=== PATIENT | male | born 1935 | race Caucasian/White ===

== ENCOUNTER → 2019-06-05 00:01 | Outpatient (BNVA) | payer MEDICARE, OTHER, SELFPAY | PROVIDERS: PCP Nurse Practitioner Family; Visit Provider Nurse Practitioner Family | DX: J44.1 Chronic obstructive pulmonary disease with (acute) exacerbation (principal) | CPT/HCPCS: 71046; 81003; 85025 ==

== ENCOUNTER 2019-07-10 12:58 | Emergency (ER) | payer MEDICARE, OTHER, SELFPAY ==
[2019-07-10] VITALS (43 sets, daily range): BP systolic 139–162; BP diastolic 73–109; PULSE 59–107; RESP 7–26; TEMP 36.8; O2SAT 91–100; BMI 24.3
--- NOTE | 2019-07-10 13:14 | ED_ITS ---
Entered by Juancarlos Vicente, acting as scribe for HPI - Abdominal Pain General: Chief Complaint: Abdominal Pain Stated Complaint: ABDOMINAL PAIN,HX ABD AORTIC STENT Time Seen by Provider: 07/10/19 13:16 History of Present Illness: HPI narrative: 84 yo male presents with abd pain. Pt states that he had been constipated for a few days, he had a bowel movement today. Pt states that he noticed pain after he had the bowel movement, after the bowel movement is not was able to eat or drink anything is not had any further bowel movements denies hematochezia melena hematemesis coffee-ground emesis has had a bulging on the right groin MD elicited complaint: abdominal pain Pertinent past history: other Onset (ago): minute(s) Pain Consistency: constant Location: Diffuse Severity: moderate Quality: cramping Associated Symptoms: Denies chills, coffee ground emesis, constipation, GI cramping, diarrhea, dysuria, fever(s), heartburn, hematochezia, hematuria, hematemesis, melena, nausea, syncope and vomiting Review of Systems Const: Denies: fever, chills, body aches, fatigue, malaise or night sweats Eyes: Denies: change in vision or blurry vision ENMT: Denies: throat pain, oral sores/lesions, dental pain, nasal discharge or nasal congestion Card: Denies: chest pain, palpitations, irregular heart rhythm, edema, syncope, shortness of breath on exertion, shortness of breath when lying down or leg pain with exertion Resp: Denies: shortness of breath, productive cough, non-productive cough or wheezing GI: Reports: abdominal pain; Denies: nausea, vomiting, vomiting blood, coffee grounds in vomit, difficulty swallowing, heartburn/indigestion, diarrhea, constipation, cramping, blood in stool or black tarry stool : Denies: flank pain, difficulty urinating, painful urination, urinary frequency, urinary urgency, urinary incontinence or blood in urine Musc: Denies: neck pain, back pain, extremity pain, extremity swelling, joint pain or joint swelling Skin/Breast: Denies: rash, itching or redness Neuro: Denies: headache, numbness in extremities, weakness in extremities, changes in sensation, lack of coordination, difficulty walking, frequent falls, dizziness, vertigo or confusion Psych: Denies: anxiety, depression, loss of interest, visual hallucinations, auditory hallucinations, suicidal ideation or homicidal ideation Endo: Denies: excessive urination, excessive thirst, tired all the time or cold intolerance Scotty/Lymph: Denies: easy bruising, easy bleeding, petechiae, enlarged lymph nodes or tender lymph nodes PFSH ED PFSH: Statuses (acute, chronic, etc) shown below reflect problem list status as previously entered and may not be historically accurate Medical History (Updated 07/10/19 @ 17:09 by Gregorio Napier DO) Anemia (Acute) Aneurysm of infrarenal abdominal aorta (Acute) Chronic episodic atrial fibrillation (Acute) Chronic GERD (Acute) Chronic lymphocytic 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 (Acute) COPD (chronic obstructive pulmonary disease) (Acute) Dermatomyositis (Acute) Diverticulitis (Acute) Hiatal hernia (Acute) History of adenomatous polyp of colon (Acute) History of pulmonary embolism (Acute) Hypertension (Acute) Iron refractory iron deficiency anemia (Acute) Mixed hyperlipidemia (Acute) Osteopenia (Acute) Polymyalgia rheumatica (Acute) Statin intolerance (Acute) Upper GI bleed (Acute) Surgical History History of aortic aneurysm repair (Acute) Family History Mother Cancer Brother Hypertension Social History Smoking and tobacco status: current every day smoker Lives independently: Yes Household members: spouse Marital status: Physical Exam Const: COMMON NORMALS: average body habitus, oriented x3 and alert GENERAL APPEARANCE: cooperative, comfortable, well kempt and well developed NUTRITIONAL APPEARANCE: obese ORIENTATION/CONSCIOUSNESS: Yes awake, Yes oriented to person and Yes oriented to place HENMT: COMMON NORMALS: normocephalic, head/scalp atraumatic, EAC's normal, TM's normal bilaterally, external nose normal, moist oral mucous membranes and oropharynx normal HEAD & SCALP: normocephalic and atraumatic NOSE: external nose normal EXTERNAL AUDITORY CANAL: EAC's normal TYMPANIC MEMBRANE: TM's normal bilaterally MOUTH: oral and palatal mucosa normal, lip normal and tongue normal THROAT: posterior oropharynx normal and tonsils normal Eye: COMMON NORMALS: PERRL, EOMs intact bilaterally, conjunctivae normal and no scleral icterus CONJUNCTIVA: Yes conjunctivae normal PUPIL: Yes PERRL Neck/C-Spine: COMMON NORMALS: full ROM, no lymphadenopathy, supple, no meningeal signs and thyroid normal THYROID: thyroid normal and asymmetrical Lymph: LYMPHATIC: no lymphadenopathy noted Resp: COMMON NORMALS: normal respiratory effort, no retractions, no use of accessory muscles and clear to auscultation bilaterally AUSCULTATION: clear to auscultation bilaterally Cardio: COMMON NORMALS: regular rate and regular rhythm RATE: regular rate RHYTHM: regular rhythm HEART SOUNDS: no murmurs GI: COMMON NORMALS: normal to inspection, nondistended, normoactive bowel sounds, soft to palpation and no hepatosplenomegaly PALPATION: Yes soft and Yes no hepatosplenomegaly : COMMON NORMALS: Yes no CVA tenderness BLADDER/KIDNEY EXAM: Yes no CVA tenderness Back/Pelvis: COMMON NORMALS: no CVA tenderness LUMBAR SPINE/LOWER BACK: Yes normal to inspection Extremity: COMMON NORMALS: no clubbing, cyanosis or edema, no calf tenderness and no pedal edema Neuro: COMMON NORMALS: oriented x3 SENSORIUM/ORIENTATION: Yes alert, Yes oriented to person and Yes oriented to place MENINGEAL SIGNS: Yes no meningeal signs Psych: APPEARANCE: Yes well kempt Skin: COMMON NORMALS: no rashes or lesions noted and skin turgor normal GENERAL SKIN EXAM: no rashes or lesions noted and turgor normal Course ED course: After reduction of the hernia patient is feeling much better his abdominal pain resolved there was some slight colon swelling on the CT discussed Dr. Blackmon he does not feel be safe to proceed with the surgery now we will have her follow-up with Dr. Blackmon next week discussed with the patient this hernia could recur reviewed with him how to reduce it again if it is not reducible or becomes too painful return to the ER Vital Signs: Vital signs: Vital Signs Temperature 98.3 F 07/10/19 13:02 Pulse Rate 98 07/10/19 16:35 Respiratory Rate 21 H 07/10/19 16:35 Blood Pressure 161/92 07/10/19 16:40 Pulse Oximetry 100 07/10/19 15:30 MDM - Abdominal Pain Lab Data: Labs: Lab Results 07/10/19 07/10/19 07/10/19 Range/Units 13:55 13:55 13:55 WBC 42.1 H* (4.0-10.0) 10^3/ uL RBC 4.04 L (4.1-5.3) 10^6/u L Hgb 10.5 L (11.7-16.6) g/dL Hct 34.3 L (42.0-52.0) % MCV 84.9 (80-94) fL MCH 26.0 L (28.0-34.0) pg MCHC 30.6 (30.0-36.0) g/dL RDW 15.4 H (12.1-15.1) % Plt Count 99 L (130-400) 10^3/c mm MPV 8.9 (7.4-10.4) fL Neut % (Auto) 7.9 % Lymph % (Auto) 90.1 % Durham % (Auto) 1.2 % Eos % (Auto) 0.4 % Baso % (Auto) 0.2 % Neut # (Auto) 3.4 (1.8-7.7) 10^3/u L Lymph # (Auto) 37.9 H (0.8-4.8) 10^3/u L Durham # (Auto) 0.5 (0.2-0.9) 10^3/u L Eos # (Auto) 0.2 (0.0-0.8) 10^3/u L Baso # (Auto) 0.1 (0.0-0.1) 10^3/u L Nucleated RBC % (a uto) 0 % Nucleated RBCs # 0.0 /100WBC Sodium 138 (136-145) mmol/L Potassium 4.2 (3.5-5.1) mmol/L Chloride 98 (98-107) mmol/L Carbon Dioxide 33 H (22-29) mmol/L Anion Gap 11.2 (5-19) BUN 15 (8-23) mg/dL Creatinine 1.2 (0.7-1.2) mg/dL Glucose 115 (65-115) mg/dL Lactate 0.7 (0.5-2.2) mmol/L Calcium 9.9 (8.5-10.5) mg/dL Phosphorus 3.3 (2.5-4.5) mg/dL Magnesium 2.5 H (1.7-2.3) mg/dL Total Bilirubin 0.3 (0.15-1.2) mg/dL AST 16 (0-40) U/L ALT 7 (0-41) U/L Alkaline Phosphata se 107 (40-130) IU/L Creatine Kinase 21 L (39-308) U/L NT-Pro-B Natriuret Pep 1964 H (0-450) pg/mL Total Protein 6.7 (6.6-8.7) g/dL Albumin 4.2 (3.5-5.2) g/dL Globulin 2.5 (1.3-4.6) g/dL Lipase 7 L (13-60) U/L TSH 2.85 (0.27-4.20) uIU/ mL Urine Color (Yellow) Urine Appearance (CLEAR) Urine pH (5-7) Ur Specific Gravit y (1.005-1.030) Urine Protein (Negative) Urine Glucose (UA) (Normal) Urine Ketones (Negative) Urine Occult Blood (Negative) Urine Nitrate (Negative) Urine Bilirubin (NEGATIVE) Prot Sulfosalicyli c Acd Urine Urobilinogen (Negative) mg/dL Ur Leukocyte Meche ase (Negative) 07/10/19 Range/Units 14:06 WBC (4.0-10.0) 10^3/ uL RBC (4.1-5.3) 10^6/u L Hgb (11.7-16.6) g/dL Hct (42.0-52.0) % MCV (80-94) fL MCH (28.0-34.0) pg MCHC (30.0-36.0) g/dL RDW (12.1-15.1) % Plt Count (130-400) 10^3/c mm MPV (7.4-10.4) fL Neut % (Auto) % Lymph % (Auto) % Durham % (Auto) % Eos % (Auto) % Baso % (Auto) % Neut # (Auto) (1.8-7.7) 10^3/u L Lymph # (Auto) (0.8-4.8) 10^3/u L Durham # (Auto) (0.2-0.9) 10^3/u L Eos # (Auto) (0.0-0.8) 10^3/u L Baso # (Auto) (0.0-0.1) 10^3/u L Nucleated RBC % (a uto) % Nucleated RBCs # /100WBC Sodium (136-145) mmol/L Potassium (3.5-5.1) mmol/L Chloride (98-107) mmol/L Carbon Dioxide (22-29) mmol/L Anion Gap (5-19) BUN (8-23) mg/dL Creatinine (0.7-1.2) mg/dL Glucose (65-115) mg/dL Lactate (0.5-2.2) mmol/L Calcium (8.5-10.5) mg/dL Phosphorus (2.5-4.5) mg/dL Magnesium (1.7-2.3) mg/dL Total Bilirubin (0.15-1.2) mg/dL AST (0-40) U/L ALT (0-41) U/L Alkaline Phosphata se (40-130) IU/L Creatine Kinase (39-308) U/L NT-Pro-B Natriuret Pep (0-450) pg/mL Total Protein (6.6-8.7) g/dL Albumin (3.5-5.2) g/dL Globulin (1.3-4.6) g/dL Lipase (13-60) U/L TSH (0.27-4.20) uIU/ mL Urine Color Yellow (Yellow) Urine Appearance Clear (CLEAR) Urine pH 8 H (5-7) Ur Specific Gravit y 1.005 (1.005-1.030) Urine Protein Neg (Negative) Urine Glucose (UA) Norm (Normal) Urine Ketones Negative (Negative) Urine Occult Blood Neg (Negative) Urine Nitrate Negative (Negative) Urine Bilirubin Neg (NEGATIVE) Prot Sulfosalicyli c Acd Negative Urine Urobilinogen Norm (Negative) mg/dL Ur Leukocyte Meche ase Negative (Negative) Discharge Plan Discharge Patient Disposition: Home, Self-Care Clinical Impression: Hernia, inguinal, right, Incarcerated hernia, Chronic lymphocytic leukemia Condition: Stable Prescriptions: No Action albuterol sulfate 2.5 mg /3 mL (0.083 %) solution for nebulization 2.5 mg INHALATION QID RF: 0 sotalol 80 mg tablet 80 mg PO BID RF: 0 prednisone 2.5 mg tablet 2.5 mg PO DAILY RF: 0 lorazepam 0.5 mg tablet 0.5 mg PO TID PRNRF: 0 hydrochlorothiazide 25 mg tablet 25 mg PO QAM RF: 0 magnesium oxide 400 mg magnesium tablet 400 mg PO DAILY RF: 0 tramadol 50 mg tablet 50 mg PO BID PRNRF: 0 alfuzosin 10 mg tablet extended release 24 hr 10 mg PO DAILY RF: 0 pantoprazole 40 mg tablet,delayed release (DR/EC) 40 mg PO QAM RF: 0 sucralfate [Carafate] 100 mg/mL suspension 10 ml PO BID RF: 0 simvastatin 20 mg tablet 20 mg PO DAILY RF: 0 polyethylene glycol 3350 [Miralax] 17 gram powder in packet 17 gm PO DAILY RF: 0 meclizine 12.5 mg tablet See Rx Instructions PO .COMPLEX RF: 0 fluconazole [Diflucan] 150 mg tablet 150 mg PO Q3D Qty: 2 RF: 0 Discharge Orders: Discharge Order (Routine); Ordered 07/10/19 Ordered By: Gregorio Napier Referrals: Herman Blackmon MD [Physician] - (Repair of right inguinal hernia) Discharge Diet: Full LIquid Discharge Activity: Limit activity as instructed Activity Restrictions/Additional Instructions: No lifting greater than 10 pounds. Generalized rest. Case management will call with an appointment with general surgery for repair of your hernia Coding Level of Care Code ED Buoy Tender for g Fwd Exam Problem Focused The documentation recorded by the Jules calderon Kialy, accurately reflects the service I personally performed and the decisions made by Quyen hope Curtis L, DO Jul 10, 2019 12:58
[2019-07-10] MEDS: sodium chloride 0.9% 500 ML IV (13:30)
--- NOTE | 2019-07-10 13:33 | CTR_ITS ---
PROCEDURE INFORMATION: Exam: CT Abdomen And Pelvis With Contrast Exam date and time: 07/10/2019 3:00 PM Age: 84 years old Clinical indication: Abdominal pain; Acute; Prior surgery; Surgery date: 6+ months; Surgery type: Aaa choley; Additional info: Abd pain TECHNIQUE: Imaging protocol: Computed tomography of the abdomen and pelvis with intravenous contrast. Total DLP: 605.28 mGy-cm Radiation optimization: All CT scans at this facility use at least one of these dose optimization techniques: automated exposure control; mA and/or kV adjustment per patient size (includes targeted exams where dose is matched to clinical indication); or iterative reconstruction. Contrast material: OMNI; Contrast volume: 95 ml; Contrast route: IV; COMPARISON: CT abdomen pelvis w con* [id number] 01/16/2019 12:32 PM FINDINGS: Lungs: Nonspecific bibasilar consolidation is present, consistent with atelectasis, edema, or pneumonia. There is also peribronchial thickening with some bronchiectasis and mild mucous plugging in both lower lobes. Liver: Unchanged liver lesions are noted. The largest is in the left hepatic lobe image 11 measuring 2.7 by 1.8 cm in size. This has fluid density Hounsfield unit measurements and is a probable cyst. Additional hypodense lesion in the posterior right lobe of the liver image 25 measures 1.5 by 1.4 cm in size and Hounsfield unit measurement is indeterminate at 55. Additional tiny hepatic hypodensities are too small to characterize but unchanged in size. Gallbladder and bile ducts: Click cholecystectomy mild intrahepatic biliary duct dilatation is unchanged and may reflect postoperative reservoir changes. Pancreas: Normal. No ductal dilation. Spleen: Unchanged splenomegaly and splenic granulomata. Adrenals: Normal. No mass. Kidneys and ureters: There is no evidence of hydronephrosis. There is no evidence of renal calcifications. There is an unchanged 4.1 cm fluid density cyst upper pole left kidney. Additional 1.7 cm fluid density cyst posterior lower pole right kidney is noted. No new or enlarging renal lesions. Additional smaller and subcentimeter renal cortical hypodensities are unchanged. Stomach and bowel: The right inguinal hernia is larger. There is more fat and a longer segment of bowel within the hernia. No bowel obstruction but there is fluid within the hernia and mild induration of the fat concerning for early incarceration of the loop of bowel or fat within the hernia. Extensive diverticulosis is present in the distal colon. The wall of the ascending and transverse colon appears mildly thickened but the segment of bowel is also collapsed and this may simply be lack of distension. Mild colitis cannot be excluded. No diverticulitis is identified. No ileus or obstruction. No dilated or thickened loops of small bowel. Appendix: A normal appendix is identified. Intraperitoneal space: Unremarkable. No free air. No significant fluid collection. Vasculature: The aortic endograft is again identified. No endoleak is identified on this exam. No retroperitoneal fluid. The aneurysm sac measures 5.3 x 5.0 cm image 42. On the prior exam, the sac measured 5.1 x 4.7 cm. The endo graft and aneurysm is otherwise unchanged in appearance. Lymph nodes: Multiple retroperitoneal lymph nodes are unchanged in appearance compared to the prior exam as are multiple lymph nodes in the jah hepatis/upper abdomen with the largest on image 18 measuring 1.9 by 2.6 cm today decrease in the prior exam where measured 2.3 x 3.2 cm. Additional lymph nodes in the jah hepatis are slightly smaller. Retroperitoneal lymph nodes have not changed significantly in appearance. External iliac chain lymph nodes are also identified with 1 the largest along the right pelvic sidewall image 68 is slightly larger today measuring 2.2 x 5.6 cm compared to 2.0 x 5.1 cm previously. Numerous inguinal lymph nodes are identified measuring up to 1 cm in short axis today compared 8 mm previously. Bladder: There is nonspecific bladder wall thickening. This may be related to incomplete distention. Reproductive: The prostate demonstrates moderate nonspecific enlargement. The seminal vesicles are normal. The prostate demonstrates nonspecific parenchymal calcifications. Bones/joints: Osteopenia and severe degenerative changes in the right hip and moderate to severe degenerative changes in the spine and the remainder of the pelvis are noted. No acute fracture. Soft tissues: There is a tiny fat filled umbilical hernia. Other findings: There are moderate emphysematous changes. CT/CT abdomen pelvis w con* [id number] IMPRESSION: 1. Nonspecific bibasilar consolidation is present, consistent with atelectasis, edema, or pneumonia. 2. Mild bronchiectasis and mucous plugging as above. 3. Endograft within the distal abdominal aortic aneurysm. The measurement of the aneurysm sac is slightly larger but no endoleak is identified. No retroperitoneal fluid. 4. Improved size of adenopathy in the upper abdomen. Stable retroperitoneal adenopathy. Increasing adenopathy in the pelvis and right groin. 5. Larger right inguinal hernia. No obstruction of the longer segment of bowel within the hernia but there is adjacent fluid and mild induration of fat concerning for early incarceration of the hernia. 6. Unchanged liver cyst and indeterminate lesion in the posterior right lobe of the liver. 7. Mild colitis versus lack of distension ascending and transverse colon. Radiation Dose CTDIVOL = (mGy): DLP = 605.28 (mGy-cm)
[2019-07-10 14:06] LABS: Basophils # 0.1 10^3/uL (0.0-0.1); Basophils % 0.2 %; Eosinophils # 0.2 10^3/uL (0.0-0.8); Eosinophils % 0.4 %; Hematocrit 34.3 % (42.0-52.0); Hemoglobin 10.5 g/dL (11.7-16.6); Lymphocytes # 37.9 10^3/uL (0.8-4.8); Lymphocytes % 90.1 %; Mean Corpuscular HGB Conc 30.6 g/dL (30.0-36.0); Mean Corpuscular Volume 84.9 fL (80-94); Mean Platelet Volume 8.9 fL (7.4-10.4); Monocytes # 0.5 10^3/uL (0.2-0.9); Monocytes % 1.2 %; Neutrophils # 3.4 10^3/uL (1.8-7.7); Neutrophils % 7.9 %; Nucleated Red Blood Cells % 0 %; Platelet Count 99 10^3/cmm (130-400); Red Blood Count 4.04 10^6/uL (4.1-5.3); Red Cell Distribution Width 15.4 % (12.1-15.1)
[2019-07-10 14:25] LABS: Lactate (Lactic Acid level) 0.7 mmol/L (0.5-2.2)
[2019-07-10 14:27] LABS: Add Urine Microscopic? NO
--- NOTE | 2019-07-10 14:28 | PC.NURSE ---
Attempted to ambulate patient , alida tis confused and says ok but continues to try to get up by himself and pulling on lines, Dr. maloney.
[2019-07-10 14:36] LABS: Alanine Aminotransferase 7 U/L (0-41); Albumin Level 4.2 g/dL (3.5-5.2); Alkaline Phosphatase 107 IU/L (40-130); Anion Gap 11.2 (5-19); Aspartate Amino Transferase 16 U/L (0-40); Blood Urea Nitrogen 15 mg/dL (8-23); Calcium 9.9 mg/dL (8.5-10.5); Carbon Dioxide 33 mmol/L (22-29); Chloride 98 mmol/L (98-107); Creatine Phosphokinase 21 U/L (39-308); Globulin 2.5 g/dL (1.3-4.6); Glucose 115 mg/dL (65-115); Lipase 7 U/L (13-60); Magnesium 2.5 mg/dL (1.7-2.3); NT Pro B Type Natriuretic Pept 1964 pg/mL (0-450); Phosphorus 3.3 mg/dL (2.5-4.5); Potassium 4.2 mmol/L (3.5-5.1); Sodium 138 mmol/L (136-145); Thyroid Stimulating Hormone 2.85 uIU/mL (0.27-4.20); Total Bilirubin 0.3 mg/dL (0.15-1.2); Total Protein 6.7 g/dL (6.6-8.7)
[2019-07-10 14:43] LABS: Bilirubin Urine Neg (NEGATIVE); Blood Urine Neg (Negative); Glucose Urine UA Norm (Normal); Ketones Urine Negative (Negative); Leukocyte Esterase Urine Negative (Negative); Nitrate Urine Negative (Negative); Protein Urine Neg (Negative); Specific Gravity, Urine 1.005 (1.005-1.030); Sulfosalicylic Acid Urine Negative; Urine Appearance Clear (CLEAR); Urine Color Yellow (Yellow); Urobilinogen Urine Norm (Negative); pH Urine 8 (5-7)
[2019-07-10 14:49] LABS: Slide Review Slide Review Perform
[2019-07-10 14:52] LABS: White Blood Count 42.1 10^3/uL (4.0-10.0)
[2019-07-10] MEDS: iodixanol 320 mg/mL 100mL Btl 95 ML IV (15:14)
--- NOTE | 2019-07-13 11:16 | DCPLANNER ---
associate store manager had message to schedule a follow up appointment for patient with Dr. Blackmon. associate store manager called patient to speak with patient about a follow up appointment with Dr. Blackmon or [facility]. [facility] office would not be able to see patient until the end of July. Patient stated that he would like to see [facility]. A follow up appointment is scheduled for Saturday, July 22, 2019 at 3:[address] Squires. Patient is aware of appointment.
--- NOTE | 2019-08-04 14:36 | DCPLANNER ---
Patient did attend appointment scheduled for 07.13.19 with Grounds Cleaner.
== END 2019-07-10 17:20 | disposition home or self-care (01) ==
PROVIDERS: Emergency Provider Family Medicine
DX: K40.30 Unilateral inguinal hernia, with obstruction, without gangrene, not specified as recurrent (principal); C91.Z0 Other lymphoid leukemia not having achieved remission; I48.20 Chronic atrial fibrillation, unspecified; J44.9 Chronic obstructive pulmonary disease, unspecified; I10 Essential (primary) hypertension; E78.2 Mixed hyperlipidemia; F17.210 Nicotine dependence, cigarettes, uncomplicated; K21.9 Gastro-esophageal reflux disease without esophagitis
CPT/HCPCS: 74177; 80053; 81003; 82550; 83605; 83690; 83735; 83880; 84100; 84443; 85025; 96360; 96361; 99284; J7040; Q9967

== ENCOUNTER 2019-07-20 15:33 | Observation (INO) | payer MEDICARE, OTHER, SELFPAY ==
[2019-07-16 12:44] VITALS: BMI 24.3
--- NOTE | 2019-07-16 13:04 | ANES.PREANE2 ---
Pre-Anesthetic Assessment Pre-Anesthetic Assessment: Height/Weight: Height 1.7 m Weight 70.307 kg Preop Diagnosis: Right inguinal hernia Proposed Procedure: Operation Date: 07/20/19 08:15 Proposed Procedures p Inguinal Hernia Repair [id number] K40.90(Right) - Larry Squires MD Social: Packs per day: 1/4 Pack years: 100 Exam: Pre-Anes Outpt Exam: alert and oriented x 3 Airway: Submandibular: WNL Cervical ROM: WNL MP: 1 Dentition: False Pulmonary: Pulmonary: COPD (home 02 @ 2-4lpm x 7 years) CV/HEM: CV/HEM: Afib and Arrythmia Comments: afib x 10years stress test '18 negative -09 cath negative GI: GI: GERD Comments: bowel leakage sucralfate controls GERD Metabolic: Metabolic: Thyroid Comments: replacement x 1y Musc/skel: Musc/skel: Lower Back Pain PFSH Anesthesia PFSH: Surgical History (Updated 07/13/19 @ 16:48 by Larry Squires MD) History of aortic aneurysm repair History of colonoscopy with polypectomy Social History Smoking and tobacco status: current every day smoker Lives independently: Yes Household members: spouse Marital status: Data Anesthesia Cardiac Studies: No Data to Display
[2019-07-20] VITALS (18 sets, daily range): BP systolic 125–178; BP diastolic 68–97; PULSE 58–100; RESP 16–22; TEMP 36.6–37.3; O2SAT 63–99
[2019-07-20] MEDS: sodium chloride 0.9% 1,000 ML 30 ML IV (07:21)
[2019-07-20] MEDS: vancomycin 1,000 MG in sodium chloride 0.9% 250 ML 250 MG IV (07:24)
[2019-07-20] MEDS: midazolam 1 mg/mL INJ 2 mL 2 MG IVP (08:49)
--- NOTE | 2019-07-20 08:54 | W.PM.OPSUD ---
Surgery/Procedure H&P Update DATE OF PROCEDURE: July 20, 2019 DATE H&P PERFORMED: 07/13/19 H&P UPDATE INFORMATION: H&P completed within last 30 days and No changes to prior documentation PREOP DIAGNOSIS: Right inguinal hernia PLANNED PROCEDURE: Operation Date: 07/20/19 08:15 Proposed Procedures p Inguinal Hernia Repair [id number] K40.90(Right) - Larry Squires MD
[2019-07-20] MEDS: lidocaine 1% INJ 20 mL SUBCUT (09:49)
--- NOTE | 2019-07-20 10:10 | PM.OP ---
Operative Report Date of procedure: July 20, 2019 Pre-op Diagnosis: Right inguinal hernia Post-op Diagnosis: Direct and indirect inguinal hernia Procedure Done: Open repair of direct and indirect right inguinal hernia with plug and mesh Specimens removed/disposition: Hernia sac Surgeon: Larry Squires Anesthesia: General Estimated blood loss (mL): 10 Condition: stable Disposition: PACU Procedure: A 5 cm incision was made over the right inguinal canal using 15 blade, the subcutaneous tissue, Lindsey's fascia divided using electrocautery until the external oblique aponeurosis was identified. Using a 15 blade, a small opening was made in the external oblique aponeurosis along the length of the fibers, this was grasped with hemostats and opened using Metzenbaum scissors medially to the external ring and laterally beyond the internal ring. The contents of inguinal canal were dissected free from the wall and a Malik drain was placed around it. There was no direct hernia noted. The cremasteric muscles were divided until the sac could be dissected free from the spermatic cord and reduced into the preperitoneal space after excising the excess sac. A small plug was placed in the internal ring and sutured using 2-0 Prolene [id number] suture. A Proloop mesh was introduced and using 2-0 Prolene suture the medial edge of the mesh were sutured to the fascia overlying the pubic tubercle, and the suture was run to approximate the inferior edge of the mesh to the shelving edge of inguinal ligament to a point beyond the internal ring. Interrupted 2-0 Prolene suture was used to approximate the superior edge of the mesh to the internal oblique muscles and the 2 limbs of the mesh was sutured lateral to the internal ring and approximated to the internal oblique muscle. The wound was copiously irrigated with saline, good hemostasis noted and the external oblique aponeurosis was closed with running 2-0 Vicryl suture, Lindsey's fascia approximated using running 3-0 Vicryl suture, and skin was closed using running subcuticular 4-0 Monocryl suture and Dermabond. 20 mL of 0.5% Marcaine mixed with 1% lidocaine was infiltrated around the incision. The patient was extubated and transferred recovery room in stable condition.
[2019-07-20] MEDS: HYDROcodone-acetaminophen 5-325 mg Tablet 1 TAB PO (11:14)
[2019-07-20] MEDS: sotalol 80 mg Tablet PO ×2 (12:18→18:22)
[2019-07-20] MEDS: hydroCHLOROthiazide 25 mg Tablet 12.5 MG PO (13:33)
[2019-07-20] MEDS: docusate sodium 100 mg Capsule PO (18:21)
[2019-07-20] MEDS: pantoprazole DR 40 mg Tablet PO (18:21)
[2019-07-20] MEDS: magnesium oxide 400 mg tablet PO (18:21)
[2019-07-20] MEDS: TRAMadol 50 mg Tablet PO (18:22)
[2019-07-20] MEDS: sucralfate 1 gm/10 mL Oral Liq UDC PO (18:22)
[2019-07-20] MEDS: sodium chloride 0.9% 1,000 ML 50 ML IV (18:26)
[2019-07-20] MEDS: meclizine 25 mg tablet 50 MG PO (21:36)
[2019-07-21 03:39] VITALS: BP 152/79; PULSE 98; RESP 18; TEMP 37.4; O2SAT 94
[2019-07-21] MEDS: hydroCHLOROthiazide 25 mg Tablet 12.5 MG PO (05:14)
[2019-07-21] MEDS: meclizine 25 mg tablet PO (05:14)
[2019-07-21] MEDS: enoxaparin 40 mg/0.4 mL Syringe SUBCUT (05:15)
[2019-07-21 07:25] VITALS: BP 134/59; PULSE 73; RESP 18; TEMP 36.7; O2SAT 95
[2019-07-21] MEDS: TRAMadol 50 mg Tablet PO ×2 (07:56→17:28)
[2019-07-21] MEDS: alfuzosin 10 mg ER Tablet PO (08:03)
[2019-07-21] MEDS: magnesium oxide 400 mg tablet PO ×2 (08:04→17:26)
[2019-07-21] MEDS: docusate sodium 100 mg Capsule PO ×2 (08:04→17:26)
[2019-07-21] MEDS: predniSONE 5 mg Tablet 2.5 MG PO (08:04)
[2019-07-21] MEDS: sotalol 80 mg Tablet PO ×2 (08:04→17:27)
[2019-07-21] MEDS: sucralfate 1 gm/10 mL Oral Liq UDC PO ×2 (08:04→17:28)
[2019-07-21] MEDS: pantoprazole DR 40 mg Tablet PO ×2 (08:04→17:26)
[2019-07-21 09:42] VITALS: PULSE 75; O2SAT 98
[2019-07-21 10:50] VITALS: BP 118/52; PULSE 94; RESP 20; TEMP 36.6; O2SAT 96
--- NOTE | 2019-07-21 11:11 | P.DS_ITS ---
Discharge Providers Date of Admission: 07/20/19 15:33 Date of Discharge: July 21, 2019 Attending Provider at Admission: Larry Squires MD Attending Provider at Discharge: Larry Squires MD Primary Care Provider: Naseem Conte MD Diagnoses at Discharge Discharge Diagnosis (1) Status post right inguinal hernia repair: Status: Acute Reason for Visit Reason for Visit: Reason For Visit: Rigth inguninal hernia repair Hospital Course Discharge Summary: The patient underwent open right inguinal hernia repair with mesh. Patient is admitted overnight for pain control. At time of discharge he was tolerating a regular diet, ambulating with assistance. We will arrange for home health since he lives alone Physical Exam Narrative: EXAM NARRATIVE: Abdomen soft, nontender, nondistended Discharge Data Vitals: Last Vital Signs Temp 97.9 F 07/21/19 10:50 Pulse 94 07/21/19 10:50 Resp 20 H 07/21/19 10:50 BP 118/52 07/21/19 10:50 Pulse Ox 96 07/21/19 10:50 Discharge Plan Discharge Condition: Stable Prescriptions: [place] 5-325 mg tablet 1 tab PO Q6H 7 Days Qty: 20 RF: 0 Colace 100 mg capsule 100 mg PO BID Qty: 30 RF: 0 Continued albuterol sulfate 2.5 mg /3 mL (0.083 %) solution for nebulization 2.5 mg INHALATION BID PRN (Reason: Shortness Of Breath) RF: 0 sotalol 80 mg tablet 80 mg PO BID RF: 0 prednisone 2.5 mg tablet 2.5 mg PO DAILY RF: 0 lorazepam 0.5 mg tablet 0.5 mg PO TID PRN (Reason: Anxiety) RF: 0 hydrochlorothiazide 25 mg tablet 12.5 mg PO QAM RF: 0 magnesium oxide 400 mg magnesium tablet 400 mg PO BID RF: 0 tramadol 50 mg tablet 50 mg PO BID PRN (Reason: Pain, Mild) RF: 0 alfuzosin 10 mg tablet extended release 24 hr 10 mg PO DAILY RF: 0 pantoprazole 40 mg tablet,delayed release (DR/EC) 40 mg PO BID RF: 0 sucralfate [Carafate] 100 mg/mL suspension 10 ml PO BID RF: 0 meclizine 12.5 mg tablet See Rx Instructions PO .COMPLEX RF: 0 Referrals: Larry Squires MD [Physician] - 2 weeks (follow up Dr. Squires on July 27 at 3:30) Naseem Conte MD [Primary Care Provider] - Patient Instructions: Post Anesthesia Care Activity Restrictions/Additional Instructions: 1. Up and walking as tolerated. 2. Ok to shower in 48 hours after surgery. 3. Remove Dermabond dressing in 7-10 days. 4. Do not lift more than 10 pounds. 5. Do not operate heavy machinery or drive while using pain medications. 6. Advised to return to ER or contact my office if there are any signs of infection like, increasing pain, fevers, chills, redness or drainage of pus. Discharge Attestations Time Spent in Discharge Care*: less than 30 min Quality Metrics Clinical Quality Measures During this hospital stay, did patient experience: None Coding Level of Care Code Acute Playground Official for Dominickg Fwd Diagnoses Status post right inguinal hernia repair Z98.890; Z87.19
--- NOTE | 2019-07-21 13:53 | ANE.PACU2 ---
 Inpatient post-anesthesia follow up: Airway intact: Yes Vital signs: Temperature 97.9 F Pulse Rate 94 Respiratory Rate 20 Blood Pressure 118/52 Pulse Oximetry 96 Oxygen Delivery Me thod [ Nasal Cannula Current Rate & Del kylah] Oxygen Delivery Me thod Nasal Cannula Oxygen Flow Rate [ Current Rate 2 & Delivery] Oxygen Flow Rate 2 Fraction of Inspir ed Oxygen Hydration adequate: Yes Nausea and vomiting: No Pain level: 2 Mental status: Baseline
--- NOTE | 2019-07-21 14:32 | PC.CHAP ---
Pastoral Care Encounter/Spiritual Assessment Type of Contact [] Declined event organizer visit [] Patient/Family/Request visit [] Outpatient visit [] Follow-up visit [] Physician referral [] Code/Alert [x] Routine visit [] Staff referral [] Actively dying [] Patient sleeping [] Family support [] [] Out of room [] Palliative care [] [] Receiving care in room [] Pre-surgical visit [] Trauma [] Long length of stay [] ICU visit [] Other: Relational/Emotional Strength [x] Patient feels connected with others/family/visitors/staff [] Distress [] Loneliness/isolation [] Abandonment Spirituality of Patient [] Person of Mirtha [] Attends Synagogue of their Mirtha [x] Believes in Prayer [] Reads Bible or Sikh materials [] There are Spiritual issues to be addressed [facility] Interventions [x] Prayer [x] Active listening [x] Non-anxious presence [x] Spiritual/emotional support [] Crisis/trauma care [] Spiritual counseling [] Bereavement support [] Provided bereavement packet [] Provided Bible/devotional materials [] Provided toy/stuffed animal, coloring book to patient or family member [] Provided Communion [] Anointing/[place] [] Salvation [x] Completed spiritual assessment [] Other: Impact on Illness or Injury [] Angry [] Fearful [] Anxious [] Often cries [] Exhaustion [] Unable to work [] Unable to attend muslim [] Unable to walk/stand [] Unable to read [] Unable to drive [] Unable to eat/drink [] Unable to sleep [] Unable to be with family [] Patient intubated [] Other: Summary Patient has no needs at this time. Time spent with patient min
[2019-07-21 15:00] VITALS: BP 127/56; PULSE 62; RESP 16; TEMP 36.9; O2SAT 97
[2019-07-21 19:00] VITALS: BP 100/51; PULSE 67; RESP 18; TEMP 36.6; O2SAT 96
[2019-07-21] MEDS: meclizine 25 mg tablet 50 MG PO (21:26)
--- NOTE | 2019-07-22 00:17 | PC.NURSE ---
Patient refused his midnight vital signs to be checked. Nurse been notified.
[2019-07-22 03:00] VITALS: BP 120/62; PULSE 64; RESP 18; TEMP 37; O2SAT 97
[2019-07-22] MEDS: meclizine 25 mg tablet PO (05:28)
[2019-07-22] MEDS: hydroCHLOROthiazide 25 mg Tablet 12.5 MG PO (05:29)
[2019-07-22] MEDS: TRAMadol 50 mg Tablet PO (05:34)
[2019-07-22] MEDS: magnesium oxide 400 mg tablet PO (05:35)
[2019-07-22] MEDS: enoxaparin 40 mg/0.4 mL Syringe SUBCUT (05:38)
--- NOTE | 2019-07-22 06:59 | PM.PN ---
Subjective Subjective: Interval history: Date of encounter: 07/21/2019 patient has been doing well, ambulating, tolerating regular diet but he does not want to go home Medications: Reviewed: Yes Vitals/I&O/Wt Last Vital Signs Temp 98.6 F 07/22/19 03:00 Pulse 64 07/22/19 03:00 Resp 18 07/22/19 03:00 BP 120/62 07/22/19 03:00 Pulse Ox 97 07/22/19 03:00 07/21/19 07/21/19 07/22/19 14:59 22:59 06:59 Intake Total 360 / 610 250 / 610 Output Total 250 / 250 Balance 110 / 360 250 / 360 Physical Exam Narrative: EXAM NARRATIVE: Abdomen: Soft, nondistended, tender right groin, incision healing well, some associated ecchymosis A&P Assessment and plan (1) Status post right inguinal hernia repair: Continue with home meds Diet as tolerated Continue ambulating Patient did not want to go home today as he does not have anybody at home. Home health is pending. 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
[2019-07-22 07:00] VITALS: BP 129/52; PULSE 63; RESP 18; TEMP 37.2; O2SAT 97
[2019-07-22] MEDS: HYDROcodone-acetaminophen 5-325 mg Tablet 1 TAB PO (08:46)
[2019-07-22] MEDS: alfuzosin 10 mg ER Tablet PO (08:46)
[2019-07-22] MEDS: sotalol 80 mg Tablet PO (08:47)
[2019-07-22] MEDS: sucralfate 1 gm/10 mL Oral Liq UDC PO (08:47)
[2019-07-22] MEDS: predniSONE 5 mg Tablet 2.5 MG PO (08:47)
[2019-07-22] MEDS: pantoprazole DR 40 mg Tablet PO (08:47)
[2019-07-22] MEDS: docusate sodium 100 mg Capsule PO (08:47)
[2019-07-22 10:19] VITALS: BP 129/52; PULSE 63; RESP 18; TEMP 37.2; O2SAT 97
--- NOTE | 2019-07-22 13:20 | P.PN_ITS ---
Subjective Subjective: Interval history: No issues overnight Vitals/I&O/Wt Last Vital Signs Temp 98.9 F 07/22/19 10:19 Pulse 63 07/22/19 10:19 Resp 18 07/22/19 10:19 BP 129/52 07/22/19 10:19 Pulse Ox 97 07/22/19 10:19 07/21/19 07/22/19 07/22/19 22:59 06:59 14:59 Intake Total 250 / 610 240 / 240 Output Total 2 / 2 Balance 250 / 360 238 / 238 A&P Assessment and plan (1) Status post right inguinal hernia repair: He has gone home today with home health follow-up 2 weeks Status: Acute Code(s): Z98.890 - Other specified postprocedural states; Z87.19 - Personal history of other diseases of the digestive system Attestations Medical Necessity Statement*: Right inguinal hernia Coding Level of Care Code Acute Business Technology Architect for Chg Fwd Diagnoses Status post right inguinal hernia repair Z98.890; Z87.19
== END 2019-07-22 10:00 | disposition home or self-care (01) ==
LOC: MEDSURG 07-21 08:55
PROVIDERS: Admitting Provider Surgery; PCP Internal Medicine Medical Oncology; Visit Provider Surgery
PROC: (CPT 49505; principal; 2019-07-20 08:15)
DX: K40.90 Unilateral inguinal hernia, without obstruction or gangrene, not specified as recurrent (principal); Z87.19 Personal history of other diseases of the digestive system; J44.9 Chronic obstructive pulmonary disease, unspecified; Z99.81 Dependence on supplemental oxygen; I10 Essential (primary) hypertension; E78.2 Mixed hyperlipidemia; Z82.49 Family history of ischemic heart disease and other diseases of the circulatory system; F17.210 Nicotine dependence, cigarettes, uncomplicated
CPT/HCPCS: 49505; 12345; 96365; 96372; 96374; 97110; 97161; G0378; J1650; J2001; J2250; J2405; J2704; J2710; J3010; J3370; J3490; J7030; J7050; J7512; J8597

== ENCOUNTER 2019-08-07 06:00 | Outpatient (CLI) | payer MEDICARE, OTHER, SELFPAY ==
--- NOTE | 2019-11-26 19:51 | ONC FU_ITS ---
Dr. Conte Patient Follow-Up Note Patient: Naseem Luna Unit #: [id number]: [id number] Dicatated By: Naseem Conte M.D.Date of Visit:Nov 26, 2019 Onc Med Follow-up/Prog Note Chief Complaint: Chronic lymphocytic leukemia/anemia. History of Present Illness: This is an 84 year-old man with chronic lymphocytic leukemia, Roberts stage I. He also has had evidence of iron deficiency anemia. I had seen him initially in December 2011. He had presented at that time with a mild lymphocytosis. His CBC showed normal hemoglobin at 14.0 g with white blood cell count 15,400 and platelet count mildly decreased at 127,000. The differential showed 76% lymphocytes, 14% segs, 1% bands, 3% monocytes, 3% eosinophils, and 3% atypical lymphocytes. A peripheral blood flow cytometry showed a monoclonal B-cell lymphoproliferative process most consistent with chronic lymphocytic leukemia. He appeared to have early stage disease, and observation/expectant management was recommended. As of his followup visit in September 2014 there had been no significant progression of the CLL. His other medical illnesses include dermatomyositis, hypertension, COPD, and atrial fibrillation. He underwent an ablation procedure in June 2011. He also has a history of anxiety/depression. He has a history of smoking 1 pack of cigarettes daily. INTERIM HISTORY: A CT angiogram of the abdominal aorta on 06/28/2016 showed slight increase in the fusiform infrarenal abdominal aortic aneurysm, at that point measuring 5.0 x 4.4 x 5.6 cm. Also noted was a new small penetrating ulcer along the right posterior lateral aortic aneurysm. Extensive lymphadenopathy appeared stable. He subsequently underwent an abdominal aneurysm repair. In December 2016 he had become mildly anemic with hemoglobin 11.1 g. The transferrin saturation was low at 11%. He was given parenteral iron replacement with a single infusion of Injectafer. On his follow-up visit in April 2017 the hemoglobin was up to 13.0 g with his white blood cell count stable at 43,000 and platelet count mildly decreased but stable at 94,000. He continued on observation/expectant management for the CLL. In December 2017 he was admitted to the hospital with lightheadedness/near syncope. In the emergency room he was confirmed to have a heart rate in the 40s. He reported a history of GI bleed, but upper endoscopy was negative. He continued anticoagulation with rivaroxaban. He was admitted to the hospital again on 01/15/2018. He presented to the emergency room with palpitations and fluctuating blood pressure. His CT pulmonary angiogram was initially read as negative, but on review was felt to show nonocclusive filling defects in the right lower lobe pulmonary artery extending into segmental branches to the posterior and lateral basal segments of the right lower lobe compatible with pulmonary emboli. There was lymphadenopathy noted in the jah hepatis, upper abdominal retroperitoneum, and bilateral axilla. His anticoagulation was changed from rivaroxaban to therapeutic Lovenox. I had seen him for a follow-up visit on 01/23/2018. He had been off anticoagulation due to hemoptysis. At that time he was mildly anemic with serum iron studies consistent with iron deficiency. He started oral iron supplementation with ferrous sulfate 325 mg daily. He also restarted anticoagulation with rivaroxaban 20 mg daily. On 05/12/2018 he was seen in the emergency room with chest pain. His cardiac studies were negative. CT abdomen/pelvis at that time showed 2 hypoattenuation lesions within the liver, the largest in the posterior segment of the right hepatic lobe measuring 16.5 mm. It was noted to have been faintly evident on a prior study from April 2017. However, it was noted that metastatic lesions cannot be entirely excluded. I had seen him for a follow-up visit on 08/14/2018. His repeat CT abdomen/pelvis at that time showed no significant change in the right hepatic low-attenuation masses. There was also no change in the abdominal and pelvic lymphadenopathy. There was extensive colon diverticulosis but without evidence of acute diverticulitis. There was no change in the infrarenal abdominal aorta 5 cm aneurysm with aortoiliac artery endovascular graft. He is blood counts appeared stable with hemoglobin 12.0 g, white blood cell count 49,000, and platelet count 102,000. He continued on observation/expectant management. In November 2018 there was a significant drop in his hemoglobin, to 8.7 g. His serum iron studies and ferritin were consistent with iron deficiency, and in December he was given parenteral iron replacement with 2 additional infusions of Injectafer. His stool was heme positive, and he was referred to a stores assistant for GI evaluation. In the meantime, he was admitted to the hospital with symptoms of overt GI bleeding. His endoscopy reportedly showed evidence of ulcers. He then increased the dosage of his PPI, and he also started treatment with Carafate. He was taken off rivaroxaban. As of his followup visit on 01/27/2019 he was mildly anemic with hemoglobin 10.1 g. He continued on oral iron supplementation. At his follow-up visit on 02/26/2019 he was still moderately anemic despite the oral iron supplementation, and at that point he was given parenteral iron replacement with 2 infusions of Injectafer. He tolerated it well, but during subsequent follow-up he remained mildly anemic. On 07/20/2019 he underwent open repair of direct and indirect right inguinal hernia with plug and mesh. He tolerated the procedure without complications. He is seen for a follow-up visit. He has poor energy and he has limited activity. He is able to do light work at home. His appetite is not good. He had tried Megace, but he did not tolerate it due to GI side effects. His weight recently has been stable. He has not had fever. He sometimes wakes up with sweating. He has shortness of breath, and he is on continuous oxygen. He thinks his breathing is a little worse. He had one recent episode of chest pain. It was relieved with nitroglycerin. He has no GI complaints. He thinks his bladder isn't emptying completely. He still has pain in his back and in his right hip and leg. He occasionally has headache. He had an episode of lightheadness/near syncope wihile eating dinner. He has been drinking more water since then. Medications: Albuterol Sulfate 1 Nebulization solution Inhalation four times a day PRN, Alfuzosin HCl ER 1 Tablet (of 10 mg) Tablet SR 24 HR Oral daily, Colace 1 Tablet (of 100 mg) Capsule Oral b.i.d., Combivent 1 (18-103 mcg/act) Aerosol Inhalation four times a day PRN, Ferrous Sulfate 1 Tablet (of 325 (65 fe) mg) Oral b.i.d., Hydrochlorothiazide 0.5 (25 mg) Tablet Oral daily, Levothyroxine Sodium 1 Tablet (of 25 mcg) Oral daily, LORazepam 1 (0.5 mg) Tablet Oral four times a day PRN, Magnesium 1 Tablet (of 400 mg) Oral b.i.d., Meclizine HCl 0.5 (25 mg) Tablet Oral b.i.d. PRN, Pantoprazole Sodium 1 Tablet (of 40 mg) Tablet, enteric coated Oral b.i.d., PredniSONE 1 (2.5 mg) Tablet Oral daily, Sotalol HCl (80 mg) Tablet Oral Take as Directed, TraMADol HCl 1 (50 mg) Tablet Oral b.i.d. PRN Allergies: Ciprofloxacin HCl, Dabigatran Etexilate Mesylate, PCN, and PRADAXA. Review of Systems: Constitutional - His energy is not good, but he is able to do some light work at home. His appetite is poor, but he has gained a little weight is up a little. No fever. He sometimes wakes up with sweating. ECOG score is 1, ENMT - He has sinus drainage. No mouth sores. No sore throat or difficulty swallowing, Hematologic/Lymphatic - He bruises easily, Respiratory - He has shortness of breath, and he says his breathing is not quite as good. He is on continuous oxygen. He has chronic cough. No pleuritic pain or hemoptysis, Cardiovascular - No angina pain. No palpitations, Gastrointestinal - No nausea or vomiting. He has heartburn but it is managed adequately with Protonix. Bowel function has improved since he has been drinking more water. No blood in the stool or black stools, Genitourinary (M) - He has dysuria or hematuria. His bladder sometimes does not empty completely. No urgency or incontinence. He is having some pain in the groin area on both sides, Musculoskeletal - He continues to have pain in back and in his right hip and leg. He is taking tramadol for it, Integumentary - No skin complications, Neurologic - He occasionally has headache. He had one recent episode of lightheadedness/near syncope while he was eating dinner. He has numbness in his left arm, Psychiatric - No anxiety or depression. No insomnia. Vital Signs: Performed on Nov 26, 2019 12:28 Height - 67.50 in Weight - 152.6 lbs (HIGH) BSA - 1.81 sq.m BMI - 23.55 Temperature - 98.3 F (LOW) Pulse - 82 /min Respiration - 18 /min BP - 136/71 mm(hg) O2 Sat - 100 % Pain - 2 Physical Examination: Constitutional - He appears chronically ill, Eyes - Sclerae nonicteric. Conjunctivae clear, ENMT - Mouth is dry. There are no lesions noted in the oral cavity, Hematologic/Lymphatic - No cervical, clavicular, or axillary adenopathy, Respiratory - Lungs sound clear with diminished air movement bilaterally, Cardiovascular - Heart rhythm is irregular. There is no murmur, gallop, or rub noted, Abdomen - Soft. Liver and spleen are not enlarged. There is no abdominal mass or ascites noted. There is no inguinal adenopathy noted, Extremities - No edema. He has purpuric lesions on both arms, Neurologic - No focal neurologic deficits noted. Lab/Imaging: CBC shows hemoglobin 10.2 g, white blood cell count 35,300, and platelet count 108,000. Comprehensive metabolic profile is unremarkable except for elevated BUN and creatinine at 18 and 1.3 mg/dL. The serum iron studies show low transferrin saturation at 15%. Impression: 1. Patient with chronic lymphocytic leukemia documented by peripheral blood flow cytometry in December 2011. By clinical evaluation he appeared to have early stage disease (Roberts stage I). Observation/expectant management was recommended. 2. He has had iron deficiency anemia which has been refractory to oral iron supplementation. The anemia has been responsive to parenteral iron replacement with Injectafer. 3. He is known to have dermatomyositis for which he previously was on treatment with azathioprine and prednisone. His other medical illnesses include: 4. Hypertension. 5. Hyperlipidemia. 6. COPD. 7. Degenerative arthritis. 8. He underwent a cardiac ablation procedure for atrial fibrillation. 9. He has undergone repair of abdominal aortic aneurysm. During follow-up there was gradual decline in his performance status, and he also had unexplained weight loss. As of November 2018 become significantly anemic with serum iron studies and ferritin consistent with iron deficiency. He was given further parenteral iron replacement with Injectafer. He had a heme positive stool, and he was referred for GI evaluation. In the meantime, he was admitted to the hospital with overt GI bleeding. His EGD reportedly showed ulcers, and since then he has doubled the dosage of his PPI and he also has started treatment with Carafate. He was taken off rivaroxaban. During subsequent follow-up he remained anemic despite oral iron supplementation. Laboratory studies were still consistent with iron deficiency, and in February 2019 he did receive further parenteral iron replacement with 2 additional infusions of Injectafer. During follow-up he remained mildly anemic. On 07/20/2019 he underwent open repair of direct and indirect right inguinal hernia. He tolerated the surgery without complications. During follow-up he has continued to have very limited activity tolerance. He has had poor appetite. He had been losing weight, but that now appears to be stabilizing. He has been mildly anemic and he was found to have low transferrin saturation, consistent with iron deficiency. He was given parenteral iron replacement with Injectafer, as he had poor tolerance for oral iron. He did show some improvement, but not complete correction of the anemia. Thus far there has been no obvious progression of the chronic lymphocytic leukemia. Plan: He remains on observation/expectant management for the CLL. At this point he does not want to take any additional parenteral iron. As he had poor tolerance for his oral iron supplement, I suggested that he just try taking a multivitamin with iron. He will be scheduled for a follow-up visit in 3 months, but he can have his blood count rechecked sooner, as needed. Signed By: Naseem Conte M.D. <<Signature on File>>
== END 2019-08-07 23:59 | disposition home or self-care (01) ==
LOC: ONCMED 11-27 14:48
PROVIDERS: PCP Internal Medicine Cardiovascular Disease; Visit Provider Internal Medicine Medical Oncology
DX: D50.9 Iron deficiency anemia, unspecified (principal); M33.90 Dermatopolymyositis, unspecified, organ involvement unspecified; M79.10 Myalgia, unspecified site; I10 Essential (primary) hypertension; J44.9 Chronic obstructive pulmonary disease, unspecified; F17.210 Nicotine dependence, cigarettes, uncomplicated; Z79.01 Long term (current) use of anticoagulants
CPT/HCPCS: 80053; 82085; 82306; 82550; 82728; 83540; 83550; 83615; 85025; 85651; 86141

== ENCOUNTER 2019-08-10 16:09 | Outpatient (CLI) | payer MEDICARE, OTHER, SELFPAY ==
--- NOTE | 2019-08-10 19:50 | ONC FU_ITS ---
Dr. Conte Patient Follow-Up Note Patient: Naseem Luna Unit #: [id number]: [id number] Dicatated By: Naseem Conte M.D.Date of Visit:Aug 10, 2019 Onc Med Follow-up/Prog Note Chief Complaint: Chronic lymphocytic leukemia/anemia. History of Present Illness: This is an 83 year-old man with chronic lymphocytic leukemia, Roberts stage I. He also has had evidence of iron deficiency anemia. I had seen him initially in December 2011. He had presented at that time with a mild lymphocytosis. His CBC showed normal hemoglobin at 14.0 g with white blood cell count 15,400 and platelet count mildly decreased at 127,000. The differential showed 76% lymphocytes, 14% segs, 1% bands, 3% monocytes, 3% eosinophils, and 3% atypical lymphocytes. A peripheral blood flow cytometry showed a monoclonal B-cell lymphoproliferative process most consistent with chronic lymphocytic leukemia. He appeared to have early stage disease, and observation/expectant management was recommended. As of his followup visit in September 2014 there had been no significant progression of the CLL. His other medical illnesses include dermatomyositis, hypertension, COPD, and atrial fibrillation. He underwent an ablation procedure in June 2011. He also has a history of anxiety/depression. He has a history of smoking 1 pack of cigarettes daily. INTERIM HISTORY: A CT angiogram of the abdominal aorta on 06/28/2016 showed slight increase in the fusiform infrarenal abdominal aortic aneurysm, at that point measuring 5.0 x 4.4 x 5.6 cm. Also noted was a new small penetrating ulcer along the right posterior lateral aortic aneurysm. Extensive lymphadenopathy appeared stable. He subsequently underwent an abdominal aneurysm repair. In December 2016 he had become mildly anemic with hemoglobin 11.1 g. The transferrin saturation was low at 11%. He was given parenteral iron replacement with a single infusion of Injectafer. On his follow-up visit in April 2017 the hemoglobin was up to 13.0 g with his white blood cell count stable at 43,000 and platelet count mildly decreased but stable at 94,000. He continued on observation/expectant management for the CLL. In December 2017 he was admitted to the hospital with lightheadedness/near syncope. In the emergency room he was confirmed to have a heart rate in the 40s. He reported a history of GI bleed, but upper endoscopy was negative. He continued anticoagulation with rivaroxaban. He was admitted to the hospital again on 01/15/2018. He presented to the emergency room with palpitations and fluctuating blood pressure. His CT pulmonary angiogram was initially read as negative, but on review was felt to show nonocclusive filling defects in the right lower lobe pulmonary artery extending into segmental branches to the posterior and lateral basal segments of the right lower lobe compatible with pulmonary emboli. There was lymphadenopathy noted in the jah hepatis, upper abdominal retroperitoneum, and bilateral axilla. His anticoagulation was changed from rivaroxaban to therapeutic Lovenox. I had seen him for a follow-up visit on 01/23/2018. He had been off anticoagulation due to hemoptysis. At that time he was mildly anemic with serum iron studies consistent with iron deficiency. He started oral iron supplementation with ferrous sulfate 325 mg daily. He also restarted anticoagulation with rivaroxaban 20 mg daily. On 05/12/2018 he was seen in the emergency room with chest pain. His cardiac studies were negative. CT abdomen/pelvis at that time showed 2 hypoattenuation lesions within the liver, the largest in the posterior segment of the right hepatic lobe measuring 16.5 mm. It was noted to have been faintly evident on a prior study from April 2017. However, it was noted that metastatic lesions cannot be entirely excluded. I had seen him for a follow-up visit on 08/14/2018. His repeat CT abdomen/pelvis at that time showed no significant change in the right hepatic low-attenuation masses. There was also no change in the abdominal and pelvic lymphadenopathy. There was extensive colon diverticulosis but without evidence of acute diverticulitis. There was no change in the infrarenal abdominal aorta 5 cm aneurysm with aortoiliac artery endovascular graft. He is blood counts appeared stable with hemoglobin 12.0 g, white blood cell count 49,000, and platelet count 102,000. He continued on observation/expectant management. In November 2018 there was a significant drop in his hemoglobin, to 8.7 g. His serum iron studies and ferritin were consistent with iron deficiency, and in December he was given parenteral iron replacement with 2 additional infusions of Injectafer. His stool was heme positive, and he was referred to a newborn photographer for GI evaluation. In the meantime, he was admitted to the hospital with symptoms of overt GI bleeding. His endoscopy reportedly showed evidence of ulcers. He then increased the dosage of his PPI, and he also started treatment with Carafate. He was taken off rivaroxaban. As of his followup visit on 01/27/2019 he was mildly anemic with hemoglobin 10.1 g. He continued on oral iron supplementation. At his follow-up visit on 02/26/2019 he was still moderately anemic despite the oral iron supplementation, and at that point he was given parenteral iron replacement with 2 infusions of Injectafer. He tolerated it well, but during subsequent follow-up he remained mildly anemic. On 07/20/2019 he underwent open repair of direct and indirect right inguinal hernia with plug and mesh. He tolerated the procedure without complications. He is seen for a follow-up visit. He is still having significant pain in the lower abdominal area and very limited activity following his recent surgery. His ECOG score is 3. He also has had poor appetite, and he has been losing weight. He does not have fever or night sweats. He complains that he feels cold at night. He has dry mouth. He sometimes has difficulty swallowing. He has shortness of breath. He is on continuous oxygen. He has some chronic cough. He does not complain of chest pain. He occasionally has nausea, usually in association with coughing. He occasionally has acid reflux. Bowel and bladder function have been okay, though he does report having some pain with urination. He also has pain in his lower back and right leg. He does not complain of headache. He occasionally has dizziness. He has no focal neurologic symptoms. Medications: Albuterol Sulfate 1 Nebulization solution Inhalation four times a day PRN, Alfuzosin HCl ER 1 Tablet (of 10 mg) Tablet SR 24 HR Oral daily, Colace 1 Tablet (of 100 mg) Capsule Oral b.i.d., Combivent 1 (18-103 mcg/act) Aerosol Inhalation four times a day PRN, Ferrous Sulfate 1 Tablet (of 325 (65 fe) mg) Oral b.i.d., Hydrochlorothiazide 0.5 (25 mg) Tablet Oral daily, Levothyroxine Sodium 1 Tablet (of 25 mcg) Oral daily, LORazepam 1 (0.5 mg) Tablet Oral four times a day PRN, Magnesium 1 Tablet (of 400 mg) Oral b.i.d., Meclizine HCl 0.5 (25 mg) Tablet Oral b.i.d. PRN, Pantoprazole Sodium 1 Tablet (of 40 mg) Tablet, enteric coated Oral b.i.d., PredniSONE 1 (2.5 mg) Tablet Oral daily, Sotalol HCl (80 mg) Tablet Oral Take as Directed, TraMADol HCl 1 (50 mg) Tablet Oral b.i.d. PRN Allergies: Ciprofloxacin HCl, Dabigatran Etexilate Mesylate, PCN, and PRADAXA. Review of Systems: Constitutional - He has zero energy, and his activity is very limited. His appetite is poor and weight is down about 10 pounds from last visit. No fever, chills, hot flashes, or night sweats. ECOG score is 3, ENMT - No sinus congestion/drainage. No mouth sores but reports significant dryness to mouth. No sore throat or difficulty swallowing, Hematologic/Lymphatic - He bruises easily, Respiratory - He has shortness of breath with activity. He wear continuous oxygen. He has chronic cough associated with COPD, unchanged. No pleuritic pain or hemoptysis, Cardiovascular - No angina pain. No palpitations, Gastrointestinal - No nausea or vomiting. He has heartburn but it is controlled with Protonix. No diarrhea or constipation. No blood in the stool or black stools. He still has pain in the lower abdomen since his surgery, Genitourinary (M) - He has dysuria. No hematuria. No urinary frequency. No urgency or incontinence, Musculoskeletal - He reports pain in back and right leg, Integumentary - No skin complications, Neurologic - No headache. He occasionally has dizziness. No numbness/paresthesias or other focal neurologic symptoms, Psychiatric - No anxiety or depression. No insomnia. Vital Signs: Performed on Aug 10, 2019 16:17 Height - 67.50 in Weight - 151.4 lbs (LOW) BSA - 1.81 sq.m BMI - 23.36 Temperature - 98.8 F Pulse - 65 /min Respiration - 15 /min BP - 140/66 mm(hg) O2 Sat - 97 % Pain - 0 Physical Examination: Constitutional - He appears somewhat weak generally and chronically ill, Eyes - Sclerae nonicteric. Conjunctivae clear, ENMT - Mouth is dry. There are no lesions noted in the oral cavity, Hematologic/Lymphatic - No cervical, clavicular, or axillary adenopathy, Respiratory - Lungs show diminished air movement and slightly coarse breath sounds bilaterally, Cardiovascular - Heart rhythm is irregular. There is no murmur, gallop, or rub noted, Abdomen - Soft. He is very tender in the lower abdominal area. Liver and spleen are not enlarged. There is no abdominal mass or ascites noted. There is no inguinal adenopathy noted, Extremities - No edema. He has chronic purpura, Neurologic - No focal neurologic deficits noted. Lab/Imaging: CBC shows hemoglobin 10.4 g, white blood cell count 53,100, and platelet count 140,000. Chem profile shows elevated BUN and creatinine at 20 and 1.3 mg/dL. Bilirubin and liver enzymes are normal. Serum iron studies show low transferrin saturation at 18.9%. Impression: 1. Patient with chronic lymphocytic leukemia documented by peripheral blood flow cytometry in December 2011. By clinical evaluation he appeared to have early stage disease (Roberts stage I). Observation/expectant management was recommended. 2. He has had iron deficiency anemia which has been refractory to oral iron supplementation. The anemia has been responsive to parenteral iron replacement with Injectafer. 3. He is known to have dermatomyositis for which he previously was on treatment with azathioprine and prednisone. His other medical illnesses include: 4. Hypertension. 5. Hyperlipidemia. 6. COPD. 7. Degenerative arthritis. 8. He underwent a cardiac ablation procedure for atrial fibrillation. 9. He has undergone repair of abdominal aortic aneurysm. During follow-up there was gradual decline in his performance status, and he also had unexplained weight loss. As of November 2018 become significantly anemic with serum iron studies and ferritin consistent with iron deficiency. He was given further parenteral iron replacement with Injectafer. He had a heme positive stool, and he was referred for GI evaluation. In the meantime, he was admitted to the hospital with overt GI bleeding. His EGD reportedly showed ulcers, and since then he has doubled the dosage of his PPI and he also has started treatment with Carafate. He was taken off rivaroxaban. During subsequent follow-up he remained anemic despite oral iron supplementation. Laboratory studies were still consistent with iron deficiency, and in February 2019 he did receive further parenteral iron replacement with 2 additional infusions of Injectafer. During follow-up he remained mildly anemic. On 07/20/2019 he underwent open repair of direct and indirect right inguinal hernia. He tolerated the surgery without complications. At this point he still has very limited activity. He has had poor appetite, and he has been losing weight. There has been an increase in his lymphocyte count, but not dissimilar from previous studies. However, he is still mildly anemic, and his transferrin saturation is still mildly decreased. Plan: As he still has low transferrin saturation, he will be scheduled to come in for one more infusion of Injectafer. He will have 1-month interval followup labs and a 3-month interval followup visit. In the meantime, he will be given a prescription for Megace for his appetite. He also will start vitamin D3 supplementation. Signed By: Naseem Conte M.D. <<Signature on File>>
== END 2019-08-10 16:10 | disposition home or self-care (01) ==
PROVIDERS: PCP Internal Medicine Cardiovascular Disease; Visit Provider Internal Medicine Medical Oncology
DX: D50.9 Iron deficiency anemia, unspecified (principal); C91.10 Chronic lymphocytic leukemia of B-cell type not having achieved remission; M33.90 Dermatopolymyositis, unspecified, organ involvement unspecified; I10 Essential (primary) hypertension; J44.9 Chronic obstructive pulmonary disease, unspecified; I48.91 Unspecified atrial fibrillation; F41.8 Other specified anxiety disorders; F17.210 Nicotine dependence, cigarettes, uncomplicated; K57.90 Diverticulosis of intestine, part unspecified, without perforation or abscess without bleeding; Z99.81 Dependence on supplemental oxygen; Z79.51 Long term (current) use of inhaled steroids; Z79.52 Long term (current) use of systemic steroids; Z79.899 Other long term (current) drug therapy; Z86.711 Personal history of pulmonary embolism
CPT/HCPCS: 99214

== ENCOUNTER → 2019-08-20 14:06 | Outpatient (BNVA) | payer MEDICARE, OTHER, SELFPAY | PROVIDERS: PCP Internal Medicine Cardiovascular Disease; Visit Provider Family Medicine | DX: K92.2 Gastrointestinal hemorrhage, unspecified (principal) | CPT/HCPCS: 82270 ==

== ENCOUNTER → 2019-09-09 13:29 | Outpatient (BNVA) | payer MEDICARE, OTHER, SELFPAY | PROVIDERS: PCP Internal Medicine Cardiovascular Disease; Visit Provider Nurse Practitioner Family | DX: N39.0 Urinary tract infection, site not specified (principal); N30.90 Cystitis, unspecified without hematuria | CPT/HCPCS: 80053; 81001; 87077; 87086; 87186 ==

== ENCOUNTER → 2019-11-25 10:30 | Outpatient (BNVA) | payer MEDICARE, OTHER, SELFPAY | PROVIDERS: PCP Internal Medicine Cardiovascular Disease; Visit Provider Internal Medicine Medical Oncology | DX: C91.10 Chronic lymphocytic leukemia of B-cell type not having achieved remission (principal) | CPT/HCPCS: 80053; 82728; 83550; 83615; 85007; 85025 ==

== ENCOUNTER 2019-11-26 06:00 | Outpatient (CLI) | payer MEDICARE, OTHER, SELFPAY | END 2019-11-26 23:59 | disposition home or self-care (01) | LOC: ONCMED 11-27 14:53 | PROVIDERS: PCP Internal Medicine Cardiovascular Disease; Visit Provider Internal Medicine Medical Oncology | DX: C91.10 Chronic lymphocytic leukemia of B-cell type not having achieved remission (principal); D50.9 Iron deficiency anemia, unspecified | CPT/HCPCS: 99214 ==

== ENCOUNTER → 2020-01-20 14:20 | Outpatient (BNVA) | payer MEDICARE, OTHER, SELFPAY | PROVIDERS: PCP Internal Medicine Cardiovascular Disease; Visit Provider Nurse Practitioner Family | DX: N30.90 Cystitis, unspecified without hematuria (principal); K57.92 Diverticulitis of intestine, part unspecified, without perforation or abscess without bleeding; R53.83 Other fatigue; Z68.24 Body mass index [BMI] 24.0-24.9, adult; F17.210 Nicotine dependence, cigarettes, uncomplicated; Z71.89 Other specified counseling | CPT/HCPCS: 81000; 85025; 87086 ==

== ENCOUNTER → 2020-02-22 11:43 | Outpatient (BNVA) | payer MEDICARE, OTHER, SELFPAY | PROVIDERS: PCP Internal Medicine Cardiovascular Disease; Visit Provider Internal Medicine Medical Oncology | DX: C91.10 Chronic lymphocytic leukemia of B-cell type not having achieved remission (principal); D50.9 Iron deficiency anemia, unspecified | CPT/HCPCS: 80053; 82728; 83550; 83615; 85025 ==

== ENCOUNTER 2020-02-25 15:24 | Outpatient (CLI) | payer MEDICARE, OTHER, SELFPAY ==
[2020-02-25] MEDS: ferric carboxy (IVPB) 750 MG in sodium chloride 0.9% (100 ml) 100 ML 345 MG IV (15:45)
--- NOTE | 2020-02-25 19:42 | ONC FU_ITS ---
Dr. Conte Patient Follow-Up Note Patient: Naseem Luna Unit #: [id number]: 1935 Dicatated By: Naseem Conte M.D.Date of Visit:Feb 25, 2020 Onc Med Follow-up/Prog Note Chief Complaint: Chronic lymphocytic leukemia/anemia. History of Present Illness: This is an 84 year-old man with chronic lymphocytic leukemia, Roberts stage I. He also has had evidence of iron deficiency anemia. I had seen him initially in December 2011. He had presented at that time with a mild lymphocytosis. His CBC showed normal hemoglobin at 14.0 g with white blood cell count 15,400 and platelet count mildly decreased at 127,000. The differential showed 76% lymphocytes, 14% segs, 1% bands, 3% monocytes, 3% eosinophils, and 3% atypical lymphocytes. A peripheral blood flow cytometry showed a monoclonal B-cell lymphoproliferative process most consistent with chronic lymphocytic leukemia. He appeared to have early stage disease, and observation/expectant management was recommended. As of his followup visit in September 2014 there had been no significant progression of the CLL. His other medical illnesses include dermatomyositis, hypertension, COPD, and atrial fibrillation. He underwent an ablation procedure in June 2011. He also has a history of anxiety/depression. He has a history of smoking 1 pack of cigarettes daily. INTERIM HISTORY: A CT angiogram of the abdominal aorta on 06/28/2016 showed slight increase in the fusiform infrarenal abdominal aortic aneurysm, at that point measuring 5.0 x 4.4 x 5.6 cm. Also noted was a new small penetrating ulcer along the right posterior lateral aortic aneurysm. Extensive lymphadenopathy appeared stable. He subsequently underwent an abdominal aneurysm repair. In December 2016 he had become mildly anemic with hemoglobin 11.1 g. The transferrin saturation was low at 11%. He was given parenteral iron replacement with a single infusion of Injectafer. On his follow-up visit in April 2017 the hemoglobin was up to 13.0 g with his white blood cell count stable at 43,000 and platelet count mildly decreased but stable at 94,000. He continued on observation/expectant management for the CLL. In December 2017 he was admitted to the hospital with lightheadedness/near syncope. In the emergency room he was confirmed to have a heart rate in the 40s. He reported a history of GI bleed, but upper endoscopy was negative. He continued anticoagulation with rivaroxaban. He was admitted to the hospital again on 01/15/2018. He presented to the emergency room with palpitations and fluctuating blood pressure. His CT pulmonary angiogram was initially read as negative, but on review was felt to show nonocclusive filling defects in the right lower lobe pulmonary artery extending into segmental branches to the posterior and lateral basal segments of the right lower lobe compatible with pulmonary emboli. There was lymphadenopathy noted in the jah hepatis, upper abdominal retroperitoneum, and bilateral axilla. His anticoagulation was changed from rivaroxaban to therapeutic Lovenox. I had seen him for a follow-up visit on 01/23/2018. He had been off anticoagulation due to hemoptysis. At that time he was mildly anemic with serum iron studies consistent with iron deficiency. He started oral iron supplementation with ferrous sulfate 325 mg daily. He also restarted anticoagulation with rivaroxaban 20 mg daily. On 05/12/2018 he was seen in the emergency room with chest pain. His cardiac studies were negative. CT abdomen/pelvis at that time showed 2 hypoattenuation lesions within the liver, the largest in the posterior segment of the right hepatic lobe measuring 16.5 mm. It was noted to have been faintly evident on a prior study from April 2017. However, it was noted that metastatic lesions cannot be entirely excluded. I had seen him for a follow-up visit on 08/14/2018. His repeat CT abdomen/pelvis at that time showed no significant change in the right hepatic low-attenuation masses. There was also no change in the abdominal and pelvic lymphadenopathy. There was extensive colon diverticulosis but without evidence of acute diverticulitis. There was no change in the infrarenal abdominal aorta 5 cm aneurysm with aortoiliac artery endovascular graft. He is blood counts appeared stable with hemoglobin 12.0 g, white blood cell count 49,000, and platelet count 102,000. He continued on observation/expectant management. In November 2018 there was a significant drop in his hemoglobin, to 8.7 g. His serum iron studies and ferritin were consistent with iron deficiency, and in December he was given parenteral iron replacement with 2 additional infusions of Injectafer. His stool was heme positive, and he was referred to a tie fastener for GI evaluation. In the meantime, he was admitted to the hospital with symptoms of overt GI bleeding. His endoscopy reportedly showed evidence of ulcers. He then increased the dosage of his PPI, and he also started treatment with Carafate. He was taken off rivaroxaban. As of his followup visit on 01/27/2019 he was mildly anemic with hemoglobin 10.1 g. He continued on oral iron supplementation. At his follow-up visit on 02/26/2019 he was still moderately anemic despite the oral iron supplementation, and at that point he was given parenteral iron replacement with 2 infusions of Injectafer. He tolerated it well, but during subsequent follow-up he remained mildly anemic. On 07/20/2019 he underwent open repair of direct and indirect right inguinal hernia with plug and mesh. He tolerated the procedure without complications. He is seen for a follow-up visit. He actually has been feeling pretty good lately, though he does complain that it does not take much to wear him out. He is able to do some light work. ECOG score is 1. Appetite has not been good, but his weight is stable. He has no fever or night sweats. He does report having some difficulty swallowing. He has shortness of breath and cough, but he says his breathing is about the same. He has not been having chest pain. He does have some acid reflux. Bowel function has been adequate, but he says he has been losing blood. Bladder function has been okay. He has chronic pain in his back and right leg. He has no focal neurologic symptoms. Medications: Albuterol Sulfate 1 Nebulization solution Inhalation four times a day PRN, Alfuzosin HCl ER 1 Tablet (of 10 mg) Tablet SR 24 HR Oral daily, Colace 1 Tablet (of 100 mg) Capsule Oral b.i.d., Combivent 1 (18-103 mcg/act) Aerosol Inhalation four times a day PRN, Ferrous Sulfate 1 Tablet (of 325 (65 fe) mg) Oral b.i.d., Hydrochlorothiazide 0.5 (25 mg) Tablet Oral daily, Levothyroxine Sodium 1 Tablet (of 25 mcg) Oral daily, LORazepam 1 (0.5 mg) Tablet Oral four times a day PRN, Magnesium 1 Tablet (of 400 mg) Oral b.i.d., Meclizine HCl 0.5 (25 mg) Tablet Oral b.i.d. PRN, Pantoprazole Sodium 1 Tablet (of 40 mg) Tablet, enteric coated Oral b.i.d., PredniSONE 1 (2.5 mg) Tablet Oral daily, Sotalol HCl (80 mg) Tablet Oral Take as Directed, TraMADol HCl 1 (50 mg) Tablet Oral b.i.d. PRN Allergies: Ciprofloxacin HCl, Dabigatran Etexilate Mesylate, PCN, and PRADAXA. Review of Systems: Constitutional - He has been feeling pretty good generally, though he says it does not take much to wear them out. He is able to do some light work. Appetite is not good but his weight is stable. He has no fever or night sweats. ECOG score is 1, ENMT - No sinus congestion/drainage. No mouth sores. No sore throat. He has some difficulty swallowing, Hematologic/Lymphatic - He has easy bruising, Respiratory - He has shortness of breath and cough. No pleuritic pain or hemoptysis, Cardiovascular - No angina pain. No palpitations, Gastrointestinal - No nausea or vomiting. He has acid reflux. No diarrhea or constipation, but he says he has been losing blood, Genitourinary (M) - No dysuria or hematuria. No urinary frequency. No urgency or incontinence, Musculoskeletal - He has chronic pain in his back and legs, Integumentary - No skin rash, Neurologic - No headache. He sometimes has dizziness. No numbness or tingling. No other focal neurologic symptoms, Psychiatric - No anxiety or depression. No insomnia. Vital Signs: Performed on Feb 25, 2020 15:43 Height - 67.50 in Temperature - 98.6 F Pulse - 75 /min Respiration - 18 /min BP - 124/72 mm(hg) O2 Sat - 100 % Pain - 3 Physical Examination: Constitutional - He appears chronically ill, Eyes - Sclerae nonicteric. Conjunctivae clear, ENMT - No lesions noted in the oral cavity, Hematologic/Lymphatic - No cervical, clavicular, or axillary adenopathy, Respiratory - Lungs show diminished air movement bilaterally. There are few scattered rales present, Cardiovascular - Heart rhythm is irregular. There is no murmur, gallop, or rub noted, Abdomen - Soft. Liver and spleen are not enlarged. There is no abdominal mass or ascites noted. There is no inguinal adenopathy noted, Extremities - No edema. There is chronic purpura on the arms, Neurologic - No focal neurologic deficits noted. Lab/Imaging: His CBC shows hemoglobin 9.4 g with hematocrit 31.7%. The red cell indices are in the low normal range. White blood cell count is 53,000 and the platelet count is 114,000. The absolute lymphocyte count is 49,200 with absolute neutrophil count 2800. Comprehensive metabolic profile shows stable renal function with BUN 19 and creatinine 1.4 mg/dL. LDH is normal at 140 U/L. The serum iron studies show low transferrin saturation at 11.3% and the ferritin is relatively low at 34 ng/mL. Impression: 1. Patient with chronic lymphocytic leukemia documented by peripheral blood flow cytometry in December 2011. By clinical evaluation he appeared to have early stage disease (Roberts stage I). Observation/expectant management was recommended. 2. He has had iron deficiency anemia which has been refractory to oral iron supplementation. The anemia has been responsive to parenteral iron replacement with Injectafer. 3. He is known to have dermatomyositis for which he previously was on treatment with azathioprine and prednisone. His other medical illnesses include: 4. Hypertension. 5. Hyperlipidemia. 6. COPD. 7. Degenerative arthritis. 8. He underwent a cardiac ablation procedure for atrial fibrillation. 9. He has undergone repair of abdominal aortic aneurysm. During follow-up there was gradual decline in his performance status, and he also had unexplained weight loss. As of November 2018 become significantly anemic with serum iron studies and ferritin consistent with iron deficiency. He was given parenteral iron replacement with Injectafer. He had a heme positive stool, and he was referred for GI evaluation. In the meantime, he was admitted to the hospital with overt GI bleeding. His EGD reportedly showed ulcers, and he then doubled the dosage of his PPI and he also started treatment with Carafate. He was taken off rivaroxaban. He continued to have mild anemia. In February 2019 he was given further parenteral iron replacement with Injectafer. He again had some improvement, but not complete correction of the anemia. On 07/20/2019 he underwent open repair of direct and indirect right inguinal hernia. He tolerated the surgery without complications. During follow-up he has been stable clinically, though his current laboratory studies are again showing a decline in his hemoglobin/hematocrit levels with his transferrin saturation consistent with iron deficiency. There has been no evidence, though, of progression of the underlying chronic leukocytic leukemia. Plan: He remains on observation/expectant management for the CLL. As he has recurrent iron deficiency anemia and he previously has not responded to oral iron supplementation, he will be given parenteral iron replacement with 2 infusions of Injectafer. He will have 1 month interval follow-up lab studies. Signed By: Naseem Conte M.D. <<Signature on File>>
== END 2020-02-25 15:25 | disposition home or self-care (01) ==
LOC: ONCMED 15:31
PROVIDERS: Visit Provider Internal Medicine Medical Oncology
DX: C91.10 Chronic lymphocytic leukemia of B-cell type not having achieved remission (principal); D50.9 Iron deficiency anemia, unspecified; I10 Essential (primary) hypertension; E78.5 Hyperlipidemia, unspecified; J44.9 Chronic obstructive pulmonary disease, unspecified; M19.90 Unspecified osteoarthritis, unspecified site; Z86.79 Personal history of other diseases of the circulatory system
CPT/HCPCS: 96365; 99214; J1439

== ENCOUNTER 2020-03-03 06:05 | Outpatient (CLI) | payer MEDICARE, OTHER, SELFPAY ==
[2020-03-03] MEDS: ferric carboxy (IVPB) 750 MG in sodium chloride 0.9% (100 ml) 100 ML 345 MG IV (15:34)
== END 2020-03-03 06:06 | disposition home or self-care (01) ==
PROVIDERS: Visit Provider Nurse Practitioner
DX: D50.9 Iron deficiency anemia, unspecified (principal)
CPT/HCPCS: 96365; J1439

== ENCOUNTER → 2020-03-23 16:38 | Outpatient (BNVA) | payer MEDICARE, OTHER, SELFPAY | PROVIDERS: Visit Provider Nurse Practitioner Family | DX: R10.9 Unspecified abdominal pain (principal); K57.92 Diverticulitis of intestine, part unspecified, without perforation or abscess without bleeding | CPT/HCPCS: 81003 ==

== ENCOUNTER → 2020-04-06 17:08 | Outpatient (BNVA) | payer MEDICARE, OTHER, SELFPAY | PROVIDERS: Visit Provider Internal Medicine Medical Oncology | DX: D50.8 Other iron deficiency anemias (principal) | CPT/HCPCS: 80053; 82728; 83550; 85007; 85025 ==

== ENCOUNTER 2020-04-08 12:58 | Outpatient (CLI) | payer MEDICARE, OTHER, SELFPAY ==
[2020-04-08] MEDS: iodixanol 320 mg/mL 100mL Btl IV (13:56)
--- NOTE | 2020-04-08 14:30 | CT_ITS ---
WS: [id number] CT scan of the abdomen and pelvis with IV contrast. Additional two-dimensional coronal and sagittal r econstruction was performed. 04/08/2020 Clinical Data: abdominal pain Comparison: CT abdomen and pelvis, 07/10/2019. DLP: 1079.[address] scans at [facility] use at least one of these dose optimization techniques: automat ed exposure control; mA and/or kV adjustment per patient size (includes targeted exams where dose is matched to clinical indication); or iterative reconstruction. Findings: The lower lungs show no nodules, masses or effusions. The previously described peribronchial thickeni ng is not present. There is a small hiatal hernia. There are clips in the gallbladder fossa from a ch olecystectomy. The low density lesions in the liver have not changed. The largest low-density lesion in the left lower liver is 2.51 cm. No new lesions are seen. The portal venous flow is normal. The spleen, adrenal glands and pancreas are normal. The kidneys show equal bilateral contrast excretion with bilateral cysts, the largest of which on the left is 4.0 cm. No renal masses, hydronephrosis or renal calculi are seen. The abdominal aortic aneurysm is unchanged with a greatest diameter of 4.8 cm and there is thrombosis throughout. The aortic stent graft extending from the infrarenal region into the common iliac arteri es remains patent. There is no endoleak.. No appendicitis or diverticulitis is seen. There is diverticulosis of the descending and sigmoid colo ns. There is a large amount of fecal material throughout the colon. The stomach and small bowel are u nremarkable. The extensive adenopathy seen in the perihepatic region in intestinal mesentery, periaortic, retrocru ral peritoneal and pelvic areas remains the same. The right pelvic sidewall is larger than the left p elvic sidewall which may be a normal variant. The right inguinal hernia is no longer present. The bladder is unremarkable. Prostate is enlarged with a few calcifications.. There is osteoarthritic change with degenerative disc disease of the lumbar spine. CT/CT abdomen pelvis w con* [id number] Impression: 1. Intact aortic stent graft with no evidence of endoleak. 2. Extensive adenopathy throughout the abdomen unchanged. 3. Right inguinal hernia is no longer present. 4. No change in low density lesions of the liver.
== END 2020-04-08 12:59 | disposition home or self-care (01) ==
LOC: RADWPI 13:05
PROVIDERS: PCP Nurse Practitioner Family; Visit Provider Nurse Practitioner Family
DX: R10.9 Unspecified abdominal pain (principal); K40.90 Unilateral inguinal hernia, without obstruction or gangrene, not specified as recurrent
CPT/HCPCS: 74177; Q9967

== ENCOUNTER → 2020-05-04 14:54 | Outpatient (BNVA) | payer MEDICARE, OTHER, SELFPAY | PROVIDERS: PCP Nurse Practitioner Family; Visit Provider Internal Medicine Medical Oncology | DX: D50.8 Other iron deficiency anemias (principal) | CPT/HCPCS: 83550; 85025 ==

== ENCOUNTER → 2020-06-06 14:08 | Outpatient (BNVA) | payer MEDICARE, OTHER, SELFPAY | PROVIDERS: PCP Nurse Practitioner Family; Visit Provider Internal Medicine Medical Oncology | DX: C91.10 Chronic lymphocytic leukemia of B-cell type not having achieved remission (principal) | CPT/HCPCS: 83550; 85025 ==

== ENCOUNTER → 2020-07-06 16:41 | Outpatient (BNVA) | payer MEDICARE, OTHER, SELFPAY | PROVIDERS: PCP Nurse Practitioner Family; Visit Provider Nurse Practitioner Family | DX: C91.10 Chronic lymphocytic leukemia of B-cell type not having achieved remission (principal) | CPT/HCPCS: 83550; 85025 ==

== ENCOUNTER 2020-08-29 21:36 | Inpatient (IN) | payer MEDICARE, OTHER, SELFPAY ==
[2020-08-29 21:42] VITALS: BP 163/97; PULSE 98; RESP 18; TEMP 36.9; O2SAT 98; BMI 23.0
--- NOTE | 2020-08-29 21:44 | ECG_ITS ---
[facility] Test Date: 2020-08-29 Pat Name: Naseem Luna Department: Room: Gender: Male Data Capture Clerk: : 1935 Requested By: Mary Chapman Order Number: [id number] Reading MD: MINGO ALMARAZ Measurements Intervals [place] Rate: 106 P: 168 NC: 168 QRS: 43 QRSD: 132 T: 44 QT: 373 QTc: 496 Interpretive Statements SINUS TACHYCARDIA WITH OCCASIONAL VENTRICULAR PREMATURE COMPLEXES RIGHT BUNDLE BRANCH BLOCK [120+ ms QRS DURATION, UPRIGHT V1, 40+ ms S IN I/aVL/V4/V5/V6] Compared to ECG 02/23/2019 02:39:50 Ventricular premature complex(es) now present Right bundle-branch block now present Sinus bradycardia no longer present Sinus arrhythmia no longer present ST (T wave) deviation no longer present Electronically Signed On 08-30-2020 20:18:15 CDT by MINGO ALMARAZ [email or web address] Care [email or web address] Networkg. v. (sonny) montgomery va medical centerKidBookmemorial health system marietta memorial hospital.[id number]
--- NOTE | 2020-08-29 21:44 | XRR_ITS ---
PROCEDURE INFORMATION: Exam: XR Chest Exam date and time: 08/29/2020 9:49 PM Age: 85 years old Clinical indication: Chest pain; Type not specified; Prior surgery; Surgery type: Gb, hernia, stent x 4; Patient HX: Weak, dizzy, low o2; Additional info: Cp TECHNIQUE: Imaging protocol: XR of the chest Views: 1 view. COMPARISON: CR XR chest 2V* [id number] 06/05/2019 1:19 PM FINDINGS: Lungs: Mild fibrotic changes suggested within the lung bases. Lungs are otherwise well aerated. Pleural spaces: Unremarkable. No pleural effusion. No pneumothorax. Heart/Mediastinum: Unremarkable. No cardiomegaly. Bones/joints: Unremarkable. XR/XR chest 1V portable [id number] IMPRESSION: Mild fibrotic changes suggested within the lung bases. Lungs are otherwise well aerated. .
[2020-08-29 21:46] VITALS: BP 128/68; PULSE 106; RESP 20; O2SAT 97
--- NOTE | 2020-08-29 21:56 | ED_ITS ---
HPI - Dizziness General: Chief Complaint: Dizziness Stated Complaint: WEAKNESS AND DIZZY Time Seen by Provider: 08/29/20 21:39 Source: patient and EMS Mode of arrival: EMS Limitations: no limitations History of Present Illness: HPI Narrative: 85-year-old male has a history of chronic anemia and gets blood transfusions. He states he has had EGDs and colonoscopy and they are unsure what is causing his anemia. He has a history of leukemia as well. He states today he is feeling weakness and some dizziness and he states he gets this way when he needs a blood transfusion. Denies any vomiting or diarrhea. Has had some mild chest pain as well. Denies any worsening improving factors. Associated symptoms: Reports chest pain; Denies chills, headache(s), nausea or vomiting Review of Systems Const: Denies: fever(s), chills, body aches or change in appetite Eyes: Denies: blurry vision or eye discomfort ENMT: Denies: throat pain or dental pain Card: Reports: chest pain Resp: Denies: dyspnea GI: Denies: abdominal pain, nausea, vomiting or diarrhea : Denies: dysuria Musc: Denies: neck pain or back pain Skin/Breast: Denies: rash Neuro: Reports: weakness in extremities; Denies: headache(s) Psych: Denies: depression Scotty/Lymph: Denies: easy bruising All/Imm: Denies: urticaria PFSH ED PFSH: Medical History (Updated 08/30/20 @ 00:55 by Mary Chapman MD) Anemia Aneurysm of infrarenal abdominal aorta Chronic episodic atrial fibrillation Chronic GERD Chronic lymphocytic 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 COPD (chronic obstructive pulmonary disease) Dermatomyositis Diverticulitis Generalized osteoarthritis Hiatal hernia History of adenomatous polyp of colon History of pulmonary embolism Iron refractory iron deficiency anemia Mixed hyperlipidemia Osteopenia Polymyalgia rheumatica Statin intolerance Upper GI bleed Surgical History History of aortic aneurysm repair History of colonoscopy with polypectomy S/P cardiac catheterization S/P cholecystectomy Status post right inguinal hernia repair Family History Mother Cancer Brother Hypertension Social History Smoking and tobacco status: current every day smoker cigarettes Second hand smoke exposure: No Alcohol intake: never Lives independently: Yes Household members: none Marital status: Current occupational status: retired History of recent travel: No Current gender identity: Male Physical Exam Const: COMMON NORMALS: no acute distress, patient oriented x3 and healthy appearing HENMT: COMMON NORMALS: normocephalic and atraumatic HEAD & SCALP: normocephalic and atraumatic Eye: COMMON NORMALS: Equal, round and reactive pupils present and EOMs intact bilaterally PUPIL: Yes Equal, round and reactive pupils present Neck/C-Spine: COMMON NORMALS: full ROM and supple Chest: COMMONS NORMALS: normal inspection of the chest and normal palpation of entire chest wall Resp: COMMON NORMALS: normal respiratory effort, No retractions, No use of accessory muscles and clear to auscultation bilaterally AUSCULTATION: clear to auscultation bilaterally Cardio: COMMON NORMALS: regular rate, regular rhythm and No murmurs present (Cardio) RATE: regular rate RHYTHM: regular rhythm GI: COMMON NORMALS: Normal to inspection, nondistended, normoactive bowel sounds present, Soft to palpation, non-tender and no masses PALPATION: Yes Soft to palpation Extremity: COMMON NORMALS: normal to inspection and full ROM Neuro: COMMON NORMALS: patient oriented x3, moves all extremities and no focal motor deficits Psych: COMMON NORMALS: mental status grossly normal, Normal thought process present and cooperative THOUGHT PROCESS: Normal thought process present Skin: COMMON NORMALS: no rashes or lesions noted and no wounds GENERAL SKIN EXAM: no rashes or lesions noted Course Vital Signs: Vital signs: Vital Signs Temperature 98.5 F 08/29/20 21:42 Pulse Rate 108 H 08/30/20 00:30 Respiratory Rate 16 08/30/20 00:30 Blood Pressure 153/94 08/30/20 00:30 Pulse Oximetry 99 08/30/20 00:30 MDM - Dizziness MDM Narrative: Medical decision making narrative: Patient presents with chest pain does have an elevated delta troponin. Patient is having chest pain here as well since resolved. Did give him a dose of Lovenox. EKG showed no signs of ST elevation. I spoke to hospitalist and will admit for NSTEMI. Lab Data: Labs: Lab Results 08/29/20 08/29/20 08/29/20 Range/Units 21:56 21:56 21:56 WBC 64.6 H* (4.0-10.0) 10^3/ uL RBC 3.67 L (4.1-5.3) 10^6/u L Hgb 9.5 L (11.7-16.6) g/dL Hct 31.8 L (42.0-52.0) % MCV 86.6 (80-94) fL MCH 25.9 L (28.0-34.0) pg MCHC 29.9 L (30.0-36.0) g/dL RDW 14.6 (12.1-15.1) % Plt Count 101 L (130-400) 10^3/c mm MPV 9.3 (7.4-10.4) fL Lymph % (Auto) Not Reportable [place] % (Auto) Not Reportable Lymph # (Auto) Not Reportable [place] # (Auto) Not Reportable Total Counted 100 (0-100) Atypical Lymphs % 0.0 (0-5) % Absolute Neutrophi ls 4.5 (1.4-6.5) 10^3/c mm Segmented Neutroph ils 7 % Abs Segm Neuts (Ma n) 4.5 (1.6-7.1) 10/cmm Band Neutrophils 0.0 % Abs Band Neuts (Ma n) 0.0 (0.0-1.2) 10^3/c mm Absolute Lymphocyt es 54.9 H (1.2-3.4) 10^3/c mm Lymphocytes (Manua l) 85 % Monocytes (Manual) 0.0 % Absolute Monocytes 0.0 L (0.1-0.6) 10^3/c mm Eosinophils (Manua l) 0 % Absolute Eosinophi ls 0.0 (0.0-0.7) 10^3/c mm Basophils (Manual) 0.0 % Absolute Basophils 0.0 (0.0-0.2) 10^3/c mm Blast Cells 8 H* (0-0) % Smudge Cells 2+ H Platelet Estimate Decreased (Normal) Sodium 138 (136-145) mmol/L Potassium 3.9 (3.5-5.1) mmol/L Chloride 102 (98-107) mmol/L Carbon Dioxide 27 (22-29) mmol/L Anion Gap 12.9 (5-19) BUN 19 (8-23) mg/dL Creatinine 1.3 H (0.7-1.2) mg/dL GFR Calculation Not Reportable Glucose 114 (65-115) mg/dL Calculated Osmolal ity 289 (285-295) mOsm/k g Calcium 8.6 (8.5-10.5) mg/dL Total Bilirubin 0.2 (0.15-1.2) mg/dL AST 11 (0-40) U/L ALT 6 (0-41) U/L Alkaline Phosphata se 93 (40-130) IU/L Troponin T Baselin e 27 H (0-15) ng/L Troponin T 120 Min [place] (0-15) ng/L Delta Troponin T (0-10) ABS# Total Protein 6.0 L (6.6-8.7) g/dL Albumin 4.1 (3.5-5.2) g/dL Globulin 1.9 (1.3-4.6) g/dL Lipase 10 L (13-60) U/L Urine Color (Yellow) Urine Appearance (CLEAR) Urine pH (5-7) Ur Specific Gravit y (1.005-1.030) Urine Protein (Negative) Urine Glucose (UA) (Normal) Urine Ketones (Negative) Urine Blood (Negative) Urine Nitrate (Negative) Urine Bilirubin (Negative) Urine Urobilinogen (Negative) mg/dL Ur Leukocyte Meche ase (Negative) 08/29/20 08/29/20 Range/Units 22:30 23:38 WBC (4.0-10.0) 10^3/ uL RBC (4.1-5.3) 10^6/u L Hgb (11.7-16.6) g/dL Hct (42.0-52.0) % MCV (80-94) fL MCH (28.0-34.0) pg MCHC (30.0-36.0) g/dL RDW (12.1-15.1) % Plt Count (130-400) 10^3/c mm MPV (7.4-10.4) fL Lymph % (Auto) [place] % (Auto) Lymph # (Auto) [place] # (Auto) Total Counted (0-100) Atypical Lymphs % (0-5) % Absolute Neutrophi ls (1.4-6.5) 10^3/c mm Segmented Neutroph ils % Abs Segm Neuts (Ma n) (1.6-7.1) 10/cmm Band Neutrophils % Abs Band Neuts (Ma n) (0.0-1.2) 10^3/c mm Absolute Lymphocyt es (1.2-3.4) 10^3/c mm Lymphocytes (Manua l) % Monocytes (Manual) % Absolute Monocytes (0.1-0.6) 10^3/c mm Eosinophils (Manua l) % Absolute Eosinophi ls (0.0-0.7) 10^3/c mm Basophils (Manual) % Absolute Basophils (0.0-0.2) 10^3/c mm Blast Cells (0-0) % Smudge Cells Platelet Estimate (Normal) Sodium (136-145) mmol/L Potassium (3.5-5.1) mmol/L Chloride (98-107) mmol/L Carbon Dioxide (22-29) mmol/L Anion Gap (5-19) BUN (8-23) mg/dL Creatinine (0.7-1.2) mg/dL GFR Calculation Glucose (65-115) mg/dL Calculated Osmolal ity (285-295) mOsm/k g Calcium (8.5-10.5) mg/dL Total Bilirubin (0.15-1.2) mg/dL AST (0-40) U/L ALT (0-41) U/L Alkaline Phosphata se (40-130) IU/L Troponin T Baselin e (0-15) ng/L Troponin T 120 Min [place] 40.29 H (0-15) ng/L Delta Troponin T 13.29 H* (0-10) ABS# Total Protein (6.6-8.7) g/dL Albumin (3.5-5.2) g/dL Globulin (1.3-4.6) g/dL Lipase (13-60) U/L Urine Color Yellow (Yellow) Urine Appearance Clear (CLEAR) Urine pH 7 (5-7) Ur Specific Gravit y 1.005 (1.005-1.030) Urine Protein Neg (Negative) Urine Glucose (UA) Norm (Normal) Urine Ketones Negative (Negative) Urine Blood Neg (Negative) Urine Nitrate Negative (Negative) Urine Bilirubin Neg (Negative) Urine Urobilinogen Norm (Negative) mg/dL Ur Leukocyte Meche ase Negative (Negative) Imaging Data^: CT Chest: Attestation: I personally reviewed and interpreted this imaging study as follows: Radiologist's impression: [employer] [address] [address] Scan Report Signed Patient: Naseem Luna Unit #: [id number] : 1935 Age/Sex: 85 / M ADM Date: 08/29/20 Loc: ER Room/Bed: Attending Dr: Ordering Provider/Ordering MD: Mary Chapman MD Date of Service: 08/29/20 Procedure(s): CT angio chest PE protcl [id number] Accession Number(s): [id number] Report Number: [id number] PROCEDURE INFORMATION: Exam: CT Angiography Chest With Contrast Exam date and time: 08/29/2020 11:29 PM Age: 85 years old Clinical indication: Shortness of breath; Prior surgery; Surgery type: Heart ablation, aaa, gb; Additional info: SOB, weakness TECHNIQUE: Imaging protocol: Computed tomographic angiography of the chest with contrast. 3D rendering (Not supervised by radiologist): MIP and/or 3D reconstructed images were created by the technologist. Radiation optimization: All CT scans at this facility use at least one of these dose optimization techniques: automated exposure control; mA and/or kV adjustment per patient size (includes targeted exams where dose is matched to clinical indication); or iterative reconstruction. Contrast material: VISI 320; Contrast volume: 95 ml; Contrast route: INTRAVENOUS (IV); COMPARISON: CTA Chest-Pulmonary Emb [id number] 01/14/2018 8:52 PM RADIATION DOSE METRICS: Total DLP (mGy-cm): 567.78 FINDINGS: Pulmonary arteries: Normal. No pulmonary emboli. Aorta: Aortic stent partially visualized. Lungs: Centrilobular emphysematous changes. Somewhat diffuse bronchial wall thickening greatest in the lower lobes somewhat similar to prior exam may reflect an underlying chronic inflammatory process. Left upper lobe 10 mm focal area of nodular pleural thickening similar to prior exam, likely benign given stability. Right lower lobe 8.8 mm nodule somewhat contacting the pleura, not seen with certainty on prior exam, best seen series 2, image 413. Pleural spaces: Unremarkable. No pneumothorax. No pleural effusion. Heart: Coronary artery atherosclerotic calcifications. Lymph nodes: Unremarkable. No enlarged lymph nodes. Kidneys and ureters: Left kidney cysts partially visualized, negative for follow-up advised. Bones/joints: Unremarkable. No acute fracture. Soft tissues: Unremarkable. CT/CT angio chest PE protcl [id number] IMPRESSION: 1. Negative for pulmonary embolus. 2. Coronary artery atherosclerotic calcifications. 3. Aortic stent partially visualized. 4. Left kidney cysts partially visualized, negative for follow-up advised. 5. Centrilobular emphysematous changes. 6. Somewhat diffuse bronchial wall thickening greatest in the lower lobes somewhat similar to prior exam may reflect an underlying chronic inflammatory process. 7. Left upper lobe 10 mm focal area of nodular pleural thickening similar to prior exam, likely benign given stability. 8. Right lower lobe 8.8 mm nodule somewhat contacting the pleura, not seen with certainty on prior exam, best seen series 2, image 413.For both low risk and high risk patients, consider CT Chest at 3 months, PET/CT, or biopsy. (Reference: Yobani) EKG Data^: EKG 1: Attestation: I personally reviewed and interpreted this EKG as follows: EKG interpretation date: 08/29/20 EKG interpretation time: 21:58 Interpretation: sinus tach hr [address] or t wave abnormalities qrs 132 qtc 435 EKG 2: Attestation: I personally reviewed and interpreted this EKG as follows: EKG interpretation date: 08/30/20 EKG interpretation time: 00:07 Interpretation: sinus tach hr [address] elevation qrs 125 qtc 441 Discharge Plan Discharge Patient Disposition: Admitted As Inpatient Clinical Impression: Acute non-ST elevation myocardial infarction (NSTEMI) Condition: Stable Coding Level of Care Code ED [employer] Adminstrator for Chg Fwd Exam Comprehensive
[2020-08-29 22:04] LABS: Hematocrit 31.8 % (42.0-52.0); Hemoglobin 9.5 g/dL (11.7-16.6); Mean Corpuscular HGB Conc 29.9 g/dL (30.0-36.0); Mean Corpuscular Hemoglobin 25.9 pg (28.0-34.0); Mean Corpuscular Volume 86.6 fL (80-94); Mean Platelet Volume 9.3 fL (7.4-10.4); Platelet Count 101 10^3/cmm (130-400); Red Blood Count 3.67 10^6/uL (4.1-5.3); Red Cell Distribution Width 14.6 % (12.1-15.1)
[2020-08-29 22:16] VITALS: BP 142/78; PULSE 88; RESP 18; O2SAT 97
[2020-08-29 22:21] LABS: Alanine Aminotransferase 6 U/L (0-41); Albumin Level 4.1 g/dL (3.5-5.2); Alkaline Phosphatase 93 IU/L (40-130); Anion Gap 12.9 (5-19); Aspartate Amino Transferase 11 U/L (0-40); Blood Urea Nitrogen 19 mg/dL (8-23); Calcium 8.6 mg/dL (8.5-10.5); Carbon Dioxide 27 mmol/L (22-29); Chloride 102 mmol/L (98-107); Globulin 1.9 g/dL (1.3-4.6); Glucose 114 mg/dL (65-115); Lipase 10 U/L (13-60); Osmolality Calculated 289 mOsm/kg (285-295); Potassium 3.9 mmol/L (3.5-5.1); Sodium 138 mmol/L (136-145); Total Bilirubin 0.2 mg/dL (0.15-1.2)
[2020-08-29 22:24] LABS: Troponin(5th) Baseline 27 ng/L (0-15)
[2020-08-29 22:46] VITALS: BP 130/78; PULSE 99; RESP 18; O2SAT 98
[2020-08-29 23:00] VITALS: BP 138/78; PULSE 98; RESP 20; O2SAT 98
[2020-08-29 23:04] LABS: White Blood Count 64.6 10^3/uL (4.0-10.0)
[2020-08-29 23:05] LABS: Absolute Segmented Neutrophil 4.5 10/cmm (1.6-7.1); Eosinophils 0 %; Lymphocytes 85 %; Lymphocytes Absolute 54.9 10^3/cmm (1.2-3.4); Segmented Neutrophils 7 %; Total Cells Counted 100 (0-100)
[2020-08-29 23:06] LABS: Absolute Neutrophil 4.5 10^3/cmm (1.4-6.5); Blastocytes 8 % (0-0); Platelet Estimate Decreased (Normal)
[2020-08-29 23:07] LABS: Smudge Cells 2+
[2020-08-29 23:12] LABS: Add Urine Microscopic? NO
--- NOTE | 2020-08-29 23:21 | CTR_ITS ---
PROCEDURE INFORMATION: Exam: CT Angiography Chest With Contrast Exam date and time: 08/29/2020 11:29 PM Age: 85 years old Clinical indication: Shortness of breath; Prior surgery; Surgery type: Heart ablation, aaa, gb; Additional info: SOB, weakness TECHNIQUE: Imaging protocol: Computed tomographic angiography of the chest with contrast. 3D rendering (Not supervised by radiologist): MIP and/or 3D reconstructed images were created by the technologist. Radiation optimization: All CT scans at this facility use at least one of these dose optimization techniques: automated exposure control; mA and/or kV adjustment per patient size (includes targeted exams where dose is matched to clinical indication); or iterative reconstruction. Contrast material: VISI 320; Contrast volume: 95 ml; Contrast route: INTRAVENOUS (IV); COMPARISON: CTA Chest-Pulmonary Emb [id number] 01/14/2018 8:52 PM RADIATION DOSE METRICS: Total DLP (mGy-cm): 567.78 FINDINGS: Pulmonary arteries: Normal. No pulmonary emboli. Aorta: Aortic stent partially visualized. Lungs: Centrilobular emphysematous changes. Somewhat diffuse bronchial wall thickening greatest in the lower lobes somewhat similar to prior exam may reflect an underlying chronic inflammatory process. Left upper lobe 10 mm focal area of nodular pleural thickening similar to prior exam, likely benign given stability. Right lower lobe 8.8 mm nodule somewhat contacting the pleura, not seen with certainty on prior exam, best seen series 2, image 413. Pleural spaces: Unremarkable. No pneumothorax. No pleural effusion. Heart: Coronary artery atherosclerotic calcifications. Lymph nodes: Unremarkable. No enlarged lymph nodes. Kidneys and ureters: Left kidney cysts partially visualized, negative for follow-up advised. Bones/joints: Unremarkable. No acute fracture. Soft tissues: Unremarkable. CT/CT angio chest PE protcl [id number] IMPRESSION: 1. Negative for pulmonary embolus. 2. Coronary artery atherosclerotic calcifications. 3. Aortic stent partially visualized. 4. Left kidney cysts partially visualized, negative for follow-up advised. 5. Centrilobular emphysematous changes. 6. Somewhat diffuse bronchial wall thickening greatest in the lower lobes somewhat similar to prior exam may reflect an underlying chronic inflammatory process. 7. Left upper lobe 10 mm focal area of nodular pleural thickening similar to prior exam, likely benign given stability. 8. Right lower lobe 8.8 mm nodule somewhat contacting the pleura, not seen with certainty on prior exam, best seen series 2, image 413.For both low risk and high risk patients, consider CT Chest at 3 months, PET/CT, or biopsy. (Reference: Yobani) COMMENTS: Consistent with the [employer]'s Incidental Findings Committee white paper (J Am Lala Radiol 2018): Any incidental renal lesion less than 1 cm or classified as too small to characterize, or any incidental cystic renal lesion characterized as simple-appearing, is likely benign. No follow-up imaging is recommended for these lesions per consensus recommendations based on imaging criteria. REFERENCES: Yobani Ceballos et al. Guidelines for Management of Incidental Pulmonary Nodules Detected on CT Images: From the Fleischner Society 2017. Radiology. 2017;284(1):228-243. Radiation Dose CTDIVOL = (mGy): DLP = 567.78 (mGy-cm)
[2020-08-29 23:22] LABS: Bilirubin Urine Neg (Negative); Blood Urine Neg (Negative); Glucose Urine UA Norm (Normal); Ketones Urine Negative (Negative); Leukocyte Esterase Urine Negative (Negative); Nitrate Urine Negative (Negative); Protein Urine Neg (Negative); Specific Gravity, Urine 1.005 (1.005-1.030); Urine Appearance Clear (CLEAR); Urine Color Yellow (Yellow); Urobilinogen Urine Norm (Negative); pH Urine 7 (5-7)
[2020-08-29 23:30] VITALS: BP 158/78; PULSE 102; RESP 20; O2SAT 97
[2020-08-29] MEDS: sodium chloride 0.9% 500 ML 999 ML IV (23:41)
--- NOTE | 2020-08-29 23:44 | ECG_ITS ---
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1935 Requested By: Mayr Chapman Order Number: [id number] Reading MD: MINGO ALMARAZ Measurements Intervals [place] Rate: 108 P: 25 [place]: 150 QRS: 69 QRSD: 125 T: 51 QT: 378 QTc: 508 Interpretive Statements SINUS TACHYCARDIA RIGHT BUNDLE BRANCH BLOCK [120+ ms QRS DURATION, UPRIGHT V1, 40+ ms S IN I/aVL/V4/V5/V6] ST DEPRESSION, CONSIDER SUBENDOCARDIAL INJURY [0.1+ mV ST DEPRESSION] Compared to ECG 08/29/2020 21:58:27 ST (T wave) deviation now present Ventricular premature complex(es) no longer present Electronically Signed On 08-30-2020 20:20:15 CDT by MINGO ALMARAZ [id number]
[2020-08-29] MEDS: iodixanol 320 mg/mL 100mL Btl IV (23:47)
[2020-08-30] VITALS (256 sets, daily range): BP systolic 90–172; BP diastolic 48–114; PULSE 67–118; RESP 13–31; TEMP 36.4–37.1; O2SAT 94–100
[2020-08-30 00:07] LABS: Troponin 5 2HR 40.29 ng/L (0-15)
[2020-08-30 00:21] LABS: Troponin 5 2HR Delta 13.29 ABS# (0-10)
[2020-08-30] MEDS: lidocaine 2% viscous 15 ML, aluminum-mag hydrox-simethicon 30 ML, sucralfate oral liq 1 GM PO (00:43)
[2020-08-30] MEDS: enoxaparin 80 mg/0.8 mL Syringe 70 MG SUBCUT (00:43)
[2020-08-30] MEDS: aspirin 81 mg Chew Tablet 324 MG PO (00:43)
--- NOTE | 2020-08-30 03:44 | ECG_ITS ---
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1935 Requested By: Mary Chapman Order Number: [id number] Reading MD: MINGO ALMARAZ Measurements Intervals [place] Rate: 80 P: 70 IN: 196 QRS: 61 QRSD: 131 T: 49 QT: 415 QTc: 480 Interpretive Statements SINUS RHYTHM WITH FREQUENT SUPRAVENTRICULAR PREMATURE COMPLEXES RIGHT BUNDLE BRANCH BLOCK [120+ ms QRS DURATION, UPRIGHT V1, 40+ ms S IN I/aVL/V4/V5/V6] Compared to ECG 08/30/2020 00:07:08 Sinus tachycardia no longer present ST (T wave) deviation no longer present Electronically Signed On 08-30-2020 20:19:08 CDT by MINGO ALMARAZ [id number]
--- NOTE | 2020-08-30 04:32 | P.HP_ITS ---
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 Patient is stating that last night he was watching television, he started noticing chest pain when he was trying to get up and go towards the kitchen to have Coke and ice cream. He is describing his symptoms as chest tightness with shortness of breath associated with burning sensation, GI cocktail helped to relieve his symptoms in the ER, he also noticed diaphoresis, nausea and one episode of vomiting. This pain was not radiating to wards his left arm. Diagnostics in the ER revealed leukocyte 64 with history of leukemia hemoglobin 9.5 platelet count of 101, blast cells 8%, NICHELLE, significant delta troponin, EKG consistent with ST depression anterolateral leads, started on NSTEMI/ACS protocol, at the time my evaluation normal hemodynamics he is chest pain-free CT rule out PE Review of Systems Const: Denies: fever(s) Eyes: Denies: change in vision ENMT: Denies: throat pain Card: Reports: chest pain and dyspnea on exertion Resp: Reports: dyspnea and non-productive cough GI: Denies: abdominal pain : Denies: flank pain Musc: Denies: neck pain Skin/Breast: Reports: lesions Neuro: Denies: headache(s) Psych: Denies: anxiety Endo: Denies: polyuria Scotty/Lymph: Denies: easy bruising All/Imm: Denies: urticaria Medications/Allergies Home Medications Medication Instructions Recorded Confirmed Last Taken Type lorazepam 0.5 mg tablet 0.5 mg PO TID PRN 06/05/19 08/10/20 07/19/19 History magnesium oxide 400 mg PO BID tab 06/05/19 08/10/20 07/20/19 05:00 History docusate sodium [Colace] 100 mg PO BID #30 cap 07/20/19 08/10/20 Unknown Rx olopatadine 0.1 % eye drops 1 drop OPHTHALMIC (EYE) DAILY #5 ml 10/02/19 08/10/20 Unknown Rx portable oxygen concentrator #1 ea 12/09/19 08/10/20 Unknown Rx meclizine 12.5 mg tablet 12.5 mg PO DAILY PRN tab 02/09/20 08/10/20 Unknown History multivitamin with iron 1 tab PO DAILY 02/09/20 08/10/20 Unknown History pantoprazole 40 mg tablet,delayed 40 mg PO BID #60 tab 03/11/20 08/10/20 Unknown Rx release polyethylene glycol 3350 17 17 g PO DAILY 04/25/20 08/10/20 Unknown History gram/dose oral powder nitroglycerin 0.4 mg sublingual 0.4 mg SUBLINGUAL Q5M PRN #25 tab 05/25/20 08/10/20 Unknown Rx tablet tramadol 50 mg tablet 50 mg PO TID PRN #90 tab 07/26/20 08/10/20 Unknown Rx albuterol sulfate 90 mcg/actuation See Rx Instructions .ROUTE 08/10/20 08/10/20 Unknown Rx aerosol inhaler .COMPLEX #8.5 g mupirocin 2 % topical ointment 1 applic TOPICAL BID #22 g 08/10/20 08/10/20 Unknown Rx albuterol sulfate See Rx Instructions .ROUTE 08/15/20 Unknown Rx .COMPLEX #180 ml alfuzosin 10 mg tablet,extended 10 mg PO DAILY #90 tab 08/15/20 Unknown Rx release 24 hr fluticasone propionate 50 2 spray INTRANASAL DAILY 90 Days 08/15/20 Unknown Rx mcg/actuation nasal #47.4 ml spray,suspension hydrochlorothiazide 25 mg tablet 12.5 mg PO QAM #45 tab 08/15/20 Unknown Rx prednisone 2.5 mg tablet 2.5 mg PO DAILY #90 tab 08/15/20 Unknown Rx sotalol 80 mg tablet 80 mg PO BID #180 tab 08/15/20 Unknown Rx sucralfate 100 mg/mL oral See Rx Instructions .ROUTE 08/15/20 Unknown Rx suspension .COMPLEX #1800 ml tiotropium 2.5 mcg-olodaterol 2.5 2 puff INHALATION Q24H 90 Days #12 08/15/20 Unknown Rx mcg/actuation mist for inhalation g Allergies Allergy/AdvReac Type Severity Reaction Status Date / Time ciprofloxacin [From Cipro] Allergy Unknown Verified 08/29/20 21:46 dabigatran etexilate Allergy Unknown Verified 08/29/20 21:46 [From Pradaxa] Penicillins Allergy Unknown Verified 08/29/20 21:46 PFSH Acute PFSH: Medical History Anemia Aneurysm of infrarenal abdominal aorta Chronic episodic atrial fibrillation Chronic GERD Chronic lymphocytic 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 COPD (chronic obstructive pulmonary disease) Dermatomyositis Diverticulitis Generalized osteoarthritis Hiatal hernia History of adenomatous polyp of colon History of pulmonary embolism Iron refractory iron deficiency anemia Mixed hyperlipidemia Osteopenia Polymyalgia rheumatica Statin intolerance Upper GI bleed Surgical History History of aortic aneurysm repair History of colonoscopy with polypectomy S/P cardiac catheterization S/P cholecystectomy Status post right inguinal hernia repair Family History Mother Cancer Brother Hypertension Social History Smoking and tobacco status: current every day smoker cigarettes Second hand smoke exposure: No Alcohol intake: never Lives independently: Yes Household members: none Marital status: Current occupational status: retired History of recent travel: No Current gender identity: Male Vitals/I&O/Wt Last Vital Signs Temp 98.8 F 08/30/20 02:21 Pulse 99 08/30/20 03:00 Resp 22 H 08/30/20 03:00 BP 132/71 08/30/20 03:00 Pulse Ox 100 08/30/20 03:00 Weight last 48 hrs Weight 66.678 kg Physical Exam Narrative: EXAM NARRATIVE: Very pleasant elderly male was laying comfortably when I entered the room He was saturating well on 2 L nasal cannula Active chest pain or shortness of breath Appears stated age, looks dehydrated and emaciated Appropriate mood and affect EOMI, PERRLA no neurological deficits S1, S2 no murmur appreciated no signs of heart failure No acute respite distress no adventitious rhonchi or crackles Abdomen soft nontender bowel sound present Lower extremity no edema gangrene or ulcer Data : 08/29/20 21:56 08/29/20 21:56 A&P Assessment and plan (1) Acute non-ST elevation myocardial infarction (NSTEMI): Status: Acute (2) Poor appetite: Status: Acute (3) Chronic GERD: Status: Acute Additional A&P Information NSTEMI Started ACS protocol EKG showing ST depression with significant delta troponin Started on therapeutic dose of Lovenox, PE ruled out with CTA chest Currently chest pain-free, likely will need an angiogram, he has history of peripheral vascular stents as well Please consult cardiology in the morning Chronic history of leukemia He does look dehydrated and emaciated, blast cell 8%, concern for blast crisis, kindly touch base with heme-onc in the morning if leukapheresis will be needed GERD: Patient is describing his chest discomfort as burning sensation with chest tightness, we will keep him on Protonix, GI cocktail helped to relieve his symptoms as well Atrial fibrillation without RVR: Patient takes sotalol which I would hold because of Toprol usage with ACS Not a candidate for anticoagulation secondary to GI bleed, if his hemoglobin drops below 9.5 we will hold Lovenox Goals of care discussed with the patient, he wishes to stay full code Cardiac diet DVT prophylaxis not indicated Attestations Medical Necessity Statement*: Anticipating stay in the hospital cross more than 2 midnights for NSTEMI management Time Spent in Patient Care: (>than 50% of time spent in counselling and/or direct pt care on unit) . 45mins Coding Level of Care Code Acute Secretary Specialist for Chg Fwd Diagnoses Acute non-ST elevation myocardial infarction (NSTEMI) I21.4 Poor appetite R63.0 Chronic GERD K21.9
--- NOTE | 2020-08-30 04:38 | USCV_ITS ---
Naseem Luna Age: 85 Gender: M : 1935 Exam Date: 08/30/2020 06:32 Ordering Phys: Ministerio Paula MD Technologist: Justus Ramirez Exam Location: [facility] [place] Indication: NSTEMI BP: 90 / 68 HR: 74 Rhythm: Sinus Technical Quality: MEASUREMENTS (Male / Female) Normal Values 2D ECHO LV Diastolic Diameter PLAX 4.6 cm 4.2 - 5.9 / 3.9 - 5.3 cm LV Systolic Diameter PLAX 3.3 cm IVS Diastolic Thickness 1.1 cm 0.6 - 1.0 / 0.6 - 0.9 cm IVS Systolic Thickness 1.3 cm LVPW Diastolic Thickness 0.9 cm 0.6 - 1.0 / 0.6 - 0.9 cm LVPW Systolic Thickness 1.3 cm LVOT Diameter 2.1 cm LV Ejection Fraction 2D Teich 53.8 % LV Ejection Fraction MOD 2C 60.6 % LV Ejection Fraction 2C AL 60.9 % LA Diameter 3.4 cm LA Width 3.3 cm LA Height 4.4 cm RA Width 2.8 cm RA Height 4.0 cm M-MODE LV Diastolic Diameter MM 5.8 cm 4.2 - 5.9 / 3.9 - 5.3 cm LV Systolic Diameter MM 4.5 cm LV Ejection Fraction MM Teich 44.0 % IVS Diastolic Thickness MM 0.9 cm 0.6 - 1.0 / 0.6 - 0.9 cm IVS Systolic Thickness MM 1.2 cm LVPW Diastolic Thickness MM 1.0 cm 0.6 - 1.0 / 0.6 - 0.9 cm LVPW Systolic Thickness MM 1.4 cm RV Diastolic Diameter MM 1.4 cm Aortic Annulus Diameter 3.9 cm LA Ao Ratio MM 0.9 MV E Point Septal Separation 0.9 cm DOPPLER AV Peak Velocity 106.7 cm/s LVOT Peak Velocity 79.0 cm/s AV Area Cont Eq vti 3.1 cm squared AV Area Cont Eq pk 2.5 cm squared MV Area PHT 5.4 cm squared Mitral E to A Ratio 1.0 MV E' Velocity 31.5 cm/s Mitral E to MV E' Ratio 8.2 Mitral E to LV E' Lateral Ratio 7.6 Mitral E to LV E' Septal Ratio 8.9 TR Peak Velocity 159.7 cm/s TR Peak Gradient 10.2 mmHg TV Peak E Velocity 115.0 cm/s Right Atrial Pressure 3.0 mmHg Pulmonary Artery Systolic Pressu 13.2 mmHg PV Peak Velocity 99.0 cm/s FINDINGS Left Ventricle LV size with slightly diminished ejection fraction of 50%. Mild hypokinesia of the mid and apical septum and anteroseptal segments. Relative hypokinesia of the inferolateral wall segment. Right Ventricle The right ventricle is normal in size and function. Right Atrium The right atrium is normal in size. Left Atrium The left atrium is normal in size. Mitral Valve Thickened mitral valve. Mild mitral annular calcification. Aortic Valve Thickened aortic valve. Tricuspid Valve No gross abnormalities noted Pulmonic Valve Pulmonic valve not well visualized. Pericardium Normal pericardium without effusion. Aorta Normal ascending aorta dimension. CONCLUSIONS Normal LV size with a slightly diminished ejection fraction of 50%. Wall motion of normalities as mentioned above. Thickened aortic and mitral valves with mild mitral annular calcification Technically difficult study because of poor ultrasonic window. There is no pericardial effusion. Comparison with the previous study is difficult because of the difference in the technical quality. Dr Irma Perez MD [facility] (Electronically Signed) Final Date: 30 August 2020 15:29 S
--- NOTE | 2020-08-30 05:34 | PC.NURSE ---
Dr. Paula bedside discussing POC. Gave verbal orders to schedule mag ox 400 mg BID PO daily. Continue care
--- NOTE | 2020-08-30 05:41 | PC.NURSE ---
Dr. Paula bedside patient reported nausea and sore throat. Received orders for Zofran and Chloraseptic spray, continue care.
[2020-08-30 06:23] LABS: Troponin 5 6HR 104.2 ng/L (0-15)
[2020-08-30 06:24] LABS: Troponin 5 6HR Delta 77.2 ng/L (0-12)
[2020-08-30] MEDS: aspirin 81 mg EC Tablet PO (08:09)
[2020-08-30] MEDS: magnesium oxide 400 mg tablet PO ×2 (08:09→17:36)
[2020-08-30] MEDS: polyethylene glycol 3350 Pkt 17 gm PO (08:09)
[2020-08-30] MEDS: clopidogrel 75 mg Tablet PO (08:09)
[2020-08-30] MEDS: metoprolol succinate ER (24 HR) 25 mg Tablet 12.5 MG PO (08:09)
[2020-08-30] MEDS: clopidogrel 300 mg Tablet PO (11:08)
--- NOTE | 2020-08-30 12:06 | PC.CHAP ---
Pastoral Care Encounter/Spiritual Assessment Type of Contact [] Declined dermatology procedural physician visit [] Patient/Family/Request visit [] Outpatient visit [] Follow-up visit [] Physician referral [] Code/Alert [x] Routine visit [] Staff referral [] Actively dying [] Patient sleeping [] Family support [] [] Out of room [] Palliative care [] [] Receiving care in room [] Pre-surgical visit [] Trauma [] Long length of stay [x] ICU visit [] Other: Relational/Emotional Strength [] Patient feels connected with others/family/visitors/staff [] Distress [] Loneliness/isolation [] Abandonment Spirituality of Patient [] Person of Mirtha [] Attends Holiness of their Mirtha [] Believes in Prayer [] Reads Bible or Mosque materials [] There are Spiritual issues to be addressed Digital Asset Manager Interventions [x] Prayer [x] Active listening [x] Non-anxious presence [x] Spiritual/emotional support [] Crisis/trauma care [] Spiritual counseling [] Bereavement support [] Provided bereavement packet [] Provided Bible/devotional materials [] Provided toy/stuffed animal, coloring book to patient or family member [] Provided Communion [] Anointing/[place] [] Salvation [x] Completed spiritual assessment [] Other: Impact on Illness or Injury [] Angry [] Fearful [] Anxious [] Often cries [] Exhaustion [] Unable to work [] Unable to attend jew [] Unable to walk/stand [] Unable to read [] Unable to drive [] Unable to eat/drink [] Unable to sleep [] Unable to be with family [] Patient intubated [] Other: Summary improvement... resting well Time spent with patient 10 min
--- NOTE | 2020-08-30 12:50 | P.PN_ITS ---
Subjective Subjective: Interval history: The patient reports upper chest pain. Currently well controlled. Denies shortness of breath. No nausea or vomiting. No chills. No abdominal pain. No diarrhea. Denies rectal blood or black stool. Medications: Reviewed: Yes Medication Review Details: Generic Name Dose Route Start Last Admin Trade Name Yasmany PRN Reason Stop Dose Admin Aspirin 81 mg 08/30/20 09:00 08/30/20 08:09 Aspirin 81 Mg Ec Tablet PO 81 mg DAILY ANDRES Administration Clopidogrel Bisulf ate 75 mg 08/30/20 09:00 08/30/20 08:09 Clopidogrel 75 M g Tablet PO 75 mg DAILY ANDRES Administration Magnesium Oxide 400 mg 08/30/20 09:00 08/30/20 08:09 Magnesium Oxide 400 Mg Tablet PO 400 mg BID ANDRES Administration Polyethylene Glyco l 17 gm 08/30/20 09:00 08/30/20 08:09 Polyethylene Gly col 3350 Pkt 17 Gm PO 17 gm DAILY ANDRES Administration Vitals/I&O/Wt Last Vital Signs Temp 98.7 F 08/30/20 10:00 Pulse 80 08/30/20 12:15 Resp 17 08/30/20 12:15 BP 144/78 08/30/20 12:15 Pulse Ox 99 08/30/20 12:15 08/29/20 08/30/20 08/30/20 22:59 06:59 14:59 Intake Total 500 / 500 Output Total 400 / 400 Balance 100 / 100 Weight last 48 hrs Weight 66.678 kg Physical Exam Narrative: EXAM NARRATIVE: Awake alert oriented. No acute distress. Mood and affect are appropriate. Skin is warm and dry. MMM No JVD. Supple neck. Lungs clear. No respiratory distress Heart S1, S2, regular Abdomen is soft, nontender, bowel sounds are present Extremities trace edema. No cyanosis or calf tenderness bilaterally Data : 08/29/20 21:56 08/29/20 21:56 A&P Assessment and plan (1) Acute non-ST elevation myocardial infarction (NSTEMI): Status: Acute (2) Poor appetite: Status: Acute (3) Chronic GERD: Status: Acute Additional A&P Information NSTEMI Started ACS protocol EKG showing ST depression with significant delta troponin Started on therapeutic dose of Lovenox, PE ruled out with CTA chest Currently chest pain-free, likely will need an angiogram, he has history of peripheral vascular stents as well Please consult cardiology in the morning Chronic history of leukemia He does look dehydrated and emaciated, blast cell 8%, concern for blast crisis, kindly touch base with heme-onc in the morning if leukapheresis will be needed GERD: Patient is describing his chest discomfort as burning sensation with chest tightness, we will keep him on Protonix, GI cocktail helped to relieve his symptoms as well Atrial fibrillation without RVR: Patient takes sotalol which I would hold bec ause of Toprol usage with ACS Not a candidate for anticoagulation secondary to GI bleed, if his hemoglobin drops below 9.5 we will hold Lovenox Goals of care discussed with the patient, he wishes to stay full code Cardiac diet DVT prophylaxis not indicated [place] CP/NSTEMI: Discussed with Dr. Lala. I appreciate his input. The plan is to continue dual antiplatelet therapy. Therapeutic Lovenox is being discontinued due to risk of bleeding. The patient has history of GI bleeding. Atrial fibrillation. Currently rate controlled. Management per Dr. Lala. CLL. Patient has increased white blood cell count and increased blast count. I discussed with Dr. Conte, his primary oncologist. At this time increased blast count does not have immediate clinical significance. No changes to management are recommended at this time. The patient will continue close follow-up with Dr. Conte after discharge. 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 Dr. Conte manages patient's iron deficiency. The patient receives regular iron infusions when needed. He is iron studies were performed about 2 months ago. I will repeat the tests. I will also check folic acid and B12 levels. However the management will be done by Dr. Conte after discharge. Slightly increased creatinine. Probably chronic kidney disease. We will continue monitoring. History of COPD. No evidence of bronchial obstruction or exacerbation. Continue close monitoring. GI prophylaxis. The patient has history of GI bleeding. We will resume home PPI twice daily. DVT prophylaxis. Lovenox. The plan of care was discussed with the patient. He verbalized understanding and agreement. Attestations Medical Necessity Statement*: Requires additional cardiac testing. Coding Level of Care Code Acute Commercial Lines Account Assistant for g Fwd Diagnoses Acute non-ST elevation myocardial infarction (NSTEMI) I21.4 Poor appetite R63.0 Chronic GERD K21.9
[2020-08-30] MEDS: LORazepam 0.5 mg Tablet PO ×2 (13:36→16:55)
--- NOTE | 2020-08-30 13:37 | PC.NURSE ---
Nurse answered call light. Patient has a complaint that he can't breath . Patient's O2 saturation is 100%, respirations 18, HR is 86. Pt does not describe any other symptoms . Nurse administered 0.5 mg tab of ativan.
[2020-08-30 13:51] LABS: Folate Level 12.1 ng/mL (4.5-32.2)
[2020-08-30 13:52] LABS: Iron 55 ug/dL (59-158); Percent Saturation 18.2 % (20-50); Total Iron Binding Capacity 301 mcg/dl; Unsaturated Iron Binding 246 ug/dL (112-347); Vitamin B12 215 pg/mL (232-1245)
--- NOTE | 2020-08-30 16:53 | PC.NURSE ---
Dr. Carranza notified of pt increased anexity after prn dose of ativan. Orders to give another dose now ordered. will monitor
[2020-08-30] MEDS: pantoprazole DR 40 mg Tablet PO (17:36)
--- NOTE | 2020-08-30 19:42 | P.CONIM_ITS ---
Providers/Reason For Consult Consulting Physican/Specialty*: Cardiology Reason for Consult*: Non-ST elevation MO Attending Physician: Leonel Carranza Primary Care Provider: TAYLOR Torres History of Present Illness History of Present Illness Naseem Luna is a 85 year old male past medical history significant for COPD, peripheral vascular disease, chronic lymphocytic leukemia, history of chronic anemia with most likely GI bleed, history of paroxysmal atrial fibrillation presented with worsening of chest pain or shortness of breath. He was ruled in for non-ST elevation MO. According to the patient for the past few days he has been experiencing off-and-on chest pressure and heartburn-like symptoms. He did not pay much attention however last night while watching TV he was hit by chest pain with intensity more than 7 out of 10. When pain did not get relief he decided to come to ER. Currently he is chest pain-free. Troponin fifth generation level jeannine up to 104 suggestive of non-ST elevation MO. Patient denies recent blood per rectum however he stated anemic. In the past he was taken off of Xarelto for possible GI bleed. Review of Systems Const: Denies: fever(s), chills, body aches or change in appetite Eyes: Denies: change in vision, blurry vision or eye discomfort ENMT: Denies: throat pain or dental pain Card: Reports: chest pain and dyspnea on exertion Resp: Reports: dyspnea and non-productive cough GI: Denies: abdominal pain, nausea, vomiting or diarrhea : Denies: flank pain or dysuria Musc: Denies: neck pain or back pain Skin/Breast: Reports: lesions; Denies: rash Neuro: Reports: weakness in extremities; Denies: headache(s) Psych: Denies: anxiety or depression Endo: Denies: polyuria Scotty/Lymph: Denies: easy bruising All/Imm: Denies: urticaria Meds/Allergies Home Medications and Allergies Home Medications Medication Instructions Recorded Confirmed Last Taken Type lorazepam 0.5 mg tablet 0.5 mg PO TID PRN 06/05/19 08/30/20 07/19/19 History magnesium oxide 400 mg PO BID@05,17 tab 06/05/19 08/30/20 07/20/19 05:00 History olopatadine 0.1 % eye drops 1 drop OPHTHALMIC (EYE) DAILY #5 ml 10/02/19 08/30/20 Unknown Rx portable oxygen concentrator #1 ea 12/09/19 08/30/20 Unknown Rx meclizine 12.5 mg tablet 12.5 mg PO DAILY PRN tab 02/09/20 08/30/20 Unknown History multivitamin with iron 1 tab PO DAILY@05 02/09/20 08/30/20 Unknown History pantoprazole 40 mg tablet,delayed 40 mg PO BID #60 tab 03/11/20 08/30/20 Unknown Rx release nitroglycerin 0.4 mg sublingual 0.4 mg SUBLINGUAL Q5M PRN #25 tab 05/25/20 08/30/20 Unknown Rx tablet tramadol 50 mg tablet 50 mg PO TID PRN #90 tab 07/26/20 08/30/20 Unknown Rx albuterol sulfate 90 mcg/actuation See Rx Instructions .ROUTE 08/10/20 08/30/20 Unknown Rx aerosol inhaler .COMPLEX #8.5 g mupirocin 2 % topical ointment 1 applic TOPICAL BID #22 g 08/10/20 08/30/20 Unknown Rx albuterol sulfate See Rx Instructions .ROUTE 08/15/20 08/30/20 Unknown Rx .COMPLEX #180 ml alfuzosin 10 mg tablet,extended 10 mg PO DAILY #90 tab 08/15/20 08/30/20 Unknown Rx release 24 hr fluticasone propionate 50 2 spray INTRANASAL DAILY 90 Days 08/15/20 08/30/20 Unknown Rx mcg/actuation nasal #47.4 ml spray,suspension hydrochlorothiazide 25 mg tablet 12.5 mg PO QAM #45 tab 08/15/20 08/30/20 Unknown Rx prednisone 2.5 mg tablet 2.5 mg PO DAILY #90 tab 08/15/20 08/30/20 Unknown Rx sotalol 80 mg tablet 80 mg PO BID #180 tab 08/15/20 08/30/20 Unknown Rx sucralfate 100 mg/mL oral See Rx Instructions .ROUTE 08/15/20 08/30/20 Unknown Rx suspension .COMPLEX #1800 ml tiotropium 2.5 mcg-olodaterol 2.5 2 puff INHALATION Q24H 90 Days #12 08/15/20 08/30/20 Unknown Rx mcg/actuation mist for inhalation g levothyroxine 25 mcg PO DAILY 08/30/20 08/30/20 Unknown History Allergies Allergy/AdvReac Type Severity Reaction Status Date / Time ciprofloxacin [From Cipro] Allergy Unknown Verified 08/30/20 10:07 dabigatran etexilate Allergy Unknown Verified 08/30/20 10:07 [From Pradaxa] Penicillins Allergy Unknown Verified 08/30/20 10:07 Current Medications Current Medications Generic Name Dose Route Start Last Admin Trade Name Kylerq PRN Reason Stop Dose Admin Aspirin 81 mg 08/30/20 09:00 08/30/20 08:09 Aspirin 81 Mg Ec Tablet PO 81 mg DAILY ANDRES Administration Clopidogrel Bisulfate 75 mg 08/30/20 09:00 08/30/20 08:09 Clopidogrel 75 Mg Tablet PO 75 mg DAILY ANDRES Administration Lorazepam 0.5 mg 08/30/20 04:37 08/30/20 13:36 Lorazepam 0.5 Mg Tablet PO 0.5 mg TID PRN Administration Anxiety Magnesium Oxide 400 mg 08/30/20 09:00 08/30/20 17:36 Magnesium Oxide 400 Mg Tablet PO 400 mg BID ANDRES Administration Pantoprazole Sodium 40 mg 08/30/20 18:00 08/30/20 17:[address] 40 Mg Tablet PO 40 mg BID ANDRES Administration Polyethylene Glycol 17 gm 08/30/20 09:00 08/30/20 08:09 Polyethylene Glycol 3350 Pkt 17 Gm PO 17 gm DAILY ANDRES Administration Additional Medication Information Generic Name Dose Route Start Last Admin Trade Name Kylerq PRN Reason Stop Dose Admin Aspirin 81 mg 08/30/20 09:00 08/30/20 08:09 Aspirin 81 Mg Ec Tablet PO 81 mg DAILY ANDRES Administration Clopidogrel Bisulfate 75 mg 08/30/20 09:00 08/30/20 08:09 Clopidogrel 75 Mg Tablet PO 75 mg DAILY ANDRES Administration Magnesium Oxide 400 mg 08/30/20 09:00 08/30/20 08:09 Magnesium Oxide 400 Mg Tablet PO 400 mg BID ANDRES Administration Polyethylene Glycol 17 gm 08/30/20 09:00 08/30/20 08:09 Polyethylene Glycol 3350 Pkt 17 Gm PO 17 gm DAILY ANDRES Administration PFSH Acute PFSH: Medical History Anemia Aneurysm of infrarenal abdominal aorta Chronic episodic atrial fibrillation Chronic GERD Chronic lymphocytic 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 COPD (chronic obstructive pulmonary disease) Dermatomyositis Diverticulitis Generalized osteoarthritis Hiatal hernia History of adenomatous polyp of colon History of pulmonary embolism Iron refractory iron deficiency anemia Mixed hyperlipidemia Osteopenia Polymyalgia rheumatica Statin intolerance Upper GI bleed Surgical History History of aortic aneurysm repair History of colonoscopy with polypectomy S/P cardiac catheterization S/P cholecystectomy Status post right inguinal hernia repair Family History Mother Cancer Brother Hypertension Social History Smoking and tobacco status: current every day smoker cigarettes Second hand smoke exposure: No Alcohol intake: never Lives independently: Yes Household members: none Marital status: Current occupational status: retired History of recent travel: No Current gender identity: Male Dietary Habits: Current diet type/program: regular Caffeine: Yes Vitals/I&O/Wt Last Vital Signs Temp 98.7 F 08/30/20 10:00 Pulse 108 H 08/30/20 18:25 Resp 18 08/30/20 18:25 BP 120/83 08/30/20 18:25 Pulse Ox 100 08/30/20 18:25 08/30/20 08/30/20 08/30/20 06:59 14:59 22:59 Intake Total 500 / 500 Output Total 400 / 400 400 / 800 Balance 100 / 100 -400 / -300 Weight last 48 hrs Weight 147 lb Physical Exam Narrative: EXAM NARRATIVE: GENERAL: Patient is alert, awake and oriented x3. NECK: No jugular vein distension. HEENT: No cyanosis. No icterus. No pallor. HEART: Regular S1 and S2. No murmur, rub or gallop. LUNGS: Clear to auscultate bilaterally. ABDOMEN: Soft, nontender and nondistended. Positive bowel sounds. No guarding, rebound or tenderness. CENTRAL NERVOUS SYSTEM: Grossly nonfocal. EXTREMITIES: Lower extremities without edema bilaterally. Data Micro: Micro: SINUS RHYTHM WITH FREQUENT SUPRAVENTRICULAR PREMATURE COMPLEXES RIGHT BUNDLE BRANCH BLOCK [120+ ms QRS DURATION, UPRIGHT V1, 40+ ms S IN I/aVL/V4/V5/V6] Compared to ECG 08/30/2020 00:07:08 Sinus tachycardia no longer present ST (T wave) deviation no longer present A&P Assessment and plan (1) Acute non-ST elevation myocardial infarction (NSTEMI): This is a complicated patient with history of chronic lymphocytic leukemia, COPD, CKD,anemia with possible GI bleed. Currently he is chest pain- free. He is high risk for acute coronary syndrome with history of severe peripheral vascular disease hypertension hyperlipidemia and history of tobacco abuse. I will start patient on clopidogrel for couple of days to asses stability of the hemoglobin and to see whether patient had an episode of bleeding with it or not. I will ask for a stool for guaiac. If anemia remains stable we may will proceed with left heart cath in couple of days. Continue aspirin statin beta-arnol and anticoagulation Status: Acute (2) Anemia: Hemoglobin stable 9.5 mg. Continue to monitor Status: Acute Qualifiers: Anemia type: iron deficiency Iron deficiency anemia type: chronic blood loss Qualified Code(s): D50.0 - Iron deficiency anemia secondary to blood loss (chronic) (3) Chronic episodic atrial fibrillation: Patient is sinus rhythm continue sotalol Status: Acute (4) COPD (chronic obstructive pulmonary disease): Continue as per the medicine. Status: Acute Qualifiers: COPD type: emphysema Emphysema type: centrilobular Qualified Code(s): J43.2 - Centrilobular emphysema Consult Attestations Medical Necessity Statement: I am expecting his stay to cross more than 2 midnights Coding Level of Care Code New Pt Acute Teacher Of The Hearing Impaired for Joseph Fu Patient Type New History Detailed Exam Detailed Medical Decision Making Moderate Complexity Diagnoses Acute non-ST elevation myocardial infarction (NSTEMI) I21.4 Anemia D50.0 Anemia type: iron deficiency Iron deficiency anemia type: chronic blood loss Chronic episodic atrial fibrillation I48.20 COPD (chronic obstructive pulmonary disease) J43.2 COPD type: emphysema Emphysema type: centrilobular
[2020-08-30] MEDS: atorvastatin 40 mg Tablet 80 MG PO (20:29)
[2020-08-30] MEDS: sotalol 80 mg Tablet PO (20:30)
[2020-08-31] VITALS (275 sets, daily range): BP systolic 103–157; BP diastolic 58–95; PULSE 78–135; RESP 16–31; TEMP 36.6–36.9; O2SAT 78–100
[2020-08-31 04:15] LABS: Alanine Aminotransferase < 5 U/L (0-41); Albumin Level 3.9 g/dL (3.5-5.2); Alkaline Phosphatase 93 IU/L (40-130); Anion Gap 14.9 (5-19); Aspartate Amino Transferase 12 U/L (0-40); Blood Urea Nitrogen 18 mg/dL (8-23); Calcium 8.8 mg/dL (8.5-10.5); Carbon Dioxide 26 mmol/L (22-29); Chloride 102 mmol/L (98-107); Globulin 2.1 g/dL (1.3-4.6); Glucose 81 mg/dL (65-115); Magnesium 2.2 mg/dL (1.7-2.3); Osmolality Calculated 289 mOsm/kg (285-295); Potassium 3.9 mmol/L (3.5-5.1); Sodium 139 mmol/L (136-145); Total Bilirubin 0.6 mg/dL (0.15-1.2)
[2020-08-31 04:27] LABS: Hematocrit 34.6 % (42.0-52.0); Hemoglobin 10.6 g/dL (11.7-16.6); Mean Corpuscular HGB Conc 30.6 g/dL (30.0-36.0); Mean Corpuscular Hemoglobin 25.8 pg (28.0-34.0); Mean Corpuscular Volume 84.2 fL (80-94); Red Blood Count 4.11 10^6/uL (4.1-5.3)
[2020-08-31 04:28] LABS: Eosinophils 0 %; Lymphocytes 81 %; Lymphocytes Absolute 72.7 10^3/cmm (1.2-3.4); Mean Platelet Volume 9.2 fL (7.4-10.4); Monocytes Absolute 0.9 10^3/cmm (0.1-0.6); Platelet Count 119 10^3/cmm (130-400); Red Cell Distribution Width 14.7 % (12.1-15.1); Segmented Neutrophils 8 %; Total Cells Counted 100 (0-100)
[2020-08-31 04:29] LABS: Anisocytosis 2+; Macrocytosis 1+; Platelet Estimate Decreased (Normal); Smudge Cells 3+
[2020-08-31 04:31] LABS: White Blood Count 87.6 10^3/uL (4.0-10.0)
[2020-08-31 04:32] LABS: Blastocytes 8 % (0-0)
[2020-08-31] MEDS: LORazepam 0.5 mg Tablet PO (06:20)
--- NOTE | 2020-08-31 07:44 | PC.NURSE ---
recd. sleeping. awakened easily for breakfast. only place i have ever been that i am cold and hot at the same time.
[2020-08-31] MEDS: magnesium oxide 400 mg tablet PO ×2 (09:47→17:52)
[2020-08-31] MEDS: clopidogrel 75 mg Tablet PO (09:47)
[2020-08-31] MEDS: aspirin 81 mg EC Tablet PO (09:47)
[2020-08-31] MEDS: cyanocobalamin 1,000 mcg/mL SDV 1000 MCG IM (09:48)
[2020-08-31] MEDS: levothyroxine 25 mcg Tablet PO (09:48)
[2020-08-31] MEDS: polyethylene glycol 3350 Pkt 17 gm PO (09:48)
[2020-08-31] MEDS: pantoprazole DR 40 mg Tablet PO ×2 (09:48→17:52)
[2020-08-31] MEDS: enoxaparin 40 mg/0.4 mL Syringe SUBCUT (09:49)
[2020-08-31] MEDS: fluticasone nasal spray 16gm Btl 2 SPRAY INTRANASAL (09:50)
[2020-08-31] MEDS: sotalol 80 mg Tablet PO ×2 (10:49→20:29)
--- NOTE | 2020-08-31 14:32 | P.PN_ITS ---
Subjective Subjective: Interval history: Doing okay today. No chest pain. No shortness of breath. No nausea or vomiting. No chills. Medications: Reviewed: Yes Medication Review Details: 3Generic Name Dose Route Start Last Admin Trade Name Yasmany PRN Reason Stop Dose Admin Aspirin 81 mg 08/30/20 09:00 08/31/20 09:47 Aspirin 81 Mg Ec Tablet PO 81 mg DAILY ANDRES Administration Atorvastatin Calci um 80 mg 08/30/20 21:00 08/30/20 20:29 Atorvastatin 40 Mg Tablet PO 80 mg BEDTIME ANDRES Administration Clopidogrel Bisulf ate 75 mg 08/30/20 09:00 08/31/20 09:47 Clopidogrel 75 M g Tablet PO 75 mg DAILY ANDRES Administration Cyanocobalamin 1,000 mcg 08/31/20 09:00 08/31/20 09:48 Cyanocobalamin 1 ,000 Mcg/Ml Sdv IM 1,000 mcg DAILY ANDRES Administration Enoxaparin Sodium 40 mg 08/31/20 09:00 08/31/20 09:49 Enoxaparin 40 Mg /0.4 Ml Syringe SUBCUT 40 mg DAILY ANDRES Administration Fluticasone Propio prieto 2 spray 08/31/20 09:00 08/31/20 09:50 Fluticasone Nasa l [place] 16gm Btl INTRANASAL 1 applic DAILY ANDRES Administration Levothyroxine Sodi um 25 mcg 08/31/20 09:00 08/31/20 09:48 Levothyroxine 25 Mcg Tablet PO 25 mcg DAILY ANDRES Administration Lorazepam 0.5 mg 08/30/20 04:37 08/31/20 06:20 Lorazepam 0.5 Mg Tablet PO 0.5 mg TID PRN Administration Anxiety Magnesium Oxide 400 mg 08/30/20 09:00 08/31/20 09:47 Magnesium Oxide 400 Mg Tablet PO 400 mg BID ANDRES Administration Pantoprazole [place]od[place] m 40 mg 08/30/20 18:00 08/31/20 09:[address] 40 Mg Tablet PO 40 mg BID ANDRES Administration Polyethylene Glyco l 17 gm 08/30/20 09:00 08/31/20 09:48 Polyethylene Gly col 3350 Pkt 17 Gm PO 17 gm DAILY ANDRES Administration Sotalol HCl 80 mg 08/30/20 21:00 08/31/20 10:49 Sotalol 80 Mg Ta blet PO 80 mg BID@0900,2100 ANDRES Administration Vitals/I&O/Wt Last Vital Signs Temp 98.1 F 08/31/20 09:10 Pulse 114 H 08/31/20 13:20 Resp 24 H 08/31/20 13:20 BP 124/82 08/31/20 13:20 Pulse Ox 96 08/31/20 13:20 08/30/20 08/31/20 08/31/20 22:59 06:59 14:59 Intake Total 60 / 560 60 / 620 480 / 480 Output Total 400 / 800 150 / 950 Balance -340 / -240 -90 / -330 480 / 480 Weight last 48 hrs Weight 66.678 kg Physical Exam Narrative: EXAM NARRATIVE: Awake alert oriented. No acute distress. Mood and affect are appropriate. Skin is warm and dry. MMM No JVD. Supple neck. Lungs clear. No respiratory distress Heart S1, S2, regular Abdomen is soft, nontender, bowel sounds are present Extremities trace edema. No cyanosis or calf tenderness bilaterally Data : 08/31/20 03:13 08/31/20 03:13 A&P Assessment and plan (1) Acute non-ST elevation myocardial infarction (NSTEMI): Status: Acute (2) Poor appetite: Status: Acute (3) Chronic GERD: Status: Acute Additional A&P Information NSTEMI Started ACS protocol EKG showing ST depression with significant delta troponin Started on therapeutic dose of Lovenox, PE ruled out with CTA chest Currently chest pain-free, likely will need an angiogram, he has history of peripheral vascular stents as well Please consult cardiology in the morning Chronic history of leukemia He does look dehydrated and emaciated, blast cell 8%, concern for blast crisis, kindly touch base with heme-onc in the morning if leukapheresis will be needed GERD: Patient is describing his chest discomfort as burning sensation with chest tightness, we will keep him on Protonix, GI cocktail helped to relieve his sy mptoms as well Atrial fibrillation without RVR: Patient takes sotalol which I would hold because of Toprol usage with ACS Not a candidate for anticoagulation secondary to GI bleed, if his hemoglobin drops below 9.5 we will hold Lovenox Goals of care discussed with the patient, he wishes to stay full code Cardiac diet DVT prophylaxis not indicated [place] CP/NSTEMI: Discussed with Dr. Lala. I appreciate his input. The plan is to continue dual antiplatelet therapy. Therapeutic Lovenox was discontinued due to risk of bleeding. The patient has history of GI bleeding. Probably will undergo cardiac catheterization this . Atrial fibrillation. Currently rate controlled. On sotalol. Management per Dr. Lala. CLL. Patient has increased white blood cell count and increased blast count. I discussed with Dr. Conte again today. At this time increasing WBC count and increased blast count does not have immediate clinical significance. No changes to management are recommended at this time. The patient will continue close follow-up with Dr. Conte after discharge. 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 Stable. Has B12 deficiency. Will order IM B12. The long-term management by Dr. Conte after discharge. Dr. Conte manages patient's iron deficiency. The patient receives regular iron infusions when needed. Slightly increased creatinine. Probably chronic kidney disease. Stable. We will continue monitoring. History of COPD. No evidence of bronchial obstruction or exacerbation. Continue close monitoring. GI prophylaxis. The patient has history of GI bleeding. We will resume home PPI twice daily. DVT prophylaxis. Lovenox. The plan of care was discussed with the patient. He verbalized understanding and agreement. Attestations Medical Necessity Statement*: Will require cardiac catheterization which is tentatively considered for . Coding Level of Care Code Acute Social And Human Services Assistant for Joseph Fu Diagnoses Acute non-ST elevation myocardial infarction (NSTEMI) I21.4 Poor appetite R63.0 Chronic GERD K21.9
--- NOTE | 2020-08-31 16:34 | PM.PN ---
Subjective Subjective: Interval history: Denies chest pain. Patient heart rate is elevated. Medications: Reviewed: Yes Medication Review Details: Generic Name Dose Route Start Last Admin Trade Name Yasmany PRN Reason Stop Dose Admin Aspirin 81 mg 08/30/20 09:00 08/31/20 09:47 Aspirin 81 Mg Ec Tablet PO 81 mg DAILY ANDRES Administration Atorvastatin Calci um 80 mg 08/30/20 21:00 08/30/20 20:29 Atorvastatin 40 Mg Tablet PO 80 mg BEDTIME ANDRES Administration Clopidogrel Bisulf ate 75 mg 08/30/20 09:00 08/31/20 09:47 Clopidogrel 75 M g Tablet PO 75 mg DAILY ANDRES Administration Cyanocobalamin 1,000 mcg 08/31/20 09:00 08/31/20 09:48 Cyanocobalamin 1 ,000 Mcg/Ml Sdv IM 1,000 mcg DAILY ANDRES Administration Enoxaparin Sodium 40 mg 08/31/20 09:00 08/31/20 09:49 Enoxaparin 40 Mg /0.4 Ml Syringe SUBCUT 40 mg DAILY ANDRES Administration Fluticasone Propio prieto 2 spray 08/31/20 09:00 08/31/20 09:50 Fluticasone Nasa l [place] 16gm Btl INTRANASAL 1 applic DAILY ANDRES Administration Levothyroxine Sodi um 25 mcg 08/31/20 09:00 08/31/20 09:48 Levothyroxine 25 Mcg Tablet PO 25 mcg DAILY ANDRES Administration Lorazepam 0.5 mg 08/30/20 04:37 08/31/20 06:20 Lorazepam 0.5 Mg Tablet PO 0.5 mg TID PRN Administration Anxiety Magnesium Oxide 400 mg 08/30/20 09:00 08/31/20 09:47 Magnesium Oxide 400 Mg Tablet PO 400 mg BID ANDRES Administration Pantoprazole Sodiu m 40 mg 08/30/20 18:00 08/31/20 09:[address] 40 Mg Tablet PO 40 mg BID ANDRES Administration Polyethylene Glyco l 17 gm 08/30/20 09:00 08/31/20 09:48 Polyethylene Gly col 3350 Pkt 17 Gm PO 17 gm DAILY ANDRES Administration Sotalol HCl 80 mg 08/30/20 21:00 08/31/20 10:49 Sotalol 80 Mg Ta blet PO 80 mg BID@0900,2100 ANDRES Administration Vitals/I&O/Wt Last Vital Signs Temp 98.1 F 08/31/20 09:10 Pulse 113 H 08/31/20 14:00 Resp 24 H 08/31/20 13:20 BP 124/82 08/31/20 13:20 Pulse Ox 96 08/31/20 13:20 08/31/20 08/31/20 08/31/20 06:59 14:59 22:59 Intake Total 60 / 620 480 / 480 Output Total 150 / 950 Balance -90 / -330 480 / 480 Weight last 48 hrs Weight 147 lb Physical Exam Narrative: EXAM NARRATIVE: GENERAL: Patient is alert, awake and oriented x3. Patient is dry NECK: No jugular vein distension. HEENT: No cyanosis. No icterus. No pallor. HEART: Irregularly irregular S1 and S2. No murmur, rub or gallop. LUNGS: Clear to auscultate bilaterally. ABDOMEN: Soft, nontender and nondistended. Positive bowel sounds. No guarding, rebound or tenderness. CENTRAL NERVOUS SYSTEM: Grossly nonfocal. EXTREMITIES: Lower extremities without edema bilaterally. Data : 08/31/20 03:13 08/31/20 03:13 A&P Assessment and plan (1) Acute non-ST elevation myocardial infarction (NSTEMI): This is a complicated patient with history of chronic lymphocytic leukemia, COPD, CKD,anemia with possible GI bleed. Currently he is chest pain-free. He is high risk for acute coronary syndrome with history of severe peripheral vascular disease hypertension hyperlipidemia and history of tobacco abuse. I will start patient on clopidogrel for couple of days to asses stability of the hemoglobin and to see whether patient had an episode of bleeding with it or not. I will ask for a stool for guaiac. If anemia remains stable we may will proceed with left heart cath in couple of days. Continue aspirin statin beta-arnol and anticoagulation. Patient remained chest pain-free. We will have him walk around I have detailed discussion with the patient and family if he remains stable I am opting for medical management only since he is high risk for bleeding. Patient and family is also in agreement with it. Status: Acute (2) Anemia: Stable. Continue to monitor. Continue Plavix and aspirin Status: Acute Qualifiers: Anemia type: iron deficiency Iron deficiency anemia type: chronic blood loss Qualified Code(s): D50.0 - Iron deficiency anemia secondary to blood loss (chronic) (3) Chronic episodic atrial fibrillation: Today patient is in atrial fibrillation with little faster heart rate I will give him IV fluids he appeared to be dry. Continue sotalol. Status: Acute (4) COPD (chronic obstructive pulmonary disease): Continue as per the medicine. Status: Acute Qualifiers: COPD type: emphysema Emphysema type: centrilobular Qualified Code(s): J43.2 - Centrilobular emphysema Attestations Medical Necessity Statement*: Patient require continuation hospitalization for above defined care. Coding Level of Care Code Established Pt Acute Knitting Demonstrator for Chg Fwd Patient Type Established History Detailed Exam Detailed Medical Decision Making Moderate Complexity Diagnoses Acute non-ST elevation myocardial infarction (NSTEMI) I21.4 Anemia D50.0 Anemia type: iron deficiency Iron deficiency anemia type: chronic blood loss Chronic episodic atrial fibrillation I48.20 COPD (chronic obstructive pulmonary disease) J43.2 COPD type: emphysema Emphysema type: centrilobular
[2020-08-31] MEDS: sodium chloride 0.9% 1,000 ML 100 ML IV (17:53)
--- NOTE | 2020-08-31 18:07 | PC.RESP ---
Smoking Cessation and Pulmonary Rehab information sent to patient.
[2020-08-31] MEDS: atorvastatin 40 mg Tablet 80 MG PO (20:29)
[2020-08-31] MEDS: TRAMadol 50 mg Tablet PO (20:29)
[2020-09-01] VITALS (91 sets, daily range): BP systolic 115–168; BP diastolic 57–102; PULSE 72–114; RESP 17–30; TEMP 36.4–36.8; O2SAT 68–100
[2020-09-01] MEDS: sodium chloride 0.9% 1,000 ML 100 ML IV (01:46)
[2020-09-01 04:13] LABS: Eosinophils # 0.2 10^3/uL (0.0-0.8); Eosinophils % 0.2 %; Hemoglobin 8.9 g/dL (11.7-16.6); Lymphocytes # 64.5 10^3/uL (0.8-4.8); Mean Corpuscular HGB Conc 30.7 g/dL (30.0-36.0); Mean Corpuscular Hemoglobin 25.9 pg (28.0-34.0); Mean Corpuscular Volume 84.5 fL (80-94); Mean Platelet Volume 9.8 fL (7.4-10.4); Monocytes # 2.2 10^3/uL (0.2-0.9); Monocytes % 3.1 %; Neutrophils # 3.09 10^3/uL (1.8-7.7); Neutrophils % 4.5 %; Nucleated Red Blood Cells % 0 %; Platelet Count 111 10^3/cmm (130-400); Red Blood Count 3.43 10^6/uL (4.1-5.3)
[2020-09-01 04:31] LABS: Alanine Aminotransferase < 5 U/L (0-41); Albumin Level 3.2 g/dL (3.5-5.2); Alkaline Phosphatase 74 IU/L (40-130); Anion Gap 11.3 (5-19); Aspartate Amino Transferase 11 U/L (0-40); Blood Urea Nitrogen 22 mg/dL (8-23); Calcium 8.1 mg/dL (8.5-10.5); Carbon Dioxide 27 mmol/L (22-29); Chloride 104 mmol/L (98-107); Globulin 1.6 g/dL (1.3-4.6); Glucose 131 mg/dL (65-115); Magnesium 2.1 mg/dL (1.7-2.3); Osmolality Calculated 293 mOsm/kg (285-295); Potassium 3.3 mmol/L (3.5-5.1); Sodium 139 mmol/L (136-145); Total Bilirubin 0.3 mg/dL (0.15-1.2); Total Protein 4.8 g/dL (6.6-8.7)
[2020-09-01 04:48] LABS: Slide Review Slide Review Perform
[2020-09-01] MEDS: pantoprazole DR 40 mg Tablet PO ×2 (08:36→17:56)
[2020-09-01] MEDS: potassium chloride oral liq 20 mEq/15 mL UDC 40 MEQ PO (08:36)
[2020-09-01] MEDS: docusate sodium 100 mg Capsule PO ×2 (08:36→17:56)
[2020-09-01] MEDS: magnesium oxide 400 mg tablet PO ×2 (08:36→17:56)
[2020-09-01] MEDS: enoxaparin 40 mg/0.4 mL Syringe SUBCUT (08:37)
[2020-09-01] MEDS: clopidogrel 75 mg Tablet PO (08:37)
[2020-09-01] MEDS: levothyroxine 25 mcg Tablet PO (08:37)
[2020-09-01] MEDS: sotalol 80 mg Tablet PO ×2 (08:37→21:06)
[2020-09-01] MEDS: cyanocobalamin 1,000 mcg/mL SDV 1000 MCG IM (08:37)
[2020-09-01] MEDS: aspirin 81 mg EC Tablet PO (08:37)
[2020-09-01] MEDS: polyethylene glycol 3350 Pkt 17 gm PO (08:37)
[2020-09-01] MEDS: fluticasone nasal spray 16gm Btl 2 SPRAY INTRANASAL (08:50)
[2020-09-01] MEDS: nitroglycerin 0.4 mg sublingual Tablet SUBLINGUAL (09:50)
[2020-09-01] MEDS: TRAMadol 50 mg Tablet PO ×2 (10:03→22:05)
[2020-09-01] MEDS: sotalol 80 mg Tablet 40 MG PO (11:59)
--- NOTE | 2020-09-01 12:09 | PC.CHAP ---
Pastoral Care Encounter/Spiritual Assessment Type of Contact [] Declined dealer analyst visit [] Patient/Family/Request visit [] Outpatient visit [] Follow-up visit [] Physician referral [] Code/Alert [x] Routine visit [] Staff referral [] Actively dying [] Patient sleeping [] Family support [] [] Out of room [] Palliative care [] [] Receiving care in room [] Pre-surgical visit [] Trauma [] Long length of stay [x] ICU visit [] Other: Relational/Emotional Strength [] Patient feels connected with others/family/visitors/staff [] Distress [] Loneliness/isolation [] Abandonment Spirituality of Patient [x] Person of Mirtha [] Attends Religion of their Mirtha [] Believes in Prayer [] Reads Bible or Anabaptism materials [] There are Spiritual issues to be addressed Nutritionists Interventions [x] Prayer [x] Active listening [x] Non-anxious presence [x] Spiritual/emotional support [] Crisis/trauma care [] Spiritual counseling [] Bereavement support [] Provided bereavement packet [] Provided Bible/devotional materials [] Provided toy/stuffed animal, coloring book to patient or family member [] Provided Communion [] Anointing/[place] [] Salvation [x] Completed spiritual assessment [] Other: Impact on Illness or Injury [] Angry [] Fearful [] Anxious [] Often cries [] Exhaustion [] Unable to work [] Unable to attend mandaen [] Unable to walk/stand [] Unable to read [] Unable to drive [] Unable to eat/drink [] Unable to sleep [] Unable to be with family [] Patient intubated [] Other: Summary patient resting well... upset about breakfast.. lack of food.. dietary restrictions.. Time spent with patient 15 min
--- NOTE | 2020-09-01 14:44 | PM.PN ---
Subjective Subjective: Interval history: Patient doing well. Denies any active complaints. Denies chest pain or shortness of breath. No fever or chills. A little disappointed with hospital cuisine. Medications: Reviewed: Yes Medication Review Details: Generic Name Dose Route Start Last Admin Trade Name Kylerq PRN Reason Stop Dose Admin Aspirin 81 mg 08/30/20 09:00 09/01/20 08:37 Aspirin 81 Mg Ec Tablet PO 81 mg DAILY ANDRES Administration Atorvastatin Calci um 80 mg 08/30/20 21:00 08/31/20 20:29 Atorvastatin 40 Mg Tablet PO 80 mg BEDTIME ANDRES Administration Clopidogrel Bisulf ate 75 mg 08/30/20 09:00 09/01/20 08:37 Clopidogrel 75 M g Tablet PO 75 mg DAILY ANDRES Administration Cyanocobalamin 1,000 mcg 08/31/20 09:00 09/01/20 08:37 Cyanocobalamin 1 ,000 Mcg/Ml Sdv IM 1,000 mcg DAILY ANDRES Administration Docusate Sodium 100 mg 09/01/20 09:00 09/01/20 08:36 Docusate Sodium 100 Mg Capsule PO 100 mg BID ANDRES Administration Enoxaparin Sodium 40 mg 08/31/20 09:00 09/01/20 08:37 Enoxaparin 40 Mg /0.4 Ml Syringe SUBCUT 40 mg DAILY ANDRES Administration Fluticasone Propio prieto 2 spray 08/31/20 09:00 09/01/20 08:50 Fluticasone Nasa l [place] 16gm Btl INTRANASAL 1 applic DAILY ANDRES Administration Levothyroxine Sodi um 25 mcg 08/31/20 09:00 09/01/20 08:37 Levothyroxine 25 Mcg Tablet PO 25 mcg DAILY ANDRES Administration Lorazepam 0.5 mg 08/30/20 04:37 08/31/20 06:20 Lorazepam 0.5 Mg Tablet PO 0.5 mg TID PRN Administration Anxiety Magnesium Oxide 400 mg 08/30/20 09:00 09/01/20 08:36 Magnesium Oxide 400 Mg Tablet PO 400 mg BID ANDRES Administration Nitroglycerin 0.4 mg 08/30/20 04:37 09/01/20 09:50 Nitroglycerin 0. 4 Mg Sublingual Ta blet SUBLINGUAL 0.4 mg Q5M PRN Administration chest pain Pantoprazole Sodiu m 40 mg 08/30/20 18:00 09/01/20 08:[address] 40 Mg Tablet PO 40 mg BID ANDRES Administration Polyethylene Glyco l 17 gm 08/30/20 09:00 09/01/20 08:37 Polyethylene Gly col 3350 Pkt 17 Gm PO 17 gm DAILY ANDRES Administration Tramadol HCl 50 mg 08/31/20 20:10 09/01/20 10:03 Tramadol 50 Mg T ablet PO 50 mg Q8H PRN Administration MODERATE PAIN Vitals/I&O/Wt Last Vital Signs Temp 97.8 F 09/01/20 07:00 Pulse 77 09/01/20 13:00 Resp 22 H 09/01/20 13:00 BP 124/57 09/01/20 14:00 Pulse Ox 98 09/01/20 14:00 08/31/20 09/01/20 09/01/20 22:59 06:59 14:59 Intake Total 908.333 / 8176.672 6841 / 1480 Output Total 150 / 150 Balance -150 / 330 908.333 / 3628.567 2239 / 1480 Physical Exam Narrative: EXAM NARRATIVE: Awake alert oriented. No acute distress. Mood and affect are appropriate. Skin is warm and dry. MMM No JVD. Supple neck. Lungs clear. No respiratory distress Heart S1, S2, regular Abdomen is soft, nontender, bowel sounds are present Extremities trace edema. No cyanosis or calf tenderness bilaterally Data : 09/01/20 03:15 09/01/20 03:15 A&P Assessment and plan (1) Acute non-ST elevation myocardial infarction (NSTEMI): Status: Acute (2) Poor appetite: Status: Acute (3) Chronic GERD: Status: Acute Additional A&P Information NSTEMI Started ACS protocol EKG showing ST depression with significant delta troponin Started on therapeutic dose of Lovenox, PE ruled out with CTA chest Currently chest pain-free, likely will need an angiogram, he has history of peripheral vascular stents as well Please consult cardiology in the morning Chronic history of leukemia He does look dehydrated and emaciated, blast cell 8%, concern for blast crisis, kindly touch base with heme-onc in the morning if leukapheresis will be needed GERD: Patient is describing his chest discomfort as burning sensation with chest tightness, we will keep him on Protonix, GI cocktail helped to relieve his symptoms as well Atrial fibrillation without RVR: Patient takes sotalol which I would hold because of Toprol usage with ACS Not a candidate for anticoagulation secondary to GI bleed, if his hemoglobin drops below 9.5 we will hold Lovenox Goals of care discussed with the patient, he wishes to stay full code Cardiac diet DVT prophylaxis not indicated [place] CP/NSTEMI: Continuingd dual antiplatelet therapy. Therapeutic Lovenox was discontinued due to risk of bleeding. The patient has history of GI bleeding. Probably will undergo cardiac catheterization soon by Dr. Lala. I appreciate Dr. Lala's input. Atrial fibrillation. Currently rate controlled. On sotalol. Management per Dr. Lala. CLL. Patient has increased white blood cell count and increased blast count. I discussed with Dr. Conte again today. At this time increasing WBC count and increased blast count does not have immediate clinical significance. No changes to management are recommended at this time. The patient will continue close follow-up with Dr. Conte after discharge. 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 Stable. Has B12 deficiency. Will order IM B12. The long-term management by Dr. Conte after discharge. Dr. Conte manages patient's iron deficiency. The patient receives regular iron infusions when needed. Slightly increased creatinine. Probably chronic kidney disease. Improved. Monitor. History of COPD. No evidence of bronchial obstruction or exacerbation. Continue close monitoring. GI prophylaxis. The patient has history of GI bleeding. We will resume home PPI twice daily. DVT prophylaxis. Lovenox. The plan of care was discussed with the patient. He verbalized understanding and agreement. Attestations Medical Necessity Statement*: Patient is going to undergo catheterization. Coding Level of Care Code Acute Student Success Counselor for Joseph Fu Diagnoses Acute non-ST elevation myocardial infarction (NSTEMI) I21.4 Poor appetite R63.0 Chronic GERD K21.9
--- NOTE | 2020-09-01 20:59 | P.PN_ITS ---
Subjective Subjective: Interval history: Patient has another episode of chest pain this morning he cannot walk without having chest pain. Guaiac stool is negative. Patient is sinus rhythm now. He would like to go for left heart cath. Medications: Reviewed: Yes Medication Review Details: Generic Name Dose Route Start Last Admin Trade Name Yasmany PRN Reason Stop Dose Admin Aspirin 81 mg 08/30/20 09:00 09/01/20 08:37 Aspirin 81 Mg Ec Tablet PO 81 mg DAILY ANDRES Administration Atorvastatin Calci um 80 mg 08/30/20 21:00 08/31/20 20:29 Atorvastatin 40 Mg Tablet PO 80 mg BEDTIME ANDRES Administration Clopidogrel Bisulf ate 75 mg 08/30/20 09:00 09/01/20 08:37 Clopidogrel 75 M g Tablet PO 75 mg DAILY ADNRES Administration Cyanocobalamin 1,000 mcg 08/31/20 09:00 09/01/20 08:37 Cyanocobalamin 1 ,000 Mcg/Ml Sdv IM 1,000 mcg DAILY ANDRES Administration Docusate Sodium 100 mg 09/01/20 09:00 09/01/20 08:36 Docusate Sodium 100 Mg Capsule PO 100 mg BID ANDRES Administration Enoxaparin Sodium 40 mg 08/31/20 09:00 09/01/20 08:37 Enoxaparin 40 Mg /0.4 Ml Syringe SUBCUT 40 mg DAILY ANDRES Administration Fluticasone Propio prieto 2 spray 08/31/20 09:00 09/01/20 08:50 Fluticasone Nasa l [place] 16gm Btl INTRANASAL 1 applic DAILY ANDRES Administration Levothyroxine Sodi um 25 mcg 08/31/20 09:00 09/01/20 08:37 Levothyroxine 25 Mcg Tablet PO 25 mcg DAILY ANDRES Administration Lorazepam 0.5 mg 08/30/20 04:37 08/31/20 06:20 Lorazepam 0.5 Mg Tablet PO 0.5 mg TID PRN Administration Anxiety Magnesium Oxide 400 mg 08/30/20 09:00 09/01/20 08:36 Magnesium Oxide 400 Mg Tablet PO 400 mg BID ANDRES Administration Nitroglycerin 0.4 mg 08/30/20 04:37 09/01/20 09:50 Nitroglycerin 0. 4 Mg Sublingual Ta blet SUBLINGUAL 0.4 mg Q5M PRN Administration chest pain Pantoprazole Sodiu m 40 mg 08/30/20 18:00 09/01/20 08:[address] 40 Mg Tablet PO 40 mg BID ANDRES Administration Polyethylene Glyco l 17 gm 08/30/20 09:00 09/01/20 08:37 Polyethylene Gly col 3350 Pkt 17 Gm PO 17 gm DAILY ANDRES Administration Tramadol HCl 50 mg 08/31/20 20:10 09/01/20 10:03 Tramadol 50 Mg T ablet PO 50 mg Q8H PRN Administration MODERATE PAIN Vitals/I&O/Wt Last Vital Signs Temp 97.5 F L 09/01/20 18:00 Pulse 73 09/01/20 20:00 Resp 17 09/01/20 20:00 BP 116/66 09/01/20 20:00 Pulse Ox 100 09/01/20 20:00 09/01/20 09/01/20 09/01/20 06:59 14:59 22:59 Intake Total 908.333 / 7423.119 5260 / 1720 240 / 1960 Balance 908.333 / 1851.701 0508 / 1720 240 / 1960 Physical Exam Narrative: EXAM NARRATIVE: GENERAL: Patient is alert, awake and oriented x3. NECK: No jugular vein distension. HEENT: No cyanosis. No icterus. No pallor. HEART: Regular S1 and S2. No murmur, rub or gallop. LUNGS: Clear to auscultate bilaterally. ABDOMEN: Soft, nontender and nondistended. Positive bowel sounds. No guarding, rebound or tenderness. CENTRAL NERVOUS SYSTEM: Grossly nonfocal. EXTREMITIES: Lower extremities without edema bilaterally. Data : 09/01/20 03:15 09/01/20 03:15 A&P Assessment and plan (1) Acute non-ST elevation myocardial infarction (NSTEMI): This is a complicated patient with history of chronic lymphocytic leukemia, COPD, CKD,anemia with possible GI bleed. Currently he is chest pain- free. He is high risk for acute coronary syndrome with history of severe peripheral vascular disease hypertension hyperlipidemia and history of tobacco abuse. I will start patient on clopidogrel for couple of days to asses stability of the hemoglobin and to see whether patient had an episode of bleeding with it or not. I will ask for a stool for guaiac. If anemia remains stable we may will proceed with left heart cath in couple of days. Continue aspirin statin beta-arnol and anticoagulation. Patient remained chest pain-free. We will have him walk around I have detailed discussion with the patient and family if he remains stable I am opting for medical management only since he is high risk for bleeding. Patient and family is also in agreement with it. On today's visit patient had another episode of chest pain according to him he has change his mind he cannot go like this he walks 100 feet and he started having chest pressure with shortness of breath. He would like to proceed with left heart cath. Patient has been explained all risk benefit and alternative for the procedure he has been explained risk for major minor bleed, risk for urgent emergent surgery, risk for stroke, risk for arrhythmia heart failure contrast-induced nephropathy leading to temporary or permanent renal failure. He understand the risk for mortality which is more than 10%. He would like to proceed with it. Status: Acute (2) Anemia: Stable. Continue to monitor. Continue Plavix and aspirin Status: Acute Qualifiers: Anemia type: iron deficiency Iron deficiency anemia type: chronic blood loss Qualified Code(s): D50.0 - Iron deficiency anemia secondary to blood loss (chronic) (3) Chronic episodic atrial fibrillation: I have increase sotalol to 120 mg a morning and will keep antimilligram it in the night patient is now in sinus rhythm. Status: Acute (4) COPD (chronic obstructive pulmonary disease): Continue as per the medicine. 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
[2020-09-01] MEDS: atorvastatin 40 mg Tablet 80 MG PO (21:06)
[2020-09-01] MEDS: magnesium hydroxide 30 mL UDC PO (23:38)
[2020-09-02] VITALS (35 sets, daily range): BP systolic 99–163; BP diastolic 48–97; PULSE 68–113; RESP 15–26; TEMP 36.6–37.3; O2SAT 93–100
[2020-09-02] MEDS: ondansetron 2 mg/ML SDV 2 mL 4 MG IVP (03:14)
[2020-09-02 04:06] LABS: Basophils % 0.1 %; Eosinophils # 0.2 10^3/uL (0.0-0.8); Eosinophils % 0.3 %; Hematocrit 29.1 % (42.0-52.0); Hemoglobin 8.6 g/dL (11.7-16.6); Lymphocytes # 57.7 10^3/uL (0.8-4.8); Lymphocytes % 91.8 %; Mean Corpuscular HGB Conc 29.6 g/dL (30.0-36.0); Mean Corpuscular Hemoglobin 25.8 pg (28.0-34.0); Mean Corpuscular Volume 87.4 fL (80-94); Mean Platelet Volume 9.9 fL (7.4-10.4); Monocytes # 2.3 10^3/uL (0.2-0.9); Monocytes % 3.7 %; Neutrophils # 2.54 10^3/uL (1.8-7.7); Neutrophils % 3.9 %; Nucleated Red Blood Cells % 0 %; Platelet Count 103 10^3/cmm (130-400); Red Blood Count 3.33 10^6/uL (4.1-5.3); Red Cell Distribution Width 15.2 % (12.1-15.1)
[2020-09-02 04:22] LABS: Albumin Level 3.5 g/dL (3.5-5.2); Anion Gap 12.1 (5-19); Blood Urea Nitrogen 20 mg/dL (8-23); Calcium 8.4 mg/dL (8.5-10.5); Carbon Dioxide 27 mmol/L (22-29); Chloride 106 mmol/L (98-107); Glucose 98 mg/dL (65-115); Magnesium 2.2 mg/dL (1.7-2.3); Phosphorus 3.6 mg/dL (2.5-4.5); Potassium 4.1 mmol/L (3.5-5.1); Sodium 141 mmol/L (136-145)
[2020-09-02 04:25] LABS: Slide Review Slide Review Perform; White Blood Count 62.9 10^3/uL (4.0-10.0)
[2020-09-02] MEDS: pantoprazole DR 40 mg Tablet PO ×2 (09:07→18:10)
[2020-09-02] MEDS: aspirin 81 mg EC Tablet PO (09:07)
[2020-09-02] MEDS: magnesium oxide 400 mg tablet PO ×2 (09:07→18:10)
[2020-09-02] MEDS: sotalol 80 mg Tablet 120 MG PO (09:08)
[2020-09-02] MEDS: levothyroxine 25 mcg Tablet PO (09:08)
[2020-09-02] MEDS: clopidogrel 75 mg Tablet PO (09:08)
[2020-09-02] MEDS: sodium chloride 0.9% 1,000 ML 50 ML IV (09:10)
[2020-09-02] MEDS: cyanocobalamin 1,000 mcg/mL SDV 1000 MCG IM (09:11)
--- NOTE | 2020-09-02 11:41 | P.PN_ITS ---
Subjective Subjective: Interval history: Doing okay. Denies any active complaints. Denies chest pain shortness of breath or diaphoresis. Medications: Reviewed: Yes Vitals/I&O/Wt Last Vital Signs Temp 97.9 F 09/02/20 08:00 Pulse 70 09/02/20 10:00 Resp 21 H 09/02/20 10:00 BP 124/67 09/02/20 10:00 Pulse Ox 100 09/02/20 10:00 09/01/20 09/02/20 09/02/20 22:59 06:59 14:59 Intake Total 240 / 1960 200 / 2160 600 / 600 Output Total 400 / 400 100 / 100 Balance -160 / 1560 200 / 1760 500 / 500 Physical Exam Narrative: EXAM NARRATIVE: Awake alert oriented. No acute distress. Mood and affect are appropriate. Skin is warm and dry. MMM No JVD. Supple neck. Lungs clear. No respiratory distress Heart S1, S2, regular Abdomen is soft, nontender, bowel sounds are present Extremities trace edema. No cyanosis or calf tenderness bilaterally Data : 09/02/20 03:00 09/02/20 03:00 A&P Assessment and plan (1) Acute non-ST elevation myocardial infarction (NSTEMI): Status: Acute (2) Poor appetite: Status: Acute (3) Chronic GERD: Status: Acute Additional A&P Information NSTEMI Started ACS protocol EKG showing ST depression with significant delta troponin Started on therapeutic dose of Lovenox, PE ruled out with CTA chest Currently chest pain-free, likely will need an angiogram, he has history of peripheral vascular stents as well Please consult cardiology in the morning Chronic history of leukemia He does look dehydrated and emaciated, blast cell 8%, concern for blast crisis, kindly touch base with heme-onc in the morning if leukapheresis will be needed GERD: Patient is describing his chest discomfort as burning sensation with chest tightness, we will keep him on Protonix, GI cocktail helped to relieve his symptoms as well Atrial fibrillation without RVR: Patient takes sotalol which I would hold because of Toprol usage with ACS Not a candidate for anticoagulation secondary to GI bleed, if his hemoglobin drops below 9.5 we will hold Lovenox Goals of care discussed with the patient, he wishes to stay full code Cardiac diet DVT prophylaxis not indicated [place] CP/NSTEMI: Continuingd dual antiplatelet therapy. Therapeutic Lovenox was discontinued due to risk of bleeding. The patient has history of GI bleeding. Probably will undergo cardiac catheterization Today. I appreciate Dr. Lala's input. Atrial fibrillation. Currently rate controlled. On sotalol. Management per Dr. Lala. CLL. Patient has increased white blood cell count and increased blast count. I discussed with Dr. Conte again today. At this time increasing WBC count and increased blast count does not have immediate clinical significance. No changes to management are recommended at this time. The patient will continue close follow-up with Dr. Conte after discharge. 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 Stable. Has B12 defic iency. Will order IM B12. The long-term management by Dr. Conte after discharge. Dr. Conte manages patient's iron deficiency. The patient receives regular iron infusions when needed. Slightly increased creatinine. Probably chronic kidney disease. Improved. Monitor. History of COPD. No evidence of bronchial obstruction or exacerbation. Continue close monitoring. GI prophylaxis. The patient has history of GI bleeding. We will resume home PPI twice daily. DVT prophylaxis. Lovenox. The plan of care was discussed with the patient. He verbalized understanding and agreement. Attestations Medical Necessity Statement*: The catheterization today. Probably discharge tomorrow. Coding Level of Care Code Acute Amusement Park Entertainer for Joseph Fu Diagnoses Acute non-ST elevation myocardial infarction (NSTEMI) I21.4 Poor appetite R63.0 Chronic GERD K21.9
[2020-09-02] MEDS: diphenhydrAMINE 50 mg Capsule PO (13:32)
--- NOTE | 2020-09-02 14:45 | PC.SOCIAL ---
*IMM UPDATE* Environmental Studies Professor gave patient IMM update. Provided him copy of page 2 of IMM. 09/02/20 @ 4402 Initialed, dated, timed and placed in chart.
--- NOTE | 2020-09-02 14:58 | W.PM.OPSUD ---
Surgery/Procedure H&P Update DATE OF PROCEDURE: September 02, 2020 DATE H&P PERFORMED: 08/31/19 H&P UPDATE INFORMATION: I have examined patient prior to procedure and No changes to prior documentation PREOP DIAGNOSIS: Non-ST elevation [place], recurrent chest pain despite of medicine optimizatio PATIENT REASSESSED PRIOR TO SEDATION, WITH NO CHANGE NOTED: Yes PHYSICAL EXAM: alert, oriented x 3 and clear to auscultation bilaterally AIRWAY EVAL/ANESTHESIA PLAN: ASA II, Risks, benefits & alternatives of sedation and/or procedure discussed and Patient agrees to continue as planned
--- NOTE | 2020-09-02 14:59 | PC.NURSE ---
Report to CSU Called report to NOE Santoyo on CSU. Family took patient's belongings via patient's request. odd job laborer nurses transferred patient by wheelchair at 1515 to pie bakery laborer. Pt A&O x4 at time of transfer.
--- NOTE | 2020-09-02 15:35 | PM.PN ---
Subjective Subjective: Interval history: For recurrent chest pains and history of non-ST elevation [place] after failing medical management patient was taken to the Ice Platform Supervisor. We tried radial approach with severe radial/brachial artery spasm and small perforation noted in the right mid brachial segment we aborted the procedure. Radial and ulnar artery patency were confirmed. Good brachial artery pulsation. No significant hematoma noted. We will observe patient for next 24 to 48 hours. I am planning to do vascular ultrasound in the morning. If brachial artery remain patent and no significant hematoma noted we will resume anticoagulation in the morning along with antiplatelets and proceed with left heart cath to groin approach Medications: Reviewed: Yes Medication Review Details: Generic Name Dose Route Start Last Admin Trade Name Freq PRN Reason Stop Dose Admin Aspirin 81 mg 08/30/20 09:00 09/01/20 08:37 Aspirin 81 Mg Ec Tablet PO 81 mg DAILY ANDRES Administration Atorvastatin Calci um 80 mg 08/30/20 21:00 08/31/20 20:29 Atorvastatin 40 Mg Tablet PO 80 mg BEDTIME ANDRES Administration Clopidogrel Bisulf ate 75 mg 08/30/20 09:00 09/01/20 08:37 Clopidogrel 75 M g Tablet PO 75 mg DAILY ANDRES Administration Cyanocobalamin 1,000 mcg 08/31/20 09:00 09/01/20 08:37 Cyanocobalamin 1 ,000 Mcg/Ml Sdv IM 1,000 mcg DAILY ANDRES Administration Docusate Sodium 100 mg 09/01/20 09:00 09/01/20 08:36 Docusate Sodium 100 Mg Capsule PO 100 mg BID ANDRES Administration Enoxaparin Sodium 40 mg 08/31/20 09:00 09/01/20 08:37 Enoxaparin 40 Mg /0.4 Ml Syringe SUBCUT 40 mg DAILY ANDRES Administration Fluticasone Propio prieto 2 spray 08/31/20 09:00 09/01/20 08:50 Fluticasone Nasa l [place] 16gm Btl INTRANASAL 1 applic DAILY ANDRES Administration Levothyroxine Sodi um 25 mcg 08/31/20 09:00 09/01/20 08:37 Levothyroxine 25 Mcg Tablet PO 25 mcg DAILY ANDRES Administration Lorazepam 0.5 mg 08/30/20 04:37 08/31/20 06:20 Lorazepam 0.5 Mg Tablet PO 0.5 mg TID PRN Administration Anxiety Magnesium Oxide 400 mg 08/30/20 09:00 09/01/20 08:36 Magnesium Oxide 400 Mg Tablet PO 400 mg BID ANDRES Administration Nitroglycerin 0.4 mg 08/30/20 04:37 09/01/20 09:50 Nitroglycerin 0. 4 Mg Sublingual Ta blet SUBLINGUAL 0.4 mg Q5M PRN Administration chest pain Pantoprazole Sodiu m 40 mg 08/30/20 18:00 09/01/20 08:[address] 40 Mg Tablet PO 40 mg BID ANDRES Administration Polyethylene Glyco l 17 gm 08/30/20 09:00 09/01/20 08:37 Polyethylene Gly col 3350 Pkt 17 Gm PO 17 gm DAILY ANDRES Administration Tramadol HCl 50 mg 08/31/20 20:10 09/01/20 10:03 Tramadol 50 Mg T ablet PO 50 mg Q8H PRN Administration MODERATE PAIN Vitals/I&O/Wt Last Vital Signs Temp 98.1 F 09/02/20 12:00 Pulse 71 09/02/20 14:00 Resp 20 H 09/02/20 14:00 BP 130/63 09/02/20 14:00 Pulse Ox 100 09/02/20 14:00 09/02/20 09/02/20 09/02/20 06:59 14:59 22:59 Intake Total 200 / 2160 600 / 600 Output Total 100 / 100 Balance 200 / 1760 500 / 500 Physical Exam Narrative: EXAM NARRATIVE: GENERAL: Patient is alert, awake and oriented x3. NECK: No jugular vein distension. HEENT: No cyanosis. No icterus. No pallor. HEART: Regular S1 and S2. No murmur, rub or gallop. LUNGS: Clear to auscultate bilaterally. ABDOMEN: Soft, nontender and nondistended. Positive bowel sounds. No guarding, rebound or tenderness. CENTRAL NERVOUS SYSTEM: Grossly nonfocal. EXTREMITIES: Lower extremities without edema bilaterally. Good brachial right ulnar and radial pulses noted. No hematoma noted in the right arm Const: COMMON NORMALS: alert Resp: COMMON NORMALS: clear to auscultation bilaterally AUSCULTATION: clear to auscultation bilaterally Neuro: SENSORIUM/ORIENTATION: Yes alert Data : 09/02/20 03:00 09/02/20 03:00 A&P Assessment and plan (1) Acute non-ST elevation myocardial infarction (NSTEMI): This is a complicated patient with history of chronic lymphocytic leukemia, COPD, CKD,anemia with possible GI bleed. Currently he is chest pain-free. He is high risk for acute coronary syndrome with history of severe peripheral vascular disease hypertension hyperlipidemia and history of tobacco abuse. I will start patient on clopidogrel for couple of days to asses stability of the hemoglobin and to see whether patient had an episode of bleeding with it or not. I will ask for a stool for guaiac. If anemia remains stable we may will proceed with left heart cath in couple of days. Continue aspirin statin beta-arnol and anticoagulation. Patient remained chest pain-free. We will have him walk around I have detailed discussion with the patient and family if he remains stable I am opting for medical management only since he is high risk for bleeding. Patient and family is also in agreement with it. On today's visit patient had another episode of chest pain according to him he has change his mind he cannot go like this he walks 100 feet and he started having chest pressure with shortness of breath. He would like to proceed with left heart cath. Patient has been explained all risk benefit and alternative for the procedure he has been explained risk for major minor bleed, risk for urgent emergent surgery, risk for stroke, risk for arrhythmia heart failure contrast-induced nephropathy leading to temporary or permanent renal failure. He understand the risk for mortality which is more than 10%. He would like to proceed with it. As above right brachial artery perforation was noted therefore we aborted the procedure. For now we will continue to treat patient conservatively. We will bring him back after 48 hours for left heart cath through right groin approach. Status: Acute (2) Anemia: Anemia at the baseline. Continue to monitor Status: Acute Qualifiers: Anemia type: iron deficiency Iron deficiency anemia type: chronic blood loss Qualified Code(s): D50.0 - Iron deficiency anemia secondary to blood loss (chronic) (3) Chronic episodic atrial fibrillation: Rate controlled. Patient is not on anticoagulation secondary to history of GI bleed, so far he is tolerating Plavix. Stool guaiac was negative. If required intervention may will continue Plavix for 1 year Status: Acute (4) COPD (chronic obstructive pulmonary disease): Continue as per the medicine. 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
--- NOTE | 2020-09-02 15:50 | PC.NURSE ---
Received pt from wharf labourer. Pt A&O x4. Resp even and non-labored no distress noted. Pt has TR band on right wrist. No hematoma or excess bleeding from cath sight. Capillary refill less than 3sec pt has no c/o pain or numbness Pulses intact in right arm. VS stable no needs voiced at the present time. Call light in reach.
--- NOTE | 2020-09-02 18:00 | PC.NURSE ---
2ml of air removed from TR Band. Radial pulse palpable, cap refill less than 3sec. Pt had no c/o pain or discomfort. will continue to monitor.
[2020-09-02] MEDS: docusate sodium 100 mg Capsule PO (18:10)
--- NOTE | 2020-09-02 18:30 | PC.NURSE ---
2ml of air removed from tr band
--- NOTE | 2020-09-02 19:04 | PC.NURSE ---
2ml removed from TR Band. Total of 6ml removed. Radial pulse intact and palpable. Cap refill less than 3sec. Pt had no c/o pain or discomfort at the present time. Call light in reach. Will cont to monitor.
[2020-09-02] MEDS: TRAMadol 50 mg Tablet PO (19:44)
[2020-09-02] MEDS: sotalol 80 mg Tablet PO (20:35)
[2020-09-02] MEDS: atorvastatin 40 mg Tablet 80 MG PO (20:35)
--- NOTE | 2020-09-02 20:39 | PC.NURSE ---
TR band removed at this time per protocol. No s/s of bleeding or hematoma formation observed. Hematoma to right upper inner arm appears to be resolved. Patient denies pain to sites. Medications administered as ordered. Instructed patient on plan of care for this evening. Patient requesting to be allowed to sleep tonight. [place] monitor put to sleep in patient's room. Assured patient he is still being monitored. Patient verbalized complete understanding to all instructions and expressed thanks.
[2020-09-03] VITALS (13 sets, daily range): BP systolic 114–131; BP diastolic 54–78; PULSE 10–100; RESP 18–27; TEMP 36.2–37.3; O2SAT 93–97
[2020-09-03 05:21] LABS: Basophils # 0.1 10^3/uL (0.0-0.1); Basophils % 0.1 %; Eosinophils # 0.2 10^3/uL (0.0-0.8); Eosinophils % 0.3 %; Hematocrit 27.9 % (42.0-52.0); Hemoglobin 8.4 g/dL (11.7-16.6); Lymphocytes # 55.6 10^3/uL (0.8-4.8); Lymphocytes % 92.4 %; Mean Corpuscular HGB Conc 30.1 g/dL (30.0-36.0); Mean Corpuscular Hemoglobin 25.9 pg (28.0-34.0); Mean Corpuscular Volume 86.1 fL (80-94); Monocytes # 2.1 10^3/uL (0.2-0.9); Monocytes % 3.5 %; Neutrophils # 2.15 10^3/uL (1.8-7.7); Neutrophils % 3.6 %; Nucleated Red Blood Cells % 0 %; Platelet Count 99 10^3/cmm (130-400); Red Blood Count 3.24 10^6/uL (4.1-5.3); Red Cell Distribution Width 15.1 % (12.1-15.1)
--- NOTE | 2020-09-03 05:23 | PC.NURSE ---
Patient reports not having eating much in the past 6 days. I can't keep anything down for very long. Provided patient with ice cream at patient's request. Informed patient that if he needed more that it was available. Patient expressed thanks.
[2020-09-03 05:42] LABS: Anion Gap 11.8 (5-19); Blood Urea Nitrogen 18 mg/dL (8-23); Calcium 8.3 mg/dL (8.5-10.5); Carbon Dioxide 25 mmol/L (22-29); Chloride 108 mmol/L (98-107); Glucose 95 mg/dL (65-115); Osmolality Calculated 294 mOsm/kg (285-295); Potassium 3.8 mmol/L (3.5-5.1); Sodium 141 mmol/L (136-145)
[2020-09-03 06:30] LABS: Slide Review Slide Review Perform
[2020-09-03 06:31] LABS: White Blood Count 60.1 10^3/uL (4.0-10.0)
[2020-09-03] MEDS: docusate sodium 100 mg Capsule PO (09:10)
[2020-09-03] MEDS: pantoprazole DR 40 mg Tablet PO (09:10)
[2020-09-03] MEDS: levothyroxine 25 mcg Tablet PO (09:10)
[2020-09-03] MEDS: sotalol 80 mg Tablet 120 MG PO (09:10)
[2020-09-03] MEDS: cyanocobalamin 1,000 mcg/mL SDV 1000 MCG IM (09:10)
--- NOTE | 2020-09-03 09:11 | PC.NURSE ---
patient states Dr. mccarty has told me to take my magnesium either 2 hours before or 2 hours after my sotalol this nurse asked patient why that is so? Patient stated Dr. mccarty said it makes the sotalol work better this nurse asked patient if he wanted to wait the 2 hours after sotalol on this day patient stated well I have not taken it like that for 6 days i have been in the hospital. I know you all have been giving it to me as you are told to. this nurse explained to patient i would notify the provider and he could wait the [address] rust notified okay to give late administration
[2020-09-03] MEDS: TRAMadol 50 mg Tablet PO (09:22)
[2020-09-03] MEDS: magnesium oxide 400 mg tablet PO (11:49)
--- NOTE | 2020-09-03 13:43 | P.PN_ITS ---
Subjective Subjective: Interval history: Doing okay today. No significant changes. Denies chest pain or shortness of breath. No diaphoresis. Medications: Reviewed: Yes Medication Review Details: Generic Name Dose Route Start Last Admin Trade Name Freq PRN Reason Stop Dose Admin Albuterol Sulfate 2.5 mg 09/03/20 10:39 09/03/20 10:49 Albuterol 2.5 Mg /0.5 Ml Neb INHALATION 2.5 mg QID.RESPIRATORY P RN Administration SHORTNESS OF OLVIN TH Atorvastatin Calci um 80 mg 08/30/20 21:00 09/02/20 20:35 Atorvastatin 40 Mg Tablet PO 80 mg BEDTIME ANDRES Administration Cyanocobalamin 1,000 mcg 08/31/20 09:00 09/03/20 09:10 Cyanocobalamin 1 ,000 Mcg/Ml Sdv IM 1,000 mcg DAILY ANDRES Administration Docusate Sodium 100 mg 09/01/20 09:00 09/03/20 09:10 Docusate Sodium 100 Mg Capsule PO 100 mg BID ANDRES Administration Fluticasone Propio prieto 2 spray 08/31/20 09:00 09/03/20 09:13 Fluticasone Nasa l [place] 16gm Btl INTRANASAL Not Given DAILY ANDRES Levothyroxine Sodi um 25 mcg 08/31/20 09:00 09/03/20 09:10 Levothyroxine 25 Mcg Tablet PO 25 mcg DAILY ANDRES Administration Lorazepam 0.5 mg 08/30/20 04:37 08/31/20 06:20 Lorazepam 0.5 Mg Tablet PO 0.5 mg TID PRN Administration Anxiety Magnesium Hydroxid e 30 ml 09/01/20 08:17 09/01/20 23:38 Magnesium Hydrox yanely 30 Ml Udc PO 30 ml BID PRN Administration CONSTIPATION Magnesium Oxide 400 mg 08/30/20 09:00 09/03/20 11:49 Magnesium Oxide 400 Mg Tablet PO 400 mg BID ANDRES Administration Nitroglycerin 0.4 mg 08/30/20 04:37 09/01/20 09:50 Nitroglycerin 0. 4 Mg Sublingual Ta blet SUBLINGUAL 0.4 mg Q5M PRN Administration chest pain Ondansetron HCl 4 mg 08/30/20 05:40 09/02/20 03:14 Ondansetron 2 Mg /Ml Sdv 2 Ml IVP 4 mg Q6H PRN Administration NAUSEA AND VOMITI NG Pantoprazole Sodiu m 40 mg 08/30/20 18:00 09/03/20 09:[address] 40 Mg Tablet PO 40 mg BID ANDRES Administration Polyethylene Glyco l 17 gm 08/30/20 09:00 09/03/20 09:15 Polyethylene Gly col 3350 Pkt 17 Gm PO Not Given DAILY ANDRES Sotalol HCl 80 mg 09/01/20 21:00 09/02/20 20:35 Sotalol 80 Mg Ta blet PO 80 mg 2100 ANDRES Administration Sotalol HCl 120 mg 09/02/20 09:00 09/03/20 09:10 Sotalol 80 Mg Ta blet PO 120 mg 0900 ANDRES Administration Tramadol HCl 50 mg 08/31/20 20:10 09/03/20 09:22 Tramadol 50 Mg T ablet PO 50 mg Q8H PRN Administration MODERATE PAIN Vitals/I&O/Wt Last Vital Signs Temp 98.7 F 09/03/20 11:19 Pulse 75 09/03/20 11:19 Resp 25 H 09/03/20 11:19 BP 126/59 09/03/20 11:19 Pulse Ox 97 09/03/20 11:19 09/02/20 09/03/20 09/03/20 22:59 06:59 14:59 Intake Total 817.5 / 1417.5 360 / 360 Output Total 500 / 600 450 / 450 Balance 817.5 / 1317.5 -500 / 817.5 -90 / -90 Physical Exam Narrative: EXAM NARRATIVE: Awake alert oriented. No acute distress. Mood and affect are appropriate. Skin is warm and dry. MMM No JVD. Supple neck. Lungs clear. No respiratory distress Heart S1, S2, regular Abdomen is soft, nontender, bowel sounds are present Extremities trace edema. No cyanosis or calf tenderness bilaterally Data : 09/03/20 04:26 09/03/20 04:26 A&P Assessment and plan (1) Acute non-ST elevation myocardial infarction (NSTEMI): Status: Acute (2) Poor appetite: Status: Acute (3) Chronic GERD: Status: Acute Additional A&P Information NSTEMI Started ACS protocol EKG showing ST depression with significant delta troponin Started on therapeutic dose of Lovenox, PE ruled out with CTA chest Currently chest pain-free, likely will need an angiogram, he has history of peripheral vascular stents as well Please consult cardiology in the morning Chronic history of leukemia He does look dehydrated and emaciated, blast cell 8%, concern for blast crisis, kindly touch base with heme-onc in the morning if leukapheresis will be needed GERD: Patient is describing his chest discomfort as burning sensation with chest tightness, we will keep him on Protonix, GI cocktail helped to relieve his symptoms as well Atrial fibrillation without RVR: Patient takes sotalol which I would hold because of Toprol usage with ACS Not a candidate for anticoagulation secondary to GI bleed, if his hemoglobin drops below 9.5 we will hold Lovenox Goals of care discussed with the patient, he wishes to stay full code Cardiac diet DVT prophylaxis not indicated [place] CP/NSTEMI: Lovenox was discontinued due to risk of bleeding. Currently antiplatelets are on hold. The patient has history of GI bleeding. Probably will undergo another cardiac catheterization in a day or 2 via inguinal approach. Atrial fibrillation. Currently rate controlled. On sotalol. Management per Dr. Lala. CLL. Patient has increased white blood cell count and increased blast count. I discussed with Dr. Conte again today. At this time increasing WBC count and increased blast count does not have immediate clinical significance. No changes to management are recommended at this time. The patient will continue close follow-up with Dr. Conte after discharge. 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 Stable. Has B12 deficiency. Will order IM B12. The long-term management by Dr. Conte after discharge. Dr. Conte manages patient's iron deficiency. The patient receives regular iron infusions when needed. Slightly increased creatinine. Probably chronic kidney disease. Improved. Monitor. History of COPD. No evidence of bronchial obstruction or exacerbation. Continue close monitoring. GI prophylaxis. The patient has history of GI bleeding. We will resume home PPI twice daily. DVT prophylaxis. Lovenox. The plan of care was discussed with the patient. He verbalized understanding and agreement. Attestations Medical Necessity Statement*: Continuing close monitoring. Will need cardiac catheterization. Coding Level of Care Code Acute Gear Design Engineer for Dominickg Fwd Diagnoses Acute non-ST elevation myocardial infarction (NSTEMI) I21.4 Poor appetite R63.0 Chronic GERD K21.9
--- NOTE | 2020-09-03 15:41 | P.PN_ITS ---
Subjective Subjective: Interval history: Denies any complaint denies any chest pain. Patient has changed his mind and would like to not go for left heart cath. No hematoma no bruising of the right arm noted. Right ulnar radial pulse are palpable. Medications: Reviewed: Yes Medication Review Details: Generic Name Dose Route Start Last Admin Trade Name Freq PRN Reason Stop Dose Admin Albuterol Sulfate 2.5 mg 09/03/20 10:39 09/03/20 10:49 Albuterol 2.5 Mg /0.5 Ml Neb INHALATION 2.5 mg QID.RESPIRATORY P RN Administration SHORTNESS OF OLVIN TH Atorvastatin Calci um 80 mg 08/30/20 21:00 09/02/20 20:35 Atorvastatin 40 Mg Tablet PO 80 mg BEDTIME ANDRES Administration Cyanocobalamin 1,000 mcg 08/31/20 09:00 09/03/20 09:10 Cyanocobalamin 1 ,000 Mcg/Ml Sdv IM 1,000 mcg DAILY ANDRES Administration Docusate Sodium 100 mg 09/01/20 09:00 09/03/20 09:10 Docusate Sodium 100 Mg Capsule PO 100 mg BID ANDRES Administration Fluticasone Propio prieto 2 spray 08/31/20 09:00 09/03/20 09:13 Fluticasone Nasa l [place] 16gm Btl INTRANASAL Not Given DAILY ANDRES Levothyroxine Sodi um 25 mcg 08/31/20 09:00 09/03/20 09:10 Levothyroxine 25 Mcg Tablet PO 25 mcg DAILY ANDRES Administration Lorazepam 0.5 mg 08/30/20 04:37 08/31/20 06:20 Lorazepam 0.5 Mg Tablet PO 0.5 mg TID PRN Administration Anxiety Magnesium Hydroxid e 30 ml 09/01/20 08:17 09/01/20 23:38 Magnesium Hydrox yanely 30 Ml Udc PO 30 ml BID PRN Administration CONSTIPATION Magnesium Oxide 400 mg 08/30/20 09:00 09/03/20 11:49 Magnesium Oxide 400 Mg Tablet PO 400 mg BID ANDRES Administration Nitroglycerin 0.4 mg 08/30/20 04:37 09/01/20 09:50 Nitroglycerin 0. 4 Mg Sublingual Ta blet SUBLINGUAL 0.4 mg Q5M PRN Administration chest pain Ondansetron HCl 4 mg 08/30/20 05:40 09/02/20 03:14 Ondansetron 2 Mg /Ml Sdv 2 Ml IVP 4 mg Q6H PRN Administration NAUSEA AND VOMITI NG Pantoprazole Sodiu m 40 mg 08/30/20 18:00 09/03/20 09:[address] 40 Mg Tablet PO 40 mg BID ANDRES Administration Polyethylene Glyco l 17 gm 08/30/20 09:00 09/03/20 09:15 Polyethylene Gly col 3350 Pkt 17 Gm PO Not Given DAILY ANDRES Sotalol HCl 80 mg 09/01/20 21:00 09/02/20 20:35 Sotalol 80 Mg Ta blet PO 80 mg 2100 ANDRES Administration Sotalol HCl 120 mg 09/02/20 09:00 09/03/20 09:10 Sotalol 80 Mg Ta blet PO 120 mg 0900 ANDRES Administration Tramadol HCl 50 mg 08/31/20 20:10 09/03/20 09:22 Tramadol 50 Mg T ablet PO 50 mg Q8H PRN Administration MODERATE PAIN Vitals/I&O/Wt Last Vital Signs Temp 97.7 F 09/03/20 15:20 Pulse 68 09/03/20 15:20 Resp 20 H 09/03/20 15:20 BP 122/68 09/03/20 15:20 Pulse Ox 97 09/03/20 15:20 09/03/20 09/03/20 09/03/20 06:59 14:59 22:59 Intake Total 360 / 360 Output Total 500 / 600 450 / 450 Balance -500 / 817.5 -90 / -90 Physical Exam Narrative: EXAM NARRATIVE: GENERAL: Patient is alert, awake and oriented x3. NECK: No jugular vein distension. HEENT: No cyanosis. No icterus. No pallor. HEART: Regular S1 and S2. No murmur, rub or gallop. LUNGS: Clear to auscultate bilaterally. ABDOMEN: Soft, nontender and nondistended. Positive bowel sounds. No guarding, rebound or tenderness. CENTRAL NERVOUS SYSTEM: Grossly nonfocal. EXTREMITIES: Lower extremities without edema bilaterally. Good brachial right ulnar and radial pulses noted. No hematoma noted in the right arm Const: COMMON NORMALS: alert Resp: COMMON NORMALS: clear to auscultation bilaterally AUSCULTATION: clear to auscultation bilaterally Neuro: SENSORIUM/ORIENTATION: Yes alert Data : 09/03/20 04:26 09/03/20 04:26 A&P Assessment and plan (1) Acute non-ST elevation myocardial infarction (NSTEMI): This is a complicated patient with history of chronic lymphocytic leukemia, COPD, CKD,anemia with possible GI bleed. Currently he is chest pain- free. He is high risk for acute coronary syndrome with history of severe peripheral vascular disease hypertension hyperlipidemia and history of tobacco abuse. I will start patient on clopidogrel for couple of days to asses stability of the hemoglobin and to see whether patient had an episode of bleeding with it or not. I will ask for a stool for guaiac. If anemia remains stable we may will proceed with left heart cath in couple of days. Continue aspirin statin beta-arnlo and anticoagulation. Patient remained chest pain-free. We will have him walk around I have detailed discussion with the patient and family if he remains stable I am opting for medical management only since he is high risk for bleeding. Patient and family is also in agreement with it. On today's visit patient had another episode of chest pain according to him he has change his mind he cannot go like this he walks 100 feet and he started having chest pressure with shortness of breath. He would like to proceed with left heart cath. Patient has been explained all risk benefit and alternative for the procedure he has been explained risk for major minor bleed, risk for urgent emergent surgery, risk for stroke, risk for arrhythmia heart failure cont rast-induced nephropathy leading to temporary or permanent renal failure. He understand the risk for mortality which is more than 10%. He would like to proceed with it. As above right brachial artery perforation was noted therefore we aborted the procedure. For now we will continue to treat patient conservatively. We will bring him back after 48 hours for left heart cath through right groin approach. On today's visit we will detailed discussion regarding left heart cath since patient said that he does not have chest pain and is walking around fine and because of the fact he has low hemoglobin level history of bleeding and very frail we will postpone left heart cath for now and try to manage him medically. I will assess him as an outpatient and see how he does. I will add isosorbide mononitrate to the regimen. I will continue Plavix. Status: Acute (2) Anemia: Anemia at the baseline. Continue to monitor Status: Acute Qualifiers: Anemia type: iron deficiency Iron deficiency anemia type: chronic blood loss Qualified Code(s): D50.0 - Iron deficiency anemia secondary to blood loss (chronic) (3) Chronic episodic atrial fibrillation: Rate controlled. Patient is not on anticoagulation secondary to history of GI bleed, so far he is tolerating Plavix. Stool guaiac was negative. If required intervention may will continue Plavix for 1 year Status: Acute (4) COPD (chronic obstructive pulmonary disease): Continue as per the medicine. Status: Acute Qualifiers: COPD type: emphysema Emphysema type: centrilobular Qualified Code(s): J43.2 - Centrilobular emphysema Attestations Medical Necessity Statement*: Require continuation hospitalization for above defined care Coding Level of Care Code Established Pt Acute Rag Cutting Machine Operator for Joseph Fu Patient Type Established History Detailed Exam Detailed Medical Decision Making Moderate Complexity Diagnoses Acute non-ST elevation myocardial infarction (NSTEMI) I21.4 Anemia D50.0 Anemia type: iron deficiency Iron deficiency anemia type: chronic blood loss Chronic episodic atrial fibrillation I48.20 COPD (chronic obstructive pulmonary disease) J43.2 COPD type: emphysema Emphysema type: centrilobular
--- NOTE | 2020-09-03 17:35 | P.DS_ITS ---
Discharge Providers Date of Admission: 08/30/20 00:54 Date of Discharge: September 03, 2020 Attending Provider at Admission: Ministerio Paula MD Attending Provider at Discharge: Leonel Carranza Primary Care Provider: TAYLOR Torres Diagnoses at Discharge Discharge Diagnosis (1) Acute non-ST elevation myocardial infarction (NSTEMI): Status: Acute (2) Anemia: Status: Acute Qualifiers: Anemia type: iron deficiency Iron deficiency anemia type: chronic blood loss Qualified Code(s): D50.0 - Iron deficiency anemia secondary to blood loss (chronic) (3) Chronic episodic atrial fibrillation: Status: Acute (4) COPD (chronic obstructive pulmonary disease): Status: Acute Qualifiers: COPD type: emphysema Emphysema type: centrilobular Qualified Code(s): J43.2 - Centrilobular emphysema Reason for Visit Reason for Visit: WEAKNESS AND DIZZY Hospital Course Hospital Course Discharge diagnoses and problem list CP/NSTEMI: Currently chest pain has resolved. The patient is doing well. He is cleared by Dr. Lala for discharge. Medical management for now. Cardiac catheterization will be considered in the near future after his outpatient reevaluation. Atrial fibrillation. Currently rate controlled. On sotalol. Management per Dr. Lala. No anticoagulation due to history of recent GI bleeding. CLL. Patient has increased white blood cell count and increased blast count. I discussed with Dr. Conte again today. At this time increasing WBC count and increased blast count does not have immediate clinical significance. No changes to management are recommended at this time. The patient will continue close follow-up with Dr. Conte after discharge. 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 Stable. Has B12 deficiency. The long-term management by Dr. Conte after discharge. Dr. Conte manages patient's iron deficiency. The patient receives regular iron infusions when needed. Slightly increased creatinine. Probably chronic kidney disease. Improved. Monitor. History of COPD. No evidence of bronchial obstruction or exacerbation. 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 DIRECTOR request for service Routin e Exams 09/02/20 14:00 Taken Miscellaneous Brenda t Routine Lab 08/31/20 15:30 Received Labs from last 24 hours 09/03/20 09/03/20 04:26 04:26 WBC 60.1 H* RBC 3.24 L Hgb 8.4 L Hct 27.9 L MCV 86.1 MCH 25.9 L MCHC 30.1 RDW 15.1 Plt Count 99 L MPV 10.0 Neut % (Auto) 3.6 Lymph % (Auto) 92.4 Cole % (Auto) 3.5 Eos % (Auto) 0.3 Baso % (Auto) 0.1 Neut # (Auto) 2.15 Lymph # (Auto) 55.6 H Cole # (Auto) 2.1 H Eos # (Auto) 0.2 Baso # (Auto) 0.1 Nucleated RBC % (a uto) 0 Nucleated RBCs # 0.0 Sodium 141 Potassium 3.8 Chloride 108 H Carbon Dioxide 25 Anion Gap 11.8 BUN 18 Creatinine 1.2 GFR Calculation Not Reportable Glucose 95 Calculated Osmolal ity 294 Calcium 8.3 L Vitals: Last Vital Signs Temp 97.7 F 09/03/20 15:53 Pulse 68 09/03/20 15:53 Resp 20 H 09/03/20 15:53 BP 122/68 09/03/20 15:53 Pulse Ox 97 09/03/20 15:53 Discharge Plan Discharge Patient Disposition: Home Condition: Stable Prescriptions: New sotalol 80 mg Tablet 120 mg PO 0900 Qty: 30 RF: 3 sotalol 80 mg Tablet 80 mg PO 2100 Qty: 30 RF: 3 clopidogrel 75 mg tablet 75 mg PO DAILY Qty: 30 RF: 4 isosorbide dinitrate 30 mg tablet 30 mg PO BID Qty: 60 RF: 3 Continued lorazepam 0.5 mg tablet 0.5 mg PO TID PRN (Reason: Anxiety) RF: 0 magnesium oxide 400 mg magnesium tablet 400 mg PO BID@,17 RF: 0 meclizine 12.5 mg tablet 12.5 mg PO DAILY PRN (Reason: Dizziness) RF: 0 multivitamin with iron Tablet 1 tab PO DAILY@05 RF: 0 olopatadine [Pataday Twice Daily Relief] 0.1 % drops 1 drop ophthalmic (eye) DAILY Qty: 5 RF: 0 mupirocin 2 % ointment 1 applic topical BID Qty: 22 RF: 0 (DME) portable oxygen concentrator See Rx Instructions .Route .MEDSUPPLY Qty: 1 RF: 0 pantoprazole 40 mg tablet,delayed release (DR/EC) 40 mg PO BID Qty: 60 RF: 5 nitroglycerin 0.4 mg tablet, sublingual 0.4 mg sublingual Q5M PRN (Reason: chest pain) Qty: 25 RF: 0 tramadol 50 mg tablet 50 mg PO TID PRN (Reason: pain) Qty: 90 RF: 2 albuterol sulfate [ProAir HFA] 90 mcg/actuation HFA aerosol inhaler See Rx Instructions .ROUTE .COMPLEX Qty: 8.5 RF: 4 albuterol sulfate 2.5 mg /3 mL (0.083 %) solution for nebulization See Rx Instructions .ROUTE .COMPLEX Qty: 180 RF: 11 alfuzosin 10 mg tablet extended release 24 hr 10 mg PO DAILY Qty: 90 RF: 0 fluticasone propionate [Allergy Relief (fluticasone)] 50 mcg/actuation spray,suspension 2 spray INTRANASAL DAILY 90 Days Qty: 47.4 RF: 0 hydrochlorothiazide 25 mg tablet 12.5 mg PO QAM Qty: 45 RF: 0 prednisone 2.5 mg tablet 2.5 mg PO DAILY Qty: 90 RF: 0 sucralfate [Carafate] 100 mg/mL suspension See Rx Instructions .ROUTE .COMPLEX Qty: 1800 RF: 1 Stiolto Respimat 2.5-2.5 mcg/actuation mist 2 puff INHALATION Q24H 90 Days Qty: 12 RF: 0 levothyroxine 25 mcg Tablet 25 mcg PO DAILY RF: 0 Discontinued sotalol 80 mg tablet 80 mg PO BID Qty: 180 RF: 0 Discharge Orders: Discharge Order (Routine); Ordered 09/03/20 Ordered By: Ministerio Lala Referrals: Karen Song FNP [Primary Care Provider] - ([facility] will conatact you to schedule an follow-up appointment in 4 to 7 days. If you have havn't heard from them by Saturday. Please call ) Endy,Ethel, OBIEE REPORT DEVELOPER [Nurse Practitioner] - ([facility] will contact you to schedule an follow-up appointment with Ethel Schumacher in 1 week. If you haven't heard from them by Saturday morning. Please call ) Discharge Diet: Cardiac Discharge Activity: Increase activity as tolerated Patient Instructions: Isosorbide Dinitrate (By mouth), Sotalol (By mouth), Clopidogrel (By mouth), COPD Stoplight, Post Angiogram Home Care Instructions Activity Restrictions/Additional Instructions: Follow-up with Ethel Schumacher in 1 week. Discharge Attestations Time Spent in Discharge Care*: less than 30 min Quality Metrics Clinical Quality Measures During this hospital stay, did patient experience: AMI Clinical Trial Participant: Yes Contraindication to aspirin (AMI): Aspirin given Contraindication to statin: Statin prescribed Coding Level of Care Code Acute [facility] [place] note Diagnoses Acute non-ST elevation myocardial infarction (NSTEMI) I21.4 Anemia D50.0 Anemia type: iron deficiency Iron deficiency anemia type: chronic blood loss Chronic episodic atrial fibrillation I48.20 COPD (chronic obstructive pulmonary disease) J43.2 COPD type: emphysema Emphysema type: centrilobular
== END 2020-09-03 16:15 | disposition home or self-care (01) | DRG 281 ==
LOC: ER 08-30 00:54 → ICU 08-30 07:31 → CSU 09-02 15:29
PROVIDERS: Internal Medicine Cardiovascular Disease; Admitting Provider Internal Medicine; Emergency Provider Emergency Medicine; PCP Nurse Practitioner Family; Visit Provider Internal Medicine
DX: I21.4 Non-ST elevation (NSTEMI) myocardial infarction (principal); I48.20 Chronic atrial fibrillation, unspecified; C91.10 Chronic lymphocytic leukemia of B-cell type not having achieved remission; D63.8 Anemia in other chronic diseases classified elsewhere; D50.0 Iron deficiency anemia secondary to blood loss (chronic); D69.59 Other secondary thrombocytopenia; E86.0 Dehydration; R63.0 Anorexia; J43.2 Centrilobular emphysema; E78.2 Mixed hyperlipidemia; M35.3 Polymyalgia rheumatica; K21.9 Gastro-esophageal reflux disease without esophagitis; I12.9 Hypertensive chronic kidney disease with stage 1 through stage 4 chronic kidney disease, or unspecified chronic kidney disease; N18.9 Chronic kidney disease, unspecified; I73.9 Peripheral vascular disease, unspecified; F17.210 Nicotine dependence, cigarettes, uncomplicated; Z79.52 Long term (current) use of systemic steroids; Z86.711 Personal history of pulmonary embolism; Z95.820 Peripheral vascular angioplasty status with implants and grafts
CPT/HCPCS: 36415; 71045; 71275; 80048; 80053; 80069; 81003; 82607; 82746; 83540; 83550; 83690; 83735; 84311; 84484; 85007; 85025; 85027; 93005; 93306; 94640; 96372; 99285; C1769; C1887; C1894; J1644; J1650; J2250; J2405; J3010; J3420; J3490; J7030; J7040; J7611; Q0163; Q9967

== ENCOUNTER → 2020-09-12 17:00 | Outpatient (BNVA) | payer MEDICARE, OTHER, SELFPAY | PROVIDERS: PCP Nurse Practitioner Family; Visit Provider Internal Medicine Cardiovascular Disease | DX: Z09 Encounter for follow-up examination after completed treatment for conditions other than malignant neoplasm (principal); Z79.899 Other long term (current) drug therapy | CPT/HCPCS: 80053; 85025 ==

== ENCOUNTER 2020-09-15 00:38 | Inpatient (IN) | payer MEDICARE, OTHER, SELFPAY ==
[2020-09-15] VITALS (16 sets, daily range): BP systolic 106–148; BP diastolic 59–79; PULSE 70–102; RESP 14–18; TEMP 36.8–37.3; O2SAT 97–100; BMI 22.1
--- NOTE | 2020-09-15 00:41 | XR_ITS ---
WS: [id number] Portable AP upright chest, 09/15/2020, 2444 hours Clinical Data: cp Comparison: Portable chest, 08/29/2020. Findings: There is no nasogastric tube seen in the region of the esophagus or stomach. The aortic arc h shows tortuosity. No nodules, masses or effusions are seen. No pneumonia or pneumothorax is present . There is minimal basilar atelectasis over the surface of both diaphragms. Monitor leads are on the chest wall. XR/XR chest 1V portable [id number] Impression: 1. Nasogastric tube not seen in region of esophagus or stomach. 2. Atherosclerosis.
--- NOTE | 2020-09-15 00:41 | CTR_ITS ---
PROCEDURE INFORMATION: Exam: CT Abdomen And Pelvis With Contrast Exam date and time: 09/15/2020 12:45 AM Age: 85 years old Clinical indication: Abdominal pain; Other: all over ; Prior surgery; Surgery type: Gb. Hernia repair. Cardiac ablation. Aortic graft. ; Patient HX: C/O of diffuse abd tenderness. ; Additional info: Abd pain TECHNIQUE: Imaging protocol: Computed tomography of the abdomen and pelvis with contrast. Radiation optimization: All CT scans at this facility use at least one of these dose optimization techniques: automated exposure control; mA and/or kV adjustment per patient size (includes targeted exams where dose is matched to clinical indication); or iterative reconstruction. Contrast material: VISI 320; Contrast volume: 95 ml; Contrast route: INTRAVENOUS (IV); COMPARISON: CT abdomen pelvis w con* [id number] 04/08/2020 1:54 PM RADIATION DOSE METRICS: Total DLP (mGy-cm): 1217.08 FINDINGS: Liver: Liver unchanged with low-density lesions again noted. Gallbladder and bile ducts: Cholecystectomy. Mild prominence of bile ducts can be a normal finding in this setting if there are no clinical or laboratory changes to suggest obstruction. Pancreas: Normal. No ductal dilation. Spleen: Stable mild splenomegaly. Adrenal glands: Normal. No mass. Kidneys and ureters: Left renal cysts are likely benign. Stomach and bowel: Relatively advanced colonic diverticulosis at sigmoid colon and milder diverticular findings in descending colon. Moderate gastric fluid. Appendix: No evidence of appendicitis. Intraperitoneal space: Unremarkable. No free air. No significant fluid collection. Vasculature: Bifurcated aortoiliac stent graft is in place. Aortic aneurysm is unchanged in size and there is no evidence for hemorrhage/rupture. Lymph nodes: Adenopathy is noted at retroperitoneum, celiac region, and portacaval region is without significant change. However, there is some new ill-defined soft tissue in the small bowel mesentery adjacent to a segment which exhibits abnormal wall thickening and represents the site of an apparent small-bowel obstruction transition point at the right mid abdomen. Urinary bladder: Unremarkable as visualized. Reproductive: Prostate is prominent centrally. Bones/joints: No acute fracture. Soft tissues: Unremarkable. CT/CT abdomen pelvis w con* [id number] IMPRESSION: Small-bowel obstruction; there is relatively abrupt transition to wall thickening at the transition point at right mid abdomen and adjacent ill-defined soft tissue raising the question of a neoplastic process at this site. Adenopathy otherwise unchanged. Unchanged abdominal aortic aneurysm. Stable splenomegaly. Case discussed with ordering physician. COMMENTS: Consistent with the [employer]'s Incidental Findings Committee white paper (J Am Lala Radiol 2018): Any incidental renal lesion less than 1 cm or classified as too small to characterize, or any incidental cystic renal lesion characterized as simple-appearing, is likely benign. No follow-up imaging is recommended for these lesions per consensus recommendations based on imaging criteria. Radiation Dose CTDIVOL = (mGy): DLP = 1217.08 (mGy-cm)
--- NOTE | 2020-09-15 00:42 | ECG_ITS ---
[facility] Test Date: 2020-09-15 Pat Name: Naseem Luna Department: Room: 276 Gender: Male Bead Filler: : 1935 Requested By: Mary Chapman Order Number: [id number] Angie MD: MINGO ALMARAZ Measurements Intervals [place] Rate: 87 P: TX: QRS: 66 QRSD: 134 T: 28 QT: 398 QTc: 481 Interpretive Statements ATRIAL FIBRILLATION RIGHT BUNDLE BRANCH BLOCK [120+ ms QRS DURATION, UPRIGHT V1, 40+ ms S IN I/aVL/V4/V5/V6] Compared to ECG 08/30/2020 03:12:32 Sinus rhythm no longer present Electronically Signed On 09-15-2020 20:42:58 CDT by MINGO ALMARAZ [id number]
--- NOTE | 2020-09-15 00:48 | W.ED.ABDPA2 ---
HPI - Abdominal Pain General: Chief Complaint: Abdominal Pain Stated Complaint: CHEST PAIN Time Seen by Provider: 09/15/20 00:41 Source: patient and EMS Mode of arrival: EMS Limitations: no limitations History of Present Illness: HPI narrative: 85 yo male Who was admitted here roughly 2 weeks ago for an NSTEMI. Patient was on medical management and is on blood thinners. He had not have a cardiac cath at that time. He states tonight he started having some abdominal pains been diffuse along with some radiation to his chest but mainly abdominal pain. He had some nausea and diaphoresis. States pain is currently a 3 out of 10. There is no vomiting or diarrhea. EKG with EMS showed no acute findings. He denies any worsening improving factors. Associated Symptoms: Reports nausea; Denies chills, dysuria and fever(s) Review of Systems Const: Denies: fever(s), chills, body aches or change in appetite Eyes: Denies: blurry vision or eye discomfort ENMT: Denies: throat pain or dental pain Card: Reports: chest pain Resp: Denies: dyspnea GI: Reports: abdominal pain and nausea : Denies: dysuria Musc: Denies: neck pain or back pain Skin/Breast: Denies: rash Neuro: Denies: headache(s) Psych: Denies: depression Scotty/Lymph: Denies: easy bruising All/Imm: Denies: urticaria PFSH ED PFSH: Medical History Anemia Aneurysm of infrarenal abdominal aorta Chronic episodic atrial fibrillation Chronic GERD Chronic lymphocytic 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 COPD (chronic obstructive pulmonary disease) Dermatomyositis Diverticulitis Generalized osteoarthritis Hiatal hernia History of adenomatous polyp of colon History of pulmonary embolism Iron refractory iron deficiency anemia Mixed hyperlipidemia Osteopenia Polymyalgia rheumatica Statin intolerance Upper GI bleed Surgical History History of aortic aneurysm repair History of colonoscopy with polypectomy S/P cardiac catheterization S/P cholecystectomy Status post right inguinal hernia repair Family History Mother Cancer Brother Hypertension Social History Smoking and tobacco status: current every day smoker cigarettes Second hand smoke exposure: No Alcohol intake: never Lives independently: Yes Household members: none Marital status: Current occupational status: retired History of recent travel: No Current gender identity: Male Physical Exam Const: COMMON NORMALS: no acute distress, patient oriented x3 and healthy appearing HENMT: COMMON NORMALS: normocephalic and atraumatic HEAD & SCALP: normocephalic and atraumatic Eye: COMMON NORMALS: Equal, round and reactive pupils present and EOMs intact bilaterally PUPIL: Yes Equal, round and reactive pupils present Neck/C-Spine: COMMON NORMALS: full ROM and supple Chest: COMMONS NORMALS: normal inspection of the chest and normal palpation of entire chest wall Resp: COMMON NORMALS: normal respiratory effort, No retractions, No use of accessory muscles and clear to auscultation bilaterally AUSCULTATION: clear to auscultation bilaterally Cardio: COMMON NORMALS: regular rate and No murmurs present (Cardio) RATE: regular rate RHYTHM: abnormal rhythm irregularly irregular GI: COMMON NORMALS: Normal to inspection, nondistended, normoactive bowel sounds present, Soft to palpation, non-tender and no masses PALPATION: Yes Soft to palpation Extremity: COMMON NORMALS: normal to inspection and full ROM Neuro: COMMON NORMALS: patient oriented x3, moves all extremities and no focal motor deficits Psych: COMMON NORMALS: mental status grossly normal, Normal thought process present and cooperative THOUGHT PROCESS: Normal thought process present Skin: COMMON NORMALS: no rashes or lesions noted and no wounds GENERAL SKIN EXAM: no rashes or lesions noted Course Vital Signs: Vital signs: Vital Signs Temperature 98.2 F 09/15/20 00:44 Pulse Rate 102 H 09/15/20 02:04 Respiratory Rate 18 09/15/20 02:04 Blood Pressure 106/61 09/15/20 02:04 Pulse Oximetry 100 09/15/20 02:04 MDM - Abdominal Pain MDM Narrative: Medical decision making narrative: Naseem presents with abdominal pain CT does show small bowel obstruction. NG tube was placed in the ER and I spoke to the hospitalist and will admit. Patient's troponin here is unchanged from previous and he has no signs of ST changes on his EKG. Lab Data: Labs: Lab Results 09/15/20 09/15/20 09/15/20 Range/Units 00:50 00:50 00:50 WBC 55.2 H* (4.0-10.0) 10^3/ uL RBC 3.32 L (4.1-5.3) 10^6/u L Hgb 8.5 L (11.7-16.6) g/dL Hct 28.6 L (42.0-52.0) % MCV 86.1 (80-94) fL MCH 25.6 L (28.0-34.0) pg MCHC 29.7 L (30.0-36.0) g/dL RDW 15.1 (12.1-15.1) % Plt Count 138 (130-400) 10^3/c mm MPV 9.6 (7.4-10.4) fL Lymph % (Auto) Not Reportable [place] % (Auto) Not Reportable Lymph # (Auto) Not Reportable [place] # (Auto) Not Reportable Total Counted 100 (0-100) Atypical Lymphs % 52.0 H (0-5) % Absolute Neutrophi ls 4.4 (1.4-6.5) 10^3/c mm Segmented Neutroph ils 8 % Abs Segm Neuts (Ma n) 4.4 (1.6-7.1) 10/cmm Band Neutrophils 0.0 % Abs Band Neuts (Ma n) 0.0 (0.0-1.2) 10^3/c mm Absolute Lymphocyt es 50.2 H (1.2-3.4) 10^3/c mm Lymphocytes (Manua l) 39 % Monocytes (Manual) 1.0 % Absolute Monocytes 0.6 (0.1-0.6) 10^3/c mm Eosinophils (Manua l) 0 % Absolute Eosinophi ls 0.0 (0.0-0.7) 10^3/c mm Basophils (Manual) 0.0 % Absolute Basophils 0.0 (0.0-0.2) 10^3/c mm Metamyelocytes 0.0 % Myelocytes 0.0 % Promyelocytes 0.0 % Blast Cells 0 (0-0) % Platelet Estimate Normal (Normal) Sodium 136 (136-145) mmol/L Potassium 3.6 (3.5-5.1) mmol/L Chloride 95 L (98-107) mmol/L Carbon Dioxide 33 H (22-29) mmol/L Anion Gap 11.6 (5-19) BUN 20 (8-23) mg/dL Creatinine 1.3 H (0.7-1.2) mg/dL GFR Calculation Not Reportable Glucose 135 H (65-115) mg/dL Calculated Osmolal ity 287 (285-295) mOsm/k g Calcium 8.4 L (8.5-10.5) mg/dL Total Bilirubin 0.3 (0.15-1.2) mg/dL AST 10 (0-40) U/L ALT < 5 (0-41) U/L Alkaline Phosphata se 96 (40-130) IU/L Troponin T Baselin e 23 H (0-15) ng/L Total Protein 5.6 L (6.6-8.7) g/dL Albumin 4.0 (3.5-5.2) g/dL Globulin 1.6 (1.3-4.6) g/dL Lipase 9 L (13-60) U/L Imaging Data ^: CT Abd/Pel: Attestation: I personally reviewed and interpreted this imaging study as follows: Radiologist's impression: [address] [address] [address] Scan Report Signed Patient: Naseem Luna Unit #: [id number] : 1935 Age/Sex: 85 / M ADM Date: 09/15/20 Loc: ER Room/Bed: Attending Dr: Ordering Provider/Ordering MD: Mary Chapman MD Date of Service: 09/15/20 Procedure(s): CT abdomen pelvis w con* [id number] Accession Number(s): [id number] Report Number: [id number] PROCEDURE INFORMATION: Exam: CT Abdomen And Pelvis With Contrast Exam date and time: 09/15/2020 12:45 AM Age: 85 years old Clinical indication: Abdominal pain; Other: all over ; Prior surgery; Surgery type: Gb. Hernia repair. Cardiac ablation. Aortic graft. ; Patient HX: C/O of diffuse abd tenderness. ; Additional info: Abd pain TECHNIQUE: Imaging protocol: Computed tomography of the abdomen and pelvis with contrast. Radiation optimization: All CT scans at this facility use at least one of these dose optimization techniques: automated exposure control; mA and/or kV adjustment per patient size (includes targeted exams where dose is matched to clinical indication); or iterative reconstruction. Contrast material: VISI 320; Contrast volume: 95 ml; Contrast route: INTRAVENOUS (IV); COMPARISON: CT abdomen pelvis w con* [id number] 04/08/2020 1:54 PM RADIATION DOSE METRICS: Total DLP (mGy-cm): 1217.08 FINDINGS: Liver: Liver unchanged with low-density lesions again noted. Gallbladder and bile ducts: Cholecystectomy. Mild prominence of bile ducts can be a normal finding in this setting if there are no clinical or laboratory changes to suggest obstruction. Pancreas: Normal. No ductal dilation. Spleen: Stable mild splenomegaly. Adrenal glands: Normal. No mass. Kidneys and ureters: Left renal cysts are likely benign. Stomach and bowel: Relatively advanced colonic diverticulosis at sigmoid colon and milder diverticular findings in descending colon. Moderate gastric fluid. Appendix: No evidence of appendicitis. Intraperitoneal space: Unremarkable. No free air. No significant fluid collection. Vasculature: Bifurcated aortoiliac stent graft is in place. Aortic aneurysm is unchanged in size and there is no evidence for hemorrhage/rupture. Lymph nodes: Adenopathy is noted at retroperitoneum, celiac region, and portacaval region is without significant change. However, there is some new ill-defined soft tissue in the small bowel mesentery adjacent to a segment which exhibits abnormal wall thickening and represents the site of an apparent small-bowel obstruction transition point at the right mid abdomen. Urinary bladder: Unremarkable as visualized. Reproductive: Prostate is prominent centrally. Bones/joints: No acute fracture. Soft tissues: Unremarkable. CT/CT abdomen pelvis w con* [id number] IMPRESSION: Small-bowel obstruction; there is relatively abrupt transition to wall thickening at the transition point at right mid abdomen and adjacent ill-defined soft tissue raising the question of a neoplastic process at this site. Adenopathy otherwise unchanged. Unchanged abdominal aortic aneurysm. Stable splenomegaly. Case discussed with ordering physician. COMMENTS: Consistent with the [employer]'s Incidental Findings Committee white paper (J Am Lala Radiol 2018): Any incidental renal lesion less than 1 cm or classified as too small to characterize, or any incidental cystic renal lesion characterized as simple-appearing, is likely benign. No follow-up imaging is recommended for these lesions per consensus recommendations based on imaging criteria. EKG Data ^: EKG 1: Attestation: I personally reviewed and interpreted this EKG as follows: EKG interpretation date: 09/15/20 EKG interpretation time: 00:43 Interpretation: afib hr [address] or t wave abnormalities rbbb qrs 134 qtc 443 unchanged from previous Discharge Plan Discharge Patient Disposition: Admitted As Inpatient Clinical Impression: Small bowel obstruction Condition: Stable Coding Level of Care Code ED Transport Engineer for Chg Fwd Exam Comprehensive
--- NOTE | 2020-09-15 00:55 | PC.NURSE ---
patient to CT
[2020-09-15 00:58] LABS: Hematocrit 28.6 % (42.0-52.0); Hemoglobin 8.5 g/dL (11.7-16.6); Mean Corpuscular HGB Conc 29.7 g/dL (30.0-36.0); Mean Corpuscular Hemoglobin 25.6 pg (28.0-34.0); Mean Corpuscular Volume 86.1 fL (80-94); Mean Platelet Volume 9.6 fL (7.4-10.4); Platelet Count 138 10^3/cmm (130-400); Red Blood Count 3.32 10^6/uL (4.1-5.3); Red Cell Distribution Width 15.1 % (12.1-15.1)
[2020-09-15] MEDS: iodixanol 320 mg/mL 100mL Btl IV (00:59)
[2020-09-15] MEDS: ondansetron 2 mg/ML SDV 2 mL 4 MG IVP ×2 (01:10→15:00)
[2020-09-15 01:21] LABS: Alanine Aminotransferase < 5 U/L (0-41); Alkaline Phosphatase 96 IU/L (40-130); Anion Gap 11.6 (5-19); Aspartate Amino Transferase 10 U/L (0-40); Blood Urea Nitrogen 20 mg/dL (8-23); Calcium 8.4 mg/dL (8.5-10.5); Carbon Dioxide 33 mmol/L (22-29); Chloride 95 mmol/L (98-107); Globulin 1.6 g/dL (1.3-4.6); Glucose 135 mg/dL (65-115); Lipase 9 U/L (13-60); Osmolality Calculated 287 mOsm/kg (285-295); Potassium 3.6 mmol/L (3.5-5.1); Sodium 136 mmol/L (136-145); Total Bilirubin 0.3 mg/dL (0.15-1.2); Total Protein 5.6 g/dL (6.6-8.7)
[2020-09-15 01:23] LABS: Troponin(5th) Baseline 23 ng/L (0-15)
[2020-09-15 01:31] LABS: White Blood Count 55.2 10^3/uL (4.0-10.0)
[2020-09-15 01:33] LABS: Absolute Segmented Neutrophil 4.4 10/cmm (1.6-7.1); Eosinophils 0 %; Lymphocytes 39 %; Lymphocytes Absolute 50.2 10^3/cmm (1.2-3.4); Monocytes Absolute 0.6 10^3/cmm (0.1-0.6); Segmented Neutrophils 8 %; Total Cells Counted 100 (0-100)
[2020-09-15 02:07] LABS: Absolute Neutrophil 4.4 10^3/cmm (1.4-6.5); Blastocytes 0 % (0-0); Platelet Estimate Normal (Normal)
--- NOTE | 2020-09-15 02:15 | P.HP_ITS ---
Providers/Chief Complaint Primary Care Provider: TAYLOR Torres Chief Complaint: CHEST PAIN History of Present Illness Naseem Luna is a 85 year old male with history of CLL, leukocytosis with chronic anemia thrombocytopenia, iron deficiency, oxygen dependent COPD uses 3 L [id number], atrial fibrillation not a candidate of anticoagulation due to GI bleed, recently was discharged from the hospital after management of NSTEMI, cardiology recommended medical management and cardiac catheterization after outpatient evaluation presented today with chief complaint of abdominal discomfort. Patient is stating that for last few months he has not been able to eat much, he does not feel hungry at all he has lost 50 pounds in a span of 8 to 12 months, has received blood transfusion for anemia in the past, poor functional status, lives alone. He was in his usual state of health until 11 AM yesterday when he started experiencing worsening abdominal discomfort. Before that he was experiencing mild abdominal discomfort associated with nausea. He went to his [id number]'s day before yesterday, ate a little bit over there, next morning at 11 AM he started experiencing worsening of symptoms that is why he decided to come to the hospital for further evaluation. He is denying fever, emesis, his last bowel movement was yesterday. He is denying chest pain, orthopnea and PND. Diagnosis in the ER revealed leukocytosis, chronic anemia and thrombocytopenia which seems to be around baseline, mild alkalosis NICHELLE, clinical signs of dehydration, baseline troponin XX 3, patient is chest pain-free, CT abdomen pelvis revealed severe retroperitoneal lymphadenopathy and small bowel obstruction, fluid present in the stomach, NG tube was placed which drained 400 cc bilious content, at the time my evaluation patient was endorsing feeling better with resolution of abdominal pain In the ER he received morphine 4 mg along with Zofran and Ativan 0.5 mg Review of Systems Const: Reports: body aches, change in appetite, change in weight, fatigue and malaise; Denies: fever(s) Eyes: Denies: change in vision ENMT: Denies: throat pain Card: Reports: irregular heart rhythm and dyspnea on exertion; Denies: swelling of feet/ankles or orthopnea Resp: Reports: dyspnea and non-productive cough GI: Reports: abdominal pain and nausea; Denies: vomiting : Denies: flank pain Musc: Reports: muscle cramps Skin/Breast: Reports: lesions Neuro: Denies: headache(s) Psych: Denies: anxiety Endo: Denies: polyuria Scotty/Lymph: Reports: easy bruising All/Imm: Denies: urticaria Medications/Allergies Home Medications Medication Instructions Recorded Confirmed Last Taken Type lorazepam 0.5 mg tablet 0.5 mg PO TID PRN 06/05/19 09/12/20 07/19/19 History magnesium oxide 400 mg PO BID@05,17 tab 06/05/19 09/12/20 07/20/19 05:00 History olopatadine 0.1 % eye drops 1 drop OPHTHALMIC (EYE) DAILY #5 ml 10/02/19 09/12/20 Unknown Rx portable oxygen concentrator #1 ea 12/09/19 09/12/20 Unknown Rx meclizine 12.5 mg tablet 12.5 mg PO DAILY PRN tab 02/09/20 09/12/20 Unknown H istory multivitamin with iron 1 tab PO DAILY@05 02/09/20 09/12/20 Unknown History pantoprazole 40 mg tablet,delayed 40 mg PO BID #60 tab 03/11/20 09/12/20 Unknown Rx release nitroglycerin 0.4 mg sublingual 0.4 mg SUBLINGUAL Q5M PRN #25 tab 05/25/20 09/12/20 Unknown Rx tablet tramadol 50 mg tablet 50 mg PO TID PRN #90 tab 07/26/20 09/12/20 Unknown Rx albuterol sulfate 90 mcg/actuation See Rx Instructions .ROUTE 08/10/20 09/12/20 Unknown Rx aerosol inhaler .COMPLEX #8.5 g mupirocin 2 % topical ointment 1 applic TOPICAL BID #22 g 08/10/20 09/12/20 Unknown Rx albuterol sulfate See Rx Instructions .ROUTE 08/15/20 09/12/20 Unknown Rx .COMPLEX #180 ml alfuzosin 10 mg tablet,extended 10 mg PO DAILY #90 tab 08/15/20 09/12/20 Unknown Rx release 24 hr fluticasone propionate 50 2 spray INTRANASAL DAILY 90 Days 08/15/20 09/12/20 Unknown Rx mcg/actuation nasal #47.4 ml spray,suspension hydrochlorothiazide 25 mg tablet 12.5 mg PO QAM #45 tab 08/15/20 09/12/20 Unknown Rx prednisone 2.5 mg tablet 2.5 mg PO DAILY #90 tab 08/15/20 09/12/20 Unknown Rx sucralfate 100 mg/mL oral See Rx Instructions .ROUTE 08/15/20 09/12/20 Unknown Rx suspension .COMPLEX #1800 ml tiotropium 2.5 mcg-olodaterol 2.5 2 puff INHALATION Q24H 90 Days #12 08/15/20 09/12/20 Unknown Rx mcg/actuation mist for inhalation g levothyroxine 25 mcg PO DAILY 08/30/20 09/12/20 Unknown History atorvastatin [Lipitor] 40 mg PO DAILY #30 tab 09/03/20 09/12/20 Unknown Rx clopidogrel 75 mg PO DAILY #30 tab 09/03/20 09/12/20 Unknown Rx isosorbide dinitrate 30 mg PO BID #60 tab 09/03/20 09/12/20 Unknown Rx sotalol 80 mg PO 2100 #30 tab 09/03/20 09/12/20 Unknown Rx sotalol 120 mg PO 0900 #30 tab 09/03/20 09/12/20 Unknown Rx Allergies Allergy/AdvReac Type Severity Reaction Status Date / Time ciprofloxacin [From Cipro] Allergy Unknown Verified 08/30/20 10:07 dabigatran etexilate Allergy Unknown Verified 08/30/20 10:07 [From Pradaxa] Penicillins Allergy Unknown Verified 08/30/20 10:07 PFSH Acute PFSH: Medical History Anemia Aneurysm of infrarenal abdominal aorta Chronic episodic atrial fibrillation Chronic GERD Chronic lymphocytic 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 COPD (chronic obstructive pulmonary disease) Dermatomyositis Diverticulitis Generalized osteoarthritis Hiatal hernia History of adenomatous polyp of colon History of pulmonary embolism Iron refractory iron deficiency anemia Mixed hyperlipidemia Osteopenia Polymyalgia rheumatica Statin intolerance Upper GI bleed Surgical History History of aortic aneurysm repair History of colonoscopy with polypectomy S/P cardiac catheterization S/P cholecystectomy Status post right inguinal hernia repair Family History Mother Cancer Brother Hypertension Social History Smoking and tobacco status: current every day smoker cigarettes Second hand smoke exposure: No Alcohol intake: never Lives independently: Yes Household members: none Marital status: Current occupational status: retired History of recent travel: No Current gender identity: Male Vitals/I&O/Wt Last Vital Signs Temp 98.2 F 09/15/20 00:44 Pulse 102 H 09/15/20 02:04 Resp 18 09/15/20 02:04 BP 106/61 09/15/20 02:04 Pulse Ox 100 09/15/20 02:04 Weight last 48 hrs Weight 66.224 kg Physical Exam Narrative: EXAM NARRATIVE: male, cachectic, malnourished Appears stated age Clinically dehydrated Pleasant and cooperative during my evaluation Normal hemodynamics, afebrile Abdomen is soft nontender no signs of peritonitis, bowel sounds hyperactive Bilateral breath sounds without adventitious rhonchi or crackles S1, S2 variable, clinically dehydrated EOMI, PERRLA GCS 15 Awake alert oriented x3 no neurological deficits Appropriate mood and affect Currently saturating well on 3 L nasal cannula Data : 09/15/20 00:50 09/15/20 00:50 A&P Assessment and plan (1) Small bowel obstruction: Status: Acute (2) Abdominal pain: Status: Acute (3) Chronic lymphocytic 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: Status: Acute (4) Anemia: Status: Acute Qualifiers: Anemia type: iron deficiency Iron deficiency anemia type: chronic blood loss Qualified Code(s): D50.0 - Iron deficiency anemia secondary to blood loss (chronic) Additional A&P Information Small bowel obstruction Abrupt transition point right mid abdomen with adjacent ill-defined soft tissue raising question for neoplastic process with extensive retroperitoneal lymphadenopathy NG tube, n.p.o. D5 half-normal saline fluid maintenance rate Zofran and opioids for analgesia He will need colonoscopy for histopathological diagnosis as well Chronic leukocytosis, no hyperviscosity syndrome, +blast crisis as well, review of previous records revealed that Dr. Conte was not planning to do any leukapheresis on previous admission leukocyte count was 53 and today is 55 Chronic anemia: No acute exacerbation A. fib without RVR: Not a candidate for anticoagulation secondary to GI bleed and anemia would use AV leno blocking agent for now if he stays n.p.o. would use IV regimen Recent NSTEMI: Cardiology recommended medical management Goals of care discussed with the patient: He is full code N.p.o. DVT prophylaxis SCD Attestations Medical Necessity Statement*: Anticipating stay in the hospital for SBO to cross more than 2 midnights, increased risk of morbidity mortality, has history of CLL Time Spent in Patient Care: 35mins Coding Level of Care Code Acute Advanced Seal Delivery System for Chg Fwd Diagnoses Small bowel obstruction K56.609 Abdominal pain R10.9 Chronic lymphocytic 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 C91.10 Anemia D50.0 Anemia type: iron deficiency Iron deficiency anemia type: chronic blood loss
[2020-09-15] MEDS: LORazepam 2 mg/mL INJ 1 mL 0.5 MG IVP (02:17)
--- NOTE | 2020-09-15 02:30 | XR_ITS ---
WS: [id number] Portable AP upright chest, 09/15/2020, 0220 hours Clinical Data: NG PLACEMENT Comparison: Portable chest, 09/15/2020, 2444 hours Findings: The nasogastric tube appears to be in the esophagus and ends in the distal stomach. XR/XR chest 1V portable 13720 Impression: Satisfactory insertion of nasogastric tube.
--- NOTE | 2020-09-15 02:58 | PC.NURSE ---
unused morphine wasted with second nurse NOE TUCKER
[2020-09-15] MEDS: dextrose 5%-sod chloride 0.45% 1,000 ML 75 ML IV ×2 (04:16→18:47)
[2020-09-15] MEDS: heparin 5,000 unit/mL INJ 1 mL 5000 UNIT SUBCUT ×3 (04:21→18:47)
[2020-09-15 04:24] LABS: Troponin 5 2HR 27.82 ng/L (0-15); Troponin 5 2HR Delta 4.82 ABS# (0-10)
--- NOTE | 2020-09-15 06:42 | ECG_ITS ---
[facility] ED Test Date: 2020-09-15 Pat Name: Naseem Luna Department: Room: 276 Gender: Male Calculus Teacher: : 1935 Requested By: Mary Chapman Order Number: [id number] Angie MD: Lesley Moore M.D. Measurements Intervals [place] Rate: 66 P: 55 MD: 205 QRS: 55 QRSD: 139 T: 21 QT: 452 QTc: 475 Interpretive Statements SINUS RHYTHM RIGHT BUNDLE BRANCH BLOCK [120+ ms QRS DURATION, UPRIGHT V1, 40+ ms S IN I/aVL/V4/V5/V6] Compared to ECG 09/15/2020 00:43:23 Atrial fibrillation no longer present Electronically Signed On 09-18-2020 10:56:37 CDT by Lesley Moore M.D. [id number]
[2020-09-15 07:46] LABS: Basophils # 0.1 10^3/uL (0.0-0.1); Basophils % 0.2 %; Eosinophils # 0.2 10^3/uL (0.0-0.8); Eosinophils % 0.3 %; Hematocrit 26.1 % (42.0-52.0); Hemoglobin 8.2 g/dL (11.7-16.6); Lymphocytes # 42.5 10^3/uL (0.8-4.8); Lymphocytes % 94.1 %; Mean Corpuscular HGB Conc 31.4 g/dL (30.0-36.0); Mean Corpuscular Hemoglobin 26.4 pg (28.0-34.0); Mean Corpuscular Volume 83.9 fL (80-94); Mean Platelet Volume 10.3 fL (7.4-10.4); Monocytes # 0.5 10^3/uL (0.2-0.9); Monocytes % 1.2 %; Neutrophils # 1.83 10^3/uL (1.8-7.7); Nucleated Red Blood Cells % 0 %; Platelet Count 154 10^3/cmm (130-400); Red Blood Count 3.11 10^6/uL (4.1-5.3); Red Cell Distribution Width 15.1 % (12.1-15.1)
[2020-09-15 07:58] LABS: Anion Gap 11.3 (5-19); Blood Urea Nitrogen 18 mg/dL (8-23); Calcium 8.2 mg/dL (8.5-10.5); Carbon Dioxide 32 mmol/L (22-29); Chloride 96 mmol/L (98-107); Glucose 105 mg/dL (65-115); Osmolality Calculated 284 mOsm/kg (285-295); Potassium 3.3 mmol/L (3.5-5.1); Sodium 136 mmol/L (136-145)
[2020-09-15] MEDS: pantoprazole 40 mg SDV IVP (08:03)
[2020-09-15 08:11] LABS: Slide Review Slide Review Perform; White Blood Count 45.2 10^3/uL (4.0-10.0)
--- NOTE | 2020-09-15 09:55 | PC.NURSE ---
It was brought to this RN's attention that the patient was refusing to provide his home medications to nursing to secure in the [facility] until d/c. I went in and spoke with the patient and discussed the safety risk of leaving his medications at the bedside, including safety for himself and others as well as security of the medications from others. He verbalizes understanding but states that he has had issues in the past where his medications were not given back to him and he doesn't want that to happen again. During our conversation, patient is alert and oriented x4 and reports that he will not take any medications from his own medication supply, but would like to know that they are safe at his bedside. His medications are stored in a case at this bedside and he did allow nursing to count his Tramadol and document that in his EMR as well as his paper-light chart. He continues to be adamant that he will not give his medications to nursing to secure in the Pyxis. I inquired if he would allow nursing to place tamper evident tape over the lid of the box his medications were stored in and he states this would be fine. I spoke with Dr. Arredondo immediately following our conversation and informed her of the above information. She states that this would be fine for patient to keep them in the case and secure with tamper evident tape at his bedside. I spoke with PAL Jackson, Offset Printing Operator of Security and Public Safety and Christo Yoder, Pigment Presser for [facility] and they are aware of this. I informed Laurie Ingram RN of this and she verbalizes understanding.
--- NOTE | 2020-09-15 10:36 | PM.CONSULT ---
Providers/Reason For Consult Consulting Physican/Specialty*: Marco A Romero MD Reason for Consult*: Small bowel obstruction Attending Physician: Misty Arredondo MD Primary Care Provider: TAYLOR Torres History of Present Illness History of Present Illness Chief Complaint: My chest was hurting History of present illness: Mr. Naseem Luna is a 85 year old male with history of chronic anemia, chronic lymphocytic leukemia, oxygen dependent COPD uses 3 L 24/, atrial fibrillation and he was hospitalized recently for non-STEMI and further work-up was pending for outpatient setting. Patient presented to the emergency department with history of chest pain and per report abdominal discomfort, had some nausea but no vomiting as his symptoms got worse he was further worked up in the emergency department and a CT scan of the abdomen and pelvis was done that showed concerning for transition point for small bowel obstruction. Patient reports no history of fevers or chills and last time he had passed gas 2 weeks ago per his description and last time he had a bowel movement was yesterday. CT scan of the abdomen and pelvis impressions IMPRESSION: Small-bowel obstruction; there is relatively abrupt transition to wall thickening at the transition point at right mid abdomen and adjacent ill-defined soft tissue raising the question of a neoplastic process at this site. Adenopathy otherwise unchanged. Unchanged abdominal aortic aneurysm. Stable splenomegaly. Patient received NG tube and felt better and less distended and general surgery was consulted for further evaluation and potential management. Review of Systems General: Reports: 10 or more systems reviewed and unremarkable except in HPI and below Meds/Allergies Home Medications and Allergies Home Medications Medication Instructions Recorded Confirmed Last Taken Type magnesium oxide 400 mg PO BID@05,17 tab 06/05/19 09/15/20 09/14/20 History olopatadine 0.1 % eye drops 1 drop OPHTHALMIC (EYE) DAILY #5 ml 10/02/19 09/15/20 Unknown Rx portable oxygen concentrator #1 ea 12/09/19 09/15/20 Unknown Rx meclizine 12.5 mg tablet 12.5 mg PO DAILY PRN tab 02/09/20 09/15/20 09/14/20 History multivitamin with iron 1 tab PO DAILY@05 02/09/20 09/15/20 09/14/20 History pantoprazole 40 mg tablet,delayed 40 mg PO BID #60 tab 03/11/20 09/15/2021 Rx release nitroglycerin 0.4 mg sublingual 0.4 mg SUBLINGUAL Q5M PRN #25 tab 05/25/20 09/15/20 09/14/20 Rx tablet tramadol 50 mg tablet 50 mg PO TID PRN #90 tab 07/26/20 09/15/20 09/14/20 Rx albuterol sulfate 90 mcg/actuation See Rx Instructions .ROUTE 08/10/20 09/15/20 Unknown Rx aerosol inhaler .COMPLEX #8.5 g mupirocin 2 % topical ointment 1 applic TOPICAL BID #22 g 08/10/20 09/15/20 Unknown Rx albuterol sulfate See Rx Instructions .ROUTE 08/15/20 09/15/20 Unknown Rx .COMPLEX #180 ml alfuzosin 10 mg tablet,extended 10 mg PO DAILY #90 tab 08/15/20 09/15/20 09/14/20 Rx release 24 hr fluticasone propionate 50 2 spray INTRANASAL DAILY 90 Days 08/15/20 09/15/20 Unknown Rx mcg/actuation nasal #47.4 ml spray,suspension hydrochlorothiazide 25 mg tablet 12.5 mg PO QAM #45 tab 08/15/20 09/15/20 09/14/20 Rx prednisone 2.5 mg tablet 2.5 mg PO DAILY #90 tab 08/15/20 09/15/20 Unknown Rx sucralfate 100 mg/mL oral See Rx Instructions .ROUTE 08/15/20 09/15/20 Unknown Rx suspension .COMPLEX #1800 ml tiotropium 2.5 mcg-olodaterol 2.5 2 puff INHALATION Q24H 90 Days #12 08/15/20 09/15/20 Unknown Rx mcg/actuation mist for inhalation g levothyroxine 25 mcg PO DAILY 08/30/20 09/15/20 Unknown History clopidogrel 75 mg PO DAILY #30 tab 09/03/20 09/15/20 09/14/20 Rx isosorbide dinitrate 30 mg PO BID #60 tab 09/03/20 09/15/20 Unknown Rx sotalol 80 mg PO 2100 #30 tab 09/03/20 09/15/20 Unknown Rx sotalol 120 mg PO 0900 #30 tab 09/03/20 09/15/20 Unknown Rx Allergies Allergy/AdvReac Type Severity Reaction Status Date / Time ciprofloxacin [From Cipro] Allergy Unknown Verified 09/15/20 13:06 dabigatran etexilate Allergy Unknown Verified 09/15/20 13:06 [From Pradaxa] Penicillins Allergy Unknown Verified 09/15/20 13:06 Current Medications Current Medications Generic Name Dose Route Start Last Admin Trade Name Freq PRN Reason Stop Dose Admin Heparin Sodium (Beef Lung) 5,000 unit 09/15/20 03:06 09/15/20 04:21 Heparin 5,000 Unit/Ml Inj 1 Ml SUBCUT 5,000 unit Q8H ANDRES Administration Dextrose/Sodium Chloride 1,000 mls @ 75 mls/hr 09/15/20 03:06 09/15/20 04:16 Dextrose 5%-Sod Chloride 0.45% IV 75 mls/hr .[id number] ANDRES Administration Pantoprazole Sodium 40 mg 09/15/20 09:00 09/15/20 08:03 Pantoprazole 40 Mg Sdv IVP 40 mg DAILY ANDRES Administration PFSH Acute PFSH: Medical History Anemia Aneurysm of infrarenal abdominal aorta Chronic episodic atrial fibrillation Chronic GERD Chronic lymphocytic 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 COPD (chronic obstructive pulmonary disease) Dermatomyositis Diverticulitis Generalized osteoarthritis Hiatal hernia History of adenomatous polyp of colon History of pulmonary embolism Iron refractory iron deficiency anemia Mixed hyperlipidemia Osteopenia Polymyalgia rheumatica Statin intolerance Upper GI bleed Surgical History History of aortic aneurysm repair History of colonoscopy with polypectomy S/P cardiac catheterization S/P cholecystectomy Status post right inguinal hernia repair Family History Mother Cancer Brother Hypertension Social History Smoking and tobacco status: current every day smoker cigarettes Second hand smoke exposure: No Alcohol intake: never Lives independently: Yes Household members: none Marital status: Current occupational status: retired History of recent travel: No Current gender identity: Male Vitals/I&O/Wt Last Vital Signs Temp 98.7 F 09/15/20 08:00 Pulse 78 09/15/20 08:00 Resp 18 09/15/20 08:00 BP 147/69 09/15/20 08:00 Pulse Ox 97 09/15/20 08:00 09/14/20 09/15/20 09/15/20 22:59 06:59 14:59 Output Total 100 / 100 250 / 250 Balance -100 / -100 -250 / -250 Weight last 48 hrs Weight 146 lb Physical Exam Narrative: EXAM NARRATIVE: Patient is conscious alert oriented X3 BMI 22.2 Head and neck examination PERRLA no masses no cervical lymphadenopathy no jaundice, NG in place with gastric contents in the canister about 400 mL and otherwise light green gastric content per NG tubing Cardiac examination audible S1-S2 no murmurs no gallops no arrhythmias Chest is clear bilateral,abscence of Rhonchi or wheezes,no surgical emphysema Abdomen nontender nondistended soft no organomegaly guarding or rigidity/no signs of peritonitis No evidence of inguinal hernia A&P Assessment and plan (1) Small bowel obstruction: After history taking physical examination and reviewing the chart and images with my personal interpretation I do not believe that there is a specific transition point yet there is proximal small bowel dilation and the colon is definitely loaded with stools. Certainly a component of adhesive bowel obstruction cannot be ruled out in its entirety. At this point my recommendation to: 1-Continue NG to low intermittent wall suction and flush NG tube with 50 mL of saline every 8 hours to maintain functionality. 2-Will Start with glycerin suppository and if that did not work I would follow with milk and molasses enema in the form of 5 ounces of milk and 5 ounces of molasses admix warm and administer to effect. 3-repeated physical examination We will follow on the patient clinical progress, once the patient starts having bowel movements and passing gas likely will clamp the NG to monitor his clinical performance. Assurance and education All questions have been answered and all concerns have been addressed to patient's satisfaction. Thank you for consulting general surgery to participate taking care Status: Acute Consult Attestations Medical Necessity Statement: Continue inpatient hospitalization for IV fluid resuscitation, repeated physical examination and awaiting bowel function Time Spent in Patient Care: (>than 50% of time spent in counselling and/or direct pt care on unit). Coding Level of Care Code Acute Stamp Press Operator for Joseph Fu Diagnoses Small bowel obstruction K56.609
[2020-09-15] MEDS: glycerin adult supp 1 EACH PR (12:36)
--- NOTE | 2020-09-15 12:42 | PC.NURSE ---
administered glycerin suppository and instructed patient on use. Patient verbalized understanding. Bed side commode at bedside with toilet paper available.
[2020-09-15] MEDS: morphine 4 mg/mL SDV 1 mL 2 MG IVP ×2 (15:00→18:47)
--- NOTE | 2020-09-15 18:32 | PC.NURSE ---
Swallowing is a 10 out of 10 pain level
--- NOTE | 2020-09-15 20:45 | PM.PN ---
Subjective Subjective: Interval history: Not happy with NG tube. Reports some irritation in the back of his throat. Has not had anything to try to numb that area. In talking with him he has had some bowel problems for some time. I briefly reviewed Dr. Conte's last note and he has had multiple scans. Lymphadenopathy noted is longstanding. I discussed the case with Dr. Romero who is seeing Mr. Luna in consultation. Vitals/I&O/Wt Last Vital Signs Temp 99.2 F 09/15/20 20:00 Pulse 87 09/15/20 20:00 Resp 16 09/15/20 20:00 BP 145/78 09/15/20 20:00 Pulse Ox 99 09/15/20 20:00 09/15/20 09/15/20 09/15/20 06:59 14:59 22:59 Intake Total 0 / 0 1000 / 1000 Output Total 100 / 100 250 / 250 450 / 700 Balance -100 / -100 -250 / -250 550 / 300 Weight last 48 hrs Weight 66.224 kg Physical Exam Narrative: EXAM NARRATIVE: Awake, looks uncomfortable with NG tube. It is intact. There is some bright red blood scant amounts noted in the tubing. Lungs are currently clear. Is a regular rhythm. Abdomen is soft. He is tender in the left lower quadrant more so than the left upper quadrant more so than the right lower quadrant. Epigastrium and right upper quadrant are nontender. Bowel sounds are decreased Data : 09/15/20 07:18 09/15/20 07:18 A&P Assessment and plan (1) Small bowel obstruction: Status: Acute (2) Chronic lymphocytic 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: Status: Acute (3) Chronic episodic atrial fibrillation: Status: Chronic (4) Chronic use of steroids: Status: Acute (5) COPD (chronic obstructive pulmonary disease): Status: Acute Qualifiers: COPD type: emphysema Emphysema type: centrilobular Qualified Code(s): J43.2 - Centrilobular emphysema (6) Iron refractory iron deficiency anemia: Status: Acute Additional A&P Information Appreciate surgery assistance in case Continue IV fluids, monitoring volume status Status post suppositories Add potassium to IV fluids Home medications are currently held secondary to GI issues Monitor very closely for need for stress dose steroids Telemetry monitoring Sotalol home dosing is presently held Other medications to note that her not currently being continued are alfuzosin, Plavix, hydrochlorothiazide, isosorbide, levothyroxine as well as a few others White count and hemoglobin are normal limits for him SCDs for DVT prophylaxis Supportive care otherwise Full code Attestations Medical Necessity Statement*: Currently requires ongoing management with continued NG tube and other care as noted above. 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
[2020-09-16] VITALS (8 sets, daily range): BP systolic 109–135; BP diastolic 59–73; PULSE 75–95; RESP 16–20; TEMP 36.2–37.5; O2SAT 94–100
[2020-09-16] MEDS: D5-NS 0.45% + KCL 20 mEq 20 MEQ/1,000 ML BAG 75 MEQ IV ×2 (00:04→16:03)
--- NOTE | 2020-09-16 00:56 | XRR_ITS ---
PROCEDURE INFORMATION: Exam: XR Chest Exam date and time: 09/16/2020 1:08 AM Age: 85 years old Clinical indication: Device placement; Ng tube; Patient HX: Check for ng placement; Additional info: Ng dislodged TECHNIQUE: Imaging protocol: XR of the chest. Views: 1 view. COMPARISON: CR XR chest 1V portable [id number] 09/15/2020 2:19 AM FINDINGS: Tubes, catheters and devices: Nasogastric tube tip is just distal to the expected location of gastroesophageal junction; advancement of 4-5 cm recommended for more secure positioning. Lungs: Unchanged. Emphysema. Stable basilar parenchymal densities suspected to represent scarring or atelectasis. Pleural spaces: Unremarkable. No pleural effusion. No pneumothorax. Heart/Mediastinum: Unremarkable. No cardiomegaly. Bones/joints: No acute findings. XR/XR chest 1V portable [id number] IMPRESSION: Nasogastric tube tip is just distal to the expected location of gastroesophageal junction; advancement of 4-5 cm recommended for more secure positioning.
[2020-09-16] MEDS: zolpidem 5 mg Tablet PO (02:23)
[2020-09-16] MEDS: heparin 5,000 unit/mL INJ 1 mL 5000 UNIT SUBCUT ×2 (02:50→11:35)
[2020-09-16 06:06] LABS: Basophils # 0.1 10^3/uL (0.0-0.1); Basophils % 0.1 %; Eosinophils # 0.1 10^3/uL (0.0-0.8); Eosinophils % 0.3 %; Hematocrit 30.3 % (42.0-52.0); Hemoglobin 9.2 g/dL (11.7-16.6); Lymphocytes # 49.4 10^3/uL (0.8-4.8); Lymphocytes % 90.9 %; Mean Corpuscular HGB Conc 30.4 g/dL (30.0-36.0); Mean Corpuscular Hemoglobin 25.7 pg (28.0-34.0); Mean Corpuscular Volume 84.6 fL (80-94); Mean Platelet Volume 9.8 fL (7.4-10.4); Monocytes % 3.7 %; Neutrophils # 2.64 10^3/uL (1.8-7.7); Neutrophils % 4.8 %; Nucleated Red Blood Cells % 0 %; Platelet Count 130 10^3/cmm (130-400); Red Blood Count 3.58 10^6/uL (4.1-5.3)
[2020-09-16 06:09] LABS: INR 1.07 (0.8-1.2)
[2020-09-16 06:10] LABS: Partial Thromboplastin Time 45.1 SECONDS (23.9-36.7)
--- NOTE | 2020-09-16 06:27 | PM.PN ---
Subjective Subjective: Interval history: Patient seems to be overall feeling better, responded to milk of molasses enema and had multiple bowel movements. NG output overnight shift to 250 mL gastric contents. Otherwise no acute events overnight. Adequate urine output Vitals/I&O/Wt Last Vital Signs Temp 99.5 F 09/16/20 04:00 Pulse 90 09/16/20 04:00 Resp 16 09/16/20 04:00 BP 135/68 09/16/20 04:00 Pulse Ox 100 09/16/20 04:00 09/15/20 09/15/20 09/16/20 14:59 22:59 06:59 Intake Total 0 / 0 1000 / 1000 1000.00 / 2000.00 Output Total 250 / 250 450 / 700 550 / 1250 Balance -250 / -250 550 / 300 450.00 / 750.00 Weight last 48 hrs Weight 146 lb Physical Exam Narrative: EXAM NARRATIVE: Patient is conscious alert oriented X3 BMI 22 Head and neck examination PERRLA no masses no cervical lymphadenopathy no jaundice NG in place with gastric content Abdomen nontender nondistended soft no organomegaly guarding or rigidity/no signs of peritonitis Data : 09/15/20 07:18 09/16/20 04:50 A&P Assessment and plan (1) Small bowel obstruction: As patient seems to be responding to conservative measures and overall feeling well and slowing down and NG output. We will clamp NG for 2 hours starting at 6:30 AM and will Declamp it at around 8:30 AM and will check residuals if less than 200 mL will DC NG tube and start the patient slowly on clear liquid diet. Once patient starts tolerating clear liquid diet we will start the patient as well on mag citrate p.o. Assurance and education All questions have been answered and all concerns have been addressed to patient's satisfaction. Thank you for consulting general surgery to participate taking care Status: Acute Attestations Medical Necessity Statement*: Continue inpatient medical hospitalization for medical care and management of small bowel obstruction Time Spent in Patient Care: (>than 50% of time spent in counselling and/or direct pt care on unit). Coding Level of Care Code Acute Screen Handler for Joseph Fu Diagnoses Small bowel obstruction K56.609
[2020-09-16 06:28] LABS: Anion Gap 12.7 (5-19); Blood Urea Nitrogen 14 mg/dL (8-23); Calcium 8.4 mg/dL (8.5-10.5); Carbon Dioxide 31 mmol/L (22-29); Chloride 98 mmol/L (98-107); Glucose 107 mg/dL (65-115); Magnesium 2.4 mg/dL (1.7-2.3); Osmolality Calculated 287 mOsm/kg (285-295); Phosphorus 3.6 mg/dL (2.5-4.5); Potassium 3.7 mmol/L (3.5-5.1); Sodium 138 mmol/L (136-145)
[2020-09-16 06:57] LABS: Slide Review Slide Review Perform; White Blood Count 54.4 10^3/uL (4.0-10.0)
[2020-09-16] MEDS: pantoprazole 40 mg SDV IVP (10:32)
[2020-09-16] MEDS: magnesium citrate Btl 296 mL 150 ML PO (10:32)
[2020-09-16] MEDS: ondansetron 2 mg/ML SDV 2 mL 4 MG IVP (11:35)
--- NOTE | 2020-09-16 12:32 | PC.RESP ---
Smoking Cessation and Pulmonary Rehab information sent to patient
--- NOTE | 2020-09-16 13:31 | PC.CHAP ---
Pastoral Care Encounter/Spiritual Assessment Type of Contact [] Declined technical proposal writer visit [] Patient/Family/Request visit [] Outpatient visit [] Follow-up visit [] Physician referral [] Code/Alert [xx] Routine visit [] Staff referral [] Actively dying [] Patient sleeping [] Family support [] [] Out of room [] Palliative care [] [] Receiving care in room [] Pre-surgical visit [] Trauma [] Long length of stay [] ICU visit [] Other: Relational/Emotional Strength [xx] Patient feels connected with others/family/visitors/staff [] Distress [] Loneliness/isolation [] Abandonment Spirituality of Patient [xx] Person of Mirtha [xx] Attends Methodist of their Mirtha [xx] Believes in Prayer [xx] Reads Bible or Zoroastrianism materials [] There are Spiritual issues to be addressed NOTE: Patient listens to Bible on cassette & CD due to vision problems Tool Setter Apprentice Interventions [xx] Prayer [xx] Active listening [xx] Non-anxious presence [] Spiritual/emotional support [] Crisis/trauma care [] Spiritual counseling [] Bereavement support [] Provided bereavement packet [] Provided Bible/devotional materials [] Provided toy/stuffed animal, coloring book to patient or family member [] Provided Communion [] Anointing/[place] [] Salvation [xx] Completed spiritual assessment [] Other: Impact on Illness or Injury [] Angry [] Fearful [] Anxious [] Often cries [] Exhaustion [] Unable to work [] Unable to attend protestant [] Unable to walk/stand [] Unable to read [] Unable to drive [] Unable to eat/drink [] Unable to sleep [] Unable to be with family [] Patient intubated [] Other: Summary Patient wanted to talk about many topics. He was feeling lonesome. He wanted prayer for himself and his relatives and their needs. He also talked much about God's goodness to him and how faithful God had been to him. Time spent with patient 12 minutes
--- NOTE | 2020-09-16 23:18 | P.DS_ITS ---
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 Luna came with abdominal pain. He was found to have evidence of small bowel obstruction. NG tube was placed in the emergency room. There is evidence of what appeared to be a transition point on CT imaging. Surgery was consulted. They recommended bowel regimen which was initiated. Once started once patient started having good bowel movements he was feeling better. NG tube was discontinued and diet was initiated. He tolerated a clear liquid diet and had multiple bowel movements. He was felt stable for discharge and was discharged with plan for outpatient follow-up. He received IV fluids during the hospital stay. His degree of pain and distention combined with the imaging reports and comorbid conditions suggested that stay would in fact be greater than 2 midnights but he had rapid response to treatment initiated. He initiate high- fiber diet and follow-up with his primary care provider. Home medications are being resumed. Physical Exam Narrative: EXAM NARRATIVE: Awake and alert, no acute distress, eager to go home. NG tube is out. No blood noted in the nares. Abdomen is soft without tenderness today. He has had multiple bowel movements. Discharge Data Data Completed and Pending: Completed Studies During Hospitalization Category Date Time Status CT abdomen pelvis w con* [id number] Urge nt Cat Scan 09/15/20 00:41 Completed XR chest 1V jah ble [id number] Stat Exams 09/15/20 00:41 Completed XR chest 1V jah ble [id number] Stat Exams 09/16/20 00:56 Completed XR chest 1V jah ble [id number] Urgent Exams 09/15/20 02:30 Completed Laboratory Last Values WBC 54.4 10^3/uL (4.0 -10.0) H* 09/16/20 04:50 RBC 3.58 10^6/uL (4.1 -5.3) L 09/16/20 04:50 Hgb 9.2 g/dL (11.7-16 .6) L 09/16/20 04:50 Hct 30.3 % (42.0-52.0 ) L 09/16/20 04:50 MCV 84.6 fL (80-94) 09/16/20 04:50 MCH 25.7 pg (28.0-34. 0) L 09/16/20 04:50 MCHC 30.4 g/dL (30.0-3 6.0) 09/16/20 04:50 RDW 15.0 % (12.1-15.1 ) 09/16/20 04:50 Plt Count 130 10^3/cmm (130 -400) 09/16/20 04:50 MPV 9.8 fL (7.4-10.4) 09/16/20 04:50 Neut % (Auto) 4.8 % 09/16/20 04:50 Lymph % (Auto) 90.9 % 09/16/20 04:50 [place] % (Auto) 3.7 % 09/16/20 04:50 Eos % (Auto) 0.3 % 09/16/20 04:50 Baso % (Auto) 0.1 % 09/16/20 04:50 Neut # (Auto) 2.64 10^3/uL (1.8 -7.7) 09/16/20 04:50 Lymph # (Auto) 49.4 10^3/uL (0.8 -4.8) H 09/16/20 04:50 [place] # (Auto) 2.0 10^3/uL (0.2- 0.9) H 09/16/20 04:50 Eos # (Auto) 0.1 10^3/uL (0.0- 0.8) 09/16/20 04:50 Baso # (Auto) 0.1 10^3/uL (0.0- 0.1) 09/16/20 04:50 Nucleated RBC % (a uto) 0 % 09/16/20 04:50 Total Counted 100 (0-100) 09/15/20 00:50 Atypical Lymphs % 52.0 % (0-5) H 09/15/20 00:50 Absolute Neutrophi ls 4.4 10^3/cmm (1.4 -6.5) 09/15/20 00:50 Segmented Neutroph ils 8 % 09/15/20 00:50 Abs Segm Neuts (Ma n) 4.4 10/cmm (1.6-7 .1) 09/15/20 00:50 Band Neutrophils 0.0 % 09/15/20 00:50 Abs Band Neuts (Ma n) 0.0 10^3/cmm (0.0 -1.2) 09/15/20 00:50 Absolute Lymphocyt es 50.2 10^3/cmm (1. 2-3.4) H 09/15/20 00:50 Lymphocytes (Manua l) 39 % 09/15/20 00:50 Monocytes (Manual) 1.0 % 09/15/20 00:50 Absolute Monocytes 0.6 10^3/cmm (0.1 -0.6) 09/15/20 00:50 Eosinophils (Manua l) 0 % 09/15/20 00:50 Absolute Eosinophi ls 0.0 10^3/cmm (0.0 -0.7) 09/15/20 00:50 Basophils (Manual) 0.0 % 09/15/20 00:50 Absolute Basophils 0.0 10^3/cmm (0.0 -0.2) 09/15/20 00:50 Metamyelocytes 0.0 % 09/15/20 00:50 Myelocytes 0.0 % 09/15/20 00:50 Promyelocytes 0.0 % 09/15/20 00:50 Nucleated RBCs # 0.0 /100WBC 09/16/20 04:50 Blast Cells 0 % (0-0) 09/15/20 00:50 Platelet Estimate Normal (Normal) 09/15/20 00:50 PT 14.20 SECONDS (12 .1-14.9) 09/16/20 04:50 INR 1.07 (0.8-1.2) 09/16/20 04:50 APTT 45.1 SECONDS (23. 9-36.7) H 09/16/20 04:50 Sodium 138 mmol/L (136-1 45) 09/16/20 04:50 Potassium 3.7 mmol/L (3.5-5 .1) 09/16/20 04:50 Chloride 98 mmol/L (98-107 ) 09/16/20 04:50 Carbon Dioxide 31 mmol/L (22-29) H 09/16/20 04:50 Anion Gap 12.7 (5-19) 09/16/20 04:50 BUN 14 mg/dL (8-23) 09/16/20 04:50 Creatinine 1.0 mg/dL (0.7-1. 2) 09/16/20 04:50 GFR Calculation Not Reportable 09/16/20 04:50 Glucose 107 mg/dL (65-115 ) 09/16/20 04:50 Calculated Osmolal ity 287 mOsm/kg (285- 295) 09/16/20 04:50 Calcium 8.4 mg/dL (8.5-10 .5) L 09/16/20 04:50 Phosphorus 3.6 mg/dL (2.5-4. 5) 09/16/20 04:50 Magnesium 2.4 mg/dL (1.7-2. 3) H 09/16/20 04:50 Total Bilirubin 0.3 mg/dL (0.15-1 .2) 09/15/20 00:50 AST 10 U/L (0-40) 09/15/20 00:50 ALT < 5 U/L (0-41) 09/15/20 00:50 Alkaline Phosphata se 96 IU/L (40-130) 09/15/20 00:50 Troponin T Baselin e 23 ng/L (0-15) H 09/15/20 00:50 Troponin T 120 Min [place] 27.82 ng/L (0-15) H 09/15/20 03:08 Delta Troponin T 4.82 ABS# (0-10) 09/15/20 03:08 Total Protein 5.6 g/dL (6.6-8.7 ) L 09/15/20 00:50 Albumin 4.0 g/dL (3.5-5.2 ) 09/15/20 00:50 Globulin 1.6 g/dL (1.3-4.6 ) 09/15/20 00:50 Lipase 9 U/L (13-60) L 09/15/20 00:50 Blood Type O Positive 09/16/20 04:50 Rho(D) Type Positive / 4+ 09/16/20 04:50 Antibody Screen Negative 09/16/20 04:50 Vitals: Last Vital Signs Temp 98.6 F 09/16/20 19:18 Pulse 79 09/16/20 19:18 Resp 18 09/16/20 19:18 BP 124/63 09/16/20 19:18 Pulse Ox 99 09/16/20 19:18 Discharge Plan Discharge Patient Disposition: Home Condition: Stable Prescriptions: New Metamucil 0.52 gram capsule 0.52 g PO DAILY Qty: 30 RF: 0 Continued magnesium oxide 400 mg magnesium tablet 400 mg PO BID@05,17 RF: 0 meclizine 12.5 mg tablet 12.5 mg PO DAILY PRN (Reason: Dizziness) RF: 0 multivitamin with iron Tablet 1 tab PO DAILY@05 RF: 0 olopatadine [Pataday Twice Daily Relief] 0.1 % drops 1 drop ophthalmic (eye) DAILY Qty: 5 RF: 0 mupirocin 2 % ointment 1 applic topical BID Qty: 22 RF: 0 (DME) portable oxygen concentrator See Rx Instructions .Route .MEDSUPPLY Qty: 1 RF: 0 pantoprazole 40 mg tablet,delayed release (DR/EC) 40 mg PO BID Qty: 60 RF: 5 nitroglycerin 0.4 mg tablet, sublingual 0.4 mg sublingual Q5M PRN (Reason: chest pain) Qty: 25 RF: 0 tramadol 50 mg tablet 50 mg PO TID PRN (Reason: pain) Qty: 90 RF: 2 albuterol sulfate [ProAir HFA] 90 mcg/actuation HFA aerosol inhaler See Rx Instructions .ROUTE .COMPLEX Qty: 8.5 RF: 4 albuterol sulfate 2.5 mg /3 mL (0.083 %) solution for nebulization See Rx Instructions .ROUTE .COMPLEX Qty: 180 RF: 11 alfuzosin 10 mg tablet extended release 24 hr 10 mg PO DAILY Qty: 90 RF: 0 fluticasone propionate [Allergy Relief (fluticasone)] 50 mcg/actuation spray,suspension 2 spray INTRANASAL DAILY 90 Days Qty: 47.4 RF: 0 hydrochlorothiazide 25 mg tablet 12.5 mg PO QAM Qty: 45 RF: 0 prednisone 2.5 mg tablet 2.5 mg PO DAILY Qty: 90 RF: 0 sucralfate [Carafate] 100 mg/mL suspension See Rx Instructions .ROUTE .COMPLEX Qty: 1800 RF: 1 Stiolto Respimat 2.5-2.5 mcg/actuation mist 2 puff INHALATION Q24H 90 Days Qty: 12 RF: 0 levothyroxine 25 mcg Tablet 25 mcg PO DAILY RF: 0 sotalol 80 mg Tablet 120 mg PO 0900 Qty: 30 RF: 3 sotalol 80 mg Tablet 80 mg PO 2100 Qty: 30 RF: 3 clopidogrel 75 mg tablet 75 mg PO DAILY Qty: 30 RF: 4 isosorbide dinitrate 30 mg tablet 30 mg PO BID Qty: 60 RF: 3 Discharge Orders: Discharge Order (Routine); Ordered 09/16/20 Ordered By: Misty Arredondo Referrals: Karen Song FNP [Primary Care Provider] - 4-7 days ([facility] [place] will call you on Saturday to set up an appointment for you to see Karen Song.) Discharge Diet: Advance as tolerated Discharge Activity: Resume usual activity Patient Instructions: High Fiber Diet (DC), Bowel Obstruction (DC), Opioid Safety Activity Restrictions/Additional Instructions: From surgical standpoint of view: Return to primary care provider Avoid constipation High Fiber diet; As Fiber softens the stool and helps prevent constipation. High-fiber foods include: ? Beans and legumes ? Bran, whole wheat bread and whole grain cereals such as oatmeal ? Brown and wild rice ? Fruits such as apples, bananas and pears ? Vegetables such as broccoli, carrots, corn and squash ? Whole wheat pasta The target is to eat 25 to 30 grams of fiber daily. Drink at least 8 cups of fluid daily. Fluid will help soften your stool.Exercise also promotes bowel movement and helps prevent constipation. Ample hydration Metamucil Discharge Attestations Time Spent in Discharge Care*: greater than 30 min Specific Discharge Activities: educating patient, discussing with pcp/other providers, documenting/other paperwork and evaluating patient/reviewing data Status at Discharge: Cognitive status at discharge: cognitively intact , Behavioral status at discharge: cooperative , Functional status at discharge: independent ambulation Overall status at discharge: patient is progressing back to baseline Quality Metrics Clinical Quality Measures During this hospital stay, did patient experience: None Coding Level of Care Code Acute Chg FW DC note Diagnoses Small bowel obstruction K56.609 Chronic lymphocytic 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
== END 2020-09-16 19:20 | disposition home or self-care (01) | DRG 388 ==
LOC: ER 02:00 → MEDSURG 02:42
PROVIDERS: Admitting Provider Internal Medicine; Emergency Provider Emergency Medicine; PCP Nurse Practitioner Family; Visit Provider Hospitalist
DX: K56.609 Unspecified intestinal obstruction, unspecified as to partial versus complete obstruction (principal); I21.4 Non-ST elevation (NSTEMI) myocardial infarction; C91.10 Chronic lymphocytic leukemia of B-cell type not having achieved remission; I48.20 Chronic atrial fibrillation, unspecified; N17.9 Acute kidney failure, unspecified; E87.3 Alkalosis; Z99.81 Dependence on supplemental oxygen; J43.2 Centrilobular emphysema; E86.0 Dehydration; R59.0 Localized enlarged lymph nodes; K21.9 Gastro-esophageal reflux disease without esophagitis; M19.90 Unspecified osteoarthritis, unspecified site; K44.9 Diaphragmatic hernia without obstruction or gangrene; Z86.010 Personal history of colon polyps; Z86.711 Personal history of pulmonary embolism; E78.2 Mixed hyperlipidemia; M35.3 Polymyalgia rheumatica; F17.210 Nicotine dependence, cigarettes, uncomplicated; R16.1 Splenomegaly, not elsewhere classified; Z79.02 Long term (current) use of antithrombotics/antiplatelets; Z79.51 Long term (current) use of inhaled steroids
CPT/HCPCS: 36415; 45915; 71045; 74177; 80048; 80053; 83690; 83735; 84100; 84484; 85007; 85025; 85610; 85730; 86850; 86900; 93005; 96372; 96374; 96375; 99285; C9113; J1644; J2060; J2270; J2405; J7799; Q9967

== ENCOUNTER 2020-10-03 11:40 | Emergency (ER) | payer MEDICARE, OTHER, SELFPAY ==
[2020-10-03 11:50] VITALS: BP 122/65; PULSE 95; RESP 16; O2SAT 97; BMI 21.2
--- NOTE | 2020-10-03 12:22 | XRR_ITS ---
PROCEDURE INFORMATION: Exam: XR Abdomen Exam date and time: 10/03/2020 12:30 PM Age: 85 years old Clinical indication: Abdominal pain; Generalized; Prior surgery; Surgery type: Gallbladder hernia; Patient HX: HX of leukemia; Additional info: Abd pain TECHNIQUE: Imaging protocol: XR of the abdomen. Views: 2 Views. Upright and supine views. COMPARISON: CT abdomen pelvis w con* [id number] 09/15/2020 1:11 AM FINDINGS: Gastrointestinal tract: Normal. No bowel dilation. Intraperitoneal space: Normal. No free air. Organs: Stable cholecystectomy. 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 Moderate to severe multilevel spine degenerative changes including degenerative disc disease, spondylosis and facet degenerative changes. XR/XR abdomen min 2V [id number] IMPRESSION: 1. 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 2. Stable cholecystectomy.
--- NOTE | 2020-10-03 12:24 | ED_ITS ---
HPI - Abdominal Pain General: Chief Complaint: Abdominal Pain Stated Complaint: UPPER ABD PAIN Time Seen by Provider: 10/03/20 12:09 Source: patient, family and RN notes reviewed Limitations: no limitations History of Present Illness: HPI narrative: This patient is an 85-year-old male with a history of small bowel obstruction was recently admitted about a week and a half ago for the same. Patient had NG tube placed at that time and placed on bowel regimen and patient developed normal bowel movements and was tolerating diet and discharged home. Patient subsequently had a follow-up appoint with PCP on 09/21. At that time the patient was having some bloating that they believe was related to increase in fiber intake. Patient has had 4 or 5 normal bowel movements this morning per patient. States that he vomited one time. Patient complained of abdominal pain and cramping. Will do medical evaluation treat as needed. MD elicited complaint: abdominal pain Pertinent past history: none Onset (ago): day(s) (5) Pain Consistency: colicky Location: Periumbilical Severity: similar to previous episodes Quality: cramping Associated Symptoms: Reports GI cramping, nausea and vomiting; Denies chills, dysuria and fever(s) Review of Systems General: Reports: 10 or more systems reviewed and unremarkable except in HPI and below Const: Denies: fever(s), chills, body aches or fatigue Eyes: Denies: change in vision or blurry vision ENMT: Denies: throat pain, hoarseness or mouth pain Card: Denies: chest pain, palpitations, irregular heart rhythm, edema, swelling of feet/ankles or lightheadedness Resp: Denies: dyspnea, productive cough, non-productive cough, wheezing or pain on inspiration GI: Reports: abdominal pain, nausea, vomiting and GI cramping : Denies: flank pain, dysuria, urinary frequency, urinary urgency or urinary hesitancy Musc: Denies: neck pain, back pain, extremity pain, extremity swelling, joint pain, joint swelling, joint redness, joint warmth or limited range of motion Skin/Breast: Denies: rash, pruritus, erythema or skin tenderness Neuro: Denies: headache(s), numbness in extremities or weakness in extremities Psych: Denies: anxiety or depression PFSH ED PFSH: Medical History Anemia Aneurysm of infrarenal abdominal aorta Chronic episodic atrial fibrillation On sotalol Chronic GERD Chronic lymphocytic 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 Chronic use of steroids COPD (chronic obstructive pulmonary disease) Dermatomyositis Diverticulitis Generalized osteoarthritis Hiatal hernia History of adenomatous polyp of colon History of pulmonary embolism Hypothyroidism Iron refractory iron deficiency anemia Mixed hyperlipidemia Osteopenia Polymyalgia rheumatica Statin intolerance Upper GI bleed Surgical History History of aortic aneurysm repair History of colonoscopy with polypectomy S/P cardiac catheterization S/P cholecystectomy Status post right inguinal hernia repair Family History Mother Cancer Brother Hypertension Social History Smoking and tobacco status: current every day smoker cigarettes Second hand smoke exposure: No Alcohol intake: never Lives independently: Yes Household members: none Marital status: Current occupational status: retired History of recent travel: No Current gender identity: Male Physical Exam Const: COMMON NORMALS: no acute distress, average body habitus, patient oriented x3, no limitations, healthy appearing, alert and well nourished HENMT: COMMON NORMALS: normocephalic, atraumatic, hearing grossly normal bilaterally, external ears normal, EAC's normal, TM's normal bilaterally, Normal external nose present, Normal nasal mucous membranes and turbinates present, moist oral mucous membranes, oropharynx normal, dentition normal and gingiva normal HEAD & SCALP: normocephalic and atraumatic NOSE: Normal external nose present and Normal nasal mucous membranes and turbinates present EXTERNAL EAR: Yes external ears normal EXTERNAL AUDITORY CANAL: EAC's normal TYMPANIC MEMBRANE: TM's normal bilaterally Neck/C-Spine: COMMON NORMALS: full ROM, no lymphadenopathy, supple, no meningeal signs, no JVD, Thyroid normal and No carotid bruits THYROID: Thyroid normal Chest: COMMONS NORMALS: normal inspection of the chest, normal palpation of entire chest wall, normal inspection of the breasts and normal palpation of the breasts Breast/axilla inspection: Yes normal inspection of the breasts BREAST/AXILLA PALPATION: Yes normal palpation of the breasts Resp: COMMON NORMALS: normal respiratory effort, No retractions, No use of accessory muscles, clear to auscultation bilaterally and percussion normal AUSCULTATION: clear to auscultation bilaterally PERCUSSION: percussion normal Cardio: COMMON NORMALS: no JVD, regular rate, regular rhythm, S1 normal heart sound present, S2 normal heart sound present, No gallops present (Cardio), No clicks present (Cardio), No murmurs present (Cardio), No rub (Cardio) and Peripheral pulses 2+ throughout RATE: regular rate RHYTHM: regular rhythm HEART SOUNDS: S1 normal heart sound present and S2 normal heart sound present PERIPHERAL PULSES: Peripheral pulses 2+ throughout GI: COMMON NORMALS: Normal to inspection, nondistended, normoactive bowel sounds present, Soft to palpation, non-tender, No hepatosplenomegaly present, no masses and no bruits PALPATION: Yes Soft to palpation and Yes No hepatosplenomegaly present : COMMON NORMALS: Yes no CVA tenderness BLADDER/KIDNEY EXAM: Yes no CVA tenderness Back/Pelvis: COMMON NORMALS: no CVA tenderness, thoracic and lumbar spine normal to inspection, no thoracic nor lumbar tenderness, thoraco-lumbar ROM normal and straight leg raise negative bilaterally Extremity: COMMON NORMALS: normal to inspection, full ROM, capillary refill normal, no joint enlargement, no clubbing, cyanosis or edema, no calf tenderness and no pedal edema Neuro: COMMON NORMALS: patient oriented x3 SENSORIUM/ORIENTATION: Yes alert MENINGEAL SIGNS: Yes no meningeal signs Course Reevaluation(s): Reevaluation #1: I discussed at length with patient about his signs and symptoms and his CT reports. Patient was offered admission to the hospital with the patient declines patient states he is feeling much better after IV fluids. We did discuss patient's recent CT scan compared to the previous scan and also discussed abdominal mass. Patient is instructed to follow-up with his primary care physician for further evaluation and treatment as needed. Patient is also instructed to return to the emergency department immediately if symptoms fail to improve or worsen. Patient states understanding. Patient has had no vomiting in the emergency department has had for 5 bowel movements this morning. Abdomen is soft and nontender. Patient will be discharged home per his request Time: 14:32 Consultations: Time: 14:25 Consultation #2: I discussed with Dr. Romero. We reviewed CT scans from today and from his previous admission. Patient has chronic SBO waxes and wanes. Patient also has CLL and a chronic mass. He believes that the patient can safely be discharged home if no vomiting and pain under control request that we give patient instructions of help prevent constipation. Advised the patient return to the emergency department if not improved. Vital Signs: Vital signs: Vital Signs Pulse Rate 74 10/03/20 12:59 Respiratory Rate 20 H 10/03/20 12:59 Blood Pressure 117/72 10/03/20 12:59 Pulse Oximetry 96 10/03/20 12:59 MDM - Abdominal Pain MDM Narrative: Medical decision making narrative: This patient is an 85-year-old male with a history of small bowel obstruction was recently admitted about a week and a half ago for the same. Patient had NG tube placed at that time and placed on bowel regimen and patient developed normal bowel movements and was tolerating diet and discharged home. Patient subsequently had a follow- up appoint with PCP on 09/21. At that time the patient was having some bloating that they believe was related to increase in fiber intake. Patient has had 4 or 5 normal bowel movements this morning per patient. States that he vomited one time. Patient complained of abdominal pain and cramping. Will do medical evaluation treat as needed. I discussed at length with patient about his signs and symptoms and his CT reports. Patient was offered admission to the hospital with the patient declines patient states he is feeling much better after IV fluids. We did discuss patient's recent CT scan compared to the previous scan and also discussed abdominal mass. Patient is instructed to follow-up with his primary care physician for further evaluation and treatment as needed. Patient is also instructed to return to the emergency department immediately if symptoms fail to improve or worsen. Patient states understanding. Patient has had no vomiting in the emergency department has had for 5 bowel movements this morning. Abdomen is soft and nontender. Patient will be discharged home per his request I discussed with Dr. Romero. We reviewed CT scans from today and from his previous admission. Patient has chronic SBO waxes and wanes. Patient also has CLL and a chronic mass. He believes that the patient can safely be discharged home if no vomiting and pain under control request that we give patient instructions of help prevent constipation. Advised the patient return to the emergency department if not improved. Medical Records: Attestation: I reviewed the patient's medical records. Lab Data: Attestation: I reviewed the patient's lab results. Labs: Lab Results 10/03/20 10/03/20 Range/Units 12:45 12:45 WBC 63.7 H* (4.0-10.0) 10^3/ uL RBC 3.79 L (4.1-5.3) 10^6/u L Hgb 9.6 L (11.7-16.6) g/dL Hct 32.4 L (42.0-52.0) % MCV 85.5 (80-94) fL MCH 25.3 L (28.0-34.0) pg MCHC 29.6 L (30.0-36.0) g/dL RDW 15.9 H (12.1-15.1) % Plt Count 106 L (130-400) 10^3/c mm MPV 9.8 (7.4-10.4) fL Neut % (Auto) 5.7 % Lymph % (Auto) 90.4 % [place] % (Auto) 3.3 % Eos % (Auto) 0.3 % Baso % (Auto) 0.1 % Neut # (Auto) 3.68 (1.8-7.7) 10^3/u L Lymph # (Auto) 57.6 H (0.8-4.8) 10^3/u L [place] # (Auto) 2.1 H (0.2-0.9) 10^3/u L Eos # (Auto) 0.2 (0.0-0.8) 10^3/u L Baso # (Auto) 0.0 (0.0-0.1) 10^3/u L Nucleated RBC % (a uto) 0 % Nucleated RBCs # 0.0 /100WBC Sodium 138 (136-145) mmol/L Potassium 3.9 (3.5-5.1) mmol/L Chloride 94 L (98-107) mmol/L Carbon Dioxide 36 H (22-29) mmol/L Anion Gap 11.9 (5-19) BUN 19 (8-23) mg/dL Creatinine 1.1 (0.7-1.2) mg/dL GFR Calculation Not Reportable Glucose 117 H (65-115) mg/dL Calculated Osmolal ity 289 (285-295) mOsm/k g Calcium 9.0 (8.5-10.5) mg/dL Total Bilirubin 0.4 (0.15-1.2) mg/dL AST 14 (0-40) U/L ALT 6 (0-41) U/L Alkaline Phosphata se 128 (40-130) IU/L Total Protein 6.0 L (6.6-8.7) g/dL Albumin 4.2 (3.5-5.2) g/dL Globulin 1.8 (1.3-4.6) g/dL Lipase 7 L (13-60) U/L Imaging Data ^: CT Abd/Pel: Attestation: I personally reviewed and interpreted this imaging study as follows: Radiologist's impression: IMPRESSION: 1. Stable abdominal aortic aneurysm with endograft repair. 2. Small bowel obstruction has improved compared to September 16, 2019 3. Mild residual small bowel dilatation with a few air-fluid levels. 4. Persistent small bowel mass in the right lower quadrant suspicious for neoplasm. This is better evaluated on the prior contrast-enhanced CT. 5. Stable upper abdominal and periaortic lymphadenopathy described above. 6. No hydronephrosis in either kidney. 7. Stable mild splenomegaly. 8. Sigmoid diverticulosis. 9. Left inguinal lymphadenopathy. 10. Enlarged calcified prostate. Recommend correlation PSA. Evidence of bladder outlet obstruction. Discharge Plan Discharge Patient Disposition: Home Clinical Impression: Hx of small bowel obstruction, Constipation, Chronic lymphocytic leukemia, Chronic abdominal pain Condition: Stable Prescriptions: No Action magnesium oxide 400 mg magnesium tablet 400 mg PO BID RF: 0 meclizine 12.5 mg tablet 12.5 mg PO DAILY PRN (Reason: Dizziness) RF: 0 (DME) portable oxygen concentrator See Rx Instructions .Route .MEDSUPPLY Qty: 1 RF: 0 pantoprazole 40 mg tablet,delayed release (DR/EC) 40 mg PO BID Qty: 60 RF: 5 nitroglycerin 0.4 mg tablet, sublingual 0.4 mg sublingual Q5M PRN (Reason: chest pain) Qty: 25 RF: 0 tramadol 50 mg tablet 50 mg PO TID PRN (Reason: pain) Qty: 90 RF: 2 sucralfate [Carafate] 100 mg/mL suspension See Rx Instructions .ROUTE .COMPLEX Qty: 1800 RF: 1 Stiolto Respimat 2.5-2.5 mcg/actuation mist 2 puff INHALATION Q24H 90 Days Qty: 12 RF: 0 levothyroxine 25 mcg Tablet 25 mcg PO DAILY@13 RF: 0 isosorbide dinitrate 30 mg tablet 30 mg PO BID Qty: 60 RF: 3 sotalol 80 mg tablet 80 mg PO BID RF: 0 Ensure Liquid 1 ea PO PRN RF: 0 albuterol sulfate 2.5 mg /3 mL (0.083 %) solution for nebulization 2.5 mg inhalation BID PRN (Reason: Shortness Of Breath) RF: 0 clopidogrel 75 mg tablet 75 mg PO DAILY@13 RF: 0 prednisone 2.5 mg tablet 2.5 mg PO DAILY@13 RF: 0 Pataday Twice Daily Relief 0.1 % drops 1 drop ophthalmic (eye) DAILY PRN (Reason: unknown) RF: 0 hydrochlorothiazide 25 mg tablet 12.5 mg PO DAILY@13 RF: 0 mupirocin 2 % ointment 1 applic topical DAILY RF: 0 ProAir HFA 90 mcg/actuation HFA aerosol inhaler 2 puff inhalation Q6H PRN (Reason: Shortness Of Breath) RF: 0 Allergy Relief (fluticasone) 50 mcg/actuation spray,suspension 1 - 2 spray INTRANASAL BEDTIME RF: 0 Metamucil 0.52 gram capsule 0.52 g PO BEDTIME RF: 0 alfuzosin 10 mg tablet extended release 24 hr 10 mg PO DAILY@13 RF: 0 Discharge Orders: Discharge ED (Routine); Ordered 10/03/20 Ordered By: Anthony Campos Referrals: Karen Song FNP [Primary Care Provider] - Discharge Diet: Advance as tolerated Discharge Activity: Resume usual activity Patient Instructions: Opioid Safety, Abdominal Pain (ED) Activity Restrictions/Additional Instructions: Encourage p.o. fluids. Zofran as needed and needed for nausea vomiting Take medications as prescribed Follow-up with your primary care physician in 2 to 3 days Tylenol Motrin as needed again for fever or pain Brown Cow Mix 4 ounces of prune juice with 2 ounces of milk of magnesium and 1 tablespoon of salted butter. Heat and microwave until bladder is softened. STIR and drink. Do not drink hot. It should be warm when you drink it. May do this twice daily to help with constipation. May take [id number] Senokot 8.6 mg once daily. May also take MiraLAX 1 packet twice a day as needed to help with constipation. As needed [id number] fleets enemas also if needed for constipation. Coding Level of Care Code ED [place] [employer] for Chg Fwd Exam Comprehensive
--- NOTE | 2020-10-03 12:43 | CT_ITS ---
WS: [id number] CT ABDOMEN PELVIS TECHNIQUE: Noncontrast CT of the abdomen and pelvis with coronal and sagittal reformatted images. CLINICAL INFORMATION: Flank Pain COMPARISON: CT September 15, 2020 DLP: 962.[address] scans at [facility] use at least one of these dose optimization techniques: automat ed exposure control; mA and/or kV adjustment per patient size (includes targeted exams where dose is matched to clinical indication); or iterative reconstruction. FINDINGS: Prior aortic endograft with biiliac extension. Aortic aneurysm is unchanged since September 16, 2019 Measuring 5.1 x 4.8 cm. Previously described small bowel obstruction appears improved compared to pre vious with mild residual dilatation of small bowel loops with a few air-fluid levels. Again seen is t he obstructing small bowel mass in the right lower better evaluated on the contrast-enhanced CT suspi cious for neoplasm. Stable abdominal lymphadenopathy including upper abdomen and celiac and jah hep atis as well as periaortic and retroperitoneal. Mild splenomegaly is unchanged. Noncontrast liver is normal. Prior cholecystectomy. Normal GE junctio n. Lung bases are well aerated. Bilateral renal cysts. No hydronephrosis. Adrenal glands are normal. Bilateral renal cysts. Fatty atrophy of the pancreas. Enlarged calcified prostate. Evidence of bladder outlet obstruction with urine distended bladder and mild wall thickening. Sigmoid diverticulosis. No evidence of acute diverticulitis. Left obturator and inguinal lymphadenopathy. CT/CT abdomen pelvis wo con [id number] IMPRESSION: 1. Stable abdominal aortic aneurysm with endograft repair. 2. Small bowel obstruction has improved compared to September 16, 2019 3. Mild residual small bowel dilatation with a few air-fluid levels. 4. 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 This is better evaluated on the prior contrast-enhanced CT. 5. Stable upper abdominal and periaortic lymphadenopathy described above. 6. No hydronephrosis in either kidney. 7. Stable mild splenomegaly. 8. Sigmoid diverticulosis. 9. Left inguinal lymphadenopathy. 10. Enlarged calcified prostate. Recommend correlation PSA. Evidence of bladde r outlet obstruction.
[2020-10-03 12:59] VITALS: BP 117/72; PULSE 74; RESP 20; O2SAT 96
[2020-10-03] MEDS: ondansetron 2 mg/ML SDV 2 mL 4 MG IVP (13:03)
[2020-10-03] MEDS: sodium chloride 0.9% 500 ML IV (13:03)
[2020-10-03 13:04] LABS: Basophils % 0.1 %; Eosinophils # 0.2 10^3/uL (0.0-0.8); Eosinophils % 0.3 %; Hematocrit 32.4 % (42.0-52.0); Hemoglobin 9.6 g/dL (11.7-16.6); Lymphocytes # 57.6 10^3/uL (0.8-4.8); Lymphocytes % 90.4 %; Mean Corpuscular HGB Conc 29.6 g/dL (30.0-36.0); Mean Corpuscular Hemoglobin 25.3 pg (28.0-34.0); Mean Corpuscular Volume 85.5 fL (80-94); Mean Platelet Volume 9.8 fL (7.4-10.4); Monocytes # 2.1 10^3/uL (0.2-0.9); Monocytes % 3.3 %; Neutrophils # 3.68 10^3/uL (1.8-7.7); Neutrophils % 5.7 %; Nucleated Red Blood Cells % 0 %; Platelet Count 106 10^3/cmm (130-400); Red Blood Count 3.79 10^6/uL (4.1-5.3); Red Cell Distribution Width 15.9 % (12.1-15.1)
[2020-10-03 13:25] LABS: Alanine Aminotransferase 6 U/L (0-41); Albumin Level 4.2 g/dL (3.5-5.2); Alkaline Phosphatase 128 IU/L (40-130); Anion Gap 11.9 (5-19); Aspartate Amino Transferase 14 U/L (0-40); Blood Urea Nitrogen 19 mg/dL (8-23); Carbon Dioxide 36 mmol/L (22-29); Chloride 94 mmol/L (98-107); Globulin 1.8 g/dL (1.3-4.6); Glucose 117 mg/dL (65-115); Lipase 7 U/L (13-60); Osmolality Calculated 289 mOsm/kg (285-295); Potassium 3.9 mmol/L (3.5-5.1); Sodium 138 mmol/L (136-145); Total Bilirubin 0.4 mg/dL (0.15-1.2)
[2020-10-03 14:04] LABS: White Blood Count 63.7 10^3/uL (4.0-10.0)
[2020-10-03 14:05] LABS: Slide Review Slide Review Perform
[2020-10-03 14:58] VITALS: BP 145/76; PULSE 100; RESP 20; O2SAT 100
== END 2020-10-03 15:02 | disposition home or self-care (01) ==
PROVIDERS: Emergency Provider Emergency Medicine; PCP Nurse Practitioner Family
DX: K59.00 Constipation, unspecified (principal); C91.10 Chronic lymphocytic leukemia of B-cell type not having achieved remission; G89.29 Other chronic pain; Z79.02 Long term (current) use of antithrombotics/antiplatelets; J44.9 Chronic obstructive pulmonary disease, unspecified; E78.2 Mixed hyperlipidemia; F17.210 Nicotine dependence, cigarettes, uncomplicated
CPT/HCPCS: 74019; 74176; 80053; 83690; 85025; 96361; 96374; 99283; J2405; J7040

== ENCOUNTER 2020-10-05 14:34 | Outpatient (CLI) | payer MEDICARE, OTHER, SELFPAY ==
[2020-10-05 17:44] LABS: Iron 54 ug/dL (59-158); Percent Saturation 15.6 % (20-50); Total Iron Binding Capacity 346 mcg/dl; Unsaturated Iron Binding 292 ug/dL (112-347)
--- NOTE | 2020-10-05 21:05 | ONC FU_ITS ---
Dr. Conte Patient Follow-Up Note Patient: Naseem Luna Unit #: [id number]: [id number] Dicatated By: Naseem Conte M.D.Date of Visit:October 05, 2020 Onc Med Follow-up/Prog Note Chief Complaint: Chronic lymphocytic leukemia/anemia. History of Present Illness: This is an 85 year-old man with chronic lymphocytic leukemia, Roberts stage I. He also has had evidence of iron deficiency anemia. I had seen him initially in December 2011. He had presented at that time with a mild lymphocytosis. His CBC showed normal hemoglobin at 14.0 g with white blood cell count 15,400 and platelet count mildly decreased at 127,000. The differential showed 76% lymphocytes, 14% segs, 1% bands, 3% monocytes, 3% eosinophils, and 3% atypical lymphocytes. A peripheral blood flow cytometry showed a monoclonal B-cell lymphoproliferative process most consistent with chronic lymphocytic leukemia. He appeared to have early stage disease, and observation/expectant management was recommended. As of his followup visit in September 2014 there had been no significant progression of the CLL. A CT angiogram of the abdominal aorta on 06/28/2016 showed slight increase in the fusiform infrarenal abdominal aortic aneurysm, at that point measuring 5.0 x 4.4 x 5.6 cm. Also noted was a new small penetrating ulcer along the right posterior lateral aortic aneurysm. Extensive lymphadenopathy appeared stable. He subsequently underwent an abdominal aneurysm repair. In December 2016 he had become mildly anemic with hemoglobin 11.1 g. The transferrin saturation was low at 11%. He was given parenteral iron replacement with a single infusion of Injectafer. On his follow-up visit in April 2017 the hemoglobin was up to 13.0 g with his white blood cell count stable at 43,000 and platelet count mildly decreased but stable at 94,000. He continued on observation/expectant management for the CLL. In December 2017 he was admitted to the hospital with lightheadedness/near syncope. In the emergency room he was confirmed to have a heart rate in the 40s. He reported a history of GI bleed, but upper endoscopy was negative. He continued anticoagulation with rivaroxaban. He was admitted to the hospital again on 01/15/2018. He presented to the emergency room with palpitations and fluctuating blood pressure. His CT pulmonary angiogram was initially read as negative, but on review was felt to show nonocclusive filling defects in the right lower lobe pulmonary artery extending into segmental branches to the posterior and lateral basal segments of the right lower lobe compatible with pulmonary emboli. There was lymphadenopathy noted in the jah hepatis, upper abdominal retroperitoneum, and bilateral axilla. His anticoagulation was changed from rivaroxaban to therapeutic Lovenox. I had seen him for a follow-up visit on 01/23/2018. He had been off anticoagulation due to hemoptysis. At that time he was mildly anemic with serum iron studies consistent with iron deficiency. He started oral iron supplementation with ferrous sulfate 325 mg daily. He also restarted anticoagulation with rivaroxaban 20 mg daily. On 05/12/2018 he was seen in the emergency room with chest pain. His cardiac studies were negative. CT abdomen/pelvis at that time showed 2 hypoattenuation lesions within the liver, the largest in the posterior segment of the right hepatic lobe measuring 16.5 mm. It was noted to have been faintly evident on a prior study from April 2017. However, it was noted that metastatic lesions cannot be entirely excluded. I had seen him for a follow-up visit on 08/14/2018. His repeat CT abdomen/pelvis at that time showed no significant change in the right hepatic low-attenuation masses. There was also no change in the abdominal and pelvic lymphadenopathy. There was extensive colon diverticulosis but without evidence of acute diverticulitis. There was no change in the infrarenal abdominal aorta 5 cm aneurysm with aortoiliac artery endovascular graft. He is blood counts appeared stable with hemoglobin 12.0 g, white blood cell count 49,000, and platelet count 102,000. He continued on observation/expectant management. In November 2018 there was a significant drop in his hemoglobin, to 8.7 g. His serum iron studies and ferritin were consistent with iron deficiency, and in December he was given parenteral iron replacement with 2 additional infusions of Injectafer. His stool was heme positive, and he was referred to a project safety manager for GI evaluation. In the meantime, he was admitted to the hospital with symptoms of overt GI bleeding. His endoscopy reportedly showed evidence of ulcers. He then increased the dosage of his PPI, and he also started treatment with Carafate. He was taken off rivaroxaban. As of his followup visit on 01/27/2019 he was mildly anemic with hemoglobin 10.1 g. He continued on oral iron supplementation. At his follow-up visit on 02/26/2019 he was still moderately anemic despite the oral iron supplementation, and at that point he was given parenteral iron replacement with 2 infusions of Injectafer. He tolerated it well, but during subsequent follow-up he remained mildly anemic. On 07/20/2019 he underwent open repair of direct and indirect right inguinal hernia with plug and mesh. He tolerated the procedure without complications. As of his follow-up visit on 02/25/2020 he appeared stable clinically. He continued expectant management for the CLL. His other medical illnesses include dermatomyositis, hypertension, COPD, and atrial fibrillation. He underwent an ablation procedure in June 2011. He has GERD/peptic ulcer disease and he has a history of anxiety/depression. He has undergone repair of aortic abdominal aneurysm. On 07/20/2019 he underwent open repair of direct and indirect right inguinal hernia. He tolerated the surgery without complications. He has a history of smoking 1 pack of cigarettes daily. INTERIM HISTORY: On 08/30/2020 he was admitted to the hospital with acute non-ST elevation myocardial infarction. He was managed medically. He was moderately anemic with hemoglobin 9.5 g. His white blood count had increased to 64,000, but his platelet count was stable at 101,000. On 09/16/2019 when he was admitted to the hospital after presenting to the emergency room with abdominal pain. His CT abdomen/pelvis showed bifurcated aortoiliac stent graft in place with no change in the aortic aneurysm. Adenopathy was noted in the retroperitoneum, celiac region, and portacaval region, but without significant change. There was a new ill-defined soft tissue density in the small bowel mesentery adjacent to a segment which exhibited abnormal wall thickening. It appeared to correspond to the site of an apparent small bowel obstruction transition point in the right mid abdomen. He underwent placement of an NG tube. Otherwise was managed conservatively. He had multiple bowel movements following initiation of a bowel regimen, and he was discharged the following day. On 10/04/2019 when he returned to the emergency room with abdominal pain. His repeat CT abdomen/pelvis shows improvement in the small bowel obstruction compared to the previous study, though with mild residual small bowel dilatation and with a few air-fluid levels. There was persistent small bowel mass in the right lower quadrant, suspicious for neoplasm. There was stable upper abdominal, periaortic, and retroperitoneal lymphadenopathy. He is seen for a follow-up visit. He has been feeling a little better the last few days. He has been able to start eating again. As yet he has had no further bowel movement, but he is just occasionally having a little nausea, and he has not had recurrence of the abdominal pain. He has very limited activity. ECOG score is 3. He has not had fever. He does have night sweating. His breathing has been okay on oxygen. He has chronic cough. He does not complain of chest pain. He has no complaints. He has pain in his right leg and hip, which is chronic. He does not complain of headache. He has no focal neurologic symptoms. Medications: Albuterol Sulfate 1 Nebulization solution Inhalation four times a day PRN, Alfuzosin HCl ER 1 Tablet (of 10 mg) Tablet SR 24 HR Oral daily, Colace 1 Tablet (of 100 mg) Capsule Oral b.i.d., Combivent 1 (18-103 mcg/act) Aerosol Inhalation four times a day PRN, Ferrous Sulfate 1 Tablet (of 325 (65 fe) mg) Oral b.i.d., Hydrochlorothiazide 0.5 (25 mg) Tablet Oral daily, Levothyroxine Sodium 1 Tablet (of 25 mcg) Oral daily, LORazepam 1 (0.5 mg) Tablet Oral four times a day PRN, Magnesium 1 Tablet (of 400 mg) Oral b.i.d., Meclizine HCl 0.5 (25 mg) Tablet Oral b.i.d. PRN, Pantoprazole Sodium 1 Tablet (of 40 mg) Tablet, enteric coated Oral b.i.d., PredniSONE 1 (2.5 mg) Tablet Oral daily, Sotalol HCl (80 mg) Tablet Oral Take as Directed, TraMADol HCl 1 (50 mg) Tablet Oral b.i.d. PRN Allergies: Ciprofloxacin HCl, Dabigatran Etexilate Mesylate, PCN, and PRADAXA. Vital Signs: Performed on October 05, 2020 15:02 Height - 67.50 in Temperature - 97.9 F (LOW) Pulse - 93 /min Respiration - 18 /min BP - 117/66 mm(hg) O2 Sat - 99 % Pain - 0 Physical Examination: Constitutional - He appears generally weak and pale, Eyes - Sclerae nonicteric. Conjunctivae clear, ENMT - No lesions noted in the oral cavity, Hematologic/Lymphatic - No cervical, clavicular, or axillary adenopathy, Respiratory - Lungs show diminished air movement bilaterally. There are some mild rhonchi present, Cardiovascular - Heart rhythm is irregular. There is no murmur, gallop, or rub noted, Abdomen - Soft. Liver and spleen are not enlarged. There is no abdominal mass or ascites noted. There is no inguinal adenopathy noted, Extremities - No edema. There is chronic purpura on the arms, Neurologic - No focal neurologic deficits noted. Lab/Imaging: His laboratory studies from the ER visit on 10/03/2020 included CBC showing hemoglobin 9.6 g, white blood cell count 63,700, and platelet count 106,000. The differential showed 90% lymphocytes. Problem List: 1. Chronic lymphocytic leukemia, Roberts stage I at initial diagnosis in December 2011. 2. He has had iron deficiency anemia which has been refractory to oral iron supplementation. The anemia has been responsive to parenteral iron replacement with Injectafer. 3. He is known to have dermatomyositis for which he previously was on treatment with azathioprine and prednisone. 4. Hypertension. 5. Hyperlipidemia. 6. COPD. 7. Degenerative arthritis. 8. He underwent a cardiac ablation procedure for atrial fibrillation. 9. He has undergone repair of abdominal aortic aneurysm. During follow-up there was gradual decline in his performance status, and he also had unexplained weight loss. As of November 2018 become significantly anemic with serum iron studies and ferritin consistent with iron deficiency. He was given parenteral iron replacement with Injectafer. He had a heme positive stool, and he was referred for GI evaluation. In the meantime, he was admitted to the hospital with overt GI bleeding. His EGD reportedly showed ulcers, and he then doubled the dosage of his PPI and he also started treatment with Carafate. He was taken off rivaroxaban. He continued to have mild anemia. In February 2019 he was given further parenteral iron replacement with Injectafer. He again had some improvement, but not complete correction of the anemia. On 07/20/2019 he underwent open repair of direct and indirect right inguinal hernia. He tolerated the surgery without complications. During follow-up he has been stable clinically, though his current laboratory studies are again showing a decline in his hemoglobin/hematocrit levels with his transferrin saturation consistent with iron deficiency. There has been no evidence, though, of progression of the underlying chronic leukocytic leukemia. Problems Addressed with this Encounter and Plan: 1. Patient with chronic lymphocytic leukemia documented by peripheral blood flow cytometry in December 2011. By clinical evaluation he appeared to have early stage disease (Roberts stage I). As such, he has been followed on expectant management. During follow-up he has continued to have mild thrombocytopenia, that has been chronic and presumed to be unrelated to the CLL. There has previously been no other indication for treatment of the leukemia. Recently has shown some increase in his lymphocyte count and he is now moderately anemic again. On previous occasions the anemia has been responsive to parenteral iron replacement. However, if it is ever determined to be due to the CLL, it would be an indication for treatment. 2. He has had iron deficiency anemia which has been refractory to oral iron supplementation. The anemia has been responsive to parenteral iron replacement with Injectafer. It also has been associated with heme positive stools and at least some component is presumed to be due to GI blood loss. He now has CT evidence of a possible mass in the right lower quadrant small intestine. He has had other associated GI symptoms and he has been showing decline in performance status and weight loss. Overall, the clinical picture is suspicious for underlying neoplasm. At this point I will recheck his serum iron studies and he is iron deficient again, he will return for parenteral iron replacement. In the meantime, I will review the CT scans with the radiologist, and he will have further evaluation for the small intestine mass as indicated. Signed By: Naseem Conte M.D. <<Signature on File>>
== END 2020-10-05 14:35 | disposition home or self-care (01) ==
PROVIDERS: Internal Medicine Medical Oncology; PCP Nurse Practitioner Family; Visit Provider Nurse Practitioner
DX: C91.10 Chronic lymphocytic leukemia of B-cell type not having achieved remission (principal); D50.9 Iron deficiency anemia, unspecified; M33.90 Dermatopolymyositis, unspecified, organ involvement unspecified; I10 Essential (primary) hypertension; E78.5 Hyperlipidemia, unspecified; J44.9 Chronic obstructive pulmonary disease, unspecified; M19.90 Unspecified osteoarthritis, unspecified site; I48.20 Chronic atrial fibrillation, unspecified; I71.4 Abdominal aortic aneurysm, without rupture; Z79.01 Long term (current) use of anticoagulants; Z79.899 Other long term (current) drug therapy
CPT/HCPCS: 83540; 83550; 99215

== ENCOUNTER 2020-10-13 06:06 | Outpatient (CLI) | payer MEDICARE, OTHER, SELFPAY ==
[2020-10-13] MEDS: ferric carboxy (IVPB) 750 MG in sodium chloride 0.9% (100 ml) 100 ML 460 MG IV (15:20)
== END 2020-10-13 06:07 | disposition home or self-care (01) ==
LOC: ONCMED 06:10
PROVIDERS: PCP Nurse Practitioner Family; Visit Provider Internal Medicine Medical Oncology
DX: D50.9 Iron deficiency anemia, unspecified (principal)
CPT/HCPCS: 96365; J1439

== ENCOUNTER → 2020-10-20 14:22 | Outpatient (BNVA) | payer MEDICARE, OTHER, SELFPAY | PROVIDERS: PCP Nurse Practitioner Family; Visit Provider Surgery | DX: K63.89 Other specified diseases of intestine (principal); Z20.822 Contact with and (suspected) exposure to COVID-19 | CPT/HCPCS: 87635 ==

== ENCOUNTER 2020-10-21 22:10 | Inpatient (IN) | payer MEDICARE, OTHER, SELFPAY ==
--- NOTE | 2020-10-21 22:13 | CTR_ITS ---
PROCEDURE INFORMATION: Exam: CT Abdomen And Pelvis With Contrast Exam date and time: 10/21/2020 10:22 PM Age: 85 years old Clinical indication: Nausea; Abdominal pain; Generalized; Prior surgery; Surgery type: Gb. Aortic graft. Hernia. ; Patient HX: Abd pain with n/v. History of sbo. Patient only able to ingest about 1/4 of 16 oz. Cup of oral contrast. TECHNIQUE: Imaging protocol: Computed tomography of the abdomen and pelvis with contrast. Radiation optimization: All CT scans at this facility use at least one of these dose optimization techniques: automated exposure control; mA and/or kV adjustment per patient size (includes targeted exams where dose is matched to clinical indication); or iterative reconstruction. Contrast material: OMNI 300; Contrast volume: 75 ml; Contrast route: INTRAVENOUS (IV); Other contrast: Oral, OMNI 300, 25 ML MIXED WITH WATER.; COMPARISON: CT abdomen pelvis wo con [id number] 10/03/2020 1:39 PM RADIATION DOSE METRICS: Total DLP (mGy-cm): 1019.27 FINDINGS: Lungs: Emphysematous changes of the lung bases. Liver: Normal. No mass. Gallbladder and bile ducts: Cholecystectomy. Mild diffuse ectasia of the biliary tree. Pancreas: Fatty replacement of the pancreas. No focal lesion. Spleen: Normal. No splenomegaly. Adrenal glands: Normal. No mass. Kidneys and ureters: Bilateral renal cortical cystic lesions with simple appearance. Mild diffuse bilateral renal cortical atrophy. No hydronephrosis. Stomach and bowel: Diverticulosis coli. Large bowel is decompressed. Moderate fecal volume. The distal small bowel loops are decompressed. The proximal through mid small bowel loops are abnormally dilated and filled with fluid. In the right lower quadrant there is a transition zone on coronal series 602 images 30-35. This has become more pronounced than recent prior imaging. There is increased soft tissue density pertaining to the bowel wall in this area. Tissue nodules are noted in the right lower quadrant mesentery adjacent to the abnormally thickened bowel loop. Negative for bowel pneumatosis. Appendix: No evidence of appendicitis. Intraperitoneal space: No free air. Trace simple free fluid in the dependent pelvis. Vasculature: Fusiform distal abdominal aortic aneurysm is treated with EVAR. No change in diameter of the excluded aneurysm sac. No evidence of endoleak. Lymph nodes: Unremarkable. No enlarged lymph nodes. Urinary bladder: Unremarkable as visualized. Reproductive: Mild prostate gland enlargement. Bones/joints: Unremarkable. No acute fracture. Soft tissues: Lumbar paraspinal muscles are atrophic. CT/CT abdomen pelvis w con* [id number] IMPRESSION: Abnormalities consistent with a small bowel obstruction. Transition point in the right lower quadrant with an area of small bowel wall thickening. Suspect an underlying mass. Adjacent soft tissue nodularity. COMMENTS: Consistent with the [employer]'s Incidental Findings Committee white paper (J Am Lala Radiol 2018): Any incidental renal lesion less than 1 cm or classified as too small to characterize, or any incidental cystic renal lesion characterized as simple-appearing, is likely benign. No follow-up imaging is recommended for these lesions per consensus recommendations based on imaging criteria. Radiation Dose CTDIVOL = (mGy): DLP = 1019.27 (mGy-cm)
[2020-10-21 22:14] VITALS: BP 109/70; PULSE 106; RESP 19; TEMP 37.2; O2SAT 92; BMI 21.2
--- NOTE | 2020-10-21 22:19 | W.ED.ABDPA2 ---
HPI - Abdominal Pain General: Chief Complaint: Abdominal Pain Stated Complaint: bowel obstruction Time Seen by Provider: 10/21/20 22:12 Source: patient and EMS Mode of arrival: EMS Limitations: no limitations History of Present Illness: HPI narrative: 85-year-old male who is here by EMS with vomiting. He states that he has been getting small bowel obstructions actually has a surgery scheduled Saturday for possible duodenal mass. He states that today he started having worsening abdominal pain and vomiting and feels like he has a small bowel obstruction. Denies any worsening improving factors. He did vomit just prior to arrival. Associated Symptoms: Reports nausea and vomiting; Denies chills, dysuria and fever(s) Review of Systems Const: Denies: fever(s), chills, body aches or change in appetite Eyes: Denies: blurry vision or eye discomfort ENMT: Denies: throat pain or dental pain Card: Denies: chest pain Resp: Denies: dyspnea GI: Reports: abdominal pain, nausea and vomiting : Denies: dysuria Musc: Denies: neck pain or back pain Skin/Breast: Denies: rash Neuro: Denies: headache(s) Psych: Denies: depression Scotty/Lymph: Denies: easy bruising All/Imm: Denies: urticaria PFSH ED PFSH: Medical History (Updated 10/20/20 @ 17:14 by Hany Delaney MD) Anemia Aneurysm of infrarenal abdominal aorta Chronic episodic atrial fibrillation On sotalol Chronic GERD Chronic lymphocytic 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 Chronic use of steroids COPD (chronic obstructive pulmonary disease) Dermatomyositis Diverticulitis Generalized osteoarthritis Hiatal hernia History of adenomatous polyp of colon History of pulmonary embolism Hypothyroidism Iron refractory iron deficiency anemia Mixed hyperlipidemia Osteopenia Polymyalgia rheumatica Statin intolerance Upper GI bleed Surgical History History of aortic aneurysm repair History of colonoscopy with polypectomy S/P cardiac catheterization S/P cholecystectomy Status post right inguinal hernia repair Family History Mother Cancer Brother Hypertension Social History Smoking and tobacco status: current every day smoker cigarettes Packs smoked per day: 1 Years cigarettes smoked: 74 Quit status (tobacco): not considering quitting Second hand smoke exposure: No Smoking risk assessment/counseling performed?: Yes Alcohol intake: never Caregiver/support person: Yes Lives independently: Yes Household members: none Marital status: service: Yes Current occupational status: retired Pets and animals: No History of recent travel: No Current gender identity: Male Physical Exam Const: COMMON NORMALS: no acute distress, patient oriented x3 and healthy appearing HENMT: COMMON NORMALS: normocephalic and atraumatic HEAD & SCALP: normocephalic and atraumatic Eye: COMMON NORMALS: Equal, round and reactive pupils present and EOMs intact bilaterally PUPIL: Yes Equal, round and reactive pupils present Neck/C-Spine: COMMON NORMALS: full ROM and supple Chest: COMMONS NORMALS: normal inspection of the chest and normal palpation of entire chest wall Resp: COMMON NORMALS: normal respiratory effort, No retractions, No use of accessory muscles and clear to auscultation bilaterally AUSCULTATION: clear to auscultation bilaterally Cardio: COMMON NORMALS: regular rate, regular rhythm and No murmurs present (Cardio) RATE: regular rate RHYTHM: regular rhythm GI: COMMON NORMALS: Soft to palpation, non-tender and no masses AUSCULTATION: Yes Hypoactive bowel sounds present PALPATION: Yes Soft to palpation Extremity: COMMON NORMALS: normal to inspection and full ROM Neuro: COMMON NORMALS: patient oriented x3, moves all extremities and no focal motor deficits Psych: COMMON NORMALS: mental status grossly normal, Normal thought process present and cooperative THOUGHT PROCESS: Normal thought process present Skin: COMMON NORMALS: no rashes or lesions noted and no wounds GENERAL SKIN EXAM: no rashes or lesions noted Course Vital Signs: Vital signs: Vital Signs Temperature 98.9 F 10/21/20 22:14 Pulse Rate 102 H 10/21/20 22:33 Respiratory Rate 22 H 10/21/20 22:33 Blood Pressure 116/72 10/21/20 22:33 Pulse Oximetry 99 10/21/20 22:33 MDM - Abdominal Pain MDM Narrative: Medical decision making narrative: Patient presents here with small bowel obstruction shown on CT. We will place an NG tube. I spoke to Dr. Blackmon who is consulted and spoke to the hospitalist who will be admitting. Patient has been stable while here. Lab Data: Labs: Lab Results 10/21/20 10/21/20 10/21/20 Range/Units 22:27 22:27 22:27 WBC 78.0 H* (4.0-10.0) 10^3/ uL RBC 4.10 (4.1-5.3) 10^6/u L Hgb 10.3 L (11.7-16.6) g/dL Hct 35.8 L (42.0-52.0) % MCV 87.3 (80-94) fL MCH 25.1 L (28.0-34.0) pg MCHC 28.8 L (30.0-36.0) g/dL RDW 17.7 H (12.1-15.1) % Plt Count 135 (130-400) 10^3/c mm MPV 9.3 (7.4-10.4) fL Neut % (Auto) 5.2 % Lymph % (Auto) 91.8 % [place] % (Auto) 2.5 % Eos % (Auto) 0.3 % Baso % (Auto) 0.1 % Neut # (Auto) 4.12 (1.8-7.7) 10^3/u L Lymph # (Auto) 71.6 H (0.8-4.8) 10^3/u L [place] # (Auto) 2.0 H (0.2-0.9) 10^3/u L Eos # (Auto) 0.2 (0.0-0.8) 10^3/u L Baso # (Auto) 0.0 (0.0-0.1) 10^3/u L Nucleated RBC % (a uto) 0 % Nucleated RBCs # 0.0 /100WBC Sodium 136 (136-145) mmol/L Potassium 4.3 (3.5-5.1) mmol/L Chloride 90 L (98-107) mmol/L Carbon Dioxide 31 H (22-29) mmol/L Anion Gap 19.3 H (5-19) BUN 17 (8-23) mg/dL Creatinine 1.1 (0.7-1.2) mg/dL GFR Calculation Not Reportable Glucose 114 (65-115) mg/dL Calculated Osmolal ity 284 L (285-295) mOsm/k g Lactate 1.0 (0.5-2.2) mmol/L Calcium 8.5 (8.5-10.5) mg/dL Total Bilirubin 0.6 (0.15-1.2) mg/dL AST 20 (0-40) U/L ALT 7 (0-41) U/L Alkaline Phosphata se 117 (40-130) IU/L Total Protein 5.8 L (6.6-8.7) g/dL Albumin 4.1 (3.5-5.2) g/dL Globulin 1.7 (1.3-4.6) g/dL Lipase 8 L (13-60) U/L Imaging Data ^: CT Abd/Pel: Attestation: I personally reviewed and interpreted this imaging study as follows: Radiologist's impression: [facility] [address] [address] Scan Report Signed Patient: Naseem Luna Unit #: [id number] : 1935 Age/Sex: 85 / M ADM Date: 10/21/20 Loc: ER Room/Bed: Attending Dr: Ordering Provider/Ordering MD: Mary Chapman MD Date of Service: 10/21/20 Procedure(s): CT abdomen pelvis w con* [id number] Accession Number(s): [id number] Report Number: [id number] PROCEDURE INFORMATION: Exam: CT Abdomen And Pelvis With Contrast Exam date and time: 10/21/2020 10:22 PM Age: 85 years old Clinical indication: Nausea; Abdominal pain; Generalized; Prior surgery; Surgery type: Gb. Aortic graft. Hernia. ; Patient HX: Abd pain with n/v. History of sbo. Patient only able to ingest about 1/4 of 16 oz. Cup of oral contrast. TECHNIQUE: Imaging protocol: Computed tomography of the abdomen and pelvis with contrast. Radiation optimization: All CT scans at this facility use at least one of these dose optimization techniques: automated exposure control; mA and/or kV adjustment per patient size (includes targeted exams where dose is matched to clinical indication); or iterative reconstruction. Contrast material: OMNI 300; Contrast volume: 75 ml; Contrast route: INTRAVENOUS (IV); Other contrast: Oral, OMNI 300, 25 ML MIXED WITH WATER.; COMPARISON: CT abdomen pelvis wo con [id number] 10/03/2020 1:39 PM RADIATION DOSE METRICS: Total DLP (mGy-cm): 1019.27 FINDINGS: Lungs: Emphysematous changes of the lung bases. Liver: Normal. No mass. Gallbladder and bile ducts: Cholecystectomy. Mild diffuse ectasia of the biliary tree. Pancreas: Fatty replacement of the pancreas. No focal lesion. Spleen: Normal. No splenomegaly. Adrenal glands: Normal. No mass. Kidneys and ureters: Bilateral renal cortical cystic lesions with simple appearance. Mild diffuse bilateral renal cortical atrophy. No hydronephrosis. Stomach and bowel: Diverticulosis coli. Large bowel is decompressed. Moderate fecal volume. The distal small bowel loops are decompressed. The proximal through mid small bowel loops are abnormally dilated and filled with fluid. In the right lower quadrant there is a transition zone on coronal series 602 images 30-35. This has become more pronounced than recent prior imaging. There is increased soft tissue density pertaining to the bowel wall in this area. Tissue nodules are noted in the right lower quadrant mesentery adjacent to the abnormally thickened bowel loop. Negative for bowel pneumatosis. Appendix: No evidence of appendicitis. Intraperitoneal space: No free air. Trace simple free fluid in the dependent pelvis. Vasculature: Fusiform distal abdominal aortic aneurysm is treated with EVAR. No change in diameter of the excluded aneurysm sac. No evidence of endoleak. Lymph nodes: Unremarkable. No enlarged lymph nodes. Urinary bladder: Unremarkable as visualized. Reproductive: Mild prostate gland enlargement. Bones/joints: Unremarkable. No acute fracture. Soft tissues: Lumbar paraspinal muscles are atrophic. CT/CT abdomen pelvis w con* [id number] IMPRESSION: Abnormalities consistent with a small bowel obstruction. Transition point in the right lower quadrant with an area of small bowel wall thickening. Suspect an underlying mass. Adjacent soft tissue nodularity. COMMENTS: Consistent with the [employer]'s Incidental Findings Committee white paper (J Am Lala Radiol 2018): Any incidental renal lesion less than 1 cm or classified as too small to characterize, or any incidental cystic renal lesion characterized as simple-appearing, is likely benign. No follow-up imaging is recommended for these lesions per consensus recommendations based on imaging criteria. Discharge Plan Discharge Prescriptions: No Action magnesium oxide 400 mg magnesium tablet 400 mg PO BID RF: 0 meclizine 12.5 mg tablet 12.5 mg PO DAILY PRN (Reason: Dizziness) RF: 0 (DME) portable oxygen concentrator See Rx Instructions .Route .MEDSUPPLY Qty: 1 RF: 0 pantoprazole 40 mg tablet,delayed release (DR/EC) 40 mg PO BID Qty: 60 RF: 5 nitroglycerin 0.4 mg tablet, sublingual 0.4 mg sublingual Q5M PRN (Reason: chest pain) Qty: 25 RF: 0 tramadol 50 mg tablet 50 mg PO TID PRN (Reason: pain) Qty: 90 RF: 2 sucralfate [Carafate] 100 mg/mL suspension See Rx Instructions .ROUTE .COMPLEX Qty: 1800 RF: 1 Stiolto Respimat 2.5-2.5 mcg/actuation mist 2 puff INHALATION Q24H 90 Days Qty: 12 RF: 0 ProAir HFA 90 mcg/actuation HFA aerosol inhaler 2 puff inhalation Q6H PRN (Reason: Shortness Of Breath) Qty: 8.5 RF: 2 levothyroxine 25 mcg Tablet 25 mcg PO DAILY@13 RF: 0 isosorbide dinitrate 30 mg tablet 30 mg PO BID Qty: 60 RF: 3 sotalol 80 mg tablet 80 mg PO BID RF: 0 Ensure Liquid 1 ea PO PRN RF: 0 albuterol sulfate 2.5 mg /3 mL (0.083 %) solution for nebulization 2.5 mg inhalation BID PRN (Reason: Shortness Of Breath) RF: 0 clopidogrel 75 mg tablet 75 mg PO DAILY@13 RF: 0 prednisone 2.5 mg tablet 2.5 mg PO DAILY@13 RF: 0 olopatadine [Pataday Twice Daily Relief] 0.1 % drops 1 drop ophthalmic (eye) DAILY PRN (Reason: unknown) RF: 0 hydrochlorothiazide 25 mg tablet 12.5 mg PO DAILY@13 RF: 0 mupirocin 2 % ointment 1 applic topical DAILY RF: 0 fluticasone propionate [Allergy Relief (fluticasone)] 50 mcg/actuation spray,suspension 1 - 2 spray INTRANASAL BEDTIME RF: 0 psyllium husk [Metamucil] 0.52 gram capsule 0.52 g PO BEDTIME RF: 0 alfuzosin 10 mg tablet extended release 24 hr 10 mg PO DAILY@13 RF: 0 Coding Level of Care Code ED Ammonia Worker for Chg Fwd Exam Comprehensive
[2020-10-21 22:21] VITALS: PULSE 106; RESP 20; O2SAT 99
[2020-10-21] MEDS: sodium chloride 0.9% 500 ML IV (22:24)
[2020-10-21 22:25] VITALS: RESP 18; O2SAT 97
[2020-10-21] MEDS: morphine 4 mg/mL SDV 1 mL IVP (22:25)
[2020-10-21] MEDS: ondansetron 2 mg/ML SDV 2 mL 4 MG IVP (22:25)
[2020-10-21 22:33] VITALS: BP 116/72; PULSE 102; RESP 22; O2SAT 99
[2020-10-21 22:34] LABS: Basophils % 0.1 %; Eosinophils # 0.2 10^3/uL (0.0-0.8); Eosinophils % 0.3 %; Hematocrit 35.8 % (42.0-52.0); Hemoglobin 10.3 g/dL (11.7-16.6); Lymphocytes # 71.6 10^3/uL (0.8-4.8); Lymphocytes % 91.8 %; Mean Corpuscular HGB Conc 28.8 g/dL (30.0-36.0); Mean Corpuscular Hemoglobin 25.1 pg (28.0-34.0); Mean Corpuscular Volume 87.3 fL (80-94); Mean Platelet Volume 9.3 fL (7.4-10.4); Monocytes % 2.5 %; Neutrophils # 4.12 10^3/uL (1.8-7.7); Neutrophils % 5.2 %; Nucleated Red Blood Cells % 0 %; Platelet Count 135 10^3/cmm (130-400); Red Cell Distribution Width 17.7 % (12.1-15.1)
[2020-10-21 22:52] LABS: Alanine Aminotransferase 7 U/L (0-41); Albumin Level 4.1 g/dL (3.5-5.2); Alkaline Phosphatase 117 IU/L (40-130); Blood Urea Nitrogen 17 mg/dL (8-23); Calcium 8.5 mg/dL (8.5-10.5); Carbon Dioxide 31 mmol/L (22-29); Chloride 90 mmol/L (98-107); Globulin 1.7 g/dL (1.3-4.6); Glucose 114 mg/dL (65-115); Lipase 8 U/L (13-60); Osmolality Calculated 284 mOsm/kg (285-295); Sodium 136 mmol/L (136-145); Total Bilirubin 0.6 mg/dL (0.15-1.2); Total Protein 5.8 g/dL (6.6-8.7)
[2020-10-21 22:58] LABS: Anion Gap 19.3 (5-19); Aspartate Amino Transferase 20 U/L (0-40); Potassium 4.3 mmol/L (3.5-5.1)
[2020-10-21 23:00] VITALS: BP 126/78; PULSE 106; RESP 24; O2SAT 100
[2020-10-21] MEDS: iohexol 300 mg/mL 100 mL Btl IV (23:39)
[2020-10-21] MEDS: iohexol 300 mg/mL 50 mL Btl PO (23:40)
[2020-10-22] VITALS (13 sets, daily range): BP systolic 76–130; BP diastolic 42–81; PULSE 71–109; RESP 18–26; TEMP 36.8–37.5; O2SAT 92–100
[2020-10-22] MEDS: LORazepam 2 mg/mL INJ 1 mL 0.5 MG IVP (00:47)
--- NOTE | 2020-10-22 01:18 | XRR_ITS ---
PROCEDURE INFORMATION: Exam: XR Chest Exam date and time: 10/22/2020 1:19 AM Age: 85 years old Clinical indication: Device placement; Ng tube; Patient HX: Check S/P ng placement TECHNIQUE: Imaging protocol: XR of the chest. Views: 1 view. COMPARISON: CR XR chest 1V portable [id number] 09/16/2020 1:08 AM FINDINGS: Tubes, catheters and devices: NG tube side port is in the distal esophagus and should be advanced approximately 8 cm. Lungs: Unremarkable. No consolidation. Pleural spaces: Unremarkable. No pleural effusion. No pneumothorax. Heart/Mediastinum: Unremarkable. No cardiomegaly. Bones/joints: Unremarkable. XR/XR chest 1V portable [id number] IMPRESSION: NG tube side port is in the distal esophagus and should be advanced approximately 8 cm.
--- NOTE | 2020-10-22 02:07 | P.HP_ITS ---
Providers/Chief Complaint Admitting Physician: Leonel Carranza Primary Care Provider: TAYLOR Torres Chief Complaint: bowel obstruction History of Present Illness Naseem Luna is a 85 year old male with past medical history of CLL, atrial fibrillation, COPD, peptic ulcer disease, previous episodes of small bowel obstruction who presents with vomiting which started yesterday. He reports several episodes. No blood. He has spasms in his abdomen each time he vomits. Otherwise no significant pain. Denies diarrhea. No fever or chills. No chest pain, shortness of breath, cough, palpitations. Review of Systems General: Reports: 10 or more systems reviewed and unremarkable except in HPI and below Medications/Allergies Home Medications Medication Instructions Recorded Confirmed Last Taken Type magnesium oxide 400 mg PO BID tab 06/05/19 10/20/20 09/14/20 History portable oxygen concentrator #1 ea 12/09/19 10/20/20 Unknown Rx meclizine 12.5 mg tablet 12.5 mg PO DAILY PRN tab 02/09/20 10/20/20 09/14/20 History pantoprazole 40 mg tablet,delayed 40 mg PO BID #60 tab 03/11/20 10/20/20 09/14/20 Rx release nitroglycerin 0.4 mg sublingual 0.4 mg SUBLINGUAL Q5M PRN #25 tab 05/25/20 10/20/20 09/14/20 Rx tablet tramadol 50 mg tablet 50 mg PO TID PRN #90 tab 07/26/20 10/20/20 10/03/20 08:00 Rx sucralfate 100 mg/mL oral See Rx Instructions .ROUTE 08/15/20 10/20/20 Unknown Rx suspension .COMPLEX #1800 ml tiotropium 2.5 mcg-olodaterol 2.5 2 puff INHALATION Q24H 90 Days #12 08/15/20 10/20/20 Unknown Rx mcg/actuation mist for inhalation g levothyroxine 25 mcg PO DAILY@08/30/20 10/20/20 Unknown History isosorbide dinitrate 30 mg PO BID #60 tab 09/03/20 10/20/20 Unknown Rx albuterol sulfate 2.5 mg INHALATION BID PRN 10/03/20 10/20/20 Unknown History alfuzosin 10 mg PO DAILY@10/03/20 10/20/20 Unknown History clopidogrel 75 mg PO DAILY@13 10/03/20 10/20/20 Unknown History fluticasone propionate [Allergy 1 - 2 spray INTRANASAL BEDTIME 10/03/20 10/20/20 Unknown History Relief (fluticasone)] food supplemt, lactose-reduced 1 ea PO PRN 10/03/20 10/20/20 Unknown History [Ensure] hydrochlorothiazide 12.5 mg PO DAILY@13 10/03/20 10/20/20 Unknown History mupirocin 1 applic TOPICAL DAILY 10/03/20 10/20/20 Unknown History olopatadine [Pataday Twice Daily 1 drop OPHTHALMIC (EYE) DAILY PRN 10/03/20 10/20/20 Unknown History Relief] prednisone 2.5 mg PO DAILY@10/03/20 10/20/20 Unknown History psyllium husk [Metamucil] 0.52 g PO BEDTIME 10/03/20 10/20/20 Unknown History sotalol 80 mg PO BID 10/03/20 10/20/20 10/03/20 History albuterol sulfate 90 mcg/actuation 2 puff INHALATION Q6H PRN #8.5 g 10/13/20 10/20/20 Unknown Rx aerosol inhaler Allergies Allergy/AdvReac Type Severity Reaction Status Date / Time ciprofloxacin [From Cipro] Allergy Unknown Verified 10/21/20 22:21 dabigatran etexilate Allergy Unknown Verified 10/21/20 22:21 [From Pradaxa] Penicillins Allergy Unknown Verified 10/21/20 22:21 PFSH Acute PFSH: Medical History (Updated 10/20/20 @ 17:14 by Hany Delaney MD) Anemia Aneurysm of infrarenal abdominal aorta Chronic episodic atrial fibrillation On sotalol Chronic GERD Chronic lymphocytic 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 Chronic use of steroids COPD (chronic obstructive pulmonary disease) Dermatomyositis Diverticulitis Generalized osteoarthritis Hiatal hernia History of adenomatous polyp of colon History of pulmonary embolism Hypothyroidism Iron refractory iron deficiency anemia Mixed hyperlipidemia Osteopenia Polymyalgia rheumatica Statin intolerance Upper GI bleed Surgical History History of aortic aneurysm repair History of colonoscopy with polypectomy S/P cardiac catheterization S/P cholecystectomy Status post right inguinal hernia repair Family History Mother Cancer Brother Hypertension Social History Smoking and tobacco status: current every day smoker cigarettes Packs smoked per day: 1 Years cigarettes smoked: 74 Quit status (tobacco): not considering quitting Second hand smoke exposure: No Smoking risk assessment/counseling performed?: Yes Alcohol intake: never Caregiver/support person: Yes Lives independently: Yes Household members: none Marital status: service: Yes Current occupational status: retired Pets and animals: No History of recent travel: No Current gender identity: Male Vitals/I&O/Wt Last Vital Signs Temp 98.9 F 10/21/20 22:14 Pulse 102 H 10/21/20 22:33 Resp 22 H 10/21/20 22:33 BP 116/72 10/21/20 22:33 Pulse Ox 99 10/21/20 22:33 10/21/20 10/21/20 10/22/20 14:59 22:59 06:59 Intake Total 500 / 500 Balance 500 / 500 Weight last 48 hrs Weight 63.503 kg Physical Exam Narrative: EXAM NARRATIVE: Awake alert oriented. No acute distress. Mood and affect are appropriate. Responses are adequate. Skin is warm and dry. Moist mucous membranes Eyes PERRL, extraocular muscles are intact Normal speech Neck supple. No JVD Lungs are clear. No respiratory distress Heart S1, S2, regular Abdomen soft, slightly distended, nontender, bowel sounds are present Extremities trace edema no cyanosis no calf tenderness bilaterally Neuro examination is nonfocal Data : 10/21/20 22:27 10/21/20 22:27 Other Labs: Laboratory Results WBC 78.0 10^3/uL (4.0-10.0) H* 10/21/20 22: RBC 4.10 10^6/uL (4.1-5.3) 10/21/20 22: Hgb 10.3 g/dL (11.7-16.6) L 10/21/20 22: Hct 35.8 % (42.0-52.0) L 10/21/20 22: MCV 87.3 fL (80-94) 10/21/20 22: MCH 25.1 pg (28.0-34.0) L 10/21/20 22: MCHC 28.8 g/dL (30.0-36.0) L 10/21/20: RDW 17.7 % (12.1-15.1) H 10/21/20 22: Plt Count 135 10^3/cmm (130-400) 10/21/20 22: MPV 9.3 fL (7.4-10.4) 10/21/20: Neut % (Auto) 5.2 % 10/21/20 22: Lymph % (Auto) 91.8 % 10/21/20: [place] % (Auto) 2.5 % 10/21/20: Eos % (Auto) 0.3 % 10/21/20: Baso % (Auto) 0.1 % 10/21/20 Neut # (Auto) 4.12 10^3/uL (1.8-7.7) 10/21/20: Lymph # (Auto) 71.6 10^3/uL (0.8-4.8) H 10/21/20: [place] # (Auto) 2.0 10^3/uL (0.2-0.9) H 10/21/20: Eos # (Auto) 0.2 10^3/uL (0.0-0.8) 10/21/20: Baso # (Auto) 0.0 10^3/uL (0.0-0.1) 10/21/20: Nucleated RBC % (auto) 0 % 10/21/20: Nucleated RBCs # 0.0 /100WBC 10/21/20: Sodium 136 mmol/L (136-145) 10/21/20 22: Potassium 4.3 mmol/L (3.5-5.1) 10/21/20: Chloride 90 mmol/L (98-107) L 10/21/20: Carbon Dioxide 31 mmol/L (22-29) H 10/21/20: Anion Gap 19.3 (5-19) H 10/21/20: BUN 17 mg/dL (8-23) 10/21/20: Creatinine 1.1 mg/dL (0.7-1.2) 10/21/20 22: GFR Calculation Not Reportable 10/21/20: Glucose 114 mg/dL (65-115) 10/21/20: Calculated Osmolality 284 mOsm/kg (285-295) L 10/21/20: Lactate 1.0 mmol/L (0.5-2.2) 10/21/20: Calcium 8.5 mg/dL (8.5-10.5) 10/21/20: Total Bilirubin 0.6 mg/dL (0.15-1.2) 10/21/20: AST 20 U/L (0-40) 10/21/20: ALT 7 U/L (0-41) 10/21/20: Alkaline Phosphatase 117 IU/L (40-130) 10/21/20: Total Protein 5.8 g/dL (6.6-8.7) L 10/21/20: Albumin 4.1 g/dL (3.5-5.2) 10/21/20: Globulin 1.7 g/dL (1.3-4.6) 10/21/20: Lipase 8 U/L (13-60) L 10/21/20:27 Impressions Abdomen/Pelvis CT 10/21/20 22:13 IMPRESSION: Abnormalities consistent with a small bowel obstruction. Transition point in the right lower quadrant with an area of small bowel wall thickening. Suspect an underlying mass. Adjacent soft tissue nodularity. COMMENTS: Consistent with the [place] [employer]'s Incidental Findings Committee white paper (J Am Lala Radiol 2018): Any incidental renal lesion less than 1 cm or classified as too small to characterize, or any incidental cystic renal lesion characterized as simple-appearing, is likely benign. No follow-up imaging is recommended for these lesions per consensus recommendations based on imaging criteria. Radiation Dose CTDIVOL = (mGy): DLP = 1019.27 (mGy-cm) A&P Additional A&P Information 85-year-old male with past medical history of CLL, COPD, AAA, atrial fibrillation who presents with vomiting. CT is consistent with small bowel obstruction. Transition point is in the right lower quadrant. Associated thickening in the wall of the intestine is described concerning for possible tumor. Small bowel obstruction. N.p.o., NG tube, IV fluids. Continue monitoring and replacing electrolytes. Surgery consult is called by ER. CLL. Continue monitoring. His oncologist is Dr. Conte. COPD. No evidence of exacerbation at this time. Continue home medications. History of atrial fibrillation. Stable. Rate controlled. History of peptic ulcer disease. Will start famotidine IV for GI prophylaxis. DVT prophylaxis. Heparin. CODE STATUS. Patient wants to be full code. The plan of care was discussed with the patient. He verbalized understanding and agreement. Attestations Medical Necessity Statement*: Based on my assessment of patient's current condition, findings and plan of care I expect that he will spend more than 2 midnights in the hospital. Coding Level of Care Code Acute Marbleizing Machine Tender for Joseph Fu
[2020-10-22] MEDS: enoxaparin 40 mg/0.4 mL Syringe SUBCUT (02:29)
[2020-10-22] MEDS: sodium chloride 0.9% 1,000 ML 75 ML IV ×2 (02:29→15:14)
--- NOTE | 2020-10-22 02:46 | PC.NURSE ---
ADMIT NOTE Pt received to room from ER at 0155. A&O. Quite talkative. Denies pain or nausea at this time. Abd is soft with tenderness to right abdomen. Says was scheduled for surgery with Dr Romero on Saturday but started having abd pain and vomiting today. NG tube intact to right nare and to LIS. Drainage small amt of light green liquid. IV fluids started at 75ml/hr rate and started SQ Lovenox. VS check done. RN completing admission assessment. O2 in place at 3l per NC.
[2020-10-22] MEDS: famotidine 20 mg/2 mL INJ IVP ×2 (02:53→15:15)
--- NOTE | 2020-10-22 05:24 | PC.NURSE ---
CALL PAtient's daughter, Andreas, called to check on update on her father. Andreas states she will try to get [facility] to come see him today.
--- NOTE | 2020-10-22 05:27 | PC.NURSE ---
SHIFT SUMMARY Patient had no complaints of pain, nausea or vomiting since being admitted to [facility] surg floor. Minimal amount of drainage noted from patient's NG tube during this shift. Patient refused to let nurses take his home medications to put in pyxis. This nurse will pass on to dayshift to see if patient will be willing to let his daughter take his home medications home with her when she comes to see patient today.
--- NOTE | 2020-10-22 08:12 | P.CONIM_ITS ---
Providers/Reason For Consult Consulting Physican/Specialty*: General Surgery Herman Blackmon MD Reason for Consult*: Recurrent small bowel obstruction with suspected underlying mass. Attending Physician: Adelita Clark MD Primary Care Provider: TAYLOR Torres History of Present Illness History of Present Illness Naseem Luna is a 85 year old male with a history of recurrent small bowel obstruction. There has been a suggestion that there is a small bowel mass in the right lower quadrant on imaging. The patient says he has been to the hospital multiple times recently and has actually seen Drs. Conte and Nick in consultation regarding this. He is on the schedule for an exploratory laparotomy early this week. The patient says that he had some bowel movements 3 days ago and then 2 days ago. Yesterday he felt like he was getting backed up and took multiple oral l axatives. He said it did not help him and he developed the abdominal pain once again and then started vomiting. He denies hematemesis. He came into the hospital and a CAT scan once again showed evidence of a small bowel obstruction with the likely transition point being located in the right lower quadrant. The patient had a nasogastric tube passed and says that he is pain-free this morning. He is still not passing any flatus, however. Review of Systems General: Reports: 10 or more systems reviewed and unremarkable except in HPI and below Const: Denies: fever(s) Card: Denies: chest pain Resp: Denies: dyspnea GI: Reports: abdominal pain (Currently resolved) and vomiting (Currently resolved); Denies: diarrhea or hematochezia Meds/Allergies Home Medications and Allergies Home Medications Medication Instructions Recorded Confirmed Last Taken Type magnesium oxide 400 mg PO BID tab 06/05/19 10/20/20 09/14/20 History portable oxygen concentrator #1 ea 12/09/19 10/20/20 Unknown Rx meclizine 12.5 mg tablet 12.5 mg PO DAILY PRN tab 02/09/20 10/20/20 09/14/20 History pantoprazole 40 mg tablet,delayed 40 mg PO BID #60 tab 03/11/20 10/20/20 09/14/20 Rx release nitroglycerin 0.4 mg sublingual 0.4 mg SUBLINGUAL Q5M PRN #25 tab 05/25/20 10/20/20 09/14/20 Rx tablet tramadol 50 mg tablet 50 mg PO TID PRN #90 tab 07/26/20 10/20/20 10/03/20 08:00 Rx sucralfate 100 mg/mL oral See Rx Instructions .ROUTE 08/15/20 10/20/20 Unknown Rx suspension .COMPLEX #1800 ml tiotropium 2.5 mcg-olodaterol 2.5 2 puff INHALATION Q24H 90 Days #12 08/15/20 10/20/20 Unknown Rx mcg/actuation mist for inhalation g levothyroxine 25 mcg PO DAILY@08/30/20 10/20/20 Unknown History isosorbide dinitrate 30 mg PO BID #60 tab 09/03/20 10/20/20 Unknown Rx albuterol sulfate 2.5 mg INHALATION BID PRN 10/03/20 10/20/20 Unknown History alfuzosin 10 mg PO DAILY@10/03/20 10/20/20 Unknown History clopidogrel 75 mg PO DAILY@13 10/03/20 10/20/20 Unknown History fluticasone propionate [Allergy 1 - 2 spray INTRANASAL BEDTIME 10/03/20 10/20/20 Unknown History Relief (fluticasone)] food supplemt, lactose-reduced 1 ea PO PRN 10/03/20 10/20/20 Unknown History [Ensure] hydrochlorothiazide 12.5 mg PO DAILY@10/03/20 10/20/20 Unknown History mupirocin 1 applic TOPICAL DAILY 10/03/20 10/20/20 Unknown History olopatadine [Pataday Twice Daily 1 drop OPHTHALMIC (EYE) DAILY PRN 10/03/20 10/20/20 Unknown History Relief] prednisone 2.5 mg PO DAILY@10/03/20 10/20/20 Unknown History psyllium husk [Metamucil] 0.52 g PO BEDTIME 10/03/20 10/20/20 Unknown History sotalol 80 mg PO BID 10/03/20 10/20/20 10/03/20 History albuterol sulfate 90 mcg/actuation 2 puff INHALATION Q6H PRN #8.5 g 10/13/20 0 10/20/20 Unknown Rx aerosol inhaler Allergies Allergy/AdvReac Type Severity Reaction Status Date / Time ciprofloxacin [From Cipro] Allergy Unknown Verified 10/21/20 22:21 dabigatran etexilate Allergy Unknown Verified 10/21/20 22:21 [From Pradaxa] Penicillins Allergy Unknown Verified 10/21/20 22:21 Current Medications Current Medications Generic Name Dose Route Start Last Admin Trade Name Freq PRN Reason Stop Dose Admin Enoxaparin Sodium 40 mg 10/22/20 02:00 10/22/20 02:29 Enoxaparin 40 Mg/0.4 Ml Syringe SUBCUT 40 mg Q24H ANDRES Administration Famotidine 20 mg 10/22/20 02:00 10/22/20 02:53 Famotidine 20 Mg/2 Ml Inj IVP 20 mg Q12H ANDRES Administration Sodium Chloride 1,000 mls @ 75 mls/hr 10/22/20 02:00 10/22/20 02:29 Sodium Chloride 0.9% IV 75 mls/hr .[id number] ANDRES Administration PFSH Acute PFSH: Medical History (Updated 10/22/20 @ 08:44 by Herman Blackmon MD) Anemia Aneurysm of infrarenal abdominal aorta Chronic episodic atrial fibrillation On sotalol Chronic GERD Chronic lymphocytic 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 Chronic use of steroids COPD (chronic obstructive pulmonary disease) Dermatomyositis Diverticulitis Generalized osteoarthritis Hiatal hernia History of adenomatous polyp of colon History of pulmonary embolism Hypertension Hypothyroidism Iron refractory iron deficiency anemia Mixed hyperlipidemia Osteopenia Polymyalgia rheumatica Statin intolerance Upper GI bleed Surgical History (Updated 10/22/20 @ 08:44 by Herman Blackmon MD) History of aortic aneurysm repair Status post stenting History of colonoscopy with polypectomy S/P cardiac catheterization / Cardiac ablation S/P cholecystectomy Status post right inguinal hernia repair Family History Mother Cancer Brother Hypertension Social History Smoking and tobacco status: current every day smoker cigarettes Packs smoked per day: 1 Years cigarettes smoked: 74 Quit status (tobacco): not considering quitting Second hand smoke exposure: No Smoking risk assessment/counseling performed?: Yes Alcohol intake: never Caregiver/support person: Yes Lives independently: Yes Household members: none Marital status: service: Yes Current occupational status: retired Pets and animals: No History of recent travel: No Current gender identity: Male Vitals/I&O/Wt Last Vital Signs Temp 98.9 F 10/22/20 07:46 Pulse 73 10/22/20 07:51 Resp 18 10/22/20 07:51 BP 130/70 10/22/20 07:46 Pulse Ox 93 10/22/20 07:51 10/21/20 10/22/20 10/22/20 22:59 06:59 14:59 Intake Total 500 / 500 Balance 500 / 500 Weight last 48 hrs Weight 140 lb Physical Exam Narrative: EXAM NARRATIVE: The patient was encountered in his hospital room. There is a nasogastric tube in place that appears to be draining some light green material. The pupils seem equal. No carotid bruits are heard. The lungs are clear anteriorly. The heart sounds are somewhat distant but his rhythm does seem regular. I cannot hear any obvious murmurs. The abdomen is soft and reveals bowel sounds that may be hyperactive at times. I cannot appreciate any tenderness on exam, however. The extremities reveal no edema. Neurologically the patient can move all limbs to command. Data Imaging^: CT Abd/Pel: Radiologist's impression: CT abdomen/pelvis 10/03/2020 IMPRESSION: 1. Stable abdominal aortic aneurysm with endograft repair. 2. Small bowel obstruction has improved compared to September 16, 2019 3. Mild residual small bowel dilatation with a few air-fluid levels. 4. Persistent small bowel mass in the right lower quadrant suspicious for neoplasm. This is better evaluated on the prior contrast-enhanced CT. 5. Stable upper abdominal and periaortic lymphadenopathy described above. 6. No hydronephrosis in either kidney. 7. Stable mild splenomegaly. 8. Sigmoid diverticulosis. 9. Left inguinal lymphadenopathy. 10. Enlarged calcified prostate. Recommend correlation PSA. Evidence of bladder outlet obstruction. CT abdomen/pelvis 10/21/2020 IMPRESSION: Abnormalities consistent with a small bowel obstruction. Transition point in the right lower quadrant with an area of small bowel wall thickening. Suspect an underlying mass. Adjacent soft tissue nodularity. A&P Assessment and plan (1) Recurrent intestinal obstruction: The patient has been to the hospital multiple times with evidence of a small bowel obstruction. He is currently on the surgery schedule for Dr. Romero early this week. He already feels much better. I made the patient aware that even if he improves to the point where he has gone home before, it may be worthwhile to stay in the hospital until his surgery. Dr. Romero may even be able to do this a little earlier than planned, but I made the patient aware I do not know what his schedule looks like. The patient agrees with this plan. Of note, the patient has been off of his Plavix. He is currently on Lovenox but I believe the discontinuation timing of this at the Dr. Romero. Status: Acute (2) Small bowel mass: This is suspected on multiple CAT scans, dating back some time. Status: Acute Consult Attestations Medical Necessity Statement: See admitting service's notation. Coding Level of Care Code Acute Court Orderly for Dominick[facility] Fwd Diagnoses Recurrent intestinal obstruction K56.609 Small bowel mass K63.89
[2020-10-22] MEDS: hydrocortisone 100 mg/2 mL SDV 25 MG IVP (08:13)
--- NOTE | 2020-10-22 10:56 | P.PN_ITS ---
Subjective Subjective: Interval history: t max 99.5F, pain improving, has not passed flatus yet Medications: Reviewed: Yes Vitals/I&O/Wt Last Vital Signs Temp 98.9 F 10/22/20 07:46 Pulse 73 10/22/20 07:51 Resp 18 10/22/20 07:51 BP 130/70 10/22/20 07:46 Pulse Ox 93 10/22/20 07:51 10/21/20 10/22/20 10/22/20 22:59 06:59 14:59 Intake Total 500 / 500 Balance 500 / 500 Weight last 48 hrs Weight 63.503 kg Physical Exam Narrative: EXAM NARRATIVE: GEN: Awake, alert and oriented, no acute distress CVS: S1S2 N RS: CTA B/L Abd: Soft, distended , bowel sounds distant PATIENT FLOW COORDINATOR: no focal neuro deficits Data : 10/21/20 22:27 10/21/20 22:27 A&P Additional A&P Information 85-year-old male with past medical history of CLL, COPD, AAA, atrial fibrillation who presents with vomiting. CT is consistent with small bowel obstruction. Transition point is in the right lower quadrant. Associated thickening in the wall of the intestine is described concerning for possible tumor. Small bowel obstruction. N.p.o., NG tube, IV fluids. Continue monitoring and replacing electrolytes. Surgery consult with Dr. Lorri loweiated Patient has had multiple admissions with the same issue WIll likely consult Dr. Brown on Saturday to move up scheduled surgery if possible CLL. Continue monitoring. no current signs of sepsis or thrombosis COPD. No evidence of exacerbation at this time. Continue home medications. History of atrial fibrillation. Stable. Rate controlled. History of peptic ulcer disease. Will start famotidine IV for GI prophylaxis. DVT prophylaxis. Heparin. CODE STATUS. Patient wants to be full code. The plan of care was discussed with the patient. He verbalized understanding and agreement. Attestations Medical Necessity Statement*: SBO, ongoing conservative management, awaiting return of bowel function, possible surgery next week Coding Level of Care Code Acute Child And Adolescent Psychiatrist for [facility]
[2020-10-22] MEDS: sotalol 80 mg Tablet PO (17:35)
--- NOTE | 2020-10-22 18:59 | PC.NURSE ---
Report to higinio LIU at this time.
[2020-10-23] VITALS (8 sets, daily range): BP systolic 101–137; BP diastolic 51–71; PULSE 71–97; RESP 16–20; TEMP 36.8–37.1; O2SAT 96–99
[2020-10-23] MEDS: enoxaparin 40 mg/0.4 mL Syringe SUBCUT (02:46)
[2020-10-23] MEDS: famotidine 20 mg/2 mL INJ IVP ×2 (02:46→12:59)
[2020-10-23] MEDS: sodium chloride 0.9% 1,000 ML 75 ML IV (05:37)
[2020-10-23 06:01] LABS: Hemoglobin 9.4 g/dL (11.7-16.6); Mean Corpuscular HGB Conc 29.4 g/dL (30.0-36.0); Mean Corpuscular Hemoglobin 25.2 pg (28.0-34.0); Mean Corpuscular Volume 85.8 fL (80-94); Mean Platelet Volume 10.2 fL (7.4-10.4); Platelet Count 123 10^3/cmm (130-400); Red Blood Count 3.73 10^6/uL (4.1-5.3); Red Cell Distribution Width 17.4 % (12.1-15.1)
[2020-10-23 06:24] LABS: Slide Review Slide Review Perform
[2020-10-23 06:25] LABS: Anion Gap 20.1 (5-19); Blood Urea Nitrogen 22 mg/dL (8-23); Calcium 7.7 mg/dL (8.5-10.5); Carbon Dioxide 27 mmol/L (22-29); Chloride 97 mmol/L (98-107); Glucose 48 mg/dL (65-115); Magnesium 2.5 mg/dL (1.7-2.3); Osmolality Calculated 291 mOsm/kg (285-295); Phosphorus 3.5 mg/dL (2.5-4.5); Potassium 4.1 mmol/L (3.5-5.1); Sodium 140 mmol/L (136-145); White Blood Count 60.8 10^3/uL (4.0-10.0)
[2020-10-23] MEDS: sotalol 80 mg Tablet PO (08:46)
[2020-10-23] MEDS: hydrocortisone 100 mg/2 mL SDV 25 MG IVP (08:50)
--- NOTE | 2020-10-23 09:01 | P.PN_ITS ---
Subjective Subjective: Interval history: The patient says he has passed flatus twice. He denies abdominal pain. He wants to stay in the hospital until his planned surgery on Saturday, or possibly earlier if it works out with Dr. Romero' schedule. He is okay with us clamping the NG tube but he would like to leave it in for now. Vitals/I&O/Wt Last Vital Signs Temp 98.8 F 10/23/20 04:00 Pulse 74 10/23/20 08:51 Resp 18 10/23/20 08:51 BP 101/59 10/23/20 04:00 Pulse Ox 99 10/23/20 08:51 10/22/20 10/23/20 10/23/20 22:59 06:59 14:59 Intake Total 956.25 / 1986.25 1000 / 1986.25 Output Total 750 / 1050 300 / 1050 Balance 206.25 / 936.25 700 / 936.25 Weight last 48 hrs Weight 140 lb Physical Exam Narrative: EXAM NARRATIVE: Abdomen is soft and nontender. Data : 10/23/20 05:30 10/23/20 05:30 A&P Assessment and plan (1) Recurrent intestinal obstruction: The patient is passing flatus. He wants to leave the NG tube in because he does not want to have it reinserted, but I am going to clamp it for now and see how he does. Of note, the patient has been off of his Plavix. He is currently on Lovenox but I will leave the discontinuation timing of this at the Dr. Romero. Status: Acute (2) Small bowel mass: This is suspected on multiple CAT scans, dating back some time. Status: Acute Attestations Medical Necessity Statement*: See admitting service's notation. Coding Level of Care Code Acute Satellite Specialist for [facility] Tank Diagnoses Recurrent intestinal obstruction K56.609 Small bowel mass K63.89
[2020-10-23] MEDS: levothyroxine 25 mcg Tablet PO (12:54)
--- NOTE | 2020-10-23 15:25 | PM.PN ---
Subjective Subjective: Interval history: passing flatus, no BM yet, NGT left in place for now, clamped Medications: Reviewed: Yes Vitals/I&O/Wt Last Vital Signs Temp 98.7 F 10/23/20 12:00 Pulse 71 10/23/20 12:00 Resp 16 10/23/20 12:00 BP 124/69 10/23/20 12:00 Pulse Ox 99 10/23/20 12:00 10/23/20 10/23/20 10/23/20 06:59 14:59 22:59 Intake Total 1000 / 1986.25 Output Total 300 / 1050 150 / 150 Balance 700 / 936.25 -150 / -150 Weight last 48 hrs Weight 63.503 kg Physical Exam Narrative: EXAM NARRATIVE: GEN: Awake, alert and oriented, no acute distress CVS: S1S2 N RS: CTA B/L Abd: Soft, distended , bowel sounds + SENIOR CONTROLLER: no focal neuro deficits Data : 10/23/20 05:30 10/23/20 05:30 A&P Additional A&P Information 85-year-old male with past medical history of CLL, COPD, AAA, atrial fibrillation who presents with vomiting. CT is consistent with small bowel obstruction. Transition point is in the right lower quadrant. Associated thickening in the wall of the intestine is described concerning for possible tumor. Small bowel obstruction. N.p.o., NG tube, IV fluids. Continue monitoring and replacing electrolytes. Surgery consult with Dr. Lorri vallecillovciated Patient has had multiple admissions with the same issue WIll likely consult Dr. Brown on Saturday to move up scheduled surgery if possible Currently passing flatus today, NGT clamped CLL. Continue monitoring. no current signs of sepsis or thrombosis COPD. No evidence of exacerbation at this time. Continue home medications. History of atrial fibrillation. Stable. Rate controlled. Hypoglycemia : change fluids to d5NS @ 75 cc/hr History of peptic ulcer disease. continue famotidine IV for GI prophylaxis. DVT prophylaxis. Heparin. CODE STATUS. Patient wants to be full code. Attestations Medical Necessity Statement*: SBO, awaiting return of bowel function, possible surgery on current admission Coding Level of Care Code Acute Staffing Analyst for [facility]
[2020-10-23 15:41] LABS: Glucose Point of Care 69 mg/dL (70-110)
[2020-10-23] MEDS: dextrose 5%-sod chloride 0.9% 1,000 ML 75 ML IV (16:22)
[2020-10-23] MEDS: dextrose 50% syringe 50 mL IVP (16:35)
[2020-10-23] MEDS: SOTALOL 80 MG TABLET 1 EACH PO (18:42)
[2020-10-23] MEDS: TRAMadol 50 mg Tablet PO (18:42)
--- NOTE | 2020-10-23 23:23 | PC.NURSE ---
pt sneezed and NG tube came out, will evaluate and cummunicate with doctor as to if he wants another one or not.
[2020-10-24] VITALS (10 sets, daily range): BP systolic 110–160; BP diastolic 60–76; PULSE 62–117; RESP 16–18; TEMP 36.4–37.2; O2SAT 95–100
[2020-10-24] MEDS: famotidine 20 mg/2 mL INJ IVP ×2 (02:07→13:33)
[2020-10-24] MEDS: zolpidem 5 mg Tablet PO (02:24)
[2020-10-24] MEDS: enoxaparin 40 mg/0.4 mL Syringe SUBCUT (02:24)
--- NOTE | 2020-10-24 05:04 | PC.NURSE ---
Upon rounding in patient's room at 2330 this nurse found pt had home medications at the bedside. Medications found were Tramadol 50 mg and Magnesium 400 mg. This nurse informed the PT that home medications would have to be locked up in the pyxis with his name on it and returned to him at time of discharge. The patient responded by saying, well no other nurse has had a problem with me having my meds in my room before this, Nurse responded I am sorry sir but it is hospital policy and to ensure patient safety, you have your tramadol ordered on the AUG and I can give it to you for pain as ordered by the doctor, so you wont go without it we will continue to give to you, I just cant leave this in your room Pt responded well your gonna have a hard time getting these meds from me the patient then laughed out loud and said im just kiddin' you, you can take them, it's not a problem. This nurse completed the patient assessment and patient was pleasant and cooperative. Later around 0200 Pt complained to Charge Nurse NOE Smith that his needs were not being met and he felt his nurse was being rude in taking his medication. Pt stated he felt he was being stolen from. This Nurse apologized to PT for any miscommunication and this nurse and Charge nurse Sarah discussed the pt's complaints and this nurse followed up with each complaint to try to satisfy the pt. Tramadol was counted with Charge nurse Sarah, 26 Tramadol 50 mg were counted, The pill bottle was taped with tamper tape and placed in a plastic bag and the bag was tamper taped and returned to pt's bedside. The pt was upset he was not getting his tiotropium inhaler, nurse called pharmacy and discussed with pt that the pharmacy does not have the same home medication he takes but that a substitution of spiriva is available and nurse offered to call the doctor and request an order or pt may have a family member bring his own inhaler from home to be administered here. Pt stated im going home tomorrow so just forget it PT complained he was getting croupier the longer he stayed here, This nurse and RT Carter discussed with PT the benefits of an incentive spirometer and explained how to use it. pt stated i dont think this will help me PT requested medication to help him fall sleep, Nurse notified night time hospitalist Dr. Carrnaza and got an order for Ambien 5 mg PO one time dose. Pt removed his own NG tube and stated it was by accident, Pt said he did not want another NG placed this rn shift mgr he just wanted to sleep, PT denied any abdominal pain or nausea, PT reported he was passing gas, Nurse assessment was that PT had active bowel sounds and no visible abdominal distention, Nurse notified Dr. Carranza and Dr. Carranza response was to leave NG out for the night.
[2020-10-24 05:39] LABS: Basophils # 0.1 10^3/uL (0.0-0.1); Basophils % 0.1 %; Eosinophils # 0.1 10^3/uL (0.0-0.8); Eosinophils % 0.2 %; Hematocrit 29.2 % (42.0-52.0); Hemoglobin 8.7 g/dL (11.7-16.6); Lymphocytes # 45.3 10^3/uL (0.8-4.8); Lymphocytes % 91.2 %; Mean Corpuscular HGB Conc 29.8 g/dL (30.0-36.0); Mean Corpuscular Hemoglobin 25.4 pg (28.0-34.0); Mean Corpuscular Volume 85.4 fL (80-94); Mean Platelet Volume 11.3 fL (7.4-10.4); Monocytes # 1.6 10^3/uL (0.2-0.9); Monocytes % 3.1 %; Neutrophils # 2.62 10^3/uL (1.8-7.7); Neutrophils % 5.3 %; Nucleated Red Blood Cells % 0 %; Platelet Count 122 10^3/cmm (130-400); Red Blood Count 3.42 10^6/uL (4.1-5.3); Red Cell Distribution Width 17.6 % (12.1-15.1)
[2020-10-24 06:01] LABS: Alanine Aminotransferase < 5 U/L (0-41); Alkaline Phosphatase 84 IU/L (40-130); Anion Gap 11.6 (5-19); Aspartate Amino Transferase 13 U/L (0-40); Blood Urea Nitrogen 19 mg/dL (8-23); Calcium 6.7 mg/dL (8.5-10.5); Carbon Dioxide 28 mmol/L (22-29); Chloride 102 mmol/L (98-107); Globulin 1.4 g/dL (1.3-4.6); Glucose 81 mg/dL (65-115); Osmolality Calculated 287 mOsm/kg (285-295); Potassium 3.6 mmol/L (3.5-5.1); Sodium 138 mmol/L (136-145); Total Bilirubin 0.5 mg/dL (0.15-1.2); Total Protein 4.4 g/dL (6.6-8.7)
[2020-10-24 06:10] LABS: White Blood Count 49.7 10^3/uL (4.0-10.0)
[2020-10-24] MEDS: TRAMadol 50 mg Tablet PO ×2 (06:13→14:18)
[2020-10-24] MEDS: dextrose 5%-sod chloride 0.9% 1,000 ML 75 ML IV (06:14)
--- NOTE | 2020-10-24 07:56 | PM.PN ---
Subjective Subjective: Interval history: Patient seems to be doing well overall and passing gas, NG was pulled out yesterday. Medications: Reviewed: Yes Vitals/I&O/Wt Last Vital Signs Temp 98.2 F 10/24/20 07:32 Pulse 62 10/24/20 07:41 Resp 17 10/24/20 07:41 BP 136/67 10/24/20 07:32 Pulse Ox 99 10/24/20 07:41 10/23/20 10/24/20 10/24/20 22:59 06:59 14:59 Intake Total 1000.00 / 1000.00 1060 / 2060.00 0 / 0 Output Total 200 / 350 400 / 750 Balance 800.00 / 650.00 660 / 1310.00 0 / 0 Physical Exam Narrative: EXAM NARRATIVE: Patient is conscious alert oriented X3 BMI 21.3 Head and neck examination PERRLA no masses no cervical lymphadenopathy no jaundice Cardiac examination audible S1-S2 no murmurs no gallops no arrhythmias Chest is clear bilateral,abscence of Rhonchi or wheezes,no surgical emphysema Abdomen nontender nondistended soft no organomegaly guarding or rigidity/no signs of peritonitis Extremities no cyanosis no clubbing no edema Data : 10/24/20 04:48 10/24/20 04:48 A&P Assessment and plan (1) Recurrent intestinal obstruction: I appreciate Dr. Blackmon's input, will start the patient slowly on clear liquid diet and start him on GoLYTELY to clean the colon as the patient is scheduled already for surgery tomorrow, in the form of diagnostic laparoscopy possible laparotomy with possible bowel resection and possible colostomy. I went through the surgery details again with the patient and he agrees to proceed accordingly Will Coordinate further care with hospitalist service NPO aftermidnight Assurance and education All questions have been answered and all concerns have been addressed to patient's satisfaction. Status: Acute (2) Small bowel mass: After history taking, physical examination and reviewing the chart and images of the CT scan of the abdomen pelvis with my personal interpretation that did show ; Abnormalities consistent with a small bowel obstruction. Transition point in the right lower quadrant with an area of small bowel wall thickening. Suspect an underlying mass. Adjacent soft tissue nodularity. Case previously discussed with Dr. Conte and will plan to proceed with surgery tomorrow as scheduled Continue pharmacologic DVT and or blood thinners will be discontinued Informed consent per chart Status: Acute Attestations Medical Necessity Statement*: Ongoing inpatient hospitalization for medical optimization and surgical intervention Time Spent in Patient Care: (>than 50% of time spent in counselling and/or direct pt care on unit). Coding Level of Care Code Acute Drafter Electromechanical for Chg Fwd Diagnoses Recurrent intestinal obstruction K56.609 Small bowel mass K63.89
--- NOTE | 2020-10-24 08:07 | PC.NURSE ---
Patient removed nasogastric tube overnight and wanted a break. Dr. Cerna rounded this am and okayed NG tube remain out. Patient will undergo bowel prep and NPO midnight diet to prepare for surgery tomorrow.
[2020-10-24] MEDS: peg /e-lyte soln 4,000 mL Btl 4000 ML PO (08:51)
[2020-10-24] MEDS: hydrocortisone 100 mg/2 mL SDV 25 MG IVP (08:52)
[2020-10-24] MEDS: SOTALOL 80 MG TABLET 1 EACH PO ×2 (08:52→17:35)
--- NOTE | 2020-10-24 13:12 | P.PN_ITS ---
Subjective Subjective: Interval history: No acute events overnight, nausea has improved, NG tube removed, currently taking GoLYTELY, scheduled for colonoscopy in the morning. Medications: Reviewed: Yes Vitals/I&O/Wt Last Vital Signs Temp 98.7 F 10/24/20 12:00 Pulse 90 10/24/20 12:00 Resp 17 10/24/20 12:00 BP 134/69 10/24/20 12:00 Pulse Ox 100 10/24/20 12:00 10/23/20 10/24/20 10/24/20 22:59 06:59 14:59 Intake Total 1000.00 / 1000.00 1060 / 2060.00 480 / 480 Output Total 200 / 350 400 / 750 Balance 800.00 / 650.00 660 / 1310.00 480 / 480 Physical Exam Const: COMMON NORMALS: patient oriented x3 HENMT: COMMON NORMALS: normocephalic and atraumatic HEAD & SCALP: normocephalic and atraumatic Chest: CHEST: Yes Symmetrical chest wall rise Resp: COMMON NORMALS: normal respiratory effort and clear to auscultation bilaterally EFFORT & INSPECTION: Yes symmetric chest movement AUSCULTATION: clear to auscultation bilaterally Cardio: COMMON NORMALS: regular rate, regular rhythm, S1 normal heart sound present, S2 normal heart sound present, No gallops present (Cardio), No murmurs present (Cardio), No rub (Cardio) and Peripheral pulses 2+ throughout RATE: regular rate RHYTHM: regular rhythm HEART SOUNDS: S1 normal heart sound present and S2 normal heart sound present PERIPHERAL PULSES: Peripheral pulses 2+ throughout GI: COMMON NORMALS: Normal to inspection, nondistended, normoactive bowel sounds present, Soft to palpation, non-tender, No hepatosplenomegaly present and no masses AUSCULTATION: Yes normoactive bowel sounds PALPATION: Yes Soft to palpation and Yes No hepatosplenomegaly present RECTAL EXAM: Yes deferred Extremity: COMMON NORMALS: no clubbing, cyanosis or edema and no pedal edema Neuro: COMMON NORMALS: patient oriented x3 Data : 10/24/20 04:48 10/24/20 04:48 A&P Additional A&P Information 85-year-old male with past medical history of CLL, COPD, AAA, atrial fibrillation who presents with vomiting. CT is consistent with small bowel obstruction. Transition point is in the right lower quadrant. Associated thickening in the wall of the intestine is described concerning for possible tumor. Recurrent small bowel obstruction. Initially n.p.o., NG tube, IV fluids. Continue monitoring and replacing electrolytes. Surgery consult with Dr. Howard appreciated Patient has had multiple admissions with the same issue S/p, NGT removal, as the patient is passing gas, currently on clear liquid diets and GoLYTELY. Scheduled for diagnostic laparoscopy possible laparotomy with possible bowel resection and possible colostomy. CLL. Continue monitoring. no current signs of sepsis or thrombosis COPD. No evidence of exacerbation at this time. Continue home medications. History of atrial fibrillation. Stable. Rate controlled. Hypoglycemia : change fluids to d5NS @ 75 cc/hr History of peptic ulcer disease. continue famotidine IV for GI prophylaxis. DVT prophylaxis. Heparin. CODE STATUS. Patient wants to be full code. Attestations 2 Medical Necessity Statement*: Patient needs to be in hospital for management of small bowel obstruction Coding Level of Care Code Acute Dispatcher Relay for Chg Fwd Exam Detailed
[2020-10-24] MEDS: levothyroxine 25 mcg Tablet PO (13:33)
[2020-10-24] MEDS: predniSONE 5 mg Tablet 2.5 MG PO (13:33)
--- NOTE | 2020-10-24 14:21 | PC.NURSE ---
Patient stated he was not in any pain when asked after pulling the PRN Tramadol that he requested. He requested to take it anyway stating he would be hurting if he didn't take his three a day.
--- NOTE | 2020-10-24 18:19 | PC.RESP ---
SMOKING CESSATION AND PULMONARY REHAB INFORMATION SENT TO PATIENT.
--- NOTE | 2020-10-24 20:31 | PC.NURSE ---
PATIENT ASKED TO HAVE IV UNHOOKED DUE TO HAVING TO GO BACK AND FORTH TO THE BATHROOM OFTEN, STATING I JUST NEED A BREAK FROM PULLING IT WITH ME BACK AND FORTH. THIS NURSE EDUCATED PATIENT ON IMPORTANCE OF FLUIDS ESPECIALLY AFTER MIDNIGHT WHEN PATIENT WILL BE NPO. PATIENT AGREED TO HAVE FLUIDS RESTARTED AT MIDNIGHT WHEN GOING NPO.
[2020-10-25] VITALS (14 sets, daily range): BP systolic 125–168; BP diastolic 58–80; PULSE 59–74; RESP 15–22; TEMP 36.1–37.3; O2SAT 93–100
[2020-10-25] MEDS: TRAMadol 50 mg Tablet PO (00:06)
[2020-10-25] MEDS: dextrose 5%-sod chloride 0.9% 1,000 ML 75 ML IV (00:07)
[2020-10-25] MEDS: enoxaparin 40 mg/0.4 mL Syringe SUBCUT (02:15)
[2020-10-25] MEDS: famotidine 20 mg/2 mL INJ IVP (02:54)
--- NOTE | 2020-10-25 12:19 | PC.NURSE ---
patient taken to or via gurney
[2020-10-25] MEDS: acetaminophen 1,000 MG/100 ML PIGGYBACK 400 MG IV ×2 (12:30→22:00)
[2020-10-25] MEDS: sodium chloride 0.9% 1,000 ML 30 ML IV (12:30)
[2020-10-25] MEDS: clindamycin 600 MG/50 ML PREMIX 100 MG IV ×2 (13:57→20:03)
--- NOTE | 2020-10-25 14:14 | PC.SOCIAL ---
IMM Updated Updated pt on Pg 2 IMM. No questions voiced. Provided pt and family a copy. Signed, dated, & timed copy in chart.
[2020-10-25] MEDS: albumin 12.5 GM/250 ML VIAL IV (15:00)
--- NOTE | 2020-10-25 16:06 | PC.NURSE ---
1415 spoke with patient family via phone and gave them an update. justo 1601 spoke with family again and gave update. informed them patient will go to ICU overnight for closer observation. justo
--- NOTE | 2020-10-25 17:47 | PM.PN ---
Subjective Subjective: Interval history: No acute events overnight, patient is due for diagnostic laparoscopy possible laparotomy with possible bowel resection and possible colostomy. Medications: Reviewed: Yes Vitals/I&O/Wt Last Vital Signs Temp 97.9 F 10/25/20 17:24 Pulse 64 10/25/20 17:24 Resp 16 10/25/20 17:24 BP 168/74 10/25/20 17:24 Pulse Ox 100 10/25/20 17:24 10/25/20 10/25/20 10/25/20 06:59 14:59 22:59 Intake Total 150 / 150 1250 / 1400 Balance 150 / 150 1250 / 1400 Physical Exam Const: COMMON NORMALS: patient oriented x3 HENMT: COMMON NORMALS: normocephalic and atraumatic HEAD & SCALP: normocephalic and atraumatic Chest: CHEST: Yes Symmetrical chest wall rise Resp: COMMON NORMALS: normal respiratory effort and clear to auscultation bilaterally EFFORT & INSPECTION: Yes symmetric chest movement AUSCULTATION: clear to auscultation bilaterally Cardio: COMMON NORMALS: regular rate, regular rhythm, S1 normal heart sound present, S2 normal heart sound present, No gallops present (Cardio), No murmurs present (Cardio), No rub (Cardio) and Peripheral pulses 2+ throughout RATE: regular rate RHYTHM: regular rhythm HEART SOUNDS: S1 normal heart sound present and S2 normal heart sound present PERIPHERAL PULSES: Peripheral pulses 2+ throughout GI: COMMON NORMALS: Normal to inspection, nondistended, normoactive bowel sounds present, Soft to palpation, non-tender, No hepatosplenomegaly present and no masses AUSCULTATION: Yes normoactive bowel sounds PALPATION: Yes Soft to palpation and Yes No hepatosplenomegaly present RECTAL EXAM: Yes deferred Extremity: COMMON NORMALS: no clubbing, cyanosis or edema and no pedal edema Neuro: COMMON NORMALS: patient oriented x3 Urinary Catheter Management^: Melo: Cath Placed During This Visit: yes, but has since been removed by the nurse Urinary Catheter Date of Insertion: 10/25/20 Urinary Catheter Time of Insertion: 14:00 Date Urinary Catheter Removed: 10/25/20 Time Urinary Catheter Discontinued: 16:36 Data : 10/24/20 04:48 10/24/20 04:48 A&P Additional A&P Information 85-year-old male with past medical history of CLL, COPD, AAA, atrial fibrillation who presents with vomiting. CT is consistent with small bowel obstruction. Transition point is in the right lower quadrant. Associated thickening in the wall of the intestine is described concerning for possible tumor. Recurrent small bowel obstruction. Initially n.p.o., NG tube, IV fluids. Continue monitoring and replacing electrolytes. Surgery consult with Dr. Howard appreciated Patient has had multiple admissions with the same issue S/p, NGT removal, as the patient is passing gas, currently on clear liquid diets and GoLYTELY. Scheduled for diagnostic laparoscopy possible laparotomy with possible bowel resection and possible colostomy. CLL. Continue monitoring. no current signs of sepsis or thrombosis COPD. No evidence of exacerbation at this time. Continue home medications. History of atrial fibrillation. Stable currently on sotalol 80 mg p.o. twice daily. History of peptic ulcer disease. continue famotidine IV for GI prophylaxis. DVT prophylaxis. Heparin. CODE STATUS. Patient wants to be full code. Attestations Medical Necessity Statement*: Patient needs to the hospital for management of recurrent small bowel obstruction. Coding Level of Care Code Acute Clinical Trial Associate for Joseph Fu
[2020-10-25] MEDS: morphine 4 mg/mL SDV 1 mL 2 MG IVP ×2 (18:03→22:00)
--- NOTE | 2020-10-25 18:42 | PC.NURSE ---
Patient brought to unit around 1700. Surgical dressings in place with drainage noted to area. Bowel sounds active. Blood started.
--- NOTE | 2020-10-25 18:44 | PC.NURSE ---
unable to run antibiotic at this time due to limited IV access. Will start ABT after blood transfusion.
[2020-10-25] MEDS: ondansetron 2 mg/ML SDV 2 mL 4 MG IVP (18:51)
[2020-10-26] VITALS (35 sets, daily range): BP systolic 90–148; BP diastolic 49–81; PULSE 60–137; RESP 0–28; O2SAT 66–100
[2020-10-26] MEDS: morphine 4 mg/mL SDV 1 mL 2 MG IVP ×8 (00:22→19:56)
[2020-10-26] MEDS: clindamycin 600 MG/50 ML PREMIX 100 MG IV ×3 (01:42→17:18)
[2020-10-26] MEDS: famotidine 20 mg/2 mL INJ IVP ×2 (01:42→16:21)
[2020-10-26] MEDS: ondansetron 2 mg/ML SDV 2 mL 4 MG IVP (04:21)
[2020-10-26 05:45] LABS: Hematocrit 31.7 % (42.0-52.0); Hemoglobin 9.1 g/dL (11.7-16.6); Mean Corpuscular HGB Conc 28.7 g/dL (30.0-36.0); Mean Corpuscular Hemoglobin 26.1 pg (28.0-34.0); Mean Corpuscular Volume 91.1 fL (80-94); Mean Platelet Volume 9.4 fL (7.4-10.4); Monocytes # 2.1 10^3/uL (0.2-0.9); Monocytes % 2.2 %; Neutrophils # 5.31 10^3/uL (1.8-7.7); Neutrophils % 5.6 %; Nucleated Red Blood Cells % 0 %; Platelet Count 101 10^3/cmm (130-400); Red Blood Count 3.48 10^6/uL (4.1-5.3); Red Cell Distribution Width 18.1 % (12.1-15.1)
[2020-10-26 05:52] LABS: Anion Gap 12.2 (5-19); Blood Urea Nitrogen 10 mg/dL (8-23); Calcium 6.6 mg/dL (8.5-10.5); Carbon Dioxide 24 mmol/L (22-29); Chloride 104 mmol/L (98-107); Glucose 152 mg/dL (65-115); Osmolality Calculated 284 mOsm/kg (285-295); Potassium 4.2 mmol/L (3.5-5.1); Sodium 136 mmol/L (136-145)
--- NOTE | 2020-10-26 06:18 | P.PN_ITS ---
Subjective Subjective: Interval history: Patient overall seems to be feeling better and pain is under better control, did not void urine yet and NG have bilious output. Continue to have stable vital signs and transfused 1 unit of packed RBCs postoperatively Medications: Reviewed: Yes Vitals/I&O/Wt Last Vital Signs Temp 96.9 F L 10/25/20 19:50 Pulse 65 10/25/20 20:16 Resp 27 H 10/26/20 04:17 BP 165/58 10/25/20 19:50 Pulse Ox 95 10/26/20 04:17 10/25/20 10/25/20 10/26/20 14:59 22:59 06:59 Intake Total 150 / 150 1750 / 1900 1950 Balance 150 / 150 1750 / 1900 1949 Physical Exam Narrative: EXAM NARRATIVE: Patient is conscious alert oriented X3 BMI 21.3 Chest is clear bilateral Head and neck examination PERRLA no masses no cervical lymphadenopathy no jaundice Abdomen nontender except mildly at the incision sites nondistended soft no organomegaly guarding or rigidity/no signs of peritonitis. Dressing in place Urinary Catheter Management^: Melo: Cath Placed During This Visit: yes, but has since been removed by the nurse Urinary Catheter Date of Insertion: 10/25/20 Urinary Catheter Time of Insertion: 14:00 Date Urinary Catheter Removed: 10/25/20 Time Urinary Catheter Discontinued: 16:36 Data : 10/26/20 05:09 10/26/20 05:09 A&P Assessment and plan (1) Small bowel mass: Patient is a status post diagnostic laparoscopy and small bowel resections for 2 small bowel masses. With [id number] anastomoses. 10/25/2020 N.p.o. From surgical standpoint of view recommend to have NG to low intermittent wall suction Encourage ambulation Mechanical DVT prophylaxis and hold on pharmacologic DVT prophylaxis Strict I's and O's Close monitoring of H&H and vital signs Will continue to follow Assurance and education All questions have been answered and all concerns have been addressed to felix ent's satisfaction. Status: Resolved Attestations Medical Necessity Statement*: Ongoing inpatient hospitalization for medical optimization and surgical intervention Time Spent in Patient Care: (>than 50% of time spent in counselling and/or direct pt care on unit) . Coding Level of Care Code Acute Oil Burner Mechanic for Joseph Fu Diagnoses Small bowel mass K63.89
[2020-10-26 06:29] LABS: White Blood Count 95.6 10^3/uL (4.0-10.0)
[2020-10-26 06:30] LABS: Slide Review Slide Review Perform
--- NOTE | 2020-10-26 07:04 | PC.NURSE ---
Shift Summary Patient arrived to the ICU yesterday, called Dr Lewis at 1999 to get orders for tylenol and make sure his OG can be hooked up to suction, patients pain early on was hard to control but after the IV tylenol and the morphine he seemed to improve on pain and it lessened as the night progressed. Patient has not been able to void yet, so I bladder scanned him and showed he had beetween 325 and 400 in there and he refused a catheter adamantly. So I am giving his bladder more time to register that it is full and hoping he will be able to void. I informed him that if he does not void and his bladder gets full that he has to get a catheter. at 0630 I recieved a critical lab value of WBC of 95.[address] Guzman, his wbc has been high the entire admisson. He has been cooperative and pleasant all night no concerns, had about 200 out of his NG.
[2020-10-26] MEDS: acetaminophen 1,000 MG/100 ML PIGGYBACK 400 MG IV (07:53)
[2020-10-26] MEDS: hydrocortisone 100 mg/2 mL SDV 25 MG IVP (08:40)
--- NOTE | 2020-10-26 08:47 | PC.NURSE ---
0700: recd. requesting to get up to void. assisted to side of bed.
--- NOTE | 2020-10-26 08:48 | PC.NURSE ---
0730: unable to void at this time. assisted back to bed. c/o pain
--- NOTE | 2020-10-26 08:50 | PC.NURSE ---
continues to c/o of pain. explained meds that had been given.
--- NOTE | 2020-10-26 09:40 | PC.CHAP ---
Pastoral Care Encounter/Spiritual Assessment Type of Contact [] Declined homemaker companion visit [] Patient/Family/Request visit [] Outpatient visit [] Follow-up visit [] Physician referral [] Code/Alert [x] Routine visit [] Staff referral [] Actively dying [] Patient sleeping [x] Family support [] [] Out of room [] Palliative care [] [] Receiving care in room [] Pre-surgical visit [] Trauma [] Long length of stay [x] ICU visit [] Other: Relational/Emotional Strength [] Patient feels connected with others/family/visitors/staff [] Distress [] Loneliness/isolation [] Abandonment Spirituality of Patient [x] Person of Mirtha [] Attends Gnosticist of their Mirtha [] Believes in Prayer [] Reads Bible or Adventism materials [] There are Spiritual issues to be addressed Vertical Roll Operator Interventions [x] Prayer [x] Active listening [x] Non-anxious presence [x] Spiritual/emotional support [] Crisis/trauma care [] Spiritual counseling [] Bereavement support [] Provided bereavement packet [] Provided Bible/devotional materials [] Provided toy/stuffed animal, coloring book to patient or family member [] Provided Communion [] Anointing/Reading [] Salvation [x] Completed spiritual assessment [] Other: Impact on Illness or Injury [] Angry [] Fearful [] Anxious [] Often cries [] Exhaustion [] Unable to work [] Unable to attend uatsdin [] Unable to walk/stand [] Unable to read [] Unable to drive [] Unable to eat/drink [] Unable to sleep [] Unable to be with family [] Patient intubated [] Other: Summary patient seems very weak from surgery.. family member present.. Time spent with patient 10 min
--- NOTE | 2020-10-26 11:53 | PM.PN ---
Subjective Subjective: Interval history: Patient was seen and examined this morning, continues to remain afebrile, WBC has trended up to 95,000 likely reactive. He is also on hydrocortisone. He was also complaining of shortness of breath, have started him on dual nebs, continued to saturate well on 2 L oxygen, pain is better controlled So far had no urine output, NG have bilious output. Medications: Reviewed: Yes Vitals/I&O/Wt Last Vital Signs Temp 96.9 F L 10/25/20 19:50 Pulse 69 10/26/20 08:26 Resp 16 10/26/20 08:26 BP 165/58 10/25/20 19:50 Pulse Ox 94 10/26/20 08:26 10/25/20 10/26/20 10/26/20 22:59 06:59 14:59 Intake Total 1750 / 1900 50 / 1950 100 / 100 Output Total 200 / 200 Balance 1750 / 1900 -150 / 1750 100 / 100 Physical Exam Const: COMMON NORMALS: patient oriented x3 HENMT: COMMON NORMALS: normocephalic and atraumatic HEAD & SCALP: normocephalic and atraumatic Chest: CHEST: Yes Symmetrical chest wall rise Resp: COMMON NORMALS: normal respiratory effort and clear to auscultation bilaterally EFFORT & INSPECTION: Yes symmetric chest movement AUSCULTATION: clear to auscultation bilaterally Cardio: COMMON NORMALS: regular rate, regular rhythm, S1 normal heart sound present, S2 normal heart sound present, No gallops present (Cardio), No murmurs present (Cardio), No rub (Cardio) and Peripheral pulses 2+ throughout RATE: regular rate RHYTHM: regular rhythm HEART SOUNDS: S1 normal heart sound present and S2 normal heart sound present PERIPHERAL PULSES: Peripheral pulses 2+ throughout GI: COMMON NORMALS: Normal to inspection, nondistended, normoactive bowel sounds present, Soft to palpation, non-tender, No hepatosplenomegaly present and no masses AUSCULTATION: Yes normoactive bowel sounds PALPATION: Yes Soft to palpation and Yes No hepatosplenomegaly present RECTAL EXAM: Yes deferred Extremity: COMMON NORMALS: no clubbing, cyanosis or edema and no pedal edema Neuro: COMMON NORMALS: patient oriented x3 Urinary Catheter Management^: Melo: Cath Placed During This Visit: yes, but has since been removed by the nurse Urinary Catheter Date of Insertion: 10/25/20 Urinary Catheter Time of Insertion: 14:00 Date Urinary Catheter Removed: 10/25/20 Time Urinary Catheter Discontinued: 16:36 Data : 10/26/20 05:09 10/26/20 05:09 A&P Additional A&P Information 85-year-old male with past medical history of CLL, COPD, AAA, atrial fibrillation who presents with vomiting. CT is consistent with small bowel obstruction. Transition point is in the right lower quadrant. Associated thickening in the wall of the intestine is described concerning for possible tumor. Recurrent small bowel obstruction. Initially n.p.o., NG tube, IV fluids. Continue monitoring and replacing electrolytes. Surgery consult with Dr. Howard appreciated Patient has had multiple admissions with the same issue S/P diagnostic laparoscopy and small bowel resection for 2 small bowel masses with [id number] anastomosis. CLL. Continue monitoring. no current signs of sepsis or thrombosis COPD. No evidence of exacerbation at this time. Continue home medications. History of atrial fibrillation. Stable currently on sotalol 80 mg p.o. twice daily. History of peptic ulcer disease. continue famotidine IV for GI prophylaxis. DVT prophylaxis. Heparin. CODE STATUS. Patient wants to be full code. Attestations Medical Necessity Statement*: Patient needs to be in the hospital for management s/p small bowel resection for 2 small bowel masses with clvr-[id number] anastomosis. Coding Level of Care Code Acute Lighting Fixtures Decorator for Joseph Fu
--- NOTE | 2020-10-26 14:06 | PC.NURSE ---
SALINE USED FROM OR INSTEAD OF NEW BAG.
[2020-10-26] MEDS: ipratropium-albuterol 3 mL Neb INHALATION ×2 (14:29→20:01)
[2020-10-26] MEDS: acetaminophen 1,000 MG/100 ML PIGGYBACK 150 MG IV (16:20)
[2020-10-26] MEDS: sodium chloride 0.9% 1,000 ML 100 ML IV (19:56)
[2020-10-27] VITALS (41 sets, daily range): BP systolic 94–125; BP diastolic 44–79; PULSE 93–141; RESP 0–27; TEMP 36.8–37.1; O2SAT 88–100
[2020-10-27] MEDS: famotidine 20 mg/2 mL INJ IVP ×2 (01:26→13:45)
[2020-10-27] MEDS: clindamycin 600 MG/50 ML PREMIX 100 MG IV ×3 (01:26→16:30)
[2020-10-27] MEDS: morphine 4 mg/mL SDV 1 mL 2 MG IVP ×8 (01:32→22:17)
[2020-10-27] MEDS: ipratropium-albuterol 3 mL Neb INHALATION ×3 (03:34→20:04)
[2020-10-27 05:35] LABS: Hematocrit 25.8 % (42.0-52.0); Hemoglobin 7.7 g/dL (11.7-16.6); Lymphocytes # 67.5 10^3/uL (0.8-4.8); Lymphocytes % 88.4 %; Mean Corpuscular HGB Conc 29.8 g/dL (30.0-36.0); Mean Corpuscular Hemoglobin 26.4 pg (28.0-34.0); Mean Corpuscular Volume 88.4 fL (80-94); Mean Platelet Volume 10.1 fL (7.4-10.4); Monocytes # 1.8 10^3/uL (0.2-0.9); Monocytes % 2.4 %; Neutrophils # 6.79 10^3/uL (1.8-7.7); Neutrophils % 8.9 %; Nucleated Red Blood Cells % 0 %; Platelet Count 88 10^3/cmm (130-400); Red Blood Count 2.92 10^6/uL (4.1-5.3); Red Cell Distribution Width 18.9 % (12.1-15.1)
--- NOTE | 2020-10-27 06:00 | XR_ITS ---
WS: [id number] Exam: XR chest 1V portable [id number] Date/Time of Exam: 10/27/2020 4:51 AM Reason For Exam: SOB Comparison 10/22/2020. Infiltrate and small pleural effusion has developed in the right base since previous study. Left lung is clear. No pneumothorax. Heart size is within normal limits for technique. An enteric tube is note d. The side-port of the tube is slightly below the GE junction. The tube should be advanced another 3 to 4 cm for optimal position. The mediastinum and osseous thorax are unremarkable. XR/XR chest 1V portable [id number] IMPRESSION: 1. Development of a infiltrate and small effusion in the right lung base since previous study. 2. Side-port of the NG tube slightly below the GE junction. The tube should be advanced another 3 to 4 cm.
[2020-10-27 06:07] LABS: Anion Gap 9.9 (5-19); Blood Urea Nitrogen 16 mg/dL (8-23); Calcium 6.5 mg/dL (8.5-10.5); Carbon Dioxide 26 mmol/L (22-29); Chloride 105 mmol/L (98-107); Glucose 107 mg/dL (65-115); Osmolality Calculated 286 mOsm/kg (285-295); Potassium 3.9 mmol/L (3.5-5.1); Sodium 137 mmol/L (136-145)
[2020-10-27 06:22] LABS: Slide Review Slide Review Perform; White Blood Count 76.4 10^3/uL (4.0-10.0)
[2020-10-27] MEDS: hydrocortisone 100 mg/2 mL SDV 25 MG IVP (08:49)
[2020-10-27] MEDS: FUROsemide 10 mg/mL SDV 4mL 40 MG IVP (08:50)
[2020-10-27] MEDS: tamsulosin 0.4 mg Capsule PO (08:50)
--- NOTE | 2020-10-27 09:17 | PC.CHAP ---
Pastoral Care Encounter/Spiritual Assessment Type of Contact [] Declined surgical asst visit [] Patient/Family/Request visit [] Outpatient visit [] Follow-up visit [] Physician referral [] Code/Alert [x] Routine visit [] Staff referral [] Actively dying [x] Patient sleeping [] Family support [] [] Out of room [] Palliative care [] [] Receiving care in room [] Pre-surgical visit [] Trauma [] Long length of stay [x] ICU visit [x] Other: patient resting very soundly... Relational/Emotional Strength [] Patient feels connected with others/family/visitors/staff [] Distress [] Loneliness/isolation [] Abandonment Spirituality of Patient [] Person of Mirtha [] Attends Uatsdin of their Mirtha [] Believes in Prayer [] Reads Bible or Jewish materials [] There are Spiritual issues to be addressed Adjuster And Inspector Interventions [x] Prayer [] Active listening [] Non-anxious presence [] Spiritual/emotional support [] Crisis/trauma care [] Spiritual counseling [] Bereavement support [] Provided bereavement packet [] Provided Bible/devotional materials [] Provided toy/stuffed animal, coloring book to patient or family member [] Provided Communion [] Anointing/Draper [] Salvation [x] Completed spiritual assessment [] Other: Impact on Illness or Injury [] Angry [] Fearful [] Anxious [] Often cries [] Exhaustion [] Unable to work [] Unable to attend yarsanism [] Unable to walk/stand [] Unable to read [] Unable to drive [] Unable to eat/drink [] Unable to sleep [] Unable to be with family [] Patient intubated [] Other: Summary Time spent with patient
--- NOTE | 2020-10-27 12:21 | PC.SOCIAL ---
IMM Updated Updated pt & daughter on Pg 2 IMM. No questions voiced. Provided pt a copy. Initialed, dated, & timed copy in chart.
[2020-10-27] MEDS: levothyroxine 25 mcg Tablet PO (13:45)
[2020-10-27] MEDS: predniSONE 5 mg Tablet 2.5 MG PO (13:45)
[2020-10-27] MEDS: sodium chloride 0.9% 1,000 ML 50 ML IV (16:37)
--- NOTE | 2020-10-27 17:27 | P.PN_ITS ---
Subjective Subjective: Interval history: Patient was seen and examined this morning, continues to remain afebrile, WBC count is trending down. Patient is currently passing gas, NG tube has been clamped. Hemoglobin has also trended down to 7.7 , platelet count is also down to 88 T. Patient currently is making good urine, got 1 dose of Lasix IV today. A.m. x-ray chest: Development of a infiltrate and small effusion in the right lung base. Patient denies any cough, continue to saturate well on room air with minimal supplemental oxygen required. His other vitals and labs have been reviewed. Medications: Reviewed: Yes Vitals/I&O/Wt Last Vital Signs Temp 98.6 F 10/27/20 16:00 Pulse 112 H 10/27/20 16:00 Resp 18 10/27/20 16:30 BP 113/57 10/27/20 16:00 Pulse Ox 91 10/27/20 16:00 10/27/20 10/27/20 10/27/20 06:59 14:59 22:59 Intake Total 50 / 250 1050 / 1050 Output Total 950 / 1005 900 / 900 Balance -900 / -755 1050 / 1050 -900 / 150 Physical Exam Const: COMMON NORMALS: patient oriented x3 HENMT: COMMON NORMALS: normocephalic and atraumatic HEAD & SCALP: normocephalic and atraumatic Chest: CHEST: Yes Symmetrical chest wall rise Resp: COMMON NORMALS: normal respiratory effort and clear to auscultation bilaterally EFFORT & INSPECTION: Yes symmetric chest movement AUSCULTATION: clear to auscultation bilaterally Cardio: COMMON NORMALS: regular rate, regular rhythm, S1 normal heart sound present, S2 normal heart sound present, No gallops present (Cardio), No murmurs present (Cardio), No rub (Cardio) and Peripheral pulses 2+ throughout RATE: regular rate RHYTHM: regular rhythm HEART SOUNDS: S1 normal heart sound present and S2 normal heart sound present PERIPHERAL PULSES: Peripheral pulses 2+ throughout GI: COMMON NORMALS: Normal to inspection, nondistended, normoactive bowel sounds present, Soft to palpation, non-tender, No hepatosplenomegaly present and no masses AUSCULTATION: Yes normoactive bowel sounds PALPATION: Yes Soft to palpation and Yes No hepatosplenomegaly present RECTAL EXAM: Yes deferred Extremity: COMMON NORMALS: no clubbing, cyanosis or edema and no pedal edema Neuro: COMMON NORMALS: patient oriented x3 Urinary Catheter Management^: Melo: Cath Placed During This Visit: yes, but has since been removed by the nurse Reason for Continuing Indwelling Catheter: Acute Urinary Retention or Obstruction Urinary Catheter Date of Insertion: 10/26/20 Urinary Catheter Time of Insertion: 20:15 Date Urinary Catheter Removed: 10/25/20 Time Urinary Catheter Discontinued: 16:36 Data : 10/27/20 05:20 10/27/20 05:20 A&P Additional A&P Information 85-year-old male with past medical history of CLL, COPD, AAA, atrial fibrillation who presents with vomiting. CT is consistent with small bowel obstruction. Transition point is in the right lower quadrant. Associated thickening in the wall of the intestine is described concerning for possible tumor. Recurrent small bowel obstruction. Initially n.p.o., NG tube, IV fluids. Continue monitoring and replacing electrolytes. Surgery consult with Dr. Aldair negron appreciated Patient has had multiple admissions with the same issue S/P diagnostic laparoscopy and small bowel resection for 2 small bowel masses with [id number]-pq-cvcy anastomosis. CLL. Continue monitoring. no current signs of sepsis or thrombosis COPD. No evidence of exacerbation at this time. Continue home medications. Normocytic anemia: We will order autoimmune hemolytic work-up given that he is a CLL patient, and at risk for development of AIHA. Transfuse to maintain hemoglobin greater than 7. Thrombocytopenia: Will monitor for immune thrombocytopenia (ITP), as it can complicate up to 25% of chronic lymphocytic leukemia (CLL). Currently deny any bleeding, no petechiae. Less likely HIT. Monitor platelet count. Atrial fibrillation with RVR .Currently sotalol 80 mg p.o. twice daily on hold as the patient is n.p.o. metoprolol tartrate 5 mg every 4 hours as needed for heart rate greater than 100. History of peptic ulcer disease. continue famotidine IV for GI prophylaxis. DVT prophylaxis. On Lovenox CODE STATUS. Patient wants to be full code. Attestations Medical Necessity Statement*: Patient needs to be in hospital for management of small bowel resection. Coding Level of Care Code Acute Shellfish Shucker for Chg Fwd Exam Detailed
[2020-10-27] MEDS: metoprolol tartrate 1 mg/1 mL SDV 5 mL 5 MG IV (22:18)
[2020-10-28] VITALS (41 sets, daily range): BP systolic 89–121; BP diastolic 47–88; PULSE 84–146; RESP 15–27; TEMP 36.7–37.2; O2SAT 87–98
[2020-10-28] MEDS: famotidine 20 mg/2 mL INJ IVP ×2 (01:13→13:47)
[2020-10-28] MEDS: morphine 4 mg/mL SDV 1 mL 2 MG IVP ×6 (01:13→21:02)
[2020-10-28] MEDS: clindamycin 600 MG/50 ML PREMIX 100 MG IV (01:14)
[2020-10-28 04:47] LABS: Basophils # 0.1 10^3/uL (0.0-0.1); Basophils % 0.2 %; Hematocrit 25.7 % (42.0-52.0); Hemoglobin 7.3 g/dL (11.7-16.6); Lymphocytes # 47.8 10^3/uL (0.8-4.8); Lymphocytes % 91.3 %; Mean Corpuscular HGB Conc 28.4 g/dL (30.0-36.0); Mean Corpuscular Hemoglobin 26.4 pg (28.0-34.0); Mean Corpuscular Volume 92.8 fL (80-94); Mean Platelet Volume 10.5 fL (7.4-10.4); Monocytes # 0.4 10^3/uL (0.2-0.9); Monocytes % 0.8 %; Neutrophils # 3.79 10^3/uL (1.8-7.7); Neutrophils % 7.3 %; Nucleated Red Blood Cells % 0 %; Platelet Count 73 10^3/cmm (130-400); Red Blood Count 2.77 10^6/uL (4.1-5.3); Red Cell Distribution Width 19.4 % (12.1-15.1)
[2020-10-28] MEDS: metoprolol tartrate 1 mg/1 mL SDV 5 mL 5 MG IV (05:08)
[2020-10-28 05:10] LABS: Slide Review Slide Review Perform; White Blood Count 52.4 10^3/uL (4.0-10.0)
[2020-10-28 06:04] LABS: Alanine Aminotransferase < 5 U/L (0-41); Albumin Level 2.3 g/dL (3.5-5.2); Alkaline Phosphatase 55 IU/L (40-130); Aspartate Amino Transferase 20 U/L (0-40); Blood Urea Nitrogen 22 mg/dL (8-23); Calcium 6.7 mg/dL (8.5-10.5); Carbon Dioxide 23 mmol/L (22-29); Chloride 104 mmol/L (98-107); Glucose 103 mg/dL (65-115); Osmolality Calculated 288 mOsm/kg (285-295); Sodium 137 mmol/L (136-145); Total Bilirubin 0.6 mg/dL (0.15-1.2); Total Protein 4.3 g/dL (6.6-8.7)
[2020-10-28 06:13] LABS: Anion Gap 13.7 (5-19); Potassium 3.7 mmol/L (3.5-5.1)
--- NOTE | 2020-10-28 06:25 | PC.NURSE ---
2200 NGT removed 75cc bile drainage. HYpoactive bowel sounds tolerated well
[2020-10-28] MEDS: sotalol 80 mg Tablet PO ×2 (08:41→21:03)
[2020-10-28] MEDS: tamsulosin 0.4 mg Capsule PO (08:41)
[2020-10-28] MEDS: hydrocortisone 100 mg/2 mL SDV 25 MG IVP (08:42)
[2020-10-28] MEDS: ipratropium-albuterol 3 mL Neb INHALATION ×2 (09:36→20:41)
--- NOTE | 2020-10-28 12:49 | PC.NUTR ---
Nutrition reassessment: Spoke with Dr. Romero via telephone, who stated pt is not able to advance to oral diet at this time. As this is day 6 of little to no nutritional intake, MD requested this RD to complete TPN order form and leave in paper chart for MD to review/sign. Recommend PPN, beginning at 10 ml/hr and increasing by 10 ml/hr every 8 hours until rate of 83 ml/hr, to provide 1020 kcal, 85 g protein, and 200 g dextrose. If parenteral nutrition to be considered for longer time period, recommend addition of lipids, 50 gm/250 mls (500 kcal) to meet nutritional needs.
[2020-10-28] MEDS: levothyroxine 25 mcg Tablet PO (13:47)
[2020-10-28] MEDS: predniSONE 5 mg Tablet 2.5 MG PO (13:47)
[2020-10-28] MEDS: FUROsemide 10 mg/mL SDV 2mL 20 MG IVP (17:31)
--- NOTE | 2020-10-28 18:46 | PM.PN ---
Subjective Subjective: Interval history: Patient was seen and examined this morning, overall he is doing better, NG tube has been removed, on clear liquid diet. Patient went into A. fib with RVR last night, currently has responded well to IV metoprolol. Medications: Reviewed: Yes Vitals/I&O/Wt Last Vital Signs Temp 98.5 F 10/28/20 18:00 Pulse 98 10/28/20 18:00 Resp 18 10/28/20 18:00 BP 115/88 10/28/20 18:00 Pulse Ox 90 10/28/20 18:00 10/28/20 10/28/20 10/28/20 06:59 14:59 22:59 Intake Total 50 / 1150 1360 / 1360 0 / 1360 Output Total 575 / 1800 1475 / 1475 450 / 1925 Balance -525 / -650 -115 / -115 -450 / -565 Physical Exam Const: COMMON NORMALS: patient oriented x3 HENMT: COMMON NORMALS: normocephalic and atraumatic HEAD & SCALP: normocephalic and atraumatic Chest: CHEST: Yes Symmetrical chest wall rise Resp: COMMON NORMALS: normal respiratory effort and clear to auscultation bilaterally EFFORT & INSPECTION: Yes symmetric chest movement AUSCULTATION: clear to auscultation bilaterally Cardio: COMMON NORMALS: regular rate, regular rhythm, S1 normal heart sound present, S2 normal heart sound present, No gallops present (Cardio), No murmurs present (Cardio), No rub (Cardio) and Peripheral pulses 2+ throughout RATE: regular rate RHYTHM: regular rhythm HEART SOUNDS: S1 normal heart sound present and S2 normal heart sound present PERIPHERAL PULSES: Peripheral pulses 2+ throughout GI: COMMON NORMALS: Normal to inspection, nondistended, normoactive bowel sounds present, Soft to palpation, non-tender, No hepatosplenomegaly present and no masses AUSCULTATION: Yes normoactive bowel sounds PALPATION: Yes Soft to palpation and Yes No hepatosplenomegaly present RECTAL EXAM: Yes deferred Extremity: COMMON NORMALS: no clubbing, cyanosis or edema and no pedal edema Neuro: COMMON NORMALS: patient oriented x3 Urinary Catheter Management^: Melo: Cath Placed During This Visit: yes, but has since been removed by the nurse Reason for Continuing Indwelling Catheter: Acute Urinary Retention or Obstruction Urinary Catheter Date of Insertion: 10/26/20 Urinary Catheter Time of Insertion: 20:15 Date Urinary Catheter Removed: 10/25/20 Time Urinary Catheter Discontinued: 16:36 Data : 10/28/20 04:29 10/28/20 04:29 A&P Additional A&P Information 85-year-old male with past medical history of CLL, COPD, AAA, atrial fibrillation who presents with vomiting. CT is consistent with small bowel obstruction. Transition point is in the right lower quadrant. Associated thickening in the wall of the intestine is described concerning for possible tumor. Recurrent small bowel obstruction. Initially n.p.o., NG tube, IV fluids. Continue monitoring and replacing electrolytes. Surgery consult with Dr. Howard appreciated Patient has had multiple admissions with the same issue S/P diagnostic laparoscopy and small bowel resection for 2 small bowel masses with nsga-sp-oohk anastomosis.Was briefly kept on clindamycin from has been discontinued on . CLL. Continue monitoring. no current signs of sepsis or thrombosis COPD. No evidence of exacerbation at this time. Continue home medications. Anemia: Autoimmune hemolytic work-up was done given that he is a CLL patient, and at risk for development of AIHA.:LDH : Haptoglobin:227 , total bilirubin: 0.6, Direct bilirubin: 0.20 Transfuse to maintain hemoglobin greater than 7. S/p : 2 units PRBC transfusion. Thrombocytopenia: Will monitor for immune thrombocytopenia (ITP), as it can complicate up to 25% of chronic lymphocytic leukemia (CLL). Currently deny any bleeding, no petechiae. Less likely HIT. 4T Score : Monitor platelet count. Atrial fibrillation with RVR .sotalol 80 mg p.o. twice daily which was on hold as the patient was n.p.o. has been resumed. Metoprolol tartrate 5 mg every 4 hours as needed for heart rate greater than 100. History of peptic ulcer disease. continue famotidine IV for GI prophylaxis. DVT prophylaxis. On Lovenox CODE STATUS. Patient wants to be full code. Attestations Medical Necessity Statement*: Patient needs to be in hospital for management of S/P diagnostic laparoscopy and small bowel resection. Coding Level of Care Code Acute Embryology Professor for Joseph Fu
[2020-10-28] MEDS: sodium chloride 0.9% 1,000 ML 50 ML IV (23:39)
[2020-10-29] VITALS (26 sets, daily range): BP systolic 96–129; BP diastolic 46–77; PULSE 74–94; RESP 16–28; TEMP 36.7–37; O2SAT 93–99
[2020-10-29] MEDS: famotidine 20 mg/2 mL INJ IVP ×2 (02:41→12:27)
[2020-10-29] MEDS: morphine 4 mg/mL SDV 1 mL 2 MG IVP ×5 (02:41→21:15)
[2020-10-29 04:55] LABS: Alanine Aminotransferase 7 U/L (0-41); Albumin Level 2.2 g/dL (3.5-5.2); Alkaline Phosphatase 57 IU/L (40-130); Anion Gap 12.5 (5-19); Aspartate Amino Transferase 27 U/L (0-40); Blood Urea Nitrogen 21 mg/dL (8-23); Calcium 6.6 mg/dL (8.5-10.5); Carbon Dioxide 25 mmol/L (22-29); Chloride 106 mmol/L (98-107); Glucose 114 mg/dL (65-115); Osmolality Calculated 294 mOsm/kg (285-295); Potassium 3.5 mmol/L (3.5-5.1); Sodium 140 mmol/L (136-145); Total Bilirubin 0.5 mg/dL (0.15-1.2); Total Protein 4.2 g/dL (6.6-8.7)
--- NOTE | 2020-10-29 06:42 | PC.NURSE ---
Shift Summary; Patient has had multiple episodes of increased reported pain levels. Tx with PRN Morphine IVP. Patient was unable to pass gas/have BM overnight. However, he was able to have frequent instances in belching. This information was relayed over MD Fina this AM. And new orders were received. Patient ambulated 4ft in distance. Slept well. No other big events to report. Shift change report given to oncoming dayshift RN. No other needs verbalized at this time.
--- NOTE | 2020-10-29 06:57 | PC.NURSE ---
New Orders; MD Fina phone this AM to recieve update in patient's overall condition. Update and changes in status relayed to MD. RN received new t/o for NS IVF to be changed from 50mL/hr, to KVO of 30mL/hr. Other orders include a ONE time order of adult suppository to be administered now, in efforts to increase chance of bowel movement happening.
[2020-10-29] MEDS: glycerin adult supp 1 EACH PR (07:02)
[2020-10-29 07:55] LABS: Basophils # 0.1 10^3/uL (0.0-0.1); Basophils % 0.2 %; Eosinophils # 0.1 10^3/uL (0.0-0.8); Eosinophils % 0.1 %; Hematocrit 24.9 % (42.0-52.0); Hemoglobin 7.5 g/dL (11.7-16.6); Lymphocytes # 47.4 10^3/uL (0.8-4.8); Lymphocytes % 91.3 %; Mean Corpuscular HGB Conc 30.1 g/dL (30.0-36.0); Mean Corpuscular Volume 89.6 fL (80-94); Mean Platelet Volume 11.1 fL (7.4-10.4); Monocytes # 0.4 10^3/uL (0.2-0.9); Monocytes % 0.8 %; Neutrophils # 3.82 10^3/uL (1.8-7.7); Neutrophils % 7.4 %; Nucleated Red Blood Cells % 0 %; Platelet Count 74 10^3/cmm (130-400); Red Blood Count 2.78 10^6/uL (4.1-5.3)
--- NOTE | 2020-10-29 08:01 | P.PN_ITS ---
Subjective Subjective: Interval history: Patient started to pass more gas and seems to be tolerating slowly p.o. intake. Medications: Reviewed: Yes Vitals/I&O/Wt Last Vital Signs Temp 98.6 F 10/29/20 07:51 Pulse 85 10/29/20 07:51 Resp 22 H 10/29/20 07:51 BP 129/77 10/29/20 07:51 Pulse Ox 96 10/29/20 07:51 10/28/20 10/29/20 10/29/20 22:59 06:59 14:59 Intake Total 337 / 1697 441.667 / 2138.667 Output Total 450 / 1925 900 / 2825 Balance -113 / -228 -458.333 / -686.333 Physical Exam Narrative: EXAM NARRATIVE: Patient is conscious alert oriented X3 BMI 21.3 Head and neck examination PERRLA no masses no cervical lymphadenopathy no jaundice Abdomen nontender nondistended soft no organomegaly guarding or rigidity/no signs of peritonitis Skin kaley in place incisions are clean dry and intact Urinary Catheter Management^: Melo: Cath Placed During This Visit: yes, but has since been removed by the nurse Reason for Continuing Indwelling Catheter: Accurate Measurement of Urinary Output in Critically Ill Patients Urinary Catheter Date of Insertion: 10/26/20 Urinary Catheter Time of Insertion: 20:15 Date Urinary Catheter Removed: 10/25/20 Time Urinary Catheter Discontinued: 16:36 Data : 10/29/20 03:24 10/29/20 03:24 A&P Assessment and plan (1) Small bowel mass: Patient is a status post diagnostic laparoscopy and small bowel resections for 2 small bowel masses. With [id number]-[id number] anastomoses. 10/25/2020 Clear liquid diet and will add PPN as I am concerned about the patient's overall nutrition Encourage ambulation with assistance Mechanical DVT prophylaxis Strict I's and O's Close monitoring of H&H and vital signs Will continue to follow on pathology as it is still pending Assurance and education All questions have been answered and all concerns have been addressed to patient's satisfaction. Status: Resolved Attestations Medical Necessity Statement*: Ongoing inpatient hospitalization for medical optimization and surgical intervention, from surgical standpoint of view patient can go to the floor with closer monitoring yet will defer to hospitalist service Time Spent in Patient Care: (>than 50% of time spent in counselling and/or direct pt care on unit) . Coding Level of Care Code Acute Manager Recruitment for Chg Fwd Diagnoses Small bowel mass K63.89
[2020-10-29] MEDS: ipratropium-albuterol 3 mL Neb INHALATION ×3 (08:15→21:01)
[2020-10-29] MEDS: tamsulosin 0.4 mg Capsule PO (09:10)
[2020-10-29] MEDS: hydrocortisone 100 mg/2 mL SDV 25 MG IVP (09:10)
[2020-10-29] MEDS: sotalol 80 mg Tablet PO ×2 (09:10→21:01)
[2020-10-29] MEDS: levothyroxine 25 mcg Tablet PO (12:26)
[2020-10-29] MEDS: predniSONE 5 mg Tablet 2.5 MG PO (12:27)
--- NOTE | 2020-10-29 13:23 | P.PN_ITS ---
Subjective Subjective: Interval history: Patient was seen and examined this morning no acute event overnight,pain is better controlled. Was complaining of Cough this morning. Medications: Reviewed: Yes Vitals/I&O/Wt Last Vital Signs Temp 98.6 F 10/29/20 12:00 Pulse 89 10/29/20 12:00 Resp 18 10/29/20 12:31 BP 112/55 10/29/20 12:00 Pulse Ox 93 10/29/20 12:00 10/28/20 10/29/20 10/29/20 22:59 06:59 14:59 Intake Total 337 / 1697 441.667 / 2138.667 240 / 240 Output Total 450 / 1925 900 / 2825 Balance -113 / -228 -458.333 / -686.333 240 / 240 Physical Exam Const: COMMON NORMALS: patient oriented x3 HENMT: COMMON NORMALS: normocephalic and atraumatic HEAD & SCALP: normocephalic and atraumatic Chest: CHEST: Yes Symmetrical chest wall rise Resp: COMMON NORMALS: normal respiratory effort and clear to auscultation bilaterally EFFORT & INSPECTION: Yes symmetric chest movement AUSCULTATION: clear to auscultation bilaterally Cardio: COMMON NORMALS: regular rate, regular rhythm, S1 normal heart sound present, S2 normal heart sound present, No gallops present (Cardio), No murmurs present (Cardio), No rub (Cardio) and Peripheral pulses 2+ throughout RATE: regular rate RHYTHM: regular rhythm HEART SOUNDS: S1 normal heart sound present and S2 normal heart sound present PERIPHERAL PULSES: Peripheral pulses 2+ throughout GI: COMMON NORMALS: Normal to inspection, nondistended, normoactive bowel sounds present, Soft to palpation, non-tender, No hepatosplenomegaly present and no masses AUSCULTATION: Yes normoactive bowel sounds PALPATION: Yes Soft to palpation and Yes No hepatosplenomegaly present RECTAL EXAM: Yes deferred Extremity: COMMON NORMALS: no clubbing, cyanosis or edema and no pedal edema Neuro: COMMON NORMALS: patient oriented x3 Urinary Catheter Management^: Melo: Cath Placed During This Visit: yes, but has since been removed by the nurse Reason for Continuing Indwelling Catheter: Accurate Measurement of Urinary Output in Critically Ill Patients Urinary Catheter Date of Insertion: 10/26/20 Urinary Catheter Time of Insertion: 20:15 Date Urinary Catheter Removed: 10/25/20 Time Urinary Catheter Discontinued: 16:36 Data : 10/29/20 03:24 10/29/20 03:24 A&P Additional A&P Information 85-year-old male with past medical history of CLL, COPD, AAA, atrial fibrillation who presents with vomiting. CT is consistent with small bowel obstruction. Transition point is in the right lower quadrant. Associated thickening in the wall of the intestine is described concerning for possible tumor. Recurrent small bowel obstruction. Initially n.p.o., NG tube, IV fluids. Continue monitoring and replacing electrolytes. Surgery consult with Dr. Howard appreciated Patient has had multiple admissions with the same issue S/P diagnostic laparoscopy and small bowel resection for 2 small bowel masses with mwxg-ih-mdyh anastomosis.Was briefly kept on clindamycin from has been discontinued on . CLL. Continue monitoring. no current signs of sepsis or thrombosis COPD. No evidence of exacerbation at this time. Continue home medications. Anemia: Autoimmune hemolytic work-up was done given that he is a CLL patient, and at risk for development of AIHA.:LDH : Haptoglobin:227 , total bilirubin: 0.6, Direct bilirubin: 0.20 Transfuse to maintain hemoglobin greater than 7. S/p : 2 units PRBC transfusion. H&H is stable: Thrombocytopenia: Will monitor for immune thrombocytopenia (ITP), as it can complicate up to 25% of chronic lymphocytic leukemia (CLL). Currently deny any bleeding, no petechiae. Less likely HIT. 4T Score : Monitor platelet count. Atrial fibrillation: Continue 80 mg sotalol p.o. twice daily. Diet : On PPN History of peptic ulcer disease. continue famotidine IV for GI prophylaxis. DVT prophylaxis. Lovenox on hold CODE STATUS. Patient wants to be full code. Attestations Medical Necessity Statement*: Patient needs to be in hospital for the management of S/P diagnostic laparoscopy and small bowel resection. Coding Level of Care Code Acute Network Systems Operator for g Fwd Exam Detailed
--- NOTE | 2020-10-29 14:30 | DCPLANNER ---
Pg 2 of IM updated and reviewed with pt. No questions, copy provided.
[2020-10-29] MEDS: TRAMadol 50 mg Tablet PO (15:37)
[2020-10-29] MEDS: ondansetron 2 mg/ML SDV 2 mL 4 MG IVP (19:36)
[2020-10-29] MEDS: acetaminophen 1,000 MG/100 ML PIGGYBACK 150 MG IV (19:36)
[2020-10-29] MEDS: lanolin oint 7 gm 1 APPLIC TOPICAL (23:53)
[2020-10-30] VITALS (20 sets, daily range): BP systolic 96–133; BP diastolic 45–71; PULSE 66–90; RESP 16–20; TEMP 36.6–37.2; O2SAT 92–98
[2020-10-30] MEDS: famotidine 20 mg/2 mL INJ IVP ×2 (01:40→15:52)
[2020-10-30] MEDS: sodium chloride 0.9% 1,000 ML 30 ML IV (01:41)
[2020-10-30] MEDS: ipratropium-albuterol 3 mL Neb INHALATION ×4 (02:13→20:09)
[2020-10-30] MEDS: NON-FORMULARY MEDICATION (Tiotropium-Olodaterol [Stiolto Respimat] 2.5-2.5 mcg/actuation m 2 EACH INHALATION (02:46)
[2020-10-30] MEDS: morphine 4 mg/mL SDV 1 mL 2 MG IVP ×4 (02:55→21:57)
[2020-10-30 06:40] LABS: Alanine Aminotransferase 7 U/L (0-41); Albumin Level 2.4 g/dL (3.5-5.2); Alkaline Phosphatase 55 IU/L (40-130); Anion Gap 8.6 (5-19); Aspartate Amino Transferase 20 U/L (0-40); Blood Urea Nitrogen 19 mg/dL (8-23); Calcium 6.7 mg/dL (8.5-10.5); Carbon Dioxide 28 mmol/L (22-29); Chloride 104 mmol/L (98-107); Globulin 1.9 g/dL (1.3-4.6); Glucose 119 mg/dL (65-115); Osmolality Calculated 287 mOsm/kg (285-295); Potassium 3.6 mmol/L (3.5-5.1); Sodium 137 mmol/L (136-145); Total Bilirubin 0.4 mg/dL (0.15-1.2); Total Protein 4.3 g/dL (6.6-8.7)
--- NOTE | 2020-10-30 07:11 | P.PN_ITS ---
Subjective Subjective: Interval history: Patient overall feels well and said that he did not pass gas overnight but tolerating p.o. intake Medications: Reviewed: Yes Vitals/I&O/Wt Last Vital Signs Temp 97.9 F 10/30/20 04:00 Pulse 73 10/30/20 04:00 Resp 18 10/30/20 06:53 BP 110/69 10/30/20 06:49 Pulse Ox 95 10/30/20 04:00 10/29/20 10/30/20 10/30/20 22:59 06:59 14:59 Intake Total 360 / 600 576 / 1176 Output Total 275 / 275 450 / 725 Balance 85 / 325 126 / 451 Physical Exam Narrative: EXAM NARRATIVE: Patient is conscious alert oriented X3 Nasal cannula BMI 21.3 Head and neck examination PERRLA no masses no cervical lymphadenopathy no jaundice Abdomen nontender nondistended soft no organomegaly guarding or rigidity/no signs of peritonitis Incisions are clean dry and intact and skin kaley in place Urinary Catheter Management^: Melo: Cath Placed During This Visit: yes, but has since been removed by the nurse Reason for Continuing Indwelling Catheter: Acute Urinary Retention or Obstruction Urinary Catheter Date of Insertion: 10/26/20 Urinary Catheter Time of Insertion: 20:15 Date Urinary Catheter Removed: 10/25/20 Time Urinary Catheter Discontinued: 16:36 Data : 10/29/20 03:24 10/30/20 06:09 A&P Assessment and plan (1) Recurrent intestinal obstruction: Administer glycerin suppository once Encourage ambulation with assistance Continue PPN and protein shakes Once patient have more bowel activities will advance diet as tolerated Assurance and education All questions have been answered and all concerns have been addressed to patient's satisfaction. Status: Acute (2) Small bowel mass: Condition resolved will follow on pathology Status: Resolved Attestations Medical Necessity Statement*: Ongoing inpatient hospitalization for medical optimization and surgical intervention Time Spent in Patient Care: (>than 50% of time spent in counselling and/or direct pt care on unit) . Coding Level of Care Code Acute Telephone Sterilizer for Joseph Fwd Diagnoses Recurrent intestinal obstruction K56.609 Small bowel mass K63.89
[2020-10-30] MEDS: hydrocortisone 100 mg/2 mL SDV 25 MG IVP (09:02)
[2020-10-30] MEDS: sotalol 80 mg Tablet PO ×2 (09:35→21:35)
[2020-10-30] MEDS: tamsulosin 0.4 mg Capsule PO (09:35)
[2020-10-30 09:53] LABS: Basophils # 0.1 10^3/uL (0.0-0.1); Basophils % 0.3 %; Eosinophils # 0.1 10^3/uL (0.0-0.8); Eosinophils % 0.3 %; Hematocrit 25.9 % (42.0-52.0); Hemoglobin 7.7 g/dL (11.7-16.6); Lymphocytes # 49.1 10^3/uL (0.8-4.8); Lymphocytes % 90.2 %; Mean Corpuscular HGB Conc 29.7 g/dL (30.0-36.0); Mean Corpuscular Hemoglobin 27.4 pg (28.0-34.0); Mean Corpuscular Volume 92.2 fL (80-94); Mean Platelet Volume 11.7 fL (7.4-10.4); Monocytes # 0.5 10^3/uL (0.2-0.9); Monocytes % 0.8 %; Neutrophils # 4.53 10^3/uL (1.8-7.7); Neutrophils % 8.2 %; Nucleated Red Blood Cells % 0 %; Platelet Count 84 10^3/cmm (130-400); Red Blood Count 2.81 10^6/uL (4.1-5.3); Red Cell Distribution Width 19.1 % (12.1-15.1)
[2020-10-30 10:47] LABS: Slide Review Slide Review Perform
[2020-10-30 10:49] LABS: White Blood Count 54.5 10^3/uL (4.0-10.0)
--- NOTE | 2020-10-30 11:42 | PM.PN ---
Subjective Subjective: Interval history: Patient was seen and examined this morning, no acute events overnight, overall he feels better. Medications: Reviewed: Yes Vitals/I&O/Wt Last Vital Signs Temp 98.6 F 10/30/20 11:27 Pulse 74 10/30/20 11:27 Resp 18 10/30/20 11:27 BP 117/62 10/30/20 11:27 Pulse Ox 95 10/30/20 11:27 10/29/20 10/30/20 10/30/20 22:59 06:59 14:59 Intake Total 360 / 600 576 / 1176 533.167 / 533.167 Output Total 275 / 275 450 / 725 Balance 85 / 325 126 / 451 533.167 / 533.167 Physical Exam Const: COMMON NORMALS: patient oriented x3 HENMT: COMMON NORMALS: normocephalic and atraumatic HEAD & SCALP: normocephalic and atraumatic Chest: CHEST: Yes Symmetrical chest wall rise Resp: COMMON NORMALS: normal respiratory effort and clear to auscultation bilaterally EFFORT & INSPECTION: Yes symmetric chest movement AUSCULTATION: clear to auscultation bilaterally Cardio: COMMON NORMALS: regular rate, regular rhythm, S1 normal heart sound present, S2 normal heart sound present, No gallops present (Cardio), No murmurs present (Cardio), No rub (Cardio) and Peripheral pulses 2+ throughout RATE: regular rate RHYTHM: regular rhythm HEART SOUNDS: S1 normal heart sound present and S2 normal heart sound present PERIPHERAL PULSES: Peripheral pulses 2+ throughout GI: COMMON NORMALS: Normal to inspection, nondistended, normoactive bowel sounds present, Soft to palpation, non-tender, No hepatosplenomegaly present and no masses AUSCULTATION: Yes normoactive bowel sounds PALPATION: Yes Soft to palpation and Yes No hepatosplenomegaly present RECTAL EXAM: Yes deferred Extremity: COMMON NORMALS: no clubbing, cyanosis or edema and no pedal edema Neuro: COMMON NORMALS: patient oriented x3 Urinary Catheter Management^: Melo: Cath Placed During This Visit: yes, but has since been removed by the nurse Reason for Continuing Indwelling Catheter: Acute Urinary Retention or Obstruction Urinary Catheter Date of Insertion: 10/26/20 Urinary Catheter Time of Insertion: 20:15 Date Urinary Catheter Removed: 10/25/20 Time Urinary Catheter Discontinued: 16:36 Data : 10/30/20 06:16 10/30/20 06:09 A&P Additional A&P Information 85-year-old male with past medical history of CLL, COPD, AAA, atrial fibrillation who presents with vomiting. CT is consistent with small bowel obstruction. Transition point is in the right lower quadrant. Associated thickening in the wall of the intestine is described concerning for possible tumor. Recurrent small bowel obstruction. Initially n.p.o., NG tube, IV fluids. Continue monitoring and replacing electrolytes. Surgery consult with Dr. Howard appreciated Patient has had multiple admissions with the same issue S/P diagnostic laparoscopy and small bowel resection for 2 small bowel masses with [id number] anastomosis.Was briefly kept on clindamycin from has been discontinued on . CLL. Continue monitoring. no current signs of sepsis or thrombosis COPD. No evidence of exacerbation at this time. Continue home medications. Anemia: Autoimmune hemolytic work-up was done given that he is a CLL patient, and at risk for development of AIHA.:LDH : Haptoglobin:227 , total bilirubin: 0.6, Direct bilirubin: 0.20 Transfuse to maintain hemoglobin greater than 7. S/p : 2 units PRBC transfusion. H&H is stable: Thrombocytopenia:Will monitor for immune thrombocytopenia (ITP), as it can complicate up to 25% of chronic lymphocytic leukemia (CLL). Currently deny any bleeding, no petechiae. Less likely HIT. 4T Score :Low Monitor platelet count. Atrial fibrillation: Continue 80 mg sotalol p.o. twice daily. Diet : On PPN History of peptic ulcer disease. continue famotidine IV for GI prophylaxis. DVT prophylaxis. Lovenox on hold CODE STATUS. Patient wants to be full code. Attestations Medical Necessity Statement*: Patient needs to be in hospital for management of above defined problems. Coding Level of Care Code Acute Senior Research Project Manager for g Fwd Exam Detailed
--- NOTE | 2020-10-30 12:47 | PC.NURSE ---
Rcvd verbal order from Dr Romero to stop NS. Building Construction Estimator put order in.
[2020-10-30] MEDS: levothyroxine 25 mcg Tablet PO (14:04)
[2020-10-30] MEDS: predniSONE 5 mg Tablet 2.5 MG PO (14:04)
[2020-10-30] MEDS: LORazepam 2 mg/mL INJ 1 mL 0.5 MG IVP (22:03)
[2020-10-31] VITALS (14 sets, daily range): BP systolic 115–162; BP diastolic 58–77; PULSE 71–90; RESP 16–20; TEMP 36.5–36.9; O2SAT 94–99
[2020-10-31] MEDS: morphine 4 mg/mL SDV 1 mL 2 MG IVP (00:50)
[2020-10-31] MEDS: ipratropium-albuterol 3 mL Neb INHALATION ×4 (02:53→20:15)
[2020-10-31] MEDS: famotidine 20 mg/2 mL INJ IVP ×2 (03:21→15:04)
--- NOTE | 2020-10-31 06:55 | PM.PN ---
Subjective Subjective: Interval history: Patient seems to be more confused and agitated per nursing staff. On my clinical encounter with him today looks appropriate, seems that he has bouts of agitations. Tolerating p.o. intake and continues to have passage of gas Medications: Reviewed: Yes Vitals/I&O/Wt Last Vital Signs Temp 98.0 F 10/31/20 03:19 Pulse 77 10/31/20 03:19 Resp 20 H 10/31/20 03:19 BP 125/76 10/31/20 03:19 Pulse Ox 99 10/31/20 03:19 10/30/20 10/30/20 10/31/20 14:59 22:59 06:59 Intake Total 1266.667 / 1266.667 231.5 / 1498.167 588.667 / 2086.834 Output Total 350 / 350 Balance 1266.667 / 1266.667 -118.5 / 1148.167 588.667 / 1736.834 Physical Exam Narrative: EXAM NARRATIVE: Patient is conscious alert, no apparent distress BMI 21.3 Head and neck examination PERRLA no masses no cervical lymphadenopathy no jaundice Abdomen nontender mildly distended soft no organomegaly guarding or rigidity/no signs of peritonitis, incisions are clean dry and intact and skin kaley in place Urinary Catheter Management^: Melo: Cath Placed During This Visit: yes, but has since been removed by the nurse Reason for Continuing Indwelling Catheter: Acute Urinary Retention or Obstruction Urinary Catheter Date of Insertion: 10/26/20 Urinary Catheter Time of Insertion: 20:15 Date Urinary Catheter Removed: 10/25/20 Time Urinary Catheter Discontinued: 16:36 Data : 10/30/20 06:16 10/30/20 06:09 A&P Assessment and plan (1) Recurrent intestinal obstruction: 10/25/2020 patient undergone diagnostic laparoscopy with small bowel resection for 2 small bowel masses. With [id number] anastomoses. From surgical standpoint of view highly recommend to DC IV narcotics and switch to PO Tylenol 650 mg every 6 hours as needed due to patient's agitation. Focus on physical therapy and rehab Monitor bowel activities and functions and will advance diet as tolerated. Wean off PPN and focus on p.o. intake with protein shakes We will add phosphorus level per final cigar and box examiner recommendations Assurance and education All questions have been answered and all concerns have been addressed to patient's satisfaction. Status: Resolved Attestations Medical Necessity Statement*: Patient continue inpatient hospitalization passing 2 midnights for medical optimization and perioperative care. Coding Level of Care Code Acute Stained Glass Painter for Chg Fwd Diagnoses Recurrent intestinal obstruction K56.609
[2020-10-31] MEDS: hydrocortisone 100 mg/2 mL SDV 25 MG IVP (08:53)
[2020-10-31] MEDS: tamsulosin 0.4 mg Capsule PO (09:05)
[2020-10-31] MEDS: sotalol 80 mg Tablet PO ×2 (09:05→21:36)
--- NOTE | 2020-10-31 09:23 | PC.SOCIAL ---
*IMM UPDATE* Gave patient IMM update. Provided copy of page 2. Verbalized understanding. 10/31/20 @ 0918 Initialed, dated, timed and placed in chart.
[2020-10-31] MEDS: fluticasone nasal spray 16gm Btl 2 SPRAY NASAL ×2 (13:23→18:56)
[2020-10-31] MEDS: predniSONE 5 mg Tablet 2.5 MG PO (13:24)
[2020-10-31] MEDS: levothyroxine 25 mcg Tablet PO (13:24)
[2020-10-31] MEDS: acetaminophen 325 mg Tablet 650 MG PO (16:08)
--- NOTE | 2020-10-31 17:20 | P.PN_ITS ---
Subjective Subjective: Interval history: Patient was then was noted to be lethargic, hallucinating overnight, opiates have been discontinued as a result of the same. At the time of my evaluation this afternoon, patient was alert awake and oriented x3. Complains of generalized weakness. Passing flatus, no bowel movement yet. Currently on a full liquid diet. Medications: Reviewed: Yes Vitals/I&O/Wt Last Vital Signs Temp 98.4 F 10/31/20 15:13 Pulse 71 10/31/20 15:13 Resp 17 10/31/20 15:13 BP 115/68 10/31/20 15:13 Pulse Ox 99 10/31/20 15:13 10/31/20 10/31/20 10/31/20 06:59 14:59 22:59 Intake Total 1068.667 / 2566.834 400.833 / 400.833 265.5 / 666.333 Output Total 300 / 300 220 / 520 Balance 1068.667 / 2216.834 100.833 / 100.833 45.5 / 146.333 Physical Exam Narrative: EXAM NARRATIVE: GEN: Awake, alert and oriented, no acute distress CVS: S1S2 N RS: CTA B/L Abd: Soft, non distended , bowel sounds + LVN: no focal neuro deficits Urinary Catheter Management^: Melo: Cath Placed During This Visit: yes, but has since been removed by the nurse Reason for Continuing Indwelling Catheter: Acute Urinary Retention or Obstruction Urinary Catheter Date of Insertion: 10/26/20 Urinary Catheter Time of Insertion: 20:15 Date Urinary Catheter Removed: 10/25/20 Time Urinary Catheter Discontinued: 16:36 Data : 10/30/20 06:16 10/30/20 06:09 A&P Additional A&P Information 85-year-old male with past medical history of CLL, COPD, AAA, atrial fibrillation who presents with vomiting. CT is consistent with small bowel obstruction. Transition point is in the right lower quadrant. Associated thickening in the wall of the intestine is described concerning for possible tumor. Small bowel obstruction. s/p diagnostic laparoscopy and small bowel resection for 2 small bowel masses with rdvu-zw-kunk anastomosis. Full liquid diet with addition of ensure, wean off PPN Awaiting return of bowel function, passing flatus CLL. Continue monitoring. no current signs of sepsis or thrombosis COPD. No evidence of exacerbation at this time. Continue home medications. History of atrial fibrillation. Stable. Rate controlled. LE edema: pitting edema B/L LE . Holding off on lasix for now, no dyspnea, suspect this to be dependent edema History of peptic ulcer disease. continue famotidine IV for GI prophylaxis. DVT prophylaxis. Heparin. CODE STATUS. Patient wants to be full code. Attestations Medical Necessity Statement*: awaiting rturn of bowel function Coding Level of Care Code Acute Forensic Anthropologist for Joseph Fu
[2020-10-31] MEDS: TRAMadol 50 mg Tablet PO (19:04)
[2020-10-31] MEDS: ketorolac 30 mg/mL INJ 15 MG IVP (22:37)
[2020-11-01] VITALS (15 sets, daily range): BP systolic 104–145; BP diastolic 51–88; PULSE 70–93; RESP 16–20; TEMP 36.4–37; O2SAT 94–99
[2020-11-01] MEDS: famotidine 20 mg/2 mL INJ IVP ×2 (01:16→13:16)
[2020-11-01 02:02] LABS: Eosinophils # 0.2 10^3/uL (0.0-0.8); Eosinophils % 0.3 %; Hematocrit 24.9 % (42.0-52.0); Hemoglobin 7.5 g/dL (11.7-16.6); Lymphocytes # 62.4 10^3/uL (0.8-4.8); Lymphocytes % 91.6 %; Mean Corpuscular HGB Conc 30.1 g/dL (30.0-36.0); Mean Corpuscular Hemoglobin 27.2 pg (28.0-34.0); Mean Corpuscular Volume 90.2 fL (80-94); Mean Platelet Volume 10.2 fL (7.4-10.4); Monocytes # 0.4 10^3/uL (0.2-0.9); Monocytes % 0.6 %; Neutrophils # 4.84 10^3/uL (1.8-7.7); Neutrophils % 7.2 %; Nucleated Red Blood Cells % 0 %; Platelet Count 119 10^3/cmm (130-400); Red Blood Count 2.76 10^6/uL (4.1-5.3); Red Cell Distribution Width 18.9 % (12.1-15.1)
[2020-11-01 02:15] LABS: Anion Gap 10.7 (5-19); Blood Urea Nitrogen 20 mg/dL (8-23); Carbon Dioxide 27 mmol/L (22-29); Chloride 102 mmol/L (98-107); Glucose 128 mg/dL (65-115); Osmolality Calculated 286 mOsm/kg (285-295); Potassium 3.7 mmol/L (3.5-5.1); Sodium 136 mmol/L (136-145)
[2020-11-01] MEDS: NON-FORMULARY MEDICATION (Tiotropium-Olodaterol [Stiolto Respimat] 2.5-2.5 mcg/actuation m 2 EACH INHALATION (02:20)
[2020-11-01 02:44] LABS: Slide Review Slide Review Perform
[2020-11-01] MEDS: ipratropium-albuterol 3 mL Neb INHALATION ×4 (03:08→20:25)
--- NOTE | 2020-11-01 06:57 | PM.PN ---
Subjective Subjective: Interval history: Patient overall seems to be doing appropriately from surgical standpoint of view. Continues to pass gas and having bowel movement Medications: Reviewed: Yes Vitals/I&O/Wt Last Vital Signs Temp 97.8 F 11/01/20 04:00 Pulse 86 11/01/20 04:00 Resp 17 11/01/20 04:00 BP 104/71 11/01/20 04:00 Pulse Ox 94 11/01/20 04:00 10/31/20 10/31/20 11/01/20 14:59 22:59 06:59 Intake Total 400.833 / 094.210 5424.5 / 2386.333 684.833 / 3071.166 Output Total 300 / 300 340 / 640 Balance 100.833 / 937.561 1932.5 / 1746.333 684.833 / 2431.166 Physical Exam Narrative: EXAM NARRATIVE: Patient is conscious alert BMI 21.3 Head and neck examination PERRLA no masses no cervical lymphadenopathy no jaundice Abdomen nontender nondistended soft no organomegaly guarding or rigidity/no signs of peritonitis Incisions are clean dry and intact and skin kaley in place Urinary Catheter Management^: Melo: Cath Placed During This Visit: yes, but has since been removed by the nurse Reason for Continuing Indwelling Catheter: Other Urinary Catheter Date of Insertion: 10/26/20 Urinary Catheter Time of Insertion: 20:15 Date Urinary Catheter Removed: 10/25/20 Time Urinary Catheter Discontinued: 16:36 Data : 11/01/20 01:41 11/01/20 01:41 A&P Assessment and plan (1) Small bowel mass: 10/25/2020 patient undergone diagnostic laparoscopy with small bowel resection for 2 small bowel masses. With [id number] anastomoses. Advance diet as tolerated Focus on physical therapy and rehab Wean off PPN and focus on p.o. intake with protein shakes Follow on protective services case worker recommendations with regard to potential placement Continue coordinating with hospitalist service Assurance and education All questions have been answered and all concerns have been addressed to patient's satisfaction. Status: Resolved Attestations Medical Necessity Statement*: Patient continues to require inpatient hospitalization passing 2 midnights for medical and perioperative care. Time Spent in Patient Care: (>than 50% of time spent in counselling and/or direct pt care on unit). Coding Level of Care Code Acute Automotive Collision Repair Instructor for Chg Fwd Diagnoses Small bowel mass K63.89
--- NOTE | 2020-11-01 07:31 | PC.NURSE ---
the patient complained of shortness of breath 02 99%. I reported this to the nurse
[2020-11-01] MEDS: hydrocortisone 100 mg/2 mL SDV 25 MG IVP (08:16)
[2020-11-01] MEDS: sotalol 80 mg Tablet PO ×2 (08:17→21:22)
[2020-11-01] MEDS: tamsulosin 0.4 mg Capsule PO (08:17)
[2020-11-01] MEDS: fluticasone nasal spray 16gm Btl 2 SPRAY NASAL ×2 (08:17→18:01)
[2020-11-01] MEDS: acetaminophen 325 mg Tablet 650 MG PO (11:19)
[2020-11-01] MEDS: TRAMadol 50 mg Tablet PO ×2 (11:19→21:21)
[2020-11-01] MEDS: predniSONE 5 mg Tablet 2.5 MG PO (13:15)
[2020-11-01] MEDS: levothyroxine 25 mcg Tablet PO (13:15)
[2020-11-01 14:46] LABS: SARS Covid-2 Antigen Negative (Negative)
--- NOTE | 2020-11-01 14:51 | XRR_ITS ---
PROCEDURE INFORMATION: Exam: XR Chest Exam date and time: 11/01/2020 3:04 PM Age: 85 years old Clinical indication: Other: Copious amounts of sputum TECHNIQUE: Imaging protocol: XR of the chest. Views: 1 view. COMPARISON: CR XR chest 1V portable [id number] 10/27/2020 4:53 AM FINDINGS: Lungs: Bibasilar airspace disease, right worse than left, concerning for bibasilar pneumonia. No infiltrates in the upper lungs. Pleural spaces: Small right pleural effusion. No left pleural effusion. No pneumothorax. Heart/Mediastinum: Mild cardiomegaly is noted. Vasculature: Thoracic aorta is tortuous and atherosclerotic. Bones/joints: Degenerative spine changes are noted. XR/XR chest 1V portable [id number] IMPRESSION: 1. Mild cardiomegaly is noted. 2. Bibasilar airspace disease, right worse than left, concerning for bibasilar pneumonia. These infiltrates are new when compared to 10/27/2020. 3. Small right pleural effusion.
[2020-11-01] MEDS: LORazepam 2 mg/mL INJ 1 mL 0.5 MG IVP (15:37)
[2020-11-01] MEDS: FUROsemide 10 mg/mL SDV 2mL 20 MG IVP (15:38)
[2020-11-01] MEDS: ketorolac 30 mg/mL INJ 15 MG IVP (15:38)
--- NOTE | 2020-11-01 16:10 | P.DS_ITS ---
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 CT is consistent with small bowel obstruction. Transition point is in the right lower quadrant. Associated thickening in the wall of the intestine is described concerning for possible tumor. This has been a recurrent problem Small bowel obstruction. s/p diagnostic laparoscopy and small bowel resection for 2 small bowel masses with [id number] anastomosis. Pathology remains pending Full liquid diet tolerated well with addition of ensure, weaned off PPN on 10/31 passing flatus and feces post surgery tolerated procedure well CLL. Continue monitoring. no current signs of sepsis or thrombosis COPD. No evidence of exacerbation at this time. Continue home medications. History of atrial fibrillation. Stable. Rate controlled. History of peptic ulcer disease. Currently on famotidine, changed to protonix at discharge DVT prophylaxis. Heparin. CODE STATUS. full code. 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 OPERATOR AUTOMATIC: no focal neuro deficits Urinary Catheter Management^: Melo: Cath Placed During This Visit: yes, but has since been removed by the nurse Reason for Continuing Indwelling Catheter: Decision to DC Catheter Urinary Catheter Date of Insertion: 10/26/20 Urinary Catheter Time of Insertion: 20:15 Date Urinary Catheter Removed: 11/01/20 Time Urinary Catheter Discontinued: 13:25 Discharge Data Data Completed and Pending: Completed Studies During Hospitalization Category Date Time Status CT abdomen pelvis w con* [id number] Urge nt Cat Scan 10/21/20 22:13 Completed XR chest 1V jah ble [id number] Routine Exams 10/22/20 01:18 Completed XR chest 1V jah ble [id number] Routine Exams 10/27/20 06:00 Completed XR chest 1V jah ble [id number] Stat Exams 11/01/20 14:51 Completed Pending at discharge Category Date Time Status ES surgery / GI i mages Routine Exams 10/25/20 14:36 Ordered Basic Metabolic P bindu AM LABS Lab 11/02/20 04:00 Ordered Complete Blood Co unt w/Auto AM LABS Lab 11/02/20 04:00 Ordered Pathology: Surgic al [PTH] Routine Pth 10/25/20 16:35 Received Labs from last 24 hours 11/01/20 11/01/20 11/01/20 13:40 01:41 01:41 WBC 68.0 H* RBC 2.76 L Hgb 7.5 L Hct 24.9 L MCV 90.2 MCH 27.2 L MCHC 30.1 RDW 18.9 H Plt Count 119 L MPV 10.2 Neut % (Auto) 7.2 Lymph % (Auto) 91.6 [place] % (Auto) 0.6 Eos % (Auto) 0.3 Baso % (Auto) 0.0 Neut # (Auto) 4.84 Lymph # (Auto) 62.4 H [place] # (Auto) 0.4 Eos # (Auto) 0.2 Baso # (Auto) 0.0 Nucleated RBC % (a uto) 0 Nucleated RBCs # 0.0 Sodium 136 Potassium 3.7 Chloride 102 Carbon Dioxide 27 Anion Gap 10.7 BUN 20 Creatinine 0.6 L GFR Calculation Not Reportable Glucose 128 H Calculated Osmolal ity 286 Calcium 7.0 L SARS-CoV-2 Ag (Rap id) Negative Vitals: Last Vital Signs Temp 98.0 F 11/01/20 15:56 Pulse 85 11/01/20 15:56 Resp 16 11/01/20 15:56 BP 138/88 11/01/20 15:56 Pulse Ox 96 11/01/20 15:56 Discharge Plan Discharge Patient Disposition: Home Condition: Stable Prescriptions: New fluticasone propionate 50 mcg/actuation [place],Suspension 2 spray nasal BID 30 Days Qty: 1 RF: 0 (DME) Tiotropium-Olodaterol [Stiolto Respimat] See Rx Instructions .Route .MEDSUPPLY Qty: 1 RF: 1 Continued magnesium oxide 400 mg magnesium tablet 400 mg PO BID RF: 0 (DME) portable oxygen concentrator See Rx Instructions .Route .MEDSUPPLY Qty: 1 RF: 0 levothyroxine 25 mcg Tablet 25 mcg PO DAILY@13 RF: 0 sotalol 80 mg tablet 80 mg PO BID RF: 0 Ensure Liquid 1 ea PO PRN RF: 0 albuterol sulfate 2.5 mg /3 mL (0.083 %) solution for nebulization 2.5 mg inhalation BID PRN (Reason: Shortness Of Breath) RF: 0 prednisone 2.5 mg tablet 2.5 mg PO DAILY@13 RF: 0 olopatadine [Pataday Twice Daily Relief] 0.1 % drops 1 drop ophthalmic (eye) DAILY PRN (Reason: unknown) RF: 0 hydrochlorothiazide 25 mg tablet 12.5 mg PO DAILY@13 RF: 0 fluticasone propionate [Allergy Relief (fluticasone)] 50 mcg/actuation spray,suspension 1 - 2 spray INTRANASAL BEDTIME RF: 0 psyllium husk [Metamucil] 0.52 gram capsule 0.52 g PO BEDTIME RF: 0 alfuzosin 10 mg tablet extended release 24 hr 10 mg PO DAILY@13 RF: 0 Carafate 100 mg/mL suspension 10 ml PO BID RF: 0 tramadol 50 mg tablet 50 mg PO TID PRN (Reason: Pain) RF: 0 isosorbide dinitrate 30 mg tablet 30 mg PO BID RF: 0 pantoprazole 40 mg tablet,delayed release (DR/EC) 40 mg PO DAILY RF: 0 nitroglycerin 0.4 mg tablet, sublingual 0.4 mg sublingual Q5M PRN (Reason: Chest Pain) RF: 0 albuterol sulfate 90 mcg/actuation HFA aerosol inhaler See Rx Instructions .ROUTE .COMPLEX RF: 0 tiotropium-olodaterol 2.5-2.5 mcg/actuation Mist 2 puff INHALATION DAILY RF: 0 Referrals: Marco A Romero MD [Physician] - 1 week Discharge Diet: Advance as tolerated Discharge Activity: As per PT/OT instructions Patient Instructions: Opioid Safety Discharge Attestations Time Spent in Discharge Care*: greater than 30 min Status at Discharge: Cognitive status at discharge: cognitively intact , Behavioral status at discharge: cooperative , Quality Metrics Clinical Quality Measures During this hospital stay, did patient experience: None Coding Level of Care Code Acute Chg FW DC note Diagnoses Small bowel mass K63.89 Dermatomyositis M33.90 COPD (chronic obstructive pulmonary disease) J43.2 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
--- NOTE | 2020-11-01 16:30 | PC.NURSE ---
[facility] patient calling for help. 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 Patient was found in the floor. Patient hleped up to chair where he was assessed. No pain reported and no skin issues. Physician notified. Vitals WNL.
[2020-11-02] VITALS (10 sets, daily range): BP systolic 97–106; BP diastolic 47–68; PULSE 58–83; RESP 16–18; TEMP 36.7–37; O2SAT 91–99
[2020-11-02] MEDS: NON-FORMULARY MEDICATION (Tiotropium-Olodaterol [Stiolto Respimat] 2.5-2.5 mcg/actuation m 2 EACH INHALATION (01:41)
[2020-11-02] MEDS: famotidine 20 mg/2 mL INJ IVP ×2 (02:10→15:04)
[2020-11-02 03:05] LABS: Anion Gap 10.8 (5-19); Blood Urea Nitrogen 25 mg/dL (8-23); Calcium 7.2 mg/dL (8.5-10.5); Carbon Dioxide 26 mmol/L (22-29); Chloride 102 mmol/L (98-107); Glucose 103 mg/dL (65-115); Osmolality Calculated 285 mOsm/kg (285-295); Potassium 3.8 mmol/L (3.5-5.1); Sodium 135 mmol/L (136-145)
[2020-11-02] MEDS: ipratropium-albuterol 3 mL Neb INHALATION ×3 (03:14→15:25)
--- NOTE | 2020-11-02 06:24 | P.PN_ITS ---
Subjective Subjective: Interval history: Patient overall feels well, no acute events overnight Medications: Reviewed: Yes Vitals/I&O/Wt Last Vital Signs Temp 98.6 F 11/02/20 04:00 Pulse 58 L 11/02/20 04:00 Resp 16 11/02/20 04:00 BP 106/68 11/02/20 04:00 Pulse Ox 99 11/02/20 04:00 11/01/20 11/01/20 11/02/20 14:59 22:59 06:59 Intake Total 1199.166 / 1199.166 480 / 1679.166 360 / 2039.166 Output Total 750 / 750 0 / 750 100 / 850 Balance 449.166 / 449.166 480 / 929.166 260 / 1189.166 Physical Exam Narrative: EXAM NARRATIVE: Patient is conscious alert oriented X3 BMI 21.3 Head and neck examination PERRLA no masses no cervical lymphadenopathy no jaundice Abdomen nontender nondistended soft no organomegaly guarding or rigidity/no signs of peritonitis Incisions are clean dry and intact and skin kaley in place Urinary Catheter Management^: Melo: Cath Placed During This Visit: yes, but has since been removed by the nurse Reason for Continuing Indwelling Catheter: Decision to DC Catheter Urinary Catheter Date of Insertion: 10/26/20 Urinary Catheter Time of Insertion: 20:15 Date Urinary Catheter Removed: 11/01/20 Time Urinary Catheter Discontinued: 13:25 Data : 11/01/20 01:41 11/02/20 02:07 A&P Assessment and plan (1) Small bowel mass: 10/25/2020 patient undergone diagnostic laparoscopy with small bowel resection for 2 small bowel masses. With ipin-tp-[id number] anastomoses. DC skin kaley and application of Steri-Strips Awaiting placement Return to surgery office in 2 weeks Continue coordinating with hospitalist service Pathology report still pending we will follow on that and discuss further down the road on follow-up at the office We will continue coordinating also with Dr. Conte Assurance and education All questions have been answered and all concerns have been addressed to patient's satisfaction. Status: Resolved Attestations Medical Necessity Statement*: Ongoing inpatient hospitalization for medical optimization, planning to discharge to senior living facility. Time Spent in Patient Care: (>than 50% of time spent in counselling and/or direct pt care on unit) . Coding Level of Care Code Acute Exercise Planner for Chg Fwd Diagnoses Small bowel mass K63.89
[2020-11-02] MEDS: tamsulosin 0.4 mg Capsule PO (09:07)
[2020-11-02] MEDS: FUROsemide 40 mg Tablet PO (09:07)
[2020-11-02] MEDS: fluticasone nasal spray 16gm Btl 2 SPRAY NASAL (09:08)
[2020-11-02] MEDS: hydrocortisone 100 mg/2 mL SDV 25 MG IVP (09:10)
--- NOTE | 2020-11-02 10:10 | PC.SOCIAL ---
MM Updated Updated pt on Pg 2 IMM. Explained to pt Pg 2 IMM. Provided pt a copy. Signed, dated, & timed copy in chart.
--- NOTE | 2020-11-02 10:56 | PC.NURSE ---
THIS TREATMENT PLANT MECHANIC WENT INTO ANSWER HIS LIGHT, PATIENT STATED THAT HE HAD ACCIDENTALLY PEED ON HIMSELF, HIS UNDERWEAR AND SWEAT PANTS WERE WET, SO THIS TREATMENT PLANT MECHANIC ASSISTED HIM WITH CLEANING UP AND CHANGING HIS PANTS. HIS INCISION WAS DRAINING ALOT AND APPPEARED TO BE OPEN ABOUT 1/2 INCH AROUND THE UMBILICUS AREA, THE STERI STRIPS THAT WERE THERE WERE ALL BUT OFF ONLY ONES THAT WERE STUCK ON WERE THE ONES AT THE TOP OF THE INCISION, THEY REST WERE REMOVED AND THEN CARE DONE AND REPLACED THEM. THIS TREATMENT PLANT MECHANIC WENT AND GOT SUPPLIES TO CLEAN UP INCISION AND TINCTURE OF BENZOIN AND 3 PACKAGES OF 1/4 INCH STERISTRIPS USED TO PULL INCISION BACK TOGETHER. ADALBERTO LIU PATIENT CARE NURSE TOLD OF INCISION AND WHAT I DID. ENCOURAGED PATIENT TO LEAVE IT UNCOVERED MUCH POSSIBLE. HE VOICED UNDERSTANDING.
[2020-11-02] MEDS: FUROsemide 10 mg/mL SDV 2mL 20 MG IVP (15:04)
[2020-11-02] MEDS: ondansetron 2 mg/ML SDV 2 mL 4 MG IVP (15:04)
[2020-11-02] MEDS: levothyroxine 25 mcg Tablet PO (15:05)
[2020-11-02] MEDS: predniSONE 5 mg Tablet 2.5 MG PO (15:05)
--- NOTE | 2020-11-02 16:21 | PC.NURSE ---
Patient being discharged to [facility] via [facility] transport. Patient belongings with patient at time of discharge. Patient Alert and orientated. IV removed.
--- NOTE | 2020-11-02 17:11 | P.DS_ITS ---
Discharge Providers Date of Admission: 10/22/20 00:40 Date of Discharge: November 02, 2020 Attending Provider at Admission: Leonel Carranza Attending Provider at Discharge: Adelita Clark MD Primary Care Provider: TAYLOR Torres Diagnoses at Discharge Discharge Diagnosis (1) Small bowel mass: Status: Resolved Reason for Visit Reason for Visit: bowel obstruction Hospital Course Hospital Course 85-year-old male with past medical history of CLL, COPD, AAA, atrial fibrillation who presents with vomiting. CT is consistent with small bowel obstruction. Transition point is in the right lower quadrant. Associated thickening in the wall of the intestine is described concerning for possible tumor. This has been a recurrent problem Small bowel obstruction. s/p diagnostic laparoscopy and small bowel resection for 2 small bowel masses with wukf-jk-dazz anastomosis. Pathology remains pending Full liquid diet tolerated well with addition of ensure, weaned off PPN on 10/31 passing flatus and feces post surgery tolerated procedure well Sutures removed this morning CLL. Continue monitoring. no current signs of sepsis or thrombosis COPD. No evidence of exacerbation at this time. Continue home medications. History of atrial fibrillation. Stable. Rate controlled. Decompensated heart failure likely 2/2 diuretics being on hold, CXR with bibasilar infiltrates which appear to be pulmonary edema, elevated BNP. Lasix 40mg po added at discharge History of peptic ulcer disease. Currently on famotidine, changed to protonix at discharge DVT prophylaxis. Heparin. CODE STATUS. full code. Discharged today in improved but chronically ill condition Physical Exam Urinary Catheter Management^: Mleo: Cath Placed During This Visit: yes, but has since been removed by the nurse Reason for Continuing Indwelling Catheter: Decision to DC Catheter Urinary Catheter Date of Insertion: 10/26/20 Urinary Catheter Time of Insertion: 20:15 Date Urinary Catheter Removed: 11/01/20 Time Urinary Catheter Discontinued: 13:25 Discharge Data Data Completed and Pending: Completed Studies During Hospitalization Category Date Time Status CT abdomen pelvis w con* [id number] Urge nt Cat Scan 10/21/20 22:13 Completed XR chest 1V jah ble [id number] Routine Exams 10/22/20 01:18 Completed XR chest 1V jah ble [id number] Routine Exams 10/27/20 06:00 Completed XR chest 1V jah ble [id number] Stat Exams 11/01/20 14:51 Completed Pending at discharge Category Date Time Status ES surgery / GI i mages Routine Exams 10/25/20 14:36 Ordered Pathology: Surgic al [PTH] Routine Pth 10/25/20 16:35 Received Labs from last 24 hours 11/02/20 11/02/20 02:07 02:07 Sodium 135 L Potassium 3.8 Chloride 102 Carbon Dioxide 26 Anion Gap 10.8 BUN 25 H Creatinine 0.7 GFR Calculation Not Reportable Glucose 103 Calculated Osmolal ity 285 Calcium 7.2 L NT-Pro-B Natriuret Pep 06411 H Vitals: Last Vital Signs Temp 98.4 F 11/02/20 12:00 Pulse 61 11/02/20 16:22 Resp 18 11/02/20 15:30 BP 102/47 11/02/20 12:00 Pulse Ox 92 11/02/20 15:30 Discharge Plan Discharge Patient Disposition: Xfer [facility] Condition: Stable Prescriptions: New fluticasone propionate 50 mcg/actuation Monitor,Suspension 2 spray nasal BID 30 Days Qty: 1 RF: 0 (DME) Tiotropium-Olodaterol [Stiolto Respimat] See Rx Instructions .Route .MEDSUPPLY Qty: 1 RF: 1 furosemide 40 mg Tablet 40 mg PO DAILY@0800 15 Days Qty: 15 RF: 0 Continued magnesium oxide 400 mg magnesium tablet 400 mg PO BID RF: 0 (DME) portable oxygen concentrator See Rx Instructions .Route .MEDSUPPLY Qty: 1 RF: 0 levothyroxine 25 mcg Tablet 25 mcg PO DAILY@13 RF: 0 sotalol 80 mg tablet 80 mg PO BID RF: 0 Ensure Liquid 1 ea PO PRN RF: 0 albuterol sulfate 2.5 mg /3 mL (0.083 %) solution for nebulization 2.5 mg inhalation BID PRN (Reason: Shortness Of Breath) RF: 0 prednisone 2.5 mg tablet 2.5 mg PO DAILY@13 RF: 0 olopatadine [Pataday Twice Daily Relief] 0.1 % drops 1 drop ophthalmic (eye) DAILY PRN (Reason: unknown) RF: 0 fluticasone propionate [Allergy Relief (fluticasone)] 50 mcg/actuation spra y,suspension 1 - 2 spray INTRANASAL BEDTIME RF: 0 psyllium husk [Metamucil] 0.52 gram capsule 0.52 g PO BEDTIME RF: 0 alfuzosin 10 mg tablet extended release 24 hr 10 mg PO DAILY@13 RF: 0 Carafate 100 mg/mL suspension 10 ml PO BID RF: 0 tramadol 50 mg tablet 50 mg PO TID PRN (Reason: Pain) RF: 0 isosorbide dinitrate 30 mg tablet 30 mg PO BID RF: 0 pantoprazole 40 mg tablet,delayed release (DR/EC) 40 mg PO DAILY RF: 0 nitroglycerin 0.4 mg tablet, sublingual 0.4 mg sublingual Q5M PRN (Reason: Chest Pain) RF: 0 albuterol sulfate 90 mcg/actuation HFA aerosol inhaler See Rx Instructions .ROUTE .COMPLEX RF: 0 tiotropium-olodaterol 2.5-2.5 mcg/actuation Mist 2 puff INHALATION DAILY RF: 0 Discontinued hydrochlorothiazide 25 mg tablet 12.5 mg PO DAILY@13 RF: 0 Discharge Orders: Discharge Order (Routine); Ordered 11/02/20 Ordered By: Adelita Clark Referrals: Marco A Romero MD [Physician] - 11/16/20 4:10 pm (TELE HEALTH VISIT) Discharge Diet: Regular Discharge Activity: As per PT/OT instructions Discharge Attestations Time Spent in Discharge Care*: greater than 30 min Status at Discharge: Cognitive status at discharge: cognitively intact , Behavioral status at discharge: cooperative , Quality Metrics Clinical Quality Measures During this hospital stay, did patient experience: None Coding Level of Care Code Acute g FW KARMA note Diagnoses Small bowel mass K63.89
== END 2020-11-02 16:22 | disposition skilled nursing facility (03) | DRG 327 ==
LOC: ER 22:17 → MEDSURG 10-22 01:13 → ICU 10-25 17:05 → MEDSURG 10-29 13:56
PROVIDERS: Internal Medicine; Surgery; Admitting Provider Internal Medicine; Emergency Provider Emergency Medicine; PCP Nurse Practitioner Family; Visit Provider Student in an Organized Health Care Education/Training Program
PROC: 0DB80ZZ Excision of Small Intestine, Open Approach (ICD-10-PCS; CPT 49320; principal; 2020-10-25 13:00)
PROC: 0DTE4ZZ Resection of Large Intestine, Percutaneous Endoscopic Approach (ICD-10-PCS; 2020-10-25 13:00)
DX: K56.699 Other intestinal obstruction unspecified as to partial versus complete obstruction (principal); C91.10 Chronic lymphocytic leukemia of B-cell type not having achieved remission; M33.90 Dermatopolymyositis, unspecified, organ involvement unspecified; R44.3 Hallucinations, unspecified; J90 Pleural effusion, not elsewhere classified; K63.9 Disease of intestine, unspecified; D63.0 Anemia in neoplastic disease; D69.6 Thrombocytopenia, unspecified; J43.9 Emphysema, unspecified; I48.91 Unspecified atrial fibrillation; K21.9 Gastro-esophageal reflux disease without esophagitis; E03.9 Hypothyroidism, unspecified; M19.90 Unspecified osteoarthritis, unspecified site; M85.80 Other specified disorders of bone density and structure, unspecified site; M35.3 Polymyalgia rheumatica; F17.210 Nicotine dependence, cigarettes, uncomplicated; E16.2 Hypoglycemia, unspecified; I50.9 Heart failure, unspecified; Z87.11 Personal history of peptic ulcer disease; Z79.52 Long term (current) use of systemic steroids; Z86.010 Personal history of colon polyps; Z86.711 Personal history of pulmonary embolism; Z86.718 Personal history of other venous thrombosis and embolism; Z79.891 Long term (current) use of opiate analgesic
CPT/HCPCS: 36415; 36416; 36430; 51702; 71045; 74177; 80048; 80053; 82248; 82962; 83010; 83605; 83690; 83735; 83880; 84100; 85025; 86850; 86900; 86920; 87426; 87635; 88305; 88307; 88374; 94640; 96361; 96365; 96372; 96374; 96375; 97110; 97116; 97162; 97165; 97530; 97535; 99285; C9290; J1100; J1650; J1720; J1885; J1940; J2060; J2250; J2270; J2405; J2704; J2710; J3010; J3490; J7030; J7040; J7512; P9016; P9041; Q9967

== ENCOUNTER 2020-11-02 17:24 | Emergency (ER) | payer MEDICARE, OTHER, SELFPAY ==
[2020-11-02 17:25] VITALS: BP 130/56; PULSE 71; RESP 16; TEMP 37.1; O2SAT 94; BMI 21.4
--- NOTE | 2020-11-02 20:16 | ED_ITS ---
HPI - Wound/Laceration General: Chief Complaint: Wound/Laceration Stated Complaint: BLEEDING POST OP Time Seen by Provider: 11/02/20 17:29 History of Present Illness: HPI narrative: The patient comes to the ER from the senior care after he was discharged earlier this morning. He has a wound where he had a small bowel obstruction surgery performed. This morning Dr. Garcia remove the sutures, placed a dressing and sent him to the senior care. retirement reports it has become saturated with blood throughout the day and sent him in because it slightly dehisced and needs evaluation. The wound is slightly dehisced in the middle very little and is oozing serosanguineous drainage. The bandage does have some bloody show on it. It likely started bloody and is changing to a serous drainage. It was packed and placed in an abdominal binder at Dr. Garcia's request, the patient offers no complaints in the ER this visit and wishes speedy discharge he has leukemia with a chronically severely elevated white count yesterday it was 68 and he knows this and is following someone. Hemoglobin stable at 7.5 during admission. Review of Systems General: Reports: 10 or more systems reviewed and unremarkable except in HPI and below Const: Denies: fatigue Eyes: Denies: change in vision, blurry vision or eye redness ENMT: Denies: throat pain, swelling of lips/tongue, ear or mastoid pain or nasal congestion Card: Denies: chest pain, palpitations, irregular heart rhythm, edema, dyspnea on exertion or orthopnea Resp: Denies: dyspnea, productive cough or non-productive cough GI: Denies: abdominal pain, diarrhea or GI cramping : Denies: flank pain, urinary frequency or urinary urgency Musc: Denies: neck pain, back pain, extremity pain, joint pain, joint redness, limited range of motion or muscle weakness Skin/Breast: Denies: rash, pruritus, erythema, skin pain or skin tenderness Neuro: Denies: headache(s), numbness in extremities, weakness in extremities, sensory changes, difficulty walking, dizziness, confusion or Slurred speech present Psych: Denies: anxiety or depression Endo: Denies: polyuria All/Imm: Denies: urticaria, throat swelling or tongue swelling [facility] ED PFSH: Medical History (Updated 11/02/20 @ 20:23 by Kirby Burgos MD) Anemia Aneurysm of infrarenal abdominal aorta Chronic episodic atrial fibrillation On sotalol Chronic GERD Chronic lymphocytic 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 Chronic use of steroids COPD (chronic obstructive pulmonary disease) Dermatomyositis Diverticulitis Generalized osteoarthritis Hiatal hernia History of adenomatous polyp of colon History of pulmonary embolism Hypertension Hypothyroidism Iron refractory iron deficiency anemia Mixed hyperlipidemia Osteopenia Polymyalgia rheumatica Recurrent intestinal obstruction Statin intolerance Upper GI bleed Surgical History (Updated 10/22/20 @ 08:44 by Herman Blackmon MD) History of aortic aneurysm repair Status post stenting History of colonoscopy with polypectomy S/P cardiac catheterization / Cardiac ablation S/P cholecystectomy Status post right inguinal hernia repair Family History Mother Cancer Brother Hypertension Social History Smoking and tobacco status: current every day smoker cigarettes Packs smoked per day: 1 Years cigarettes smoked: 74 Quit status (tobacco): not considering quitting Second hand smoke exposure: No Smoking risk assessment/counseling performed?: Yes Alcohol intake: never Caregiver/support person: Yes Lives independently: Yes Household members: none Marital status: service: Yes Current occupational status: retired Pets and animals: No History of recent travel: No Current gender identity: Male Physical Exam Const: COMMON NORMALS: no acute distress, average body habitus, patient oriented x3, no limitations, healthy appearing, alert and well nourished GENERAL APPEARANCE: cooperative, comfortable, well kempt and well developed ORIENTATION/CONSCIOUSNESS: Yes awake, Yes oriented to person, Yes oriented to place and Yes oriented to time HENMT: COMMON NORMALS: normocephalic, external ears normal and Normal external nose present HEAD & SCALP: normal to inspection and normocephalic NOSE: Normal external nose present EXTERNAL EAR: Yes external ears normal MOUTH: Normal oral and palatal mucosa present THROAT: posterior oropharynx normal Eye: COMMON NORMALS: Equal, round and reactive pupils present and EOMs intact bilaterally GENERAL EYE: appearance normal, both eyes and all related structures PUPIL: Yes Equal, round and reactive pupils present Neck/C-Spine: COMMON NORMALS: full ROM, no lymphadenopathy, no meningeal signs and no JVD GENERAL: Yes normal visual inspection Lymph: LYMPHATIC: no lymphadenopathy noted Chest: COMMONS NORMALS: normal inspection of the chest and normal palpation of entire chest wall Resp: COMMON NORMALS: normal respiratory effort, No retractions, No use of accessory muscles, clear to auscultation bilaterally and percussion normal EFFORT & INSPECTION: Yes able to speak in complete sentences AUSCULTATION: clear to auscultation bilaterally PERCUSSION: percussion normal Cardio: COMMON NORMALS: no JVD, regular rate, regular rhythm, S1 normal heart sound present, S2 normal heart sound present and Peripheral pulses 2+ throughout RATE: regular rate RHYTHM: regular rhythm HEART SOUNDS: S1 normal heart sound present and S2 normal heart sound present PERIPHERAL PULSES: Peripheral pulses 2+ throughout GI: COMMON NORMALS: Normal to inspection, nondistended, normoactive bowel sounds present, Soft to palpation, non-tender and no masses INSPECTION: Yes normal to inspection PALPATION: Yes Soft to palpation OTHER: The bili has bruising and a midline vertical surgical scar. The appealing and bruising appears appropriate for his postoperative state. He is not significantly tender in any quadrant. He is mildly tender over the wound as expected. There is some serosanguineous drainage coming from the wound though it is mild. It was packed and placed in a pressure dressing and abdominal binder. : COMMON NORMALS: Yes no CVA tenderness BLADDER/KIDNEY EXAM: Yes no CVA tenderness Back/Pelvis: COMMON NORMALS: no CVA tenderness, thoracic and lumbar spine normal to inspection, no thoracic nor lumbar tenderness and thoraco-lumbar ROM normal Extremity: COMMON NORMALS: normal to inspection, full ROM, capillary refill normal, no joint enlargement and no pedal edema GENERAL: Yes normal exam except as noted Neuro: COMMON NORMALS: patient oriented x3, CN's II-XII intact bilaterally, moves all extremities, no focal motor deficits, no sensory deficits noted and gait normal SENSORIUM/ORIENTATION: Yes alert, Yes oriented to person, Yes oriented to place and Yes oriented to time MENINGEAL SIGNS: Yes no meningeal signs Psych: COMMON NORMALS: mental status grossly normal, Normal thought process present, cooperative, normal affect and speech normal APPEARANCE: Yes well kempt ATTITUDE: Yes calm SPEECH: Yes normal speech THOUGHT PROCESS: Normal thought process present Skin: COMMON NORMALS: no rashes or lesions noted GENERAL SKIN EXAM: no rashes or lesions noted Course Vital Signs: Vital signs: Vital Signs Temperature 98.8 F 11/02/20 17:25 Pulse Rate 71 11/02/20 17:25 Respiratory Rate 16 11/02/20 17:25 Blood Pressure 130/56 11/02/20 17:25 Pulse Oximetry 94 11/02/20 17:25 MDM - Wound/Laceration MDM Narrative: Medical decision making narrative: The wound has a small area of dehiscence which is oozing serosanguineous discharge. It was packed and placed in a pressure dressing and abdominal binder at Dr. Garcia's request. Patient tolerated well and is stable for discharge back to the home. He offers no complaints today in the ER and just had labs within the last 24 hours so no need to work-up. Discharge Plan Discharge Patient Disposition: Home Clinical Impression: Wound dehiscence Condition: Stable Prescriptions: No Action magnesium oxide 400 mg magnesium tablet 400 mg PO BID RF: 0 (DME) portable oxygen concentrator See Rx Instructions .Route .MEDSUPPLY Qty: 1 RF: 0 levothyroxine 25 mcg Tablet 25 mcg PO DAILY@13 RF: 0 sotalol 80 mg tablet 80 mg PO BID RF: 0 Ensure Liquid 1 ea PO PRN RF: 0 albuterol sulfate 2.5 mg /3 mL (0.083 %) solution for nebulization 2.5 mg inhalation BID PRN (Reason: Shortness Of Breath) RF: 0 prednisone 2.5 mg tablet 2.5 mg PO DAILY@13 RF: 0 olopatadine [Pataday Twice Daily Relief] 0.1 % drops 1 drop ophthalmic (eye) DAILY PRN (Reason: unknown) RF: 0 fluticasone propionate [Allergy Relief (fluticasone)] 50 mcg/actuation spray,suspension 1 - 2 spray INTRANASAL BEDTIME RF: 0 psyllium husk [Metamucil] 0.52 gram capsule 0.52 g PO BEDTIME RF: 0 alfuzosin 10 mg tablet extended release 24 hr 10 mg PO DAILY@13 RF: 0 Carafate 100 mg/mL suspension 10 ml PO BID RF: 0 tramadol 50 mg tablet 50 mg PO TID PRN (Reason: Pain) RF: 0 isosorbide dinitrate 30 mg tablet 30 mg PO BID RF: 0 pantoprazole 40 mg tablet,delayed release (DR/EC) 40 mg PO DAILY RF: 0 nitroglycerin 0.4 mg tablet, sublingual 0.4 mg sublingual Q5M PRN (Reason: Chest Pain) RF: 0 albuterol sulfate 90 mcg/actuation HFA aerosol inhaler See Rx Instructions .ROUTE .COMPLEX RF: 0 tiotropium-olodaterol 2.5-2.5 mcg/actuation Mist 2 puff INHALATION DAILY RF: 0 fluticasone propionate 50 mcg/actuation [place],Suspension 2 spray nasal BID 30 Days Qty: 1 RF: 0 (DME) Tiotropium-Olodaterol [Stiolto Respimat] See Rx Instructions .Route .MEDSUPPLY Qty: 1 RF: 1 furosemide 40 mg Tablet 40 mg PO DAILY@0800 15 Days Qty: 15 RF: 0 Discharge Orders: Discharge ED (Routine); Ordered 11/02/20 Ordered By: Kirby Burgos Referrals: Karen Song FNP [Primary Care Provider] - Discharge Diet: Advance as tolerated Discharge Activity: Limit activity as instructed Patient Instructions: Opioid Safety Activity Restrictions/Additional Instructions: The wound on the abdominal wall has a small amount of dehiscence which means it is apart. I have placed a dressing on it to slow down the oozing and it should heal well. Please continue to follow-up with Dr. garcia just as you have already have a appointment scheduled. Have the wound repacked and dressed daily from wet-to-dry until it heals and follow-up with Dr. Garcia as you already have an appointment scheduled soon. Coding Level of Care Code ED Radiation Oncologist for Joseph Fwd Exam Comprehensive
== END 2020-11-02 21:38 | disposition home or self-care (01) ==
PROVIDERS: Emergency Provider Family Medicine; PCP Nurse Practitioner Family
DX: T81.31XA Disruption of external operation (surgical) wound, not elsewhere classified, initial encounter (principal); J44.9 Chronic obstructive pulmonary disease, unspecified; I10 Essential (primary) hypertension; E78.2 Mixed hyperlipidemia; F17.210 Nicotine dependence, cigarettes, uncomplicated
CPT/HCPCS: 99282

== ENCOUNTER 2020-11-03 09:30 | Inpatient (IN) | payer MEDICARE, OTHER, SELFPAY ==
[2020-11-03 09:32] VITALS: BP 131/61; PULSE 88; RESP 18; TEMP 37.1; O2SAT 93; BMI 21.1
--- NOTE | 2020-11-03 09:39 | ECG_ITS ---
[facility] Test Date: 2020-11-03 Pat Name: Naseem Luna Department: Room: Gender: Male Lab Rn: : 1935 Requested By: Gregorio Rios Order Number: [id number] Angie MD: Micky Last M.D. Measurements Intervals [place] Rate: 93 P: RI: QRS: 3 QRSD: 126 T: 0 QT: 400 QTc: 498 Interpretive Statements ATRIAL FIBRILLATION INDETERMINATE AXIS RIGHT BUNDLE BRANCH BLOCK [120+ ms QRS DURATION, UPRIGHT V1, 40+ ms S IN I/aVL/V4/V5/V6] Compared to ECG 09/15/2020 10:46:12 Indeterminate axis now present Sinus rhythm no longer present Electronically Signed On 11-03-2020 18:42:35 CDT by Micky Last M.D. [id number]
--- NOTE | 2020-11-03 09:47 | ED_ITS ---
HPI - Abdominal Pain General: Chief Complaint: Abdominal Pain Stated Complaint: vomitting brown Time Seen by Provider: 11/03/20 09:35 History of Present Illness: HPI narrative: 85-year-old male presents to the emergency room with complaint of hematemesis. He was recently hospitalized here for an extended stay with small bowel obstruction that resulted in a exploratory laparotomy with bowel resection with masses in the small bowel get a [id number] anastomosis at approximately 13 or 14-day hospital admission. He was discharged yesterday return to the ER last night with a small dehiscence of the wound with some serous drainage has a large amount of serous drainage on abdominal binder and bandage that was placed here in the ER last night does not appear to have been changed since he was here patient confirms that. There is no redness or erythema there is no induration at the wound site he states he threw up multiple times this morning including some brown to blackish appearing vomitus. He was previously on clopidogrel when he came in this was stopped he has a history of atrial fibrillation he is on sotalol for rate control. He is not having significant pain right now but generally is ill feeling he has multiple major medical problems and very poor health was discharged to the correction yesterday at the time of discharge discharging physician noted chronic ill health. MD elicited complaint: other (Coffee-ground emesis) Pertinent past history: other (Recent bowel obstruction with resection and small bowel masses) Onset (ago): hour(s) Location: None Radiation: none Exacerbating factors: nothing Associated Symptoms: Reports bloating and coffee ground emesis; Denies anorexia, belching, change in bowel habits, change in stool character, chills, constipation, GI cramping, diarrhea, dyspepsia, dysuria, excessive flatus, fever(s), heartburn, hematochezia, hematuria, hematemesis, fecal incontinence, loose stools, melena, nausea, poor appetite, syncope and vomiting Review of Systems Const: Denies: fever(s) or chills ENMT: Denies: throat pain, ear or mastoid pain, nasal discharge or nasal congestion Card: Denies: syncope Resp: Denies: dyspnea, productive cough or non-productive cough GI: Reports: coffee ground emesis and bloating; Denies: nausea, vomiting, hematemesis, heartburn, diarrhea, constipation, GI cramping, belching, excessive flatus, fecal incontinence, change in bowel habits, change in stool character, hematochezia or melena : Denies: dysuria or hematuria Skin/Breast: Denies: rash or pruritus PFSH ED PFSH: Medical History Anemia Aneurysm of infrarenal abdominal aorta Chronic episodic atrial fibrillation On sotalol Chronic GERD Chronic lymphocytic 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 Chronic use of steroids COPD (chronic obstructive pulmonary disease) Dermatomyositis Diverticulitis Generalized osteoarthritis Hiatal hernia History of adenomatous polyp of colon History of pulmonary embolism Hypertension Hypothyroidism Iron refractory iron deficiency anemia Mixed hyperlipidemia Osteopenia Polymyalgia rheumatica Recurrent intestinal obstruction Small bowel mass Statin intolerance Upper GI bleed Surgical History History of aortic aneurysm repair Status post stenting History of colonoscopy with polypectomy S/P cardiac catheterization / Cardiac ablation S/P cholecystectomy Status post right inguinal hernia repair Family History Mother Cancer Brother Hypertension Social History Smoking and tobacco status: current every day smoker cigarettes Packs smoked per day: 1 Years cigarettes smoked: 74 Quit status (tobacco): not considering quitting Second hand smoke exposure: No Smoking risk assessment/counseling performed?: Yes Alcohol intake: never Caregiver/support person: Yes Lives independently: Yes Household members: none Marital status: service: Yes Current occupational status: retired Pets and animals: No History of recent travel: No Current gender identity: Male Physical Exam Const: COMMON NORMALS: no acute distress GENERAL APPEARANCE: cooperative and comfortable ORIENTATION/CONSCIOUSNESS: Yes awake, Yes oriented to person, Yes oriented to place and Yes oriented to time HENMT: COMMON NORMALS: normocephalic, atraumatic, hearing grossly normal bilaterally and external ears normal HEAD & SCALP: normocephalic and atraumatic EXTERNAL EAR: Yes external ears normal Neck/C-Spine: COMMON NORMALS: no JVD Resp: COMMON NORMALS: normal respiratory effort, No retractions, No use of accessory muscles and clear to auscultation bilaterally AUSCULTATION: clear to auscultation bilaterally Cardio: COMMON NORMALS: no JVD, regular rate, regular rhythm and No murmurs present (Cardio) RATE: regular rate RHYTHM: regular rhythm GI: COMMON NORMALS: Soft to palpation and No hepatosplenomegaly present AUSCULTATION: Yes normoactive bowel sounds PALPATION: Yes Soft to palpation, No Tenderness to palpation present (GI), No Guarding due to palpation present (GI) and Yes No hepatosplenomegaly present Extremity: COMMON NORMALS: normal to inspection, capillary refill normal, no clubbing, cyanosis or edema, no calf tenderness and no pedal edema Neuro: SENSORIUM/ORIENTATION: Yes oriented to person, Yes oriented to place and Yes oriented to time Skin: COMMON NORMALS: no rashes or lesions noted GENERAL SKIN EXAM: no rashes or lesions noted Course Vital Signs: Vital signs: Vital Signs Temperature 98.6 F 11/04/20 04:00 Pulse Rate 88 11/04/20 04:00 Respiratory Rate 18 11/04/20 04:00 Blood Pressure 130/60 11/04/20 04:00 Pulse Oximetry 94 11/04/20 04:00 MDM - Abdominal Pain MDM Narrative: Medical decision making narrative: On initial arrival patient had good bowel sounds and had not vomited we are doing initial work-up when I went back to reexamine him and recheck any drainage from the wound he had began having problems with nausea dry heaving repeat exam he now had no bowel sounds a CT was done shows gastric dilation as well as increasing fluid retention proximal small bowel from the previous [id number] anastomosis. Discussed with Dr. Romero also discussed with Dr. Conte. At this point Dr. Romero recommends readmission to the hospital with conservative therapies gut rest and NG to prevent progression of this to a full-blown bowel obstruction. Discussed with the family orders are written discussed Dr. Clark as well. She will adm it Dr. Romero to consult. Lab Data: Labs: Lab Results 11/03/20 11/03/20 11/03/20 Range/Units 09:51 09:51 09:51 WBC 117.4 H* (4.0-10.0) 10^3/ uL RBC 3.42 L (4.1-5.3) 10^6/u L Hgb 9.0 L (11.7-16.6) g/dL Hct 30.9 L (42.0-52.0) % MCV 90.4 (80-94) fL MCH 26.3 L (28.0-34.0) pg MCHC 29.1 L (30.0-36.0) g/dL RDW 19.8 H (12.1-15.1) % Plt Count 216 (130-400) 10^3/c mm MPV 9.9 (7.4-10.4) fL Neut % (Auto) 6.3 % Lymph % (Auto) 92.7 % [place] % (Auto) 0.6 % Eos % (Auto) 0.1 % Baso % (Auto) 0.0 % Neut # (Auto) 7.47 (1.8-7.7) 10^3/u L Lymph # (Auto) 108.8 H (0.8-4.8) 10^3/u L [place] # (Auto) 0.7 (0.2-0.9) 10^3/u L Eos # (Auto) 0.1 (0.0-0.8) 10^3/u L Baso # (Auto) 0.0 (0.0-0.1) 10^3/u L Nucleated RBC % (a uto) 0 % Nucleated RBCs # 0.0 /100WBC Sodium 134 L (136-145) mmol/L Potassium 4.0 (3.5-5.1) mmol/L Chloride 96 L (98-107) mmol/L Carbon Dioxide 27 (22-29) mmol/L Anion Gap 15.0 (5-19) BUN 23 (8-23) mg/dL Creatinine 0.8 (0.7-1.2) mg/dL GFR Calculation Not Reportable Glucose 103 (65-115) mg/dL Calculated Osmolal ity 282 L (285-295) mOsm/k g Lactic Acid 1.1 (0.5-2.2) mmol/L Calcium 7.6 L (8.5-10.5) mg/dL Magnesium 2.2 (1.7-2.3) mg/dL Total Bilirubin 1.1 (0.15-1.2) mg/dL AST 26 (0-40) U/L ALT 21 (0-41) U/L Alkaline Phosphata se 100 (40-130) IU/L Total Protein 5.3 L (6.6-8.7) g/dL Albumin 3.2 L (3.5-5.2) g/dL Globulin 2.1 (1.3-4.6) g/dL Urine Color (Yellow) Urine Appearance (CLEAR) Urine pH (5-7) Ur Specific Gravit y (1.005-1.030) Urine Protein (Negative) Urine Glucose (UA) (Normal) Urine Ketones (Negative) Urine Blood (Negative) Urine Nitrate (Negative) Urine Bilirubin (Negative) Urine Urobilinogen (Negative) mg/dL Ur Leukocyte Meche ase (Negative) Urine RBC (0-2) /hpf Urine WBC (0-5) /hpf Ur Squamous Epith Cells (0-5) /hpf Amorphous Sediment Urine Bacteria (NONE) /hpf 11/03/20 Range/Units 11:10 WBC (4.0-10.0) 10^3/ uL RBC (4.1-5.3) 10^6/u L Hgb (11.7-16.6) g/dL Hct (42.0-52.0) % MCV (80-94) fL MCH (28.0-34.0) pg MCHC (30.0-36.0) g/dL RDW (12.1-15.1) % Plt Count (130-400) 10^3/c mm MPV (7.4-10.4) fL Neut % (Auto) % Lymph % (Auto) % [place] % (Auto) % Eos % (Auto) % Baso % (Auto) % Neut # (Auto) (1.8-7.7) 10^3/u L Lymph # (Auto) (0.8-4.8) 10^3/u L [place] # (Auto) (0.2-0.9) 10^3/u L Eos # (Auto) (0.0-0.8) 10^3/u L Baso # (Auto) (0.0-0.1) 10^3/u L Nucleated RBC % (a uto) % Nucleated RBCs # /100WBC Sodium (136-145) mmol/L Potassium (3.5-5.1) mmol/L Chloride (98-107) mmol/L Carbon Dioxide (22-29) mmol/L Anion Gap (5-19) BUN (8-23) mg/dL Creatinine (0.7-1.2) mg/dL GFR Calculation Glucose (65-115) mg/dL Calculated Osmolal ity (285-295) mOsm/k g Lactic Acid (0.5-2.2) mmol/L Calcium (8.5-10.5) mg/dL Magnesium (1.7-2.3) mg/dL Total Bilirubin (0.15-1.2) mg/dL AST (0-40) U/L ALT (0-41) U/L Alkaline Phosphata se (40-130) IU/L Total Protein (6.6-8.7) g/dL Albumin (3.5-5.2) g/dL Globulin (1.3-4.6) g/dL Urine Color Dark yellow (Yellow) Urine Appearance Clear (CLEAR) Urine pH 6.5 (5-7) Ur Specific Gravit y 1.005 (1.005-1.030) Urine Protein 1+ H (Negative) Urine Glucose (UA) Norm (Normal) Urine Ketones Negative (Negative) Urine Blood Neg (Negative) Urine Nitrate Negative (Negative) Urine Bilirubin Neg (Negative) Urine Urobilinogen 1 H (Negative) mg/dL Ur Leukocyte Meche ase Negative (Negative) Urine RBC 0-4 H (0-2) /hpf Urine WBC 0-4 H (0-5) /hpf Ur Squamous Epith Cells 0-4 H (0-5) /hpf Amorphous Sediment Not Reportable Urine Bacteria 1+ H (NONE) /hpf Discharge Plan Discharge Patient Disposition: Admitted As Inpatient Admit Provider: Adelita Clark Clinical Impression: SBO (small bowel obstruction), Chronic lymphocytic 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, COPD (chronic obstructive pulmonary disease), Anemia, Dehiscence of incision Condition: Stable Coding Level of Care Code ED Project Engineering Manager for Chg Fwd Exam Comprehensive
[2020-11-03 10:00] LABS: Eosinophils # 0.1 10^3/uL (0.0-0.8); Eosinophils % 0.1 %; Hematocrit 30.9 % (42.0-52.0); Lymphocytes % 92.7 %; Mean Corpuscular HGB Conc 29.1 g/dL (30.0-36.0); Mean Corpuscular Hemoglobin 26.3 pg (28.0-34.0); Mean Corpuscular Volume 90.4 fL (80-94); Mean Platelet Volume 9.9 fL (7.4-10.4); Monocytes # 0.7 10^3/uL (0.2-0.9); Monocytes % 0.6 %; Neutrophils # 7.47 10^3/uL (1.8-7.7); Neutrophils % 6.3 %; Nucleated Red Blood Cells % 0 %; Platelet Count 216 10^3/cmm (130-400); Red Blood Count 3.42 10^6/uL (4.1-5.3); Red Cell Distribution Width 19.8 % (12.1-15.1)
[2020-11-03] MEDS: sodium chloride 0.9% 1,000 ML 999 ML IV (10:02)
[2020-11-03] MEDS: ondansetron 2 mg/ML SDV 2 mL 4 MG IVP ×2 (10:08→19:50)
[2020-11-03 10:23] LABS: Alanine Aminotransferase 21 U/L (0-41); Albumin Level 3.2 g/dL (3.5-5.2); Alkaline Phosphatase 100 IU/L (40-130); Aspartate Amino Transferase 26 U/L (0-40); Blood Urea Nitrogen 23 mg/dL (8-23); Calcium 7.6 mg/dL (8.5-10.5); Carbon Dioxide 27 mmol/L (22-29); Chloride 96 mmol/L (98-107); Creatinine Clr Calc Pharmacy 60.1444; Globulin 2.1 g/dL (1.3-4.6); Glucose 103 mg/dL (65-115); Lactic Sepsis W/Reflex 1.1 mmol/L (0.5-2.2); Magnesium 2.2 mg/dL (1.7-2.3); Osmolality Calculated 282 mOsm/kg (285-295); Sodium 134 mmol/L (136-145); Total Bilirubin 1.1 mg/dL (0.15-1.2); Total Protein 5.3 g/dL (6.6-8.7)
[2020-11-03 10:30] LABS: Lymphocytes # 108.8 10^3/uL (0.8-4.8); Slide Review Slide Review Perform
[2020-11-03 10:33] LABS: White Blood Count 117.4 10^3/uL (4.0-10.0)
--- NOTE | 2020-11-03 10:34 | PC.NURSE ---
WBC 117.4 received from lab, reported to Dr. Napier.
[2020-11-03 11:15] VITALS: BP 141/77; PULSE 101; RESP 18; O2SAT 97
[2020-11-03] MEDS: promethazine 25 mg/mL SDV 1 mL IM (11:20)
--- NOTE | 2020-11-03 11:22 | PC.NURSE ---
Pt updated on plan of care, UA collected and sent to lab, VSS, nausea meds administered, no other immediate needs identified, will continue to monitor.
--- NOTE | 2020-11-03 11:38 | CT_ITS ---
WS: [id number] CT ABDOMEN PELVIS TECHNIQUE: Contrast-enhanced CT of the abdomen and pelvis with coronal and sagittal reformatted image s. CLINICAL INFORMATION: abd pain COMPARISON: CT October 21, 2020 DLP: 1424.[address] scans at [facility] use at least one of these dose optimization techniques: automat ed exposure control; mA and/or kV adjustment per patient size (includes targeted exams where dose is matched to clinical indication); or iterative reconstruction. FINDINGS: Small right greater than left pleural effusions. Cardiomegaly. Coronary calcification. Compressive at electasis right lower lobe. A few prominent lymph nodes in the upper abdomen and and along the celiac axis unchanged from the prior examination. Mild diffuse fatty infiltration the liver. Stable left he patic cyst. Stable small right hepatic lesion may represent hemangioma. Fatty atrophy of the pancreas . Aortic endograft with biiliac extension. Excluded aneurysm sac is unchanged in size since the prior examination measuring 4.9 x 4.9 cm AP by transverse. Adrenal glands are normal. No hydronephrosis. B ilateral renal cortical atrophy. Dominant left renal cyst measuring 3.9 cm. Recent postoperative changes resection of the 2 previously described small bowel lesions with small b owel anastomosis. Small amount of interloop fluid in the midabdomen and left upper quadrant. No evide nce of stricture at the anastomotic site. Marked fluid distention of the stomach and proximal duodenum. Slightly distended enhancing proximal f luid-filled small bowel loops in the left abdomen extending into the pelvis. Colon is decompressed an d normal in appearance. Distal ileum is decompressed. Lobulated venous varix or pseudoaneurysm in the right midabdomen measur ing 3.3 x 3.3 cm. This appears venous with no active hemorrhage. Enlarged heterogeneously enhancing prostate measuring 4.4 cm. Urine distended bladder may be due to b ladder outlet obstruction. Small amount of free fluid pelvis. Sigmoid diverticulosis. No evidence of acute diverticulitis. Distal ileum is normal in appearance. Enlarged left inguinal lymph node measuri ng 2.2 cm unchanged from October 21, 2020. Mild spondylitic changes lumbar spine. CT/CT abdomen pelvis w con* [id number] IMPRESSION: 1. Small bilateral pleural effusions right greater than left new from previous . 2. Recent resection of 2 small bowel lesions with anastomosis. No evidence of stricture at the anastomotic sites. 3. Markedly distended stomach with air-fluid level with dilatation and enhance ment in the proximal small bowel loops. This can be seen with postoperative hussain namic ileus or less likely developing partial small obstruction. Distal ileum i s decompressed. 4. Colon is decompressed with sigmoid diverticulosis. 5. Small amount of free fluid in the cul-de-sac. 6. Enlarged prostate. 7. Persistent enlarged lymph nodes in the upper abdomen along the celiac axis and left inguinal region. 8. Prior aortic endograft with biiliac extension. Stable excluded aneurysm sac . 9. Lobulated venous varix or pseudoaneurysm in the right midabdomen measuring 3.3 x 3.3 cm. This appears venous with no active hemorrhage. This may be relate d to recent surgery. Notified Gregorio Napier DO at 11/03/2020 2:40 PM.
[2020-11-03 11:43] LABS: Add Urine Microscopic? YES; Bilirubin Urine Neg (Negative); Blood Urine Neg (Negative); Glucose Urine UA Norm (Normal); Ketones Urine Negative (Negative); Leukocyte Esterase Urine Negative (Negative); Nitrate Urine Negative (Negative); Protein Urine 1+ (Negative); Specific Gravity, Urine 1.005 (1.005-1.030); Urine Appearance Clear (CLEAR); Urine Color Dark Yellow (Yellow); Urobilinogen Urine 1 mg/dL (Negative); pH Urine 6.5 (5-7)
[2020-11-03 11:44] LABS: Add Urine Culture? No; Bacteria Urine 1+ /hpf; RBC Urine 0-4 /hpf (0-2); Squamous Epithelial Cell Urine 0-4 /hpf (0-5); WBC Urine 0-4 /hpf (0-5)
[2020-11-03] MEDS: metoclopramide 5 mg/mL SDV 2 mL 10 MG IVP (12:22)
[2020-11-03] MEDS: LORazepam 2 mg/mL INJ 1 mL 1 MG IVP (12:23)
--- NOTE | 2020-11-03 15:25 | PC.NURSE ---
Positive hemoccult reported to Dr. Napier.
[2020-11-03 16:42] VITALS: BP 143/61; PULSE 99; RESP 18; O2SAT 99
--- NOTE | 2020-11-03 16:44 | XR_ITS ---
WS: [id number] Portable AP semiupright chest, 11/03/2020 Clinical Data: pleural effusion Comparison: Portable chest, 11/01/2020. Findings: The right basilar opacity which is probably pneumonia, atelectasis and effusion has increas ed. The left basilar opacity which was mostly atelectasis has diminished slightly. The heart remains enlarged. No nodules or masses are seen. There is no pneumothorax. XR/XR chest 1V portable [id number] Impression: 1. Increase in right basilar opacity and slight decrease in left basilar opacit y. 2. Cardiomegaly.
--- NOTE | 2020-11-03 17:32 | P.HP_ITS ---
Providers/Chief Complaint Admitting Physician: Adelita Clark MD Primary Care Provider: TAYLOR Torres Chief Complaint: vomitting brown History of Present Illness Naseem Luna is a 85 year old male With past medical history of bowel obstruction, exploratory laparotomy with bowel resection anastomosis presents to ER with complaints of hematic emesis. he was seen in ER for wound dehisnce yesterday. He is noted to have increased abdominal distension,and continued drainage today. denies fevers, chills, cough reports nausea, dark stools, dark vomitus, and abdominal drainage In the ER he has had naueas. He also has history of afib and has some tachycardia daughters at bedside report he has multiple drug allergies. also report fatigue, and variable mental status he is a full code per daughters CT Abd pelvis CT/CT abdomen pelvis w con* [id number] IMPRESSION: 1. Small bilateral pleural effusions right greater than left new from previous. 2. Recent resection of 2 small bowel lesions with anastomosis. No evidence of stricture at the anastomotic sites. 3. Markedly distended stomach with air-fluid level with dilatation and enhancement in the proximal small bowel loops. This can be seen with postoperative adynamic ileus or less likely developing partial small obstruction. Distal ileum is decompressed. 4. Colon is decompressed with sigmoid diverticulosis. 5. Small amount of free fluid in the cul-de-sac. 6. Enlarged prostate. 7. Persistent enlarged lymph nodes in the upper abdomen along the celiac axis and left inguinal region. 8. Prior aortic endograft with biiliac extension. Stable excluded aneurysm sac. 9. Lobulated venous varix or pseudoaneurysm in the right midabdomen measuring 3.3 x 3.3 cm. This appears venous with no active hemorrhage. This may be related to recent surgery. 08/21 ECHO CONCLUSIONS Normal LV size with a slightly diminished ejection fraction of 50%. Wall motion of normalities as mentioned above. Thickened aortic and mitral valves with mild mitral annular calcification Technically difficult study because of poor ultrasonic window. There is no pericardial effusion. Comparison with the previous study is difficult because of the difference in the technical quality. Review of Systems General: Reports: 10 or more systems reviewed and unremarkable except in HPI and below Const: Denies: fever(s) or chills Eyes: Denies: change in vision ENMT: Denies: throat pain Card: Reports: irregular heart rhythm, edema and swelling of feet/ankles; Denies: chest pain or palpitations Resp: Denies: dyspnea GI: Reports: abdominal pain, nausea and vomiting : Denies: flank pain Skin/Breast: Denies: rash or pruritus Neuro: Denies: headache(s) or numbness in extremities Medications/Allergies Home Medications Medication Instructions Recorded Confirmed Last Taken Type magnesium oxide 400 mg PO BID tab 06/05/19 11/03/20 10/19/20 History portable oxygen concentrator #1 ea 12/09/19 11/03/20 Unknown Rx levothyroxine 25 mcg PO DAILY 08/30/20 11/03/20 Unknown History albuterol sulfate 2.5 mg INHALATION BID PRN 10/03/20 11/03/20 Unknown History alfuzosin 10 mg PO DAILY 10/03/20 11/03/20 Unknown History fluticasone propionate [Allergy 1 - 2 spray INTRANASAL BEDTIME 10/03/20 11/03/20 10/20/20 History Relief (fluticasone)] olopatadine [Pataday Twice Daily 1 drop OPHTHALMIC (EYE) DAILY PRN 10/03/20 11/03/20 10/20/20 History Relief] prednisone 2.5 mg PO DAILY 10/03/20 11/03/20 Unknown History psyllium husk [Metamucil] 0.52 g PO DAILY 10/03/20 11/03/20 10/19/20 History sotalol 80 mg PO BID 10/03/20 11/03/20 10/03/20 History isosorbide dinitrate 30 mg PO BID 10/22/20 11/03/20 Unknown History nitroglycerin 0.4 mg SUBLINGUAL Q5M PRN 10/22/20 11/03/20 Unknown History pantoprazole 40 mg PO DAILY 10/22/20 11/03/20 10/20/20 History sucralfate [Carafate] 10 ml PO BID 10/22/20 11/03/20 Unknown History tramadol 50 mg PO TID PRN 10/22/20 11/03/20 Unknown History acetaminophen 650 mg PO QID PRN 11/03/20 11/03/20 Unknown History furosemide 40 mg PO DAILY 11/03/20 11/03/20 Unknown History tiotropium-olodaterol [Stiolto 2 puff INHALATION DAILY 11/03/20 11/03/20 Unknown History Respimat] Allergies Allergy/AdvReac Type Severity Reaction Status Date / Time ciprofloxacin [From Cipro] Allergy Unknown Verified 10/21/20 22:21 dabigatran etexilate Allergy Unknown Verified 10/21/20 22:21 [From Pradaxa] Penicillins Allergy Unknown Verified 10/21/20 22:21 PFSH Acute 2 PFSH: Medical History Anemia Aneurysm of infrarenal abdominal aorta Chronic episodic atrial fibrillation On sotalol Chronic GERD Chronic lymphocytic 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 Chronic use of steroids COPD (chronic obstructive pulmonary disease) Dermatomyositis Diverticulitis Generalized osteoarthritis Hiatal hernia History of adenomatous polyp of colon History of pulmonary embolism Hypertension Hypothyroidism Iron refractory iron deficiency anemia Mixed hyperlipidemia Osteopenia Polymyalgia rheumatica Recurrent intestinal obstruction Small bowel mass Statin intolerance Upper GI bleed Surgical History History of aortic aneurysm repair Status post stenting History of colonoscopy with polypectomy S/P cardiac catheterization / Cardiac ablation S/P cholecystectomy Status post right inguinal hernia repair Family History Mother Cancer Brother Hypertension Social History Smoking and tobacco status: current every day smoker cigarettes Packs smoked per day: 1 Years cigarettes smoked: 74 Quit status (tobacco): not considering quitting Second hand smoke exposure: No Smoking risk assessment/counseling performed?: Yes Alcohol intake: never Caregiver/support person: Yes Lives independently: Yes Household members: none Marital status: service: Yes Current occupational status: retired Pets and animals: No History of recent travel: No Current gender identity: Male Vitals/I&O/Wt Last Vital Signs Temp 98.8 F 11/03/20 09:32 Pulse 99 11/03/20 16:42 Resp 18 11/03/20 16:42 BP 143/61 11/03/20 16:42 Pulse Ox 99 11/03/20 16:42 11/03/20 11/03/20 11/03/20 06:59 14:59 22:59 Intake Total 1000 / 1000 Balance 1000 / 1000 Weight last 48 hrs Weight 135 lb Physical Exam Const: GENERAL APPEARANCE: ill appearing ORIENTATION/CONSCIOUSNESS: Yes awake Chest: COMMONS NORMALS: normal inspection of the chest Resp: COMMON NORMALS: normal respiratory effort and No use of accessory muscles EFFORT & INSPECTION: Yes symmetric chest movement Cardio: RATE: tachycardic RHYTHM: abnormal rhythm GI: OTHER: distended inscision site open, with serous drainge Neuro: SENSORIUM/ORIENTATION: Yes alert Data : 11/03/20 09:51 11/03/20 09:51 A&P Assessment and plan (1) Wound dehiscence: --consult general surgery --wound care, dressing changes, abdominal binder Status: Acute (2) Abdominal pain: --recent abdominal surgery --abnormal CT--marked distension, will await surgery eval. consider NG tube --continue H2 arnol, carafate --antiemetics Status: Acute (3) Chronic use of steroids: continue Status: Chronic (4) Chronic lymphocytic 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: per Heme Onc WBC elevated,may need hematology consult during hospitalization Status: Chronic (5) Chronic episodic atrial fibrillation: continue sotalol Status: Chronic (6) Nausea: consider NG reported coffee ground emesis --PRN zofran, compazine Status: Acute (7) CHF (congestive heart failure): lasix ECHO completed 08/21 Status: Acute Attestations Medical Necessity Statement*: Naseem Luna's hospital stay will require greater than 2 midnights for abdominal pain Coding Level of Care Code Acute Assurance Manager Insurance for Chg Fwd Diagnoses Wound dehiscence T81.30XA Abdominal pain R10.9 Chronic use of steroids Chronic lymphocytic 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 C91.10 Chronic episodic atrial fibrillation I48.20 Nausea R11.0 CHF (congestive heart failure) I50.9
--- NOTE | 2020-11-03 18:01 | P.PN_ITS ---
Subjective Subjective: Interval history: Patient is resting, no signs of distress. Patient came back to the emergency yesterday with small gap of his incision with mild serous discharge there were no other evidence of clinical issues and the wound was gapped and patient return back to the long term, apparently the patient was sent back to the ER today with concerns of alleged hematemesis. According to ER evaluation patient denied any change in bowel habits or chills or fevers or abdominal pain. Today the patient return back to the ER after the incision was again evaluated and appeared to be appropriate without signs of surgical site infection, patient had a bout of emesis and that subsequently led to CT scan of the abdomen and pelvis that was done and showed; 1. Small bilateral pleural effusions right greater than left new from previous. 2. Recent resection of 2 small bowel lesions with anastomosis. No evidence of stricture at the anastomotic sites. 3. Markedly distended stomach with air-fluid level with dilatation and enhancement in the proximal small bowel loops. This can be seen with postoperative adynamic ileus or less likely developing partial small obstruction. Distal ileum is decompressed. 4. Colon is decompressed with sigmoid diverticulosis. 5. Small amount of free fluid in the cul-de-sac. 6. Enlarged prostate. 7. Persistent enlarged lymph nodes in the upper abdomen along the celiac axis and left inguinal region. 8. Prior aortic endograft with biiliac extension. Stable excluded aneurysm sac. 9. Lobulated venous varix or pseudoaneurysm in the right midabdomen measuring 3.3 x 3.3 cm. This appears venous with no active hemorrhage. This may be related to recent surgery. Hospitalist admitted the patient for medical optimization, and I am following the patient from a surgical standpoint of view Medications: Reviewed: Yes Vitals/I&O/Wt Last Vital Signs Temp 98.8 F 11/03/20 09:32 Pulse 99 11/03/20 16:42 Resp 18 11/03/20 16:42 BP 143/61 11/03/20 16:42 Pulse Ox 99 11/03/20 16:42 11/03/20 11/03/20 11/03/20 06:59 14:59 22:59 Intake Total 1000 / 1000 Balance 1000 / 1000 Weight last 48 hrs Weight 135 lb Physical Exam Narrative: EXAM NARRATIVE: Patient is conscious alert not in apparent distress BMI 21 Head and neck examination PERRLA no masses no cervical lymphadenopathy no jaundice Abdomen nontender nondistended soft no organomegaly guarding or rigidity/no signs of peritonitis, incision is clean dry and intact with minor gapping without evidence of discharge at the moment, evidence of serous discharge on the dressing and the abdominal binder. Soft pitting edema of bilateral lower extremities and appears that the patient has generalized anasarca Data : 11/04/20 05:43 11/04/20 05:43 A&P Assessment and plan (1) Nausea: 10/25/2020 patient undergone diagnostic laparoscopy with small bowel resection for 2 small bowel masses. With [id number] anastomoses. From surgical standpoint of view it would be appropriate to insert an NG tube to low intermittent wall suction. Strict I's and O's Nutrition consultation and start the PPN Will continue to follow the patient clinically Diuresis per hospitalist service There is no indication for any surgical intervention at this point I do believe that the patient does have an underlying ileus. I did discuss with the patient's daughters the overall clinical encounter and they seemed to be very comfortable with overall patient's progress so far and they do understand giving his age and the associated medical comorbidities that he needs some rest. I did update the family in the presence of nursing staff Leah. Status: Acute Attestations Medical Necessity Statement*: Expecting inpatient hospitalization passing 2 midnights Time Spent in Patient Care: (>than 50% of time spent in counselling and/or direct pt care on unit) . Coding Level of Care Code Acute Gliding Pilot Instructor for Chg Fwd Diagnoses Nausea R11.0
[2020-11-03] MEDS: FUROsemide 10 mg/mL SDV 4mL 40 MG IVP (19:50)
[2020-11-03] MEDS: D5-NS 0.45% + KCL 20 mEq 20 MEQ/1,000 ML BAG 100 MEQ IV (19:50)
[2020-11-03 20:09] VITALS: BP 123/57; PULSE 80; RESP 14; TEMP 37; O2SAT 97
[2020-11-04] VITALS (8 sets, daily range): BP systolic 111–153; BP diastolic 57–76; PULSE 76–100; RESP 16–18; TEMP 36.8–37.2; O2SAT 94–97
--- NOTE | 2020-11-04 05:15 | PC.NURSE ---
Pt refusing to have NG tube. Pt has been educated on importance of this but still met with resistance. Moderate drainage noted to medial abd incision, and dressing applied (4x4s, ABD, abdominal binder) Dr. Miramontes notified. Orders to place on NPO diet, fluids and aspiration precautions.
[2020-11-04 05:54] LABS: Basophils # 0.1 10^3/uL (0.0-0.1); Basophils % 0.1 %; Eosinophils # 0.1 10^3/uL (0.0-0.8); Eosinophils % 0.1 %; Hematocrit 27.7 % (42.0-52.0); Hemoglobin 7.9 g/dL (11.7-16.6); Mean Corpuscular HGB Conc 28.5 g/dL (30.0-36.0); Mean Corpuscular Hemoglobin 26.2 pg (28.0-34.0); Mean Platelet Volume 9.3 fL (7.4-10.4); Monocytes # 0.7 10^3/uL (0.2-0.9); Monocytes % 0.6 %; Nucleated Red Blood Cells % 0 %; Platelet Count 221 10^3/cmm (130-400); Red Blood Count 3.01 10^6/uL (4.1-5.3); Red Cell Distribution Width 19.7 % (12.1-15.1)
[2020-11-04 06:19] LABS: Alanine Aminotransferase 15 U/L (0-41); Albumin Level 2.6 g/dL (3.5-5.2); Alkaline Phosphatase 78 IU/L (40-130); Anion Gap 13.7 (5-19); Aspartate Amino Transferase 21 U/L (0-40); Blood Urea Nitrogen 22 mg/dL (8-23); Calcium 6.9 mg/dL (8.5-10.5); Carbon Dioxide 28 mmol/L (22-29); Chloride 100 mmol/L (98-107); Creatinine Clr Calc Pharmacy 60.1444; Globulin 2.1 g/dL (1.3-4.6); Glucose 99 mg/dL (65-115); Osmolality Calculated 289 mOsm/kg (285-295); Potassium 3.7 mmol/L (3.5-5.1); Sodium 138 mmol/L (136-145); Total Bilirubin 0.7 mg/dL (0.15-1.2); Total Protein 4.7 g/dL (6.6-8.7)
[2020-11-04 06:31] LABS: Lymphocytes # 102.5 10^3/uL (0.8-4.8); Slide Review Slide Review Perform; White Blood Count 110.2 10^3/uL (4.0-10.0)
[2020-11-04] MEDS: metoclopramide 5 mg/mL SDV 2 mL 10 MG IVP (06:49)
--- NOTE | 2020-11-04 09:08 | P.PN_ITS ---
Subjective Subjective: Interval history: Patient feels hungry, had couple of loose bowel movements and refused NG placement and no vomiting but mild nausea Medications: Reviewed: Yes Vitals/I&O/Wt Last Vital Signs Temp 98.6 F 11/04/20 07:52 Pulse 100 11/04/20 07:52 Resp 18 11/04/20 07:52 BP 138/74 11/04/20 07:52 Pulse Ox 97 11/04/20 07:52 11/03/20 11/04/20 11/04/20 22:59 06:59 14:59 Intake Total 1000 / 2000 Output Total 500 / 500 Balance 500 / 1500 Weight last 48 hrs Weight 135 lb Physical Exam Narrative: EXAM NARRATIVE: Patient is conscious alert oriented BMI 21 Head and neck examination PERRLA no masses no cervical lymphadenopathy no jaundice Abdomen nontender nondistended soft no organomegaly guarding or rigidity/no signs of peritonitis, incision is clean dry and intact with minor gapping minor serous fluid likely third spacing Data : 11/04/20 05:43 11/04/20 05:43 Micro: Microbiology 11/04/20 05:58 Occult Blood (FIT) - Final Stool Routine Collection A&P Assessment and plan (1) Nausea: 10/25/2020 patient undergone diagnostic laparoscopy with small bowel resection for 2 small bowel masses. With [id number] anastomoses. 1-nutrition optimization, will start the patient on clear liquid diet and protein shakes we will give 1 dose of Reglan 10 mg IV to help with gastric emptying and nausea 2-wound care in the form of twice daily packing using half inch Nu Gauze dry to dry followed by ABD change as needed, keep abdominal binder. 3-management of medical comorbidities per hospitalist service 4-physical therapy 5-assurance and education All questions have been answered and all concerns have been addressed to patient's satisfaction. Status: Acute Attestations Medical Necessity Statement*: Medical necessity care is expected to cross 2 midnights because of wound care medical optimization, I expect that the patient would be released sooner to intermediate Time Spent in Patient Care: (>than 50% of time spent in counselling and/or direct pt care on unit) . Coding Level of Care Code Acute Crew Scheduler for Joseph Fu Diagnoses Nausea R11.0
--- NOTE | 2020-11-04 16:23 | PM.PN ---
Subjective Subjective: Interval history: Patient was seen this morning, he tells me he does not know why he is here in the hospital, he tells me that the prison was worried about his abdominal surgical wounds, no fevers, no chills, does report a volume is diarrhea, I advised him that his C. difficile came back positive, he denies any abdominal pain, no lightheadedness, no dizziness, no chest pain Patient's brother and healthcare power of corporate associate attorney pulled me aside, he discussed with me the family is concerned about his care at the present prison he goes to, he feels that he would be better served at a swing bed, given his chronic medical problems, and his readmission, he tells me that his family wants to see him, and wants to see where the best place for him is, and he would like us to give him some time to figure this out, he tells me that his brother is aware, and this is what his brother wants Medications: Reviewed: Yes Vitals/I&O/Wt Last Vital Signs Temp 98.3 F 11/04/20 12:00 Pulse 92 11/04/20 12:00 Resp 16 11/04/20 12:00 BP 124/76 11/04/20 12:00 Pulse Ox 95 11/04/20 12:00 11/04/20 11/04/20 11/04/20 06:59 14:59 22:59 Intake Total 1000 / 2000 340 / 340 Output Total 500 / 500 Balance 500 / 1500 340 / 340 Weight last 48 hrs Weight 61.235 kg Physical Exam Const: COMMON NORMALS: no acute distress ORIENTATION/CONSCIOUSNESS: Yes awake, Yes oriented to person, Yes oriented to place and Yes oriented to time Resp: COMMON NORMALS: normal respiratory effort, No retractions, No use of accessory muscles and clear to auscultation bilaterally AUSCULTATION: clear to auscultation bilaterally Cardio: COMMON NORMALS: regular rate, regular rhythm, S1 normal heart sound present and S2 normal heart sound present RATE: regular rate RHYTHM: regular rhythm HEART SOUNDS: S1 normal heart sound present and S2 normal heart sound present GI: COMMON NORMALS: Soft to palpation; negative for No hepatosplenomegaly present AUSCULTATION: Yes normoactive bowel sounds PALPATION: Yes Soft to palpation, No Tenderness to palpation present (GI), No Guarding due to palpation present (GI), No Rigid due to palpation and No No hepatosplenomegaly present OTHER: Abdomen in a binder, with packing underneath Neuro: SENSORIUM/ORIENTATION: Yes oriented to person, Yes oriented to place and Yes oriented to time Data : 11/04/20 05:43 11/04/20 05:43 Micro: Microbiology 11/04/20 09:13 Enteric Pathogens (PCR) - Final Stool - Stool Aspirate 11/04/20 05:58 C.difficile Toxin B Gene (PCR) - Final Stool Routine Collection Occult Blood (FIT) - Final A&P Assessment and plan (1) Wound dehiscence: -Status post diagnostic laparoscopy with small bowel resection for 2 small masses -consult general surgery -wound care, dressing changes, abdominal binder Status: Acute (2) Abdominal pain: -ct scan of the abdomen and pelvis shows: 1. Recent resection of 2 small bowel lesions with anastomosis. No evidence of stricture at the anastomotic sites. 2. Markedly distended stomach with air-fluid level with dilatation and enhancement in the proximal small bowel loops. This can be seen with postoperative adynamic ileus or less likely developing partial small obstruction. Distal ileum is decompressed. 3. Colon is decompressed with sigmoid diverticulosis. 4. Small amount of free fluid in the cul-de-sac. -recent abdominal surgery -continue H2 arnol, carafate -antiemetics -Pain control -General surgery on consult Status: Acute (3) Chronic use of steroids: continue Status: Chronic (4) Chronic lymphocytic 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: Status: Chronic (5) Chronic episodic atrial fibrillation: continue sotalol Status: Chronic (6) Nausea: -No repeat episodes -reported coffee ground emesis -PRN zofran, compazine Status: Acute (7) CHF (congestive heart failure): lasix ECHO completed 08/21 Status: Acute (8) C. difficile diarrhea: -Continues to have large volume diarrhea -C. difficile positive, start p.o. vancomycin 125 4 times daily -As he continues to have large-volume diarrhea, does have his history of CHF, will start on gentle IV hydration, monitor closely for fluid overload Status: Acute (9) Leukocytosis: -Likely secondary to CLL -As is lymphocytic -Minimally elevated neutrophil count, but will do anemia vitamin panel -hold presnisone Status: Acute (10) Acute on chronic anemia: -Hemoglobin 7.9, no overt signs of bleeding -Monitor hemoglobin, Protonix 40 IV twice daily Status: Acute Attestations Medical Necessity Statement*: Patient requires hospitalization for C. difficile diarrhea, optimization of nutrition, status post surgery concerns for wound dehiscence Coding Level of Care Code Acute Asbestos Remover for Chg Fwd Diagnoses Wound dehiscence T81.30XA Abdominal pain R10.9 Chronic use of steroids Chronic lymphocytic 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 C91.10 Chronic episodic atrial fibrillation I48.20 Nausea R11.0 CHF (congestive heart failure) I50.9 C. difficile diarrhea A04.72 Leukocytosis D72.829 Acute on chronic anemia D64.9
[2020-11-04 16:56] LABS: Immunoglobulin IGG 323 mg/dL (700-1600)
[2020-11-04 17:08] LABS: Immunoglobulin IGA < 50 mg/dL (70-400); Immunoglobulin IGM < 25 mg/dL (40-230)
[2020-11-04] MEDS: pantoprazole 40 mg SDV IVP (17:53)
[2020-11-04] MEDS: isosorbide dinitrate 20 mg Tablet 30 MG PO (17:54)
[2020-11-04] MEDS: sotalol 80 mg Tablet PO (17:54)
[2020-11-04] MEDS: sucralfate 1 gm/10 mL Oral Liq UDC PO (17:54)
[2020-11-04] MEDS: TRAMadol 50 mg Tablet PO (21:09)
[2020-11-04] MEDS: diphenhydrAMINE 50 mg Capsule PO (21:09)
[2020-11-05] VITALS (9 sets, daily range): BP systolic 95–129; BP diastolic 40–64; PULSE 72–87; RESP 16–20; TEMP 36.4–36.9; O2SAT 91–98
[2020-11-05] MEDS: LORazepam 0.5 mg Tablet PO (00:21)
[2020-11-05] MEDS: pantoprazole 40 mg SDV IVP ×2 (04:20→17:55)
--- NOTE | 2020-11-05 07:13 | PM.PN ---
Subjective Subjective: Interval history: Patient overall feels well and was found to have C. difficile per stool studies. Tolerating p.o. intake Medications: Reviewed: Yes Vitals/I&O/Wt Last Vital Signs Temp 97.9 F 11/05/20 04:00 Pulse 80 11/05/20 04:00 Resp 16 11/05/20 04:00 BP 115/44 11/05/20 04:00 Pulse Ox 94 11/05/20 04:00 11/04/20 11/05/20 11/05/20 22:59 06:59 14:59 Intake Total 60 / 400 400 / 800 Output Total 200 / 200 Balance 60 / 400 200 / 600 Weight last 48 hrs Weight 135 lb Physical Exam Narrative: EXAM NARRATIVE: Patient is conscious alert oriented BMI 21 Head and neck examination PERRLA no masses no cervical lymphadenopathy no jaundice Abdomen nontender nondistended soft no organomegaly guarding or rigidity/no signs of peritonitis, incision is clean dry and intact with minor gapping. Data : 11/04/20 05:43 11/04/20 05:43 Micro: Microbiology 11/04/20 09:13 Enteric Pathogens (PCR) - Final Stool - Stool Aspirate 11/04/20 05:58 C.difficile Toxin B Gene (PCR) - Final Stool Routine Collection Occult Blood (FIT) - Final Other data: pathology Final Diagnosis A. 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 ?Mesenteric involvement. ?Small bowel mucosa is uninvolved. ?Margins are uninvolved. B. Small bowel, staple line , excision: ?Benign small bowel mucosa. ?Negative for malignancy. C. 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 ?Mesenteric involvement. ?Small bowel mucosa is uninvolved. ?Margins are uninvolved. D. Small bowel, staple line #3 , excision: ?Benign small bowel mucosa. ?Negative for malignancy. A&P Assessment and plan (1) Nausea: 10/25/2020 patient undergone diagnostic laparoscopy with small bowel resection for 2 small bowel masses. With [id number] anastomoses. 1-can advance diet as tolerated 2-wound care in the form of twice daily packing using half inch Nu Gauze dry to dry followed by ABD change as needed, keep abdominal binder. 3-management of medical comorbidities including C. difficile diarrhea per hospitalist service 4-physical therapy 5-assurance and education All questions have been answered and all concerns have been addressed to patient's satisfaction. Return to surgery office as scheduled in 2 weeks Follow-up with Dr. Conte as an outpatient Status: Acute Attestations Medical Necessity Statement*: Medical necessity care is expected to cross 2 midnights because of wound care medical optimization, I expect that the patient would be released sooner to assisted. Time Spent in Patient Care: (>than 50% of time spent in counselling and/or direct pt care on unit). Coding Level of Care Code Acute Information Security Specialist for [facility] Diagnoses Nausea R11.0
[2020-11-05 08:51] LABS: Basophils # 0.1 10^3/uL (0.0-0.1); Basophils % 0.1 %; Eosinophils # 0.2 10^3/uL (0.0-0.8); Eosinophils % 0.2 %; Hematocrit 25.4 % (42.0-52.0); Hemoglobin 7.5 g/dL (11.7-16.6); Lymphocytes # 86.6 10^3/uL (0.8-4.8); Lymphocytes % 94.3 %; Mean Corpuscular HGB Conc 29.5 g/dL (30.0-36.0); Mean Corpuscular Hemoglobin 26.9 pg (28.0-34.0); Mean Platelet Volume 10.2 fL (7.4-10.4); Monocytes # 0.6 10^3/uL (0.2-0.9); Monocytes % 0.7 %; Neutrophils # 4.31 10^3/uL (1.8-7.7); Neutrophils % 4.5 %; Nucleated Red Blood Cells % 0 %; Platelet Count 239 10^3/cmm (130-400); Red Blood Count 2.79 10^6/uL (4.1-5.3); Red Cell Distribution Width 18.7 % (12.1-15.1)
[2020-11-05 09:03] LABS: INR 1.06 (0.8-1.2)
[2020-11-05 09:12] LABS: Lactate (Lactic Acid level) 0.7 mmol/L (0.5-2.2)
[2020-11-05 09:18] LABS: Alanine Aminotransferase 14 U/L (0-41); Albumin Level 2.3 g/dL (3.5-5.2); Alkaline Phosphatase 70 IU/L (40-130); Blood Urea Nitrogen 18 mg/dL (8-23); C Reactive Protein 30.8 mg/L (0.0-4.9); Calcium 6.8 mg/dL (8.5-10.5); Carbon Dioxide 28 mmol/L (22-29); Chloride 100 mmol/L (98-107); Creatinine Clr Calc Pharmacy 60.1444; Globulin 2.2 g/dL (1.3-4.6); Glucose 83 mg/dL (65-115); Magnesium 2.1 mg/dL (1.7-2.3); Osmolality Calculated 277 mOsm/kg (285-295); Phosphorus 2.6 mg/dL (2.5-4.5); Sodium 133 mmol/L (136-145); Total Bilirubin 0.5 mg/dL (0.15-1.2); Total Protein 4.5 g/dL (6.6-8.7)
[2020-11-05 09:19] LABS: Aspartate Amino Transferase 25 U/L (0-40)
[2020-11-05 09:26] LABS: NT Pro B Type Natriuretic Pept 19466 pg/mL (0-450)
[2020-11-05 09:27] LABS: Slide Review Slide Review Perform
[2020-11-05 09:29] LABS: White Blood Count 91.9 10^3/uL (4.0-10.0)
[2020-11-05] MEDS: sucralfate 1 gm/10 mL Oral Liq UDC PO ×2 (10:23→17:55)
[2020-11-05] MEDS: levothyroxine 25 mcg Tablet PO (10:23)
[2020-11-05] MEDS: sotalol 80 mg Tablet PO ×2 (10:24→17:54)
[2020-11-05] MEDS: isosorbide dinitrate 20 mg Tablet 30 MG PO ×2 (10:24→17:54)
--- NOTE | 2020-11-05 13:58 | P.PN_ITS ---
Subjective Subjective: Interval history: Patient is sitting up to the side of the bed, he tells me that his diarrhea has improved, no fevers, chills, no shortness of breath, is on 2 L, he tells me that him and his brother are working on placing him to possibly a long-term care facility, as he keeps getting sent back to the shelter, Vitals/I&O/Wt Last Vital Signs Temp 97.6 F 11/05/20 11:55 Pulse 81 11/05/20 11:55 Resp 18 11/05/20 11:55 BP 102/58 11/05/20 11:55 Pulse Ox 92 11/05/20 11:55 11/04/20 11/05/20 11/05/20 22:59 06:59 14:59 Intake Total 60 / 400 400 / 800 120 / 120 Output Total 200 / 200 Balance 60 / 400 200 / 600 120 / 120 Physical Exam Const: COMMON NORMALS: no acute distress and patient oriented x3 Resp: COMMON NORMALS: normal respiratory effort, No retractions, No use of accessory muscles and clear to auscultation bilaterally AUSCULTATION: clear to auscultation bilaterally Cardio: COMMON NORMALS: regular rate, regular rhythm, S1 normal heart sound present and S2 normal heart sound present RATE: regular rate RHYTHM: regular rhythm HEART SOUNDS: S1 normal heart sound present and S2 normal heart sound present GI: COMMON NORMALS: Normal to inspection, nondistended, normoactive bowel sounds present, Soft to palpation and non-tender PALPATION: Yes Soft to palpation OTHER: Skin under abdominal binder, surgical incision scar looks clean and dry with packing Extremity: COMMON NORMALS: capillary refill normal, no clubbing, cyanosis or edema, no calf tenderness and no pedal edema Neuro: COMMON NORMALS: patient oriented x3 Psych: COMMON NORMALS: mental status grossly normal Data : 11/05/20 08:04 11/05/20 08:04 Micro: Microbiology 11/04/20 09:13 Enteric Pathogens (PCR) - Final Stool - Stool Aspirate 11/04/20 05:58 C.difficile Toxin B Gene (PCR) - Final Stool Routine Collection Occult Blood (FIT) - Final A&P Assessment and plan (1) Wound dehiscence: -Status post diagnostic laparoscopy with small bowel resection for 2 small masses -consult general surgery -wound care, dressing changes, abdominal binder Status: Acute (2) Abdominal pain: -ct scan of the abdomen and pelvis shows: 1. Recent resection of 2 small bowel lesions with anastomosis. No evidence of stricture at the anastomotic sites. 2. Markedly distended stomach with air-fluid level with dilatation and enhancement in the proximal small bowel loops. This can be seen with postoperative adynamic ileus or less likely developing partial small obstruction. Distal ileum is decompressed. 3. Colon is decompressed with sigmoid diverticulosis. 4. Small amount of free fluid in the cul-de-sac. 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 difficile diarrhea: -Continues to have large volume diarrhea -C. difficile positive, start p.o. vancomycin 125 4 times daily -As he continues to have large-volume diarrhea, does have his history of CHF, hold hydration for now Status: Acute (9) Leukocytosis: -Likely secondary to CLL -As is lymphocytic -Minimally elevated neutrophil count, but will do anemia vitamin panel -hold presnisone Status: Acute (10) Acute on chronic anemia: -Hemoglobin 7.5, no overt signs of bleeding -Monitor hemoglobin, Protonix 40 IV twice daily Status: Acute Attestations Medical Necessity Statement*: Patient requires hospitalization for C. difficile diarrhea, awaiting placement Coding Level of Care Code Acute Radiographer Cardiac Catheterization for [facility] Diagnoses Wound dehiscence T81.30XA Abdominal pain R10.9 Chronic use of steroids Chronic lymphocytic 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 C91.10 Chronic episodic atrial fibrillation I48.20 Nausea R11.0 CHF (congestive heart failure) I50.9 C. difficile diarrhea A04.72 Leukocytosis D72.829 Acute on chronic anemia D64.9
[2020-11-05] MEDS: albuterol 8 gm MDI 2 PUFF INHALATION (16:28)
[2020-11-05] MEDS: FUROsemide 10 mg/mL SDV 4mL 40 MG IVP (17:55)
--- NOTE | 2020-11-05 18:32 | PC.NURSE ---
shift summary pt has been pleasant and complaint, no complaints of pain at this time. tenderness to abdomen with dressing change.
--- NOTE | 2020-11-05 19:18 | PC.NURSE ---
nurse updated sophie wood, went over labs with pt and his intake, she expressed concerns about him having poor oral intake. She requests he receive ensure or boost. Order placed for this.
[2020-11-06] VITALS (7 sets, daily range): BP systolic 92–120; BP diastolic 47–68; PULSE 60–86; RESP 17–18; TEMP 36.4–36.9; O2SAT 91–96
[2020-11-06] MEDS: LORazepam 0.5 mg Tablet PO (00:07)
[2020-11-06] MEDS: pantoprazole 40 mg SDV IVP ×2 (05:25→17:54)
[2020-11-06 06:10] LABS: Eosinophils # 0.2 10^3/uL (0.0-0.8); Eosinophils % 0.2 %; Hematocrit 25.6 % (42.0-52.0); Hemoglobin 7.5 g/dL (11.7-16.6); Lymphocytes # 85.8 10^3/uL (0.8-4.8); Mean Corpuscular HGB Conc 29.3 g/dL (30.0-36.0); Mean Corpuscular Hemoglobin 26.5 pg (28.0-34.0); Mean Corpuscular Volume 90.5 fL (80-94); Mean Platelet Volume 9.7 fL (7.4-10.4); Monocytes # 0.6 10^3/uL (0.2-0.9); Monocytes % 0.7 %; Neutrophils # 3.61 10^3/uL (1.8-7.7); Nucleated Red Blood Cells % 0 %; Platelet Count 233 10^3/cmm (130-400); Red Blood Count 2.83 10^6/uL (4.1-5.3); Red Cell Distribution Width 18.7 % (12.1-15.1)
[2020-11-06 06:17] LABS: INR 1.15 (0.8-1.2)
[2020-11-06 06:20] LABS: White Blood Count 90.3 10^3/uL (4.0-10.0)
[2020-11-06 06:33] LABS: Lactate (Lactic Acid level) 0.8 mmol/L (0.5-2.2)
[2020-11-06 06:44] LABS: Alanine Aminotransferase 11 U/L (0-41); Albumin Level 2.6 g/dL (3.5-5.2); Alkaline Phosphatase 71 IU/L (40-130); Anion Gap 7.4 (5-19); Aspartate Amino Transferase 16 U/L (0-40); Blood Urea Nitrogen 14 mg/dL (8-23); C Reactive Protein 37.8 mg/L (0.0-4.9); Carbon Dioxide 30 mmol/L (22-29); Chloride 98 mmol/L (98-107); Creatinine Clr Calc Pharmacy 60.1444; Globulin 1.8 g/dL (1.3-4.6); Glucose 103 mg/dL (65-115); Magnesium 1.9 mg/dL (1.7-2.3); NT Pro B Type Natriuretic Pept 16313 pg/mL (0-450); Osmolality Calculated 275 mOsm/kg (285-295); Phosphorus 2.4 mg/dL (2.5-4.5); Potassium 3.4 mmol/L (3.5-5.1); Sodium 132 mmol/L (136-145); Total Bilirubin 0.5 mg/dL (0.15-1.2); Total Protein 4.4 g/dL (6.6-8.7)
[2020-11-06] MEDS: isosorbide dinitrate 20 mg Tablet 30 MG PO ×2 (10:58→17:51)
[2020-11-06] MEDS: sucralfate 1 gm/10 mL Oral Liq UDC PO ×2 (10:58→17:50)
[2020-11-06] MEDS: sotalol 80 mg Tablet PO ×2 (10:59→17:51)
[2020-11-06] MEDS: levothyroxine 25 mcg Tablet PO (10:59)
--- NOTE | 2020-11-06 11:36 | PC.SOCIAL ---
Pg 2 IMM Explained to pt Pg 2 IMM. No questions voiced. Provided pt a copy. Signed, dated, & timed a copy & placed in chart.
--- NOTE | 2020-11-06 12:06 | PM.PN ---
Subjective Subjective: Interval history: Patient was seen this morning, he is sitting up in bed, tells me that his diarrhea is very minimal, no fevers, no chills, no nausea, no vomiting, denies any shortness of breath is on 3 L, he tells me that his family is very worried about his nutrition status, but he does not have an appetite, is currently taking Ensure, he wants to see if he is accepted at LTAC facility, as he is worried about going back to skilled nursing because they keep sending him back to the hospital Vitals/I&O/Wt Last Vital Signs Temp 97.7 F 11/06/20 11:18 Pulse 86 11/06/20 11:18 Resp 18 11/06/20 11:18 BP 92/56 11/06/20 11:18 Pulse Ox 91 11/06/20 11:18 11/05/20 11/06/20 11/06/20 22:59 06:59 14:59 Intake Total 360 / 560 60 / 60 Output Total 950 / 950 1000 / 1950 Balance -590 / -390 -1000 / -1390 60 / 60 Physical Exam Const: COMMON NORMALS: no acute distress and patient oriented x3 ORIENTATION/CONSCIOUSNESS: Yes awake, Yes oriented to person, Yes oriented to place and Yes oriented to time Resp: COMMON NORMALS: normal respiratory effort, No retractions, No use of accessory muscles and clear to auscultation bilaterally AUSCULTATION: clear to auscultation bilaterally Cardio: COMMON NORMALS: regular rate, regular rhythm, S1 normal heart sound present and S2 normal heart sound present RATE: regular rate RHYTHM: regular rhythm HEART SOUNDS: S1 normal heart sound present and S2 normal heart sound present GI: COMMON NORMALS: Normal to inspection, nondistended, normoactive bowel sounds present, Soft to palpation and non-tender AUSCULTATION: Yes normoactive bowel sounds PALPATION: Yes Soft to palpation Extremity: COMMON NORMALS: no pedal edema Neuro: COMMON NORMALS: patient oriented x3 SENSORIUM/ORIENTATION: Yes oriented to person, Yes oriented to place and Yes oriented to time Psych: COMMON NORMALS: mental status grossly normal Data : 11/06/20 05:56 11/06/20 05:56 A&P Assessment and plan (1) Wound dehiscence: -Status post diagnostic laparoscopy with small bowel resection for 2 small masses -consult general surgery -wound care, dressing changes, abdominal binder -PT OT, speech therapy, consult nutrition Status: Acute (2) Abdominal pain: -ct scan of the abdomen and pelvis shows: 1. Recent resection of 2 small bowel lesions with anastomosis. No evidence of stricture at the anastomotic sites. 2. Markedly distended stomach with air-fluid level with dilatation and enhancement in the proximal small bowel loops. This can be seen with postoperative adynamic ileus or less likely developing partial small obstruction. Distal ileum is decompressed. 3. Colon is decompressed with sigmoid diverticulosis. 4. Small amount of free fluid in the cul-de-sac. 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 difficile diarrhea: -Continues to have large volume diarrhea -C. difficile positive, start p.o. vancomycin 125 4 times daily -As he continues to have large-volume diarrhea, does have his history of CHF, hold hydration for now Status: Acute (9) Leukocytosis: -Likely secondary to CLL -As is lymphocytic -Minimally elevated neutrophil count -hold presnisone Status: Acute (10) Acute on chronic anemia: -Hemoglobin 7.5, no overt signs of bleeding -Monitor hemoglobin, Protonix 40 IV twice daily Status: Acute Attestations Medical Necessity Statement*: Patient requires hospitalization, for wound dehiscence, C. difficile diarrhea, Coding Level of Care Code Acute Loss Prevention And Safety Manager for [facility] Diagnoses Wound dehiscence T81.30XA Abdominal pain R10.9 Chronic use of steroids Chronic lymphocytic 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 C91.10 Chronic episodic atrial fibrillation I48.20 Nausea R11.0 CHF (congestive heart failure) I50.9 C. difficile diarrhea A04.72 Leukocytosis D72.829 Acute on chronic anemia D64.9
--- NOTE | 2020-11-06 16:59 | PC.NURSE ---
during visiting hours daughter justin arrived and spoke to this nurse about her concerns with the pt nutritional needs and this nurse spoke with daughter and pt about diet and importance of eating and drinking and communicating with the nurse about foods that sound appetizing so this nurse and staff could try to find food for him to eat so he will begin to gain weight and receiving the nutrition he needs at this time. this nurse went over different shake options and flavors with pt to try to find something that sounded appealing to the pt. he also states he does not have a problem eating the food as much as it tasting good enough for him to eat. Dr Dover gave an order to have his diet changed to a regular diet so that he could have many different food options and he mentioned to this nurse getting a insecticide supervisor to talk with with the pt. pt and daughter justin were good with him having a regular diet and speaking with a insecticide supervisor tomorrow.
[2020-11-06] MEDS: FUROsemide 10 mg/mL SDV 4mL 40 MG IVP (18:01)
[2020-11-06] MEDS: hyDROXYzine 25 mg Capsule PO (20:44)
[2020-11-07] VITALS (9 sets, daily range): BP systolic 89–117; BP diastolic 47–68; PULSE 72–94; RESP 17–18; TEMP 36.7–37.4; O2SAT 92–97
[2020-11-07] MEDS: TRAMadol 50 mg Tablet PO (03:18)
[2020-11-07] MEDS: pantoprazole 40 mg SDV IVP ×2 (04:13→17:52)
[2020-11-07 05:55] LABS: Eosinophils # 0.2 10^3/uL (0.0-0.8); Eosinophils % 0.2 %; Hematocrit 25.3 % (42.0-52.0); Hemoglobin 7.6 g/dL (11.7-16.6); Lymphocytes # 80.1 10^3/uL (0.8-4.8); Lymphocytes % 94.3 %; Mean Corpuscular Hemoglobin 26.8 pg (28.0-34.0); Mean Corpuscular Volume 89.1 fL (80-94); Mean Platelet Volume 9.7 fL (7.4-10.4); Monocytes # 0.7 10^3/uL (0.2-0.9); Monocytes % 0.8 %; Neutrophils # 3.83 10^3/uL (1.8-7.7); Neutrophils % 4.6 %; Nucleated Red Blood Cells % 0 %; Platelet Count 221 10^3/cmm (130-400); Red Blood Count 2.84 10^6/uL (4.1-5.3); Red Cell Distribution Width 18.5 % (12.1-15.1)
[2020-11-07 06:03] LABS: INR 1.14 (0.8-1.2)
[2020-11-07 06:21] LABS: Alanine Aminotransferase 11 U/L (0-41); Albumin Level 2.6 g/dL (3.5-5.2); Alkaline Phosphatase 71 IU/L (40-130); Anion Gap 12.9 (5-19); Aspartate Amino Transferase 13 U/L (0-40); Blood Urea Nitrogen 12 mg/dL (8-23); C Reactive Protein 36.6 mg/L (0.0-4.9); Calcium 6.7 mg/dL (8.5-10.5); Carbon Dioxide 27 mmol/L (22-29); Chloride 98 mmol/L (98-107); Creatinine Clr Calc Pharmacy 60.1444; Globulin 1.7 g/dL (1.3-4.6); Glucose 127 mg/dL (65-115); Magnesium 1.8 mg/dL (1.7-2.3); NT Pro B Type Natriuretic Pept 14616 pg/mL (0-450); Osmolality Calculated 281 mOsm/kg (285-295); Phosphorus 2.1 mg/dL (2.5-4.5); Sodium 135 mmol/L (136-145); Total Bilirubin 0.5 mg/dL (0.15-1.2); Total Protein 4.3 g/dL (6.6-8.7)
[2020-11-07 06:35] LABS: Slide Review Slide Review Perform; White Blood Count 84.9 10^3/uL (4.0-10.0)
[2020-11-07 06:36] LABS: Potassium 2.9 mmol/L (3.5-5.1)
[2020-11-07] MEDS: potassium chloride oral liq 20 mEq/15 mL UDC 40 MEQ PO (06:49)
[2020-11-07] MEDS: isosorbide dinitrate 20 mg Tablet 30 MG PO ×2 (07:50→17:51)
[2020-11-07] MEDS: sucralfate 1 gm/10 mL Oral Liq UDC PO ×2 (07:50→17:50)
[2020-11-07] MEDS: levothyroxine 25 mcg Tablet PO (07:50)
[2020-11-07] MEDS: sotalol 80 mg Tablet PO ×2 (07:50→17:50)
--- NOTE | 2020-11-07 10:25 | PC.NUTR ---
Nutrition consult complete. Provided nutrition education on strategies to increase kcal intake, pt verbalized understanding. Will enter pt preferences into EMR and will add Ensure Plus chocolate TID. This RD witness pt unable to see condiments on tray, and struggling to open juice container. Provided assistance. Spoke with MD and nurse regarding pt need for assistance at meals. Recommend assistance in tray set up, opening packages, and adding condiments to foods when possible to promote po intakes at meals. Recommend supplement to be consumed between meals when possible.
--- NOTE | 2020-11-07 12:39 | PM.PN ---
Subjective Subjective: Interval history: Patient is overall doing better, denies any shortness of breath, nausea, vomiting.Has continued to remain afebrile.Currently saturating well on 3 L oxygen via nasal cannula. Medications: Reviewed: Yes Vitals/I&O/Wt Last Vital Signs Temp 98.1 F 11/07/20 11:35 Pulse 78 11/07/20 11:35 Resp 17 11/07/20 11:35 BP 103/61 11/07/20 11:35 Pulse Ox 95 11/07/20 11:35 11/06/20 11/07/20 11/07/20 22:59 06:59 14:59 Intake Total 120 / 340 60 / 60 Output Total 800 / 800 750 / 1550 Balance -680 / -460 -750 / -1210 60 / 60 Physical Exam Const: COMMON NORMALS: patient oriented x3 HENMT: COMMON NORMALS: normocephalic, atraumatic, hearing grossly normal bilaterally and external ears normal HEAD & SCALP: normocephalic and atraumatic EXTERNAL EAR: Yes external ears normal Eye: COMMON NORMALS: no scleral icterus GENERAL EYE: appearance normal, both eyes and all related structures Chest: CHEST: Yes Symmetrical chest wall rise Resp: COMMON NORMALS: clear to auscultation bilaterally EFFORT & INSPECTION: Yes symmetric chest movement AUSCULTATION: clear to auscultation bilaterally Cardio: COMMON NORMALS: regular rate, regular rhythm, S1 normal heart sound present, S2 normal heart sound present, No gallops present (Cardio), No murmurs present (Cardio), No rub (Cardio) and Peripheral pulses 2+ throughout RATE: regular rate RHYTHM: regular rhythm HEART SOUNDS: S1 normal heart sound present and S2 normal heart sound present PERIPHERAL PULSES: Peripheral pulses 2+ throughout GI: COMMON NORMALS: Normal to inspection, nondistended, normoactive bowel sounds present, Soft to palpation, non-tender, No hepatosplenomegaly present and no masses AUSCULTATION: Yes normoactive bowel sounds PALPATION: Yes Soft to palpation and Yes No hepatosplenomegaly present RECTAL EXAM: Yes deferred OTHER: incision is clean dry and intact with minor gapping. Extremity: COMMON NORMALS: no clubbing, cyanosis or edema and no pedal edema Neuro: COMMON NORMALS: patient oriented x3 Data : 11/07/20 05:30 11/07/20 05:30 A&P Assessment and plan (1) Wound dehiscence: -Status post diagnostic laparoscopy with small bowel resection for 2 small masses: -consult general surgery -wound care, dressing changes, abdominal binder -PT OT, speech therapy, consult nutrition Status: Acute (2) Diffuse large B cell lymphoma: Small bowel, small bowel mass 60 cm from the ligament of Treitz, suture blanco proximal , excision: Histopathology reveal Diffuse large B-cell lymphoma, germinal center subtype, 50%. 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 Status: Acute (4) Abdominal pain: -ct scan of the abdomen and pelvis shows: 1. Recent resection of 2 small bowel lesions with anastomosis. No evidence of stricture at the anastomotic sites. 2. Markedly distended stomach with air-fluid level with dilatation and enhancement in the proximal small bowel loops. This can be seen with postoperative adynamic ileus or less likely developing partial small obstruction. Distal ileum is decompressed. 3. Colon is decompressed with sigmoid diverticulosis. 4. Small amount of free fluid in the cul-de-sac. 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 difficile diarrhea: -Continues to have large volume diarrhea -C. difficile positive, start p.o. vancomycin 125 4 times daily -As he continues to have large-volume diarrhea, does have his history of CHF, hold hydration for now Status: Acute (11) Leukocytosis: -Likely secondary to CLL -As is lymphocytic -Minimally elevated neutrophil count -hold presnisone Status: Acute (12) Acute on chronic anemia: -Hemoglobin 7.5, no overt signs of bleeding -Monitor hemoglobin, Protonix 40 IV twice daily Status: Acute Attestations Medical Necessity Statement*: Patient needs to be in hospital for management of C. difficile diarrhea. Coding Level of Care Code Acute Inspector And Unloader for [facility] Diagnoses Wound dehiscence T81.30XA Diffuse large B cell lymphoma C83.30 Follicular lymphoma C82.90 Abdominal pain R10.9 Chronic lymphocytic 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 C91.10 Chronic use of steroids Chronic episodic atrial fibrillation I48.20 Nausea R11.0 CHF (congestive heart failure) I50.9 C. difficile diarrhea A04.72 Leukocytosis D72.829 Acute on chronic anemia D64.9
[2020-11-07] MEDS: polyethylene glycol 3350 Pkt 17 gm PO (13:08)
--- NOTE | 2020-11-07 16:14 | PC.NURSE ---
rcvd verbal order to discontinue telemetry. from Dr Bolton
--- NOTE | 2020-11-07 16:47 | PC.NUTR ---
During nutrition assessment this AM pt requested to know how many calories he should consume for wt gain. Informed pt would be estimating this using a formula when documenting the visit, and pt requested this RD to provide that information to him. Returned at 16:45 to provide this information to pt. See RD assessment for further details.
[2020-11-07] MEDS: FUROsemide 10 mg/mL SDV 4mL 40 MG IVP (17:51)
[2020-11-07] MEDS: hyDROXYzine 25 mg Capsule PO (23:25)
[2020-11-08] VITALS: BP 96/60; PULSE 81; RESP 17; TEMP 36.7; O2SAT 99
[2020-11-08 04:00] VITALS: BP 88/52; PULSE 82; RESP 17; TEMP 36.9; O2SAT 97
[2020-11-08] MEDS: pantoprazole 40 mg SDV IVP (04:11)
--- NOTE | 2020-11-08 05:49 | PC.NURSE ---
Shift Summary Patient was awake during this shift. Patient was awake but rested comfortably throughout the night; watching television or listening to his radio. Patient denied any pain throughout the shift.
[2020-11-08 07:33] VITALS: BP 118/66; PULSE 71; RESP 20; TEMP 36.5; O2SAT 97
[2020-11-08 08:11] VITALS: PULSE 73; RESP 18; O2SAT 99
[2020-11-08] MEDS: sotalol 80 mg Tablet PO (08:53)
[2020-11-08] MEDS: sucralfate 1 gm/10 mL Oral Liq UDC PO (08:53)
[2020-11-08] MEDS: isosorbide dinitrate 20 mg Tablet 30 MG PO (08:53)
[2020-11-08] MEDS: levothyroxine 25 mcg Tablet PO (08:53)
--- NOTE | 2020-11-08 10:46 | P.DS_ITS ---
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 difficile diarrhea: Status: Acute (11) Leukocytosis: Status: Acute (12) Acute on chronic anemia: Status: Acute Reason for Visit Reason for Visit: vomitting [facility] Course Hospital Course 85-year-old male with past medical history of CLL, COPD on 3 L home oxygen, AAA, atrial fibrillation, recently discharged from the hospital after management of small bowel obstruction s/p diagnostic laparoscopy and 2 small bowel masses with [id number] anastomosis. Histopathology report consistent with diffuse large B-cell lymphoma germinal center subtype, 50%. As well as follicular lymphoma.He was admitted for the management of wound dehiscence as well as C. difficile diarrhea. General surgery was on board, wound care, dressing changes as well as abdominal binder was used. He was also complaining of abdominal pain on admission : ct scan of the abdomen and pelvis shows: Recent resection of 2 small bowel lesions with anastomosis. No evidence of stricture at the anastomotic sites. Markedly distended stomach with air-fluid level with dilatation and enhancement in the proximal small bowel loops. This can be seen with postoperative adynamic ileus or less likely developing partial small obstruct ion. Distal ileum is decompressed. Colon is decompressed with sigmoid diverticulosis. Small amount of free fluid in the cul-de-sac. He was continued on H2 arnol, carafate antiemetics ,Pain control. At the time of discharge he was tolerating regular diet, denied any nausea vomiting, Abdominal pain has improved a lot. For his C. difficile diarrhea: He was kept on p.o. vancomycin: He will complete the 7-day course of p.o. vancomycin. For his new diagnosis of diffuse large B-cell lymphoma, he will follow oncology as an outpatient. For his history of A. fib, he continued to be in normal sinus rhythm, on sotalol 80 mg p.o. twice daily. For history of heart failure with preserved ejection fraction: He was continued on IV Lasix: Electrolyte replacement were done, at the time of discharge he was euvolemic, he was continued on 40 mg p.o. Lasix daily, along with oral potassium supplement. For his acute on chronic anemia CBC was monitored, H&H remained at baseline. Patient responded to the above medical management well and was discharged in stable condition. He will continue to follow with his primary care physician cardiology and oncology as outpatient. Physical Exam Const: COMMON NORMALS: patient oriented x3 HENMT: COMMON NORMALS: normocephalic, atraumatic, hearing grossly normal bilaterally and external ears normal HEAD & SCALP: normocephalic and atraumatic EXTERNAL EAR: Yes external ears normal Eye: COMMON NORMALS: no scleral icterus GENERAL EYE: appearance normal, both eyes and all related structures Chest: CHEST: Yes Symmetrical chest wall rise Resp: COMMON NORMALS: clear to auscultation bilaterally EFFORT & INSPECTION: Yes symmetric chest movement AUSCULTATION: clear to auscultation bilaterally Cardio: COMMON NORMALS: regular rate, regular rhythm, S1 normal heart sound present, S2 normal heart sound present, No gallops present (Cardio), No murmurs present (Cardio), No rub (Cardio) and Peripheral pulses 2+ throughout RATE: regular rate RHYTHM: regular rhythm HEART SOUNDS: S1 normal heart sound present and S2 normal heart sound present PERIPHERAL PULSES: Peripheral pul ses 2+ throughout GI: COMMON NORMALS: Normal to inspection, nondistended, normoactive bowel sounds present, Soft to palpation, non-tender, No hepatosplenomegaly present and no masses AUSCULTATION: Yes normoactive bowel sounds PALPATION: Yes Soft to palpation and Yes No hepatosplenomegaly present RECTAL EXAM: Yes deferred OTHER: incision is clean dry and intact with minor gapping. Extremity: COMMON NORMALS: no clubbing, cyanosis or edema and no pedal edema Neuro: COMMON NORMALS: patient oriented x3 Discharge Data Data Completed and Pending: Completed Studies During Hospitalization Category Date Time Status CT abdomen pelvis w con* [id number] Stat Cat Scan 11/03/20 11:38 Completed XR chest 1V jah ble [id number] Stat Exams 11/03/20 16:44 Completed Pending at discharge Category Date Time Status Basic Metabolic P bindu AM LABS Lab 11/09/20 04:00 Ordered Complete Blood Co unt w/Auto AM LABS Lab 11/09/20 04:00 Ordered Magnesium AM LABS Lab 11/09/20 04:00 Ordered Vitals: Last Vital Signs Temp 97.7 F 11/08/20 07:33 Pulse 73 11/08/20 08:11 Resp 18 11/08/20 08:11 BP 118/66 11/08/20 07:33 Pulse Ox 99 11/08/20 08:11 Discharge Plan Discharge Patient Disposition: Home Condition: Stable Prescriptions: New Klor-Con M20 20 mEq tablet,ER particles/crystals 20 meq PO DAILY Qty: 30 RF: 3 vancomycin 1,000 mg Recon Soln 125 mg PO QID Qty: 12 RF: 0 Continued magnesium oxide 400 mg magnesium tablet 400 mg PO BID RF: 0 (DME) portable oxygen concentrator See Rx Instructions .Route .MEDSUPPLY Qty: 1 RF: 0 Stiolto Respimat 2.5-2.5 mcg/actuation Mist 2 puff INHALATION DAILY RF: 0 acetaminophen 325 mg Tablet 650 mg PO QID PRN (Reason: Pain) RF: 0 furosemide 40 mg tablet 40 mg PO DAILY RF: 0 levothyroxine 25 mcg Tablet 25 mcg PO DAILY RF: 0 sotalol 80 mg tablet 80 mg PO BID RF: 0 albuterol sulfate 2.5 mg /3 mL (0.083 %) solution for nebulization 2.5 mg inhalation BID PRN (Reason: Shortness Of Breath) RF: 0 prednisone 2.5 mg tablet 2.5 mg PO DAILY RF: 0 olopatadine [Pataday Twice Daily Relief] 0.1 % drops 1 drop ophthalmic (eye) DAILY PRN (Reason: unknown) RF: 0 fluticasone propionate [Allergy Relief (fluticasone)] 50 mcg/actuation spray,suspension 1 - 2 spray INTRANASAL BEDTIME RF: 0 psyllium husk [Metamucil] 0.52 gram capsule 0.52 g PO DAILY RF: 0 alfuzosin 10 mg tablet extended release 24 hr 10 mg PO DAILY RF: 0 sucralfate [Carafate] 100 mg/mL suspension 10 ml PO BID RF: 0 tramadol 50 mg tablet 50 mg PO TID PRN (Reason: Pain) RF: 0 isosorbide dinitrate 30 mg tablet 30 mg PO BID RF: 0 pantoprazole 40 mg tablet,delayed release (DR/EC) 40 mg PO DAILY RF: 0 nitroglycerin 0.4 mg tablet, sublingual 0.4 mg sublingual Q5M PRN (Reason: Chest Pain) RF: 0 Discharge Orders: Discharge Order (Routine); Ordered 11/08/20 Ordered By: Thad Bolton Referrals: [facility], [place] [Outside] Marco A Romero MD [Physician] - 11/21/20 8:00 am (Return to surgery office in 2 weeks) Ministerio Lala MD [Physician] - 1 month Naseem Pickard MD [Hospitalist] - 1 week (DR PICKARD OFFICE WILL CALL WITH APPOINTMENT [phone]) Joellen Huang MD [Physician] - 1 month Discharge Diet: Regular Discharge Activity: Resume usual activity Patient Instructions: Potassium Chloride (By mouth), Opioid Safety Discharge Attestations Time Spent in Discharge Care*: less than 30 min Specific Discharge Activities: educating patient, educating and/or supporting family/caregiver, discussing with pcp/other providers, discussing with onsite case manager/social workers/dc planners, documenting/other paperwork and evaluating patient/reviewing data Status at Discharge: Cognitive status at discharge: cognitively intact , Behavioral status at discharge: cooperative , Functional status at discharge: independent ambulation Overall status at discharge: patient is back to baseline Quality Metrics Clinical Quality Measures During this hospital stay, did patient experience: None Coding Level of Care Code Acute Chg FW DC note Diagnoses Wound dehiscence T81.30XA Diffuse large B cell lymphoma C83.30 Follicular lymphoma C82.90 Abdominal pain R10.9 Chronic lymphocytic 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 C91.10 Chronic use of steroids Chronic episodic atrial fibrillation I48.20 Nausea R11.0 CHF (congestive heart failure) I50.9 C. difficile diarrhea A04.72 Leukocytosis D72.829 Acute on chronic anemia D64.9
--- NOTE | 2020-11-08 10:49 | PC.NURSE ---
Rcvd verbal order from Dr Bolton to administer 80mEq of po potassium. orders entered as requested.
[2020-11-08 11:07] LABS: Glucose Point of Care 127 mg/dL (70-110)
--- NOTE | 2020-11-08 11:13 | PC.SOCIAL ---
*IMM UPDATE* Gave patient IMM update. Provided copy of page 2. Verbalized understanding. 11/08/20 @ 0903 Initialed, dated, timed and placed in chart.
[2020-11-08] MEDS: potassium chloride oral liq 20 mEq/15 mL UDC 40 MEQ PO (11:16)
[2020-11-08] MEDS: potassium chloride ER 20 mEq Tablet 40 MEQ PO (11:16)
[2020-11-08 11:19] VITALS: BP 91/45; PULSE 82; RESP 18; TEMP 36.4; O2SAT 99
--- NOTE | 2020-11-08 12:36 | PC.NURSE ---
called report to [facility] and spoke with NOE Craig
--- NOTE | 2020-11-08 13:40 | PC.NURSE ---
Patient taken to [facility] via wheelchair by [facility] transport.
[2020-11-08 13:41] VITALS: BP 91/45; PULSE 82; RESP 18; TEMP 36.4; O2SAT 99
== END 2020-11-08 13:41 | disposition skilled nursing facility (03) | DRG 919 ==
LOC: ER 15:05 → MEDSURG 16:16
PROVIDERS: Family Medicine; Admitting Provider Student in an Organized Health Care Education/Training Program; Emergency Provider Family Medicine; PCP Nurse Practitioner Family; Visit Provider Internal Medicine
DX: T81.31XA Disruption of external operation (surgical) wound, not elsewhere classified, initial encounter (principal); I50.33 Acute on chronic diastolic (congestive) heart failure; I48.20 Chronic atrial fibrillation, unspecified; C83.33 Diffuse large B-cell lymphoma, intra-abdominal lymph nodes; C82.30 Follicular lymphoma grade IIIa, unspecified site; C91.10 Chronic lymphocytic leukemia of B-cell type not having achieved remission; A04.72 Enterocolitis due to Clostridium difficile, not specified as recurrent; D50.9 Iron deficiency anemia, unspecified; K21.9 Gastro-esophageal reflux disease without esophagitis; Z79.52 Long term (current) use of systemic steroids; J44.9 Chronic obstructive pulmonary disease, unspecified; M19.90 Unspecified osteoarthritis, unspecified site; K44.9 Diaphragmatic hernia without obstruction or gangrene; Z86.010 Personal history of colon polyps; Z86.711 Personal history of pulmonary embolism; I11.0 Hypertensive heart disease with heart failure; E03.9 Hypothyroidism, unspecified; E78.2 Mixed hyperlipidemia; M35.3 Polymyalgia rheumatica; F17.210 Nicotine dependence, cigarettes, uncomplicated; K57.30 Diverticulosis of large intestine without perforation or abscess without bleeding; N40.0 Benign prostatic hyperplasia without lower urinary tract symptoms; Z79.51 Long term (current) use of inhaled steroids; Z99.81 Dependence on supplemental oxygen; I71.4 Abdominal aortic aneurysm, without rupture
CPT/HCPCS: 36415; 36416; 71045; 74177; 80053; 81001; 82274; 82784; 82962; 83605; 83735; 83880; 84100; 85025; 85610; 86140; 87493; 87506; 92610; 93005; 94640; 96361; 96372; 96374; 96375; 97161; 97165; 97530; 99282; 99285; C9113; J1940; J2060; J2405; J2550; J2765; J3370; J3535; J7030; J7611; Q0163; Q9967

== ENCOUNTER 2020-11-20 23:04 | Inpatient (IN) | payer MEDICARE, OTHER, SELFPAY ==
[2020-11-20 23:05] VITALS: BP 106/40; PULSE 82; RESP 24; TEMP 36.7; O2SAT 99; BMI 20.7
--- NOTE | 2020-11-20 23:19 | CTR_ITS ---
PROCEDURE INFORMATION: Exam: CT Abdomen And Pelvis With Contrast Exam date and time: 11/20/2020 11:19 PM Age: 85 years old Clinical indication: Nausea and vomiting; Prior surgery; Surgery date: 6+ months; Additional info: Abdominal pain, vomiting TECHNIQUE: Imaging protocol: Computed tomography of the abdomen and pelvis with contrast. Radiation optimization: All CT scans at this facility use at least one of these dose optimization techniques: automated exposure control; mA and/or kV adjustment per patient size (includes targeted exams where dose is matched to clinical indication); or iterative reconstruction. Contrast material: OMNI 300; Contrast volume: 95 ml; Contrast route: INTRAVENOUS (IV); COMPARISON: CT abdomen pelvis w con* [id number] 11/03/2020 1:32 PM RADIATION DOSE METRICS: Total DLP (mGy-cm): 1085.48 FINDINGS: Lungs: The lung bases are clear. No effusion Pleural spaces: Small right pleural effusion with right basilar opacity which may represent atelectasis or pneumonia. Liver: There are multiple hepatic cysts, largest of which measures 2.5 cm. There is mild periportal edema which is nonspecific. Gallbladder and bile ducts: There has been a cholecystectomy. Pancreas: Normal. No ductal dilation. Spleen: Normal. No splenomegaly. Adrenal glands: Normal. No mass. Kidneys and ureters: There are multiple right renal cysts, largest measures 3.8 cm. There are multiple left renal cysts, largest measures 2 cm. Stomach and bowel: Diverticulosis without diverticulitis. Stomach is distended along with the proximal duodenum. There has been resection of a portion of the distal duodenum with a [id number] anastomosis. Bowel is decompressed distal to the anastomosis. Appendix: No evidence of appendicitis. Intraperitoneal space: Unremarkable. No free air. No significant fluid collection. 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 There is stable stable aneurysm or venous varix in the right mid abdomen which measures 3.5 cm. Lymph nodes: Unremarkable. No enlarged lymph nodes. Urinary bladder: Unremarkable as visualized. Reproductive: Unremarkable as visualized. Bones/joints: Unremarkable. No acute fracture. Soft tissues: Unremarkable. CT/CT abdomen pelvis w con* [id number] IMPRESSION: 1. Diverticulosis without diverticulitis. 2. Mild periportal edema which is nonspecific but can be seen in patients with hepatitis. 3. 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 4. Side to side anastomosis of the small bowel with dilation of the bowel proximal to the anastomosis consistent with anastomotic stricture and possibly obstruction.. 5. Small right pleural effusion with right basilar opacity which may represent atelectasis or pneumonia. COMMENTS: Consistent with the [employer]'s Incidental Findings Committee white paper (J Am Lala Radiol 2018): Any incidental renal lesion less than 1 cm or classified as too small to characterize, or any incidental cystic renal lesion characterized as simple-appearing, is likely benign. No follow-up imaging is recommended for these lesions per consensus recommendations based on imaging criteria. Radiation Dose CTDIVOL = (mGy): DLP = 1085.48 (mGy-cm)
[2020-11-20] MEDS: sodium chloride 0.9% 1,000 ML 999 ML IV (23:29)
[2020-11-20] MEDS: ondansetron 2 mg/ML SDV 2 mL 4 MG IVP (23:30)
[2020-11-20 23:33] VITALS: BP 159/80; PULSE 88; RESP 17; O2SAT 100
[2020-11-20 23:33] LABS: Basophils # 0.1 10^3/uL (0.0-0.1); Basophils % 0.2 %; Eosinophils # 0.1 10^3/uL (0.0-0.8); Eosinophils % 0.1 %; Hematocrit 27.6 % (42.0-52.0); Hemoglobin 8.1 g/dL (11.7-16.6); Lymphocytes % 90.7 %; Mean Corpuscular HGB Conc 29.3 g/dL (30.0-36.0); Mean Corpuscular Hemoglobin 26.3 pg (28.0-34.0); Mean Corpuscular Volume 89.6 fL (80-94); Mean Platelet Volume 9.8 fL (7.4-10.4); Monocytes # 0.7 10^3/uL (0.2-0.9); Monocytes % 1.1 %; Neutrophils # 4.45 10^3/uL (1.8-7.7); Neutrophils % 7.7 %; Nucleated Red Blood Cells % 0 %; Platelet Count 93 10^3/cmm (130-400); Red Blood Count 3.08 10^6/uL (4.1-5.3)
[2020-11-20 23:42] LABS: Alanine Aminotransferase < 5 U/L (0-41); Albumin Level 3.1 g/dL (3.5-5.2); Alkaline Phosphatase 81 IU/L (40-130); Anion Gap 14.1 (5-19); Aspartate Amino Transferase 10 U/L (0-40); Blood Urea Nitrogen 17 mg/dL (8-23); C Reactive Protein 47.9 mg/L (0.0-4.9); Calcium 8.1 mg/dL (8.5-10.5); Carbon Dioxide 33 mmol/L (22-29); Chloride 95 mmol/L (98-107); Glucose 149 mg/dL (65-115); Lipase 18 U/L (13-60); Osmolality Calculated 290 mOsm/kg (285-295); Potassium 4.1 mmol/L (3.5-5.1); Sodium 138 mmol/L (136-145); Total Bilirubin 0.4 mg/dL (0.15-1.2); Total Protein 5.1 g/dL (6.6-8.7)
[2020-11-20 23:51] LABS: Slide Review Slide Review Perform; White Blood Count 58.4 10^3/uL (4.0-10.0)
[2020-11-20] MEDS: haloperidol inj 5 mg/mL INJ 1 mL 2 MG IVP (23:58)
[2020-11-21] VITALS (12 sets, daily range): BP systolic 96–139; BP diastolic 60–83; PULSE 72–98; RESP 16–20; TEMP 36.5–37.2; O2SAT 93–99
[2020-11-21] MEDS: iohexol 300 mg/mL 100 mL Btl IV (00:16)
--- NOTE | 2020-11-21 00:31 | W.ED.ABDPA2 ---
HPI - Abdominal Pain General: Chief Complaint: Abdominal Pain Stated Complaint: abdominal pain/ vomiting Time Seen by Provider: 11/20/20 23:08 History of Present Illness: HPI narrative: 85-year-old male with a history of CLL, C. difficile colitis, small bowel obstruction status post surgery presents with vomiting past 24 hours or so. He notes he has vomited 4-5 times at home. He has had an increase in abdominal pressure. He denies any fever. He denies known GI bleeding. MD elicited complaint: abdominal pain Pertinent past history: other Onset (ago): hour(s) Pain Consistency: constant Location: Diffuse Severity: moderate Quality: cramping and aching Radiation: none Migration to: no migration Exacerbating factors: vomiting Relieving factors: nothing Associated Symptoms: Reports anorexia, bloating, change in stool character, diarrhea, nausea, poor appetite and vomiting; Denies coffee ground emesis, dysuria, fever(s) and hematochezia Review of Systems Const: Denies: fever(s) Eyes: Denies: change in vision ENMT: Denies: odynophagia or sinus pain Card: Denies: chest pain or palpitations Resp: Denies: dyspnea or productive cough GI: Reports: nausea, vomiting, diarrhea, bloating and change in stool character; Denies: coffee ground emesis or hematochezia : Denies: dysuria Musc: Denies: neck pain Skin/Breast: Denies: rash or erythema Neuro: Denies: headache(s) or vertigo Psych: Denies: anxiety PFSH ED PFSH: Medical History Anemia Aneurysm of infrarenal abdominal aorta Chronic episodic atrial fibrillation On sotalol Chronic GERD Chronic lymphocytic 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 Chronic use of steroids COPD (chronic obstructive pulmonary disease) Dermatomyositis Diverticulitis Generalized osteoarthritis Hiatal hernia History of adenomatous polyp of colon History of pulmonary embolism Hypertension Hypothyroidism Iron refractory iron deficiency anemia Mixed hyperlipidemia Osteopenia Polymyalgia rheumatica Recurrent intestinal obstruction Small bowel mass Statin intolerance Upper GI bleed Surgical History History of aortic aneurysm repair Status post stenting History of colonoscopy with polypectomy S/P cardiac catheterization / Cardiac ablation S/P cholecystectomy Status post right inguinal hernia repair Family History Mother Cancer Brother Hypertension Social History Smoking and tobacco status: current every day smoker cigarettes Packs smoked per day: 1 Years cigarettes smoked: 74 Quit status (tobacco): not considering quitting Second hand smoke exposure: No Smoking risk assessment/counseling performed?: Yes Alcohol intake: never Caregiver/support person: Yes Lives independently: Yes Household members: none Marital status: service: Yes Current occupational status: retired Pets and animals: No History of recent travel: No Current gender identity: Male Physical Exam Const: GENERAL APPEARANCE: cooperative, ill appearing and frail appearing; not well hydrated ORIENTATION/CONSCIOUSNESS: Yes oriented to person, Yes oriented to place and Yes oriented to time HENMT: COMMON NORMALS: normocephalic, external ears normal and Normal external nose present HEAD & SCALP: normocephalic FACE & SINUS: normal facial exam NOSE: Normal external nose present and No nasal discharge present EXTERNAL EAR: Yes external ears normal Eye: COMMON NORMALS: Equal, round and reactive pupils present, EOMs intact bilaterally and conjunctivae normal EYELID: eyelids normal CONJUNCTIVA: Yes conjunctivae normal PUPIL: Yes Equal, round and reactive pupils present Neck/C-Spine: GENERAL: No tracheal deviation Chest: COMMONS NORMALS: normal inspection of the chest CHEST: No tenderness Resp: COMMON NORMALS: clear to auscultation bilaterally EFFORT & INSPECTION: No tachypneic, No respiratory distress, No retractions, No uses accessory muscles and No tracheal deviation AUSCULTATION: clear to auscultation bilaterally, no rhonchi, no wheezes and lung sounds not diminished Cardio: COMMON NORMALS: regular rate and regular rhythm RATE: regular rate RHYTHM: regular rhythm HEART SOUNDS: no murmurs PERIPHERAL PULSES: radial pulses present GI: INSPECTION: No abdominal distension AUSCULTATION: No Hyperactive bowel sounds present and No Hypoactive bowel sounds present PALPATION: Yes Guarding due to palpation present (GI) and No Rigid due to palpation PERCUSSION: dullness to percussion and no tympanic to percussion Neuro: SENSORIUM/ORIENTATION: Yes oriented to person, Yes oriented to place and Yes oriented to time Psych: COMMON NORMALS: mental status grossly normal Skin: GENERAL SKIN EXAM: pallor Course Consultations: Consultation #1: marlene Consultation #2: [email or web address] Vital Signs: Vital signs: Vital Signs Temperature 98.0 F 11/20/20 23:05 Pulse Rate 91 11/21/20 02:23 Respiratory Rate 19 H 11/21/20 01:44 Blood Pressure 139/83 11/21/20 01:44 Pulse Oximetry 97 11/21/20 02:23 MDM - Abdominal Pain MDM Narrative: Medical decision making narrative: 85-year-old male with vomiting. He has a recent small bowel resection and reanastomosis. CT shows stricture proximal to the anastomosis with dilatation of the bowel proximal to that. There is decompression past that indicating possible obstruction. White blood cell count is 58, platelet count 93, hemoglobin 8.1. An NG tube was placed. There is 1600 mL out nearly immediately. Patient will be admitted to the floor surgery was consulted from the ER. CT scan also showed a possible infiltrate in the base of the left lung. He will be covered with antibiotics for that. Lab Data: Labs: Lab Results 11/20/20 11/20/20 Range/Units 23:17 23:17 WBC 58.4 H* (4.0-10.0) 10^3/ uL RBC 3.08 L (4.1-5.3) 10^6/u L Hgb 8.1 L (11.7-16.6) g/dL Hct 27.6 L (42.0-52.0) % MCV 89.6 (80-94) fL MCH 26.3 L (28.0-34.0) pg MCHC 29.3 L (30.0-36.0) g/dL RDW 18.0 H (12.1-15.1) % Plt Count 93 L (130-400) 10^3/c mm MPV 9.8 (7.4-10.4) fL Neut % (Auto) 7.7 % Lymph % (Auto) 90.7 % [place] % (Auto) 1.1 % Eos % (Auto) 0.1 % Baso % (Auto) 0.2 % Neut # (Auto) 4.45 (1.8-7.7) 10^3/u L Lymph # (Auto) 53.0 H (0.8-4.8) 10^3/u L [place] # (Auto) 0.7 (0.2-0.9) 10^3/u L Eos # (Auto) 0.1 (0.0-0.8) 10^3/u L Baso # (Auto) 0.1 (0.0-0.1) 10^3/u L Nucleated RBC % (a uto) 0 % Nucleated RBCs # 0.0 /100WBC Sodium 138 (136-145) mmol/L Potassium 4.1 (3.5-5.1) mmol/L Chloride 95 L (98-107) mmol/L Carbon Dioxide 33 H (22-29) mmol/L Anion Gap 14.1 (5-19) BUN 17 (8-23) mg/dL Creatinine 1.0 (0.7-1.2) mg/dL GFR Calculation Not Reportable Glucose 149 H (65-115) mg/dL Calculated Osmolal ity 290 (285-295) mOsm/k g Calcium 8.1 L (8.5-10.5) mg/dL Total Bilirubin 0.4 (0.15-1.2) mg/dL AST 10 (0-40) U/L ALT < 5 (0-41) U/L Alkaline Phosphata se 81 (40-130) IU/L C-Reactive Protein 47.9 H (0.0-4.9) mg/L Total Protein 5.1 L (6.6-8.7) g/dL Albumin 3.1 L (3.5-5.2) g/dL Globulin 2.0 (1.3-4.6) g/dL Lipase 18 (13-60) U/L Discharge Plan Discharge Patient Disposition: Admitted As Inpatient Admit Provider: Ministerio Paula Clinical Impression: Small bowel obstruction Condition: Stable Coding Level of Care Code ED Generation Technician for Chg Fwd Exam Comprehensive
[2020-11-21] MEDS: ondansetron 2 mg/ML SDV 2 mL 4 MG IVP (02:21)
[2020-11-21] MEDS: morphine 4 mg/mL SDV 1 mL IVP (02:21)
--- NOTE | 2020-11-21 02:23 | PM.HP ---
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 difficile diarrhea presented today with chief complaint of abdominal pain and recurrent vomiting. Patient is stating that his symptoms started 24 hours before his arrival in the ER, he has had 4-5 episodes of emesis at the custodial, this time he did not notice any blood in his vomitus, his last bowel movement was day before yesterday, he is denying fever, dysuria, severe abdominal pain. Diagnostics in the ER revealed severe leukocytosis, stable hemoglobin 8.1, hypokalemia with alkalosis glucose 149 , low albumin CT/CT abdomen pelvis w con* [id number] IMPRESSION: 1. Diverticulosis without diverticulitis. 2. Mild periportal edema which is nonspecific but can be seen in patients with hepatitis. 3. 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 4. Side to side anastomosis of the small bowel with dilation of the bowel proximal to the anastomosis consistent with anastomotic stricture and possibly obstruction.. 5. Small right pleural effusion with right basilar opacity which may represent atelectasis or pneumonia. Review of Systems Const: Reports: body aches, change in appetite, change in weight, fatigue, malaise and night sweats Eyes: Denies: change in vision ENMT: Denies: throat pain Card: Denies: chest pain Resp: Denies: dyspnea GI: Reports: abdominal pain, nausea, vomiting and early satiety : Denies: flank pain Musc: Denies: neck pain Skin/Breast: Reports: lesions Neuro: Denies: headache(s) Psych: Denies: anxiety Endo: Denies: polyuria Scotty/Lymph: Denies: easy bruising All/Imm: Denies: urticaria Medications/Allergies Home Medications Medication Instructions Recorded Confirmed Last Taken Type magnesium oxide 400 mg PO BID tab 06/05/19 11/03/20 10/19/20 History portable oxygen concentrator #1 ea 12/09/19 11/03/20 Unknown Rx levothyroxine 25 mcg PO DAILY 08/30/20 11/03/20 Unknown History albuterol sulfate 2.5 mg INHALATION BID PRN 10/03/20 11/03/20 Unknown History alfuzosin 10 mg PO DAILY 10/03/20 11/03/20 Unknown History fluticasone propionate [Allergy 1 - 2 spray INTRANASAL BEDTIME 10/03/20 11/03/20 10/20/20 History Relief (fluticasone)] olopatadine [Pataday Twice Daily 1 drop OPHTHALMIC (EYE) DAILY PRN 10/03/20 11/03/20 10/20/20 History Relief] prednisone 2.5 mg PO DAILY 10/03/20 11/03/20 Unknown History psyllium husk [Metamucil] 0.52 g PO DAILY 10/03/20 11/03/20 10/19/20 History sotalol 80 mg PO BID 10/03/20 11/03/20 10/03/20 History isosorbide dinitrate 30 mg PO BID 10/22/20 11/03/20 Unknown History nitroglycerin 0.4 mg SUBLINGUAL Q5M PRN 10/22/20 11/03/20 Unknown History pantoprazole 40 mg PO DAILY 10/22/20 11/03/20 10/20/20 History sucralfate [Carafate] 10 ml PO BID 10/22/20 11/03/20 Unknown History tramadol 50 mg PO TID PRN 10/22/20 11/03/20 Unknown History Stiolto Respimat 2 puff INHALATION DAILY 11/03/20 11/03/20 Unknown History acetaminophen 650 mg PO QID PRN 11/03/20 11/03/20 Unknown History furosemide 40 mg PO DAILY 11/03/20 11/03/20 Unknown History potassium chloride [Klor-Con M20] 20 meq PO DAILY #30 tab 11/08/20 Unknown Rx vancomycin 125 mg PO QID #12 ea 11/08/20 Unknown Rx Allergies Allergy/AdvReac Type Severity Reaction Status Date / Time ciprofloxacin [From Cipro] Allergy Unknown Verified 10/21/20 22:21 dabigatran etexilate Allergy Unknown Verified 10/21/20 22:21 [From Pradaxa] Penicillins Allergy Unknown Verified 10/21/20 22:21 PFSH Acute PFSH: Medical History Abdominal pain Acute on chronic anemia Anemia Aneurysm of infrarenal abdominal aorta C. difficile diarrhea CHF (congestive heart failure) Chronic episodic atrial fibrillation On sotalol Chronic GERD Chronic lymphocytic 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 Chronic use of steroids COPD (chronic obstructive pulmonary disease) Dehiscence of incision Dermatomyositis Diffuse large B cell lymphoma Diverticulitis Follicular lymphoma Generalized osteoarthritis Hiatal hernia History of adenomatous polyp of colon History of pulmonary embolism Hypertension Hypothyroidism Iron refractory iron deficiency anemia Leukocytosis Mixed hyperlipidemia Nausea Osteopenia Polymyalgia rheumatica Recurrent intestinal obstruction SBO (small bowel obstruction) Small bowel mass Statin intolerance Upper GI bleed Wound dehiscence Surgical History History of aortic aneurysm repair Status post stenting History of colonoscopy with polypectomy S/P cardiac catheterization / Cardiac ablation S/P cholecystectomy Status post right inguinal hernia repair Family History Mother Cancer Brother Hypertension Social History Smoking and tobacco status: current every day smoker cigarettes Packs smoked per day: 1 Years cigarettes smoked: 74 Quit status (tobacco): not considering quitting Second hand smoke exposure: No Smoking risk assessment/counseling performed?: Yes Alcohol intake: never Caregiver/support person: Yes Lives independently: Yes Household members: none Marital status: service: Yes Current occupational status: retired Pets and animals: No History of recent travel: No Current gender identity: Male Vitals/I&O/Wt Last Vital Signs Temp 98.0 F 11/20/20 23:05 Pulse 85 11/21/20 01:44 Resp 19 H 11/21/20 01:44 BP 139/83 11/21/20 01:44 Pulse Ox 99 11/21/20 01:44 11/20/20 11/20/20 11/21/20 14:59 22:59 06:59 Intake Total 1000 / 1000 Balance 1000 / 1000 Weight last 48 hrs Weight 59.874 kg Physical Exam Narrative: EXAM NARRATIVE: elderly male who appears stated age, malnourished, cachectic, dehydrated Awake alert very pleasant and cooperative during my evaluation, when I entered the room NG tube was being placed, in less than 5 minutes we got 2 L out, dark green bilious content no active emesis S1, S2 variable without tachyarrhythmia Blood pressure normal Surgical wound intact without any dehiscence or serous discharge, no abdominal tenderness no signs of peritonitis bowel sounds hyperactive in right lower quadrants Lower extremity multiple bruises and lacerations with petechiae No active neurological deficits No acute respiratory distress no audible stridor or wheezing Appropriate mood and affect Data : 11/20/20 23:17 11/20/20 23:17 A&P Assessment and plan (1) Small bowel obstruction: Status: Acute (2) Iron refractory iron deficiency anemia: Status: Acute Additional A&P Information Anastomosis stricture with small bowel obstruction N.p.o. NG tube placed, got 2 L of bilious content Patient does show signs of hypochloremia metabolic alkalosis we will keep him on maintenance fluid Watch for electrolyte abnormality Dr. Romero notified and consulted Aortoiliac aneurysm stable, normal hemodynamics, surgical wound intact no signs of dehiscence Mild periportal edema secondary to malignancy, no active signs of jaundice Hypothyroidism: Levothyroxine on hold A. fib without RVR: Holding sotalol, not a candidate of anticoagulating agent Severe leukocytosis without signs of hyperviscosity DVT prophylaxis: SCDs avoid anticoagulation secondary to anemia and in anticipation if he requires any intervention Goals of care discussed with the patient, he wants a trial of CPR and intubation but does not want to prolong CODE BLUE more than 10 minutes, he would like to discuss it with his brother and 2 daughters in the morning, carries guarded prognosis Attestations Medical Necessity Statement*: Anticipating stay in the hospital cross more than 2 midnights for SBO with underlying Time Spent in Patient Care: (>than 50% of time spent in counselling and/or direct pt care on unit). 30mins Coding Level of Care Code Acute Information Writer for Chg Fwd Diagnoses Small bowel obstruction K56.609 Iron refractory iron deficiency anemia D50.8
[2020-11-21] MEDS: cefTAZidime 1,000 MG in sodium chloride 0.9% (plus) 50 ML 150 MG IV (02:30)
[2020-11-21 02:41] LABS: Add Urine Microscopic? NO; Urine Color Yellow (Yellow)
[2020-11-21 02:42] LABS: Bilirubin Urine Neg (Negative); Blood Urine Neg (Negative); Charge for UA Resulting for Rev; Glucose Urine UA Norm (Normal); Ketones Urine Negative (Negative); Leukocyte Esterase Urine Negative (Negative); Nitrate Urine Negative (Negative); Protein Urine Neg (Negative); Specific Gravity, Urine 1.015 (1.005-1.030); Sulfosalicylic Acid Urine Negative (Negative); Urine Appearance Clear (CLEAR); Urobilinogen Urine Norm (Negative); pH Urine 8 (5-7)
[2020-11-21] MEDS: cetacaine Spray 5 gm Can 1 SPRAY TOPICAL (03:12)
--- NOTE | 2020-11-21 04:40 | PC.NURSE ---
Patient brought to floor from ER in personal cloths. Patient states that he prefers to wear his personal clothing and does not want to wear a gown. NG tube in place. Patient on 3L NC which is baseline. 20g IV in Left forearm. Patient was able to ambulate with assistance to bed.
--- NOTE | 2020-11-21 04:53 | PC.NURSE ---
ER Nurse reported to this nurse removed 2000ml upon insertion of NG tube.
[2020-11-21] MEDS: dextrose 5%-sod chloride 0.45% 1,000 ML 30 ML IV (05:04)
--- NOTE | 2020-11-21 06:09 | PC.NURSE ---
Medication list up to date.
--- NOTE | 2020-11-21 06:33 | PM.CONSULT ---
Providers/Reason For Consult Consulting Physician/Specialty*: Marco A Romero MD Reason for Consult*: Concern for anastomotic stricture and bowel obstruction Requesting Physician: Dr. Turner Attending Physician: Ministerio Paula MD Primary Care Provider: ATYLOR Torres History of Present Illness History of Present Illness Chief Complaint: I vomited yesterday History of present illness: Mr. Naseem Luna is a pleasant 85 year old male well-known to me from previous clinical encounters as the patient did undergo diagnostic laparoscopy with small bowel resections for 2 masses on 10/25/2020. Patient is well-known to be having chronic lymphocytic, Oxygen dependent COPD uses 3 L at home. History of abdominal aortic aneurysm stent placement in addition to chronic atrial fibrillation. Post operatively patient was discharged to the senior living and came back to the ER with concern of wound dehiscence which was managed conservatively as it was limited to the skin and subcutaneous and patient was found to have C. difficile diarrhea that was treated medically as well. Patient continues to be at the senior living and about a day or so he started to have bouts of vomiting. Without blood. Patient denies any other constitutional symptoms ultimately he was sent to the emergency department and a CT scan of the abdomen pelvis with contrast was done and showed; 1. Diverticulosis without diverticulitis. 2. Mild periportal edema which is nonspecific but can be seen in patients with hepatitis. 3. 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 4. Side to side anastomosis of the small bowel with dilation of the bowel proximal to the anastomosis consistent with anastomotic stricture and possibly obstruction.. 5. Small right pleural effusion with right basilar opacity which may represent atelectasis or pneumonia. Patient had an NG in the emergency department had about 2 L out per nurse's description Patient was admitted to the hospitalist service and General surgery was consulted for further evaluation and potential management. Review of Systems General: Reports: 10 or more systems reviewed and unremarkable except in HPI and below Meds/Allergies Home Medications and Allergies Home Medications Medication Instructions Recorded Confirmed Last Taken Type magnesium oxide 400 mg PO BID tab 06/05/19 11/21/20 11/20/20 History portable oxygen concentrator #1 ea 12/09/19 11/21/20 Unknown Rx levothyroxine 25 mcg PO DAILY 08/30/20 11/21/20 11/20/20 05:00 History albuterol sulfate 2.5 mg INHALATION BID PRN 10/03/20 11/21/20 Unknown History alfuzosin 10 mg PO DAILY 10/03/20 11/21/20 11/20/20 08:00 History fluticasone propionate [Allergy 1 - 2 spray INTRANASAL BEDTIME 10/03/20 11/21/20 10/20/20 History Relief (fluticasone)] olopatadine [Pataday Twice Daily 1 drop OPHTHALMIC (EYE) DAILY PRN 10/03/20 11/21/20 10/20/20 History Relief] prednisone 2.5 mg PO DAILY 10/03/20 11/21/20 11/20/20 08:00 History psyllium husk [Metamucil] 0.52 g PO DAILY 10/03/20 11/21/20 11/20/20 08:00 History sotalol 80 mg PO BID 10/03/20 11/21/20 11/20/20 History isosorbide dinitrate 30 mg PO BID 10/22/20 11/21/20 11/20/20 History nitroglycerin 0.4 mg SUBLINGUAL Q5M PRN 10/22/20 11/21/20 Unknown History pantoprazole 40 mg PO DAILY 10/22/20 11/21/20 11/20/20 08:00 History sucralfate [Carafate] 10 ml PO BID 10/22/20 11/21/20 11/20/20 History tramadol 50 mg PO TID PRN 10/22/20 11/21/20 Unknown History Stiolto Respimat 2 puff INHALATION DAILY 11/03/20 11/21/20 Unknown History acetaminophen 650 mg PO QID PRN 11/03/20 11/21/20 Unknown History furosemide 40 mg PO DAILY 11/03/20 11/21/20 11/20/20 09:00 History potassium chloride [Klor-Con M20] 20 meq PO DAILY #30 tab 11/08/20 11/21/20 11/20/20 08:00 Rx naloxone 0.4 mg IM PRN PRN 11/21/20 11/21/20 Unknown History Allergies Allergy/AdvReac Type Severity Reaction Status Date / Time ciprofloxacin [From Cipro] Allergy Unknown Verified 11/21/20 07:30 dabigatran etexilate Allergy Unknown Verified 11/21/20 07:30 [From Pradaxa] Penicillins Allergy Unknown Verified 11/21/20 07:30 Current Medications Current Medications Generic Name Dose Route Start Last Admin Trade Name Freq PRN Reason Stop Dose Admin Dextrose/Sodium Chloride 1,000 mls @ 30 mls/hr 11/21/20 04:29 11/21/20 05:04 Dextrose 5%-Sod Chloride 0.45% IV 30 mls/hr .Q24H ANDRES Administration PFSH Acute PFSH: Medical History (Updated 11/21/20 @ 08:18 by Teo Landry MD) Abdominal pain Acute on chronic anemia Anemia Aneurysm of infrarenal abdominal aorta C. difficile diarrhea CHF (congestive heart failure) Chronic episodic atrial fibrillation On sotalol Chronic GERD Chronic lymphocytic 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 Chronic use of steroids COPD (chronic obstructive pulmonary disease) Dehiscence of incision Dermatomyositis Diffuse large B cell lymphoma Diverticulitis Follicular lymphoma Generalized osteoarthritis Hiatal hernia History of adenomatous polyp of colon History of pulmonary embolism Hypertension Hypothyroidism Iron refractory iron deficiency anemia Leukocytosis Mixed hyperlipidemia Nausea Osteopenia Polymyalgia rheumatica Recurrent intestinal obstruction SBO (small bowel obstruction) Small bowel mass Statin intolerance Upper GI bleed Wound dehiscence Surgical History History of aortic aneurysm repair Status post stenting History of colonoscopy with polypectomy S/P cardiac catheterization / Cardiac ablation S/P cholecystectomy Status post right inguinal hernia repair Family History Mother Cancer Brother Hypertension Social History Smoking and tobacco status: current every day smoker cigarettes Packs smoked per day: 1 Years cigarettes smoked: 74 Quit status (tobacco): not considering quitting Second hand smoke exposure: No Smoking risk assessment/counseling performed?: Yes Alcohol intake: never Caregiver/support person: Yes Lives independently: Yes Household members: none Marital status: service: Yes Current occupational status: retired Pets and animals: No History of recent travel: No Current gender identity: Male Vitals/I&O/Wt Last Vital Signs Temp 97.9 F 11/21/20 05:54 Pulse 83 11/21/20 05:54 Resp 18 11/21/20 05:54 BP 114/65 11/21/20 05:54 Pulse Ox 99 11/21/20 05:54 11/20/20 11/20/20 11/21/20 14:59 22:59 06:59 Intake Total 1050 / 1050 Output Total 0 / 0 Balance 1050 / 1050 Weight last 48 hrs Weight 132 lb Physical Exam Narrative: EXAM NARRATIVE: Patient is conscious alert oriented X3 No apparent distress and NG in place with gastric content BMI 21 Head and neck examination PERRLA no masses no cervical lymphadenopathy no jaundice Cardiac examination audible S1-S2 no murmurs no gallops no arrhythmias Chest is clear bilateral,abscence of Rhonchi or wheezes,no surgical emphysema Abdomen nontender nondistended soft no organomegaly guarding or rigidity/no signs of peritonitis Incisions are well-healed A&P Assessment and plan (1) Small bowel obstruction: After thorough history physical examination and reviewing the chart and CT scan of the abdomen pelvis with my personal interpretation, I do appreciate huge load of stools in the colon and fecalization of the small bowel as I am very concerned that the patient has a lot of burden of stools that is backing him up, I am not able to see a distinct stricture lacking oral contrast but I will further review the images with our radiologist and patient would benefit from small bowel follow-through at some point for better delineation or a repeat CT scan with oral contrast. At this point I will order a milk and molasses enema to help the patient have more bowel movements as last one he had was yesterday. And continues to pass gas. NG to low intermittent suction with flushing of the NG with 50 mL of saline every 8 hours Repeated physical examination. 8:15 AM I did discuss the imaging studies with Dr. Rose radiologist, she believes that the patient has some sort of a stricture distal to the proximal [id number] small bowel anastomosis as the actual anastomosis is patent, likely the patient developed a new process of mesenteric pathology. I did discuss the case further with Dr. Conte patient's medical oncologist and he is considering chemotherapy yet he will discuss further with the patient and see what does he want to proceed with. We will continue coordinating care with Dr. Landry and update the family. Assurance and education All questions have been answered and all concerns have been addressed to patient's satisfaction. Status: Acute Consult Attestations Medical Necessity Statement: Patient requiring inpatient hospitalization passing 2 midnights for medical and surgical care Time Spent in Patient Care: (>than 50% of time spent in counselling and/or direct pt care on unit). Coding Level of Care Code Acute Shale Processing Technician for Chg Fwd Diagnoses Small bowel obstruction K56.609
--- NOTE | 2020-11-21 08:15 | PM.PN ---
Subjective Subjective: Interval history: History and physical reviewed. Patient without complaints this morning. Feels better since NG has been placed. Medications: Reviewed: Yes Vitals/I&O/Wt Last Vital Signs Temp 98.2 F 11/21/20 07:43 Pulse 98 11/21/20 07:43 Resp 18 11/21/20 07:43 BP 100/63 11/21/20 07:43 Pulse Ox 97 11/21/20 07:43 11/20/20 11/21/20 11/21/20 22:59 06:59 14:59 Intake Total 1050 / 1050 Output Total 0 / 0 Balance 1050 / 1050 Weight last 48 hrs Weight 59.874 kg Physical Exam Narrative: EXAM NARRATIVE: General exam no apparent distress Neck is supple no lymphadenopathy or thyromegaly Cardiovascular regular in rhythm with a 2/6 systolic murmur Lungs clear but with diminished breath sounds bilaterally Abdomen is soft, positive bowel sounds Extremities no cyanosis clubbing or edema. Data : 11/20/20 23:17 11/20/20 23:17 A&P Assessment and plan (1) Small bowel obstruction: Question of stricture versus obstruction on CT scan. Surgery worried about constipation as well. Continue n.p.o. status but will allow medications as surgery does not seem to be likely today. Continue NG to low intermittent suction Increase IV fluids to 75 cc an hour. 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 Continue to monitor closely. Status: Acute (3) Polymyalgia rheumatica: Increase prednisone to 5 mg daily for stress dose. Status: Acute (4) Hypothyroidism: Restart thyroid hormone. Status: Acute (5) Chronic episodic atrial fibrillation: Restart sotalol. Status: Acute (6) CHF (congestive heart failure): Compensated currently. Last echocardiogram August 2020 demonstrated EF of 50%, technically difficult study. He is chronically on Lasix at the nursing facility but this is on hold secondary to his acute illness. Monitor closely for fluid overload. Status: Acute Additional A&P Information Full code currently SCDs for DVT prophylaxis. Anticoagulation contraindicated currently secondary to severe anemia, potential for surgery. Protonix for GI prophylaxis. Attestations Medical Necessity Statement*: Needs continued hospital stay secondary to small bowel obstruction, n.p.o. currently. Coding Level of Care Code Acute Airport Maintenance Laborer for Chg Fwd Diagnoses Small bowel obstruction K56.609 Chronic lymphocytic 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 C91.10 Polymyalgia rheumatica M35.3 Hypothyroidism E03.9 Chronic episodic atrial fibrillation I48.20 CHF (congestive heart failure) I50.9
[2020-11-21] MEDS: ipratropium-albuterol 3 mL Neb INHALATION ×2 (08:38→14:21)
[2020-11-21] MEDS: sotalol 80 mg Tablet PO ×2 (11:01→19:27)
[2020-11-21] MEDS: pantoprazole 40 mg SDV IVP (11:01)
[2020-11-21] MEDS: predniSONE 5 mg Tablet PO (11:01)
[2020-11-21] MEDS: levothyroxine 25 mcg Tablet PO (11:01)
--- NOTE | 2020-11-21 12:05 | PC.CHAP ---
Pastoral Care Encounter/Spiritual Assessment Type of Contact [] Declined hand turner visit [] Patient/Family/Request visit [] Outpatient visit []x Follow-up visit [] Physician referral [] Code/Alert [] Routine visit [] Staff referral [] Actively dying [] Patient sleeping [] Family support [] [] Out of room [] Palliative care [] [] Receiving care in room [] Pre-surgical visit [] Trauma [] Long length of stay [] ICU visit [] Other: Relational/Emotional Strength [] Patient feels connected with others/family/visitors/staff [] Distress [] Loneliness/isolation [] Abandonment Spirituality of Patient [] Person of Mirtha [] Attends Pentecostalism of their Mirtha [] Believes in Prayer [] Reads Bible or Mormonism materials [] There are Spiritual issues to be addressed Customer Service Leader Interventions [] Prayer [] Active listening [] Non-anxious presence [] Spiritual/emotional support [] Crisis/trauma care [] Spiritual counseling [] Bereavement support [] Provided bereavement packet [] Provided Bible/devotional materials [] Provided toy/stuffed animal, coloring book to patient or family member [] Provided Communion [] Anointing/[place] [] Salvation [] Completed spiritual assessment [] Other: Impact on Illness or Injury [] Angry [] Fearful [] Anxious [] Often cries [] Exhaustion [] Unable to work [] Unable to attend buddhism [] Unable to walk/stand [] Unable to read [] Unable to drive [] Unable to eat/drink [] Unable to sleep [] Unable to be with family [] Patient intubated [] Other: Summary Time spent with patient
[2020-11-22] VITALS (11 sets, daily range): BP systolic 102–176; BP diastolic 61–79; PULSE 67–122; RESP 16–20; TEMP 36.4–37.6; O2SAT 90–99
[2020-11-22] MEDS: morphine 4 mg/mL SDV 1 mL 2 MG IVP ×2 (01:15→09:15)
[2020-11-22] MEDS: dextrose 5%-sod chloride 0.45% 1,000 ML 75 ML IV ×2 (01:59→16:01)
[2020-11-22] MEDS: ondansetron 2 mg/ML SDV 2 mL 4 MG IVP ×2 (05:45→11:24)
--- NOTE | 2020-11-22 06:11 | P.PN_ITS ---
Subjective Subjective: Interval history: Patient overall feels better, refused the milk and molasses enema yesterday. He is accepting it to have it administered today. Patient lets nature take its course not interested in more aggressive approaches particularly surgical intervention. Medications: Reviewed: Yes Vitals/I&O/Wt Last Vital Signs Temp 98.7 F 11/22/20 03:52 Pulse 71 11/22/20 03:52 Resp 18 11/22/20 03:52 BP 108/65 11/22/20 03:52 Pulse Ox 97 11/22/20 03:52 11/21/20 11/21/20 11/22/20 14:59 22:59 06:59 Intake Total 432 / 432 488.75 / 920.75 Output Total 500 / 500 Balance 432 / 432 -11.25 / 420.75 Weight last 48 hrs Weight 132 lb Physical Exam Narrative: EXAM NARRATIVE: Patient is conscious alert oriented X3 No apparent distress and NG in place with gastric content, 200 mL of gastric content overnight shift BMI 21 Head and neck examination PERRLA no masses no cervical lymphadenopathy no jaundice Abdomen nontender nondistended soft no organomegaly guarding or rigidity/no signs of peritonitis Incisions are well-healed Data : 11/22/20 06:15 11/22/20 06:15 A&P Assessment and plan (1) Small bowel obstruction: Continue NG to low intermittent wall suction We will continue coordinating with Dr. Conte and Dr. Landry Repeated physical exam Assurance and education All questions have been answered and all concerns have been addressed to patient's satisfaction. Status: Acute Attestations Medical Necessity Statement*: Continue inpatient hospitalization passing 2 midnights for medical and surgical care Time Spent in Patient Care: (>than 50% of time spent in counselling and/or direct pt care on unit) . Coding Level of Care Code Acute Technician Plant And Maintenance for g Fwd Diagnoses Small bowel obstruction K56.609
[2020-11-22 06:40] LABS: Eosinophils # 0.1 10^3/uL (0.0-0.8); Eosinophils % 0.1 %; Hematocrit 30.2 % (42.0-52.0); Hemoglobin 8.8 g/dL (11.7-16.6); Lymphocytes # 57.4 10^3/uL (0.8-4.8); Lymphocytes % 91.7 %; Mean Corpuscular HGB Conc 29.1 g/dL (30.0-36.0); Mean Corpuscular Hemoglobin 26.1 pg (28.0-34.0); Mean Corpuscular Volume 89.6 fL (80-94); Mean Platelet Volume 10.3 fL (7.4-10.4); Monocytes # 0.7 10^3/uL (0.2-0.9); Monocytes % 1.1 %; Neutrophils # 4.32 10^3/uL (1.8-7.7); Neutrophils % 6.9 %; Nucleated Red Blood Cells % 0 %; Platelet Count 98 10^3/cmm (130-400); Red Blood Count 3.37 10^6/uL (4.1-5.3)
[2020-11-22 07:06] LABS: Alanine Aminotransferase < 5 U/L (0-41); Albumin Level 2.9 g/dL (3.5-5.2); Alkaline Phosphatase 74 IU/L (40-130); Aspartate Amino Transferase 13 U/L (0-40); Blood Urea Nitrogen 17 mg/dL (8-23); Calcium 7.6 mg/dL (8.5-10.5); Carbon Dioxide 33 mmol/L (22-29); Chloride 98 mmol/L (98-107); Globulin 1.8 g/dL (1.3-4.6); Glucose 121 mg/dL (65-115); Osmolality Calculated 287 mOsm/kg (285-295); Sodium 137 mmol/L (136-145); Total Bilirubin 0.4 mg/dL (0.15-1.2); Total Protein 4.7 g/dL (6.6-8.7)
[2020-11-22 07:08] LABS: Anion Gap 10.2 (5-19); Potassium 4.2 mmol/L (3.5-5.1)
[2020-11-22 07:17] LABS: Slide Review Slide Review Perform
[2020-11-22 07:25] LABS: White Blood Count 62.6 10^3/uL (4.0-10.0)
--- NOTE | 2020-11-22 10:14 | PM.PN ---
Subjective Subjective: Interval history: Naseem reports his abdomen does not hurt. He has not passed any gas. He does report he burps on occasion. He is not hungry. Medications: Reviewed: Yes Vitals/I&O/Wt Last Vital Signs Temp 99.1 F 11/22/20 07:21 Pulse 75 11/22/20 08:43 Resp 18 11/22/20 09:15 BP 115/67 11/22/20 07:21 Pulse Ox 95 11/22/20 08:43 11/21/20 11/22/20 11/22/20 22:59 06:59 14:59 Intake Total 432 / 432 488.75 / 920.75 Output Total 500 / 500 Balance 432 / 432 -11.25 / 420.75 Weight last 48 hrs Weight 59.874 kg Physical Exam Narrative: EXAM NARRATIVE: General exam no apparent distress. NG is noted. Neck is supple no lymphadenopathy or thyromegaly Cardiovascular regular in rhythm with a 2/6 systolic murmur Lungs clear but with diminished breath sounds bilaterally Abdomen is soft, positive bowel sounds Extremities no cyanosis clubbing or edema. Data : 11/22/20 06:15 11/22/20 06:15 A&P Assessment and plan (1) Small bowel obstruction: Question of stricture versus obstruction on CT scan. Surgery worried about constipation as well. Continue NG to low intermittent suction, patient n.p.o. Continue IV fluids to 75 cc an hour. Surgery administering bowel regimen Pathology from recent previous surgery demonstrated lymphoma, B-cell. May be a candidate for hospice/end-of-life care depending upon desires of patient and family. I discussed this briefly with them today but it will be revisited by their oncologist later today. Hold off on repeat laboratory tomorrow, in case patient and family elect for hospice evaluation and care. If they do not, laboratory can be ordered tomorrow morning. 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 Continue to monitor closely. Status: Acute (3) Polymyalgia rheumatica: Increase prednisone to 5 mg daily for stress dose. Status: Acute (4) Hypothyroidism: Continue thyroid hormone. Status: Acute (5) Chronic episodic atrial fibrillation: Continue sotalol. Rate is controlled Status: Acute (6) CHF (congestive heart failure): Compensated currently. Last echocardiogram August 2020 demonstrated EF of 50%, technically difficult study. He is chronically on Lasix at the nursing facility but this is on hold secondary to his acute illness. Monitor closely for fluid overload. Status: Acute Additional A&P Information ContinueFull code currently. However, patient is contemplating hospice considering his current situation. His oncologist is going to visit with him about this as well. SCDs for DVT prophylaxis. Anticoagulation contraindicated currently secondary to severe anemia, potential for surgery. Protonix for GI prophylaxis. Attestations Medical Necessity Statement*: Needs continued hospitalization, secondary to bowel obstruction requiring NG placement in this patient with CLL and history of small bowel lymphoma. Coding Level of Care Code Acute Retail Management Keyholder for Chg Fwd Diagnoses Small bowel obstruction K56.609 Chronic lymphocytic 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 C91.10 Polymyalgia rheumatica M35.3 Hypothyroidism E03.9 Chronic episodic atrial fibrillation I48.20 CHF (congestive heart failure) I50.9
--- NOTE | 2020-11-22 10:33 | PC.CHAP ---
Pastoral Care Encounter/Spiritual Assessment Type of Contact [] Declined instructional design technologist visit [] Patient/Family/Request visit [] Outpatient visit [] Follow-up visit [] Physician referral [] Code/Alert [x] Routine visit [] Staff referral [] Actively dying [] Patient sleeping [] Family support [] [] Out of room [] Palliative care [] [] Receiving care in room [] Pre-surgical visit [] Trauma [] Long length of stay [] ICU visit [] Other: Relational/Emotional Strength [x] Patient feels connected with others/family/visitors/staff [] Distress [] Loneliness/isolation [] Abandonment Spirituality of Patient [x] Person of Mirtha [] Attends Faith of their Mirtha [x] Believes in Prayer [] Reads Bible or Islam materials [] There are Spiritual issues to be addressed Business Banker Interventions [x] Prayer [x] Active listening [x] Non-anxious presence [x] Spiritual/emotional support [] Crisis/trauma care [] Spiritual counseling [] Bereavement support [] Provided bereavement packet [] Provided Bible/devotional materials [] Provided toy/stuffed animal, coloring book to patient or family member [] Provided Communion [] Anointing/[place] [] Salvation [x] Completed spiritual assessment [] Other: Impact on Illness or Injury [] Angry [] Fearful [] Anxious [] Often cries [] Exhaustion [] Unable to work [] Unable to attend mu-ism [] Unable to walk/stand [] Unable to read [] Unable to drive [] Unable to eat/drink [] Unable to sleep [] Unable to be with family [] Patient intubated [] Other: Summary Time spent with patient 10 min
[2020-11-22] MEDS: sotalol 80 mg Tablet PO ×2 (11:18→18:20)
[2020-11-22] MEDS: predniSONE 5 mg Tablet PO (11:18)
[2020-11-22] MEDS: pantoprazole 40 mg SDV IVP (11:18)
[2020-11-22] MEDS: levothyroxine 25 mcg Tablet PO (11:18)
[2020-11-22] MEDS: LORazepam 2 mg/mL INJ 1 mL 0.5 MG IVP ×2 (14:05→21:39)
[2020-11-23] VITALS (9 sets, daily range): BP systolic 95–113; BP diastolic 50–65; PULSE 71–91; RESP 16–20; TEMP 36.6–36.9; O2SAT 92–100
[2020-11-23] MEDS: morphine 4 mg/mL SDV 1 mL 2 MG IVP ×2 (00:38→13:57)
[2020-11-23] MEDS: LORazepam 2 mg/mL INJ 1 mL 0.5 MG IVP ×4 (03:49→22:17)
[2020-11-23] MEDS: dextrose 5%-sod chloride 0.45% 1,000 ML 75 ML IV ×2 (05:25→18:06)
--- NOTE | 2020-11-23 05:46 | PC.NURSE ---
rested well this shift, requested and received ativan, ng tube suction output brown, patient been very pleasant
[2020-11-23] MEDS: levothyroxine 25 mcg Tablet PO (09:23)
[2020-11-23] MEDS: sotalol 80 mg Tablet PO (09:23)
[2020-11-23] MEDS: predniSONE 5 mg Tablet PO (09:23)
[2020-11-23] MEDS: pantoprazole 40 mg SDV IVP (09:23)
--- NOTE | 2020-11-23 12:45 | P.DS_ITS ---
Discharge Providers Date of Admission: 11/21/20 02:27 Date of Discharge: November 23, 2020 Attending Provider at Admission: Ministerio Paula MD Attending Provider at Discharge: Teo Landry MD Primary Care Provider: TAYLOR Torres Diagnoses at Discharge Discharge Diagnosis (1) Small bowel obstruction: Status: Acute (2) Chronic lymphocytic 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: Status: Acute (3) Polymyalgia rheumatica: Status: Acute (4) Hypothyroidism: Status: Acute (5) Chronic episodic atrial fibrillation: Status: Acute Permanent problem details: On sotalol (6) CHF (congestive heart failure): Status: Acute Reason for Visit Reason for Visit: abdominal pain/ vomiting Hospital Course Hospital Course Naseem is an 85-year-old white male who presented i to the hospital with vomiti ng. CT scan suggested recurrence of narrowing in his small bowel. He was previously diagnosed with B-cell lymphoma, and has underlying CLL. He was placed in the hospital with NG to low intermittent suction, and hydrated. Surgery evaluated the patient, his oncologist reviewed the films and had discussions with the patient, and I myself interviewed the patient. It was unlikely that further treatment or chemotherapy would alter the course of his disease, and he elected for hospice at home. This was arranged on November 23, so he could transition home to be with friends and relatives during this difficult time. He will have Roxanol as needed as needed for pain or air hunger, Ativan for agitation or anxiety, and Zofran as needed for nausea. I have been in discussions with the patient that he is unlikely to be able to eat or drink secondary to his bowel obstruction as this may only generate vomiting. Physical Exam Narrative: EXAM NARRATIVE: General exam is a white male, eager to get home. Cardiovascular regular rate and rhythm without murmur Lungs clear Abdomen is soft, with slight distention Extremities no cyanosis clubbing or edema Discharge Data Data Completed and Pending: Completed Studies During Hospitalization Category Date Time Status CT abdomen pelvis w con* [id number] Urge nt Cat Scan 11/20/20 23:19 Completed Vitals: Last Vital Signs Temp 97.9 F 11/23/20 08:00 Pulse 75 11/23/20 08:00 Resp 18 11/23/20 08:00 BP 102/58 11/23/20 08:00 Pulse Ox 96 11/23/20 08:00 Discharge Plan Discharge Patient Disposition: Hospice - Home Condition: Stable Prescriptions: New morphine concentrate 100 mg/5 mL (20 mg/mL) solution 10 mg sublingual Q2H PRN (Reason: pain) Qty: 30 RF: 0 Ativan 2 mg/mL solution 1 mg sublingual Q4H PRN (Reason: anxiety) Qty: 10 RF: 0 ondansetron 4 mg tablet,disintegrating 4 mg PO Q8H PRN (Reason: nausea and vomiting) Qty: 20 RF: 0 Continued (DME) portable oxygen concentrator See Rx Instructions .Route .MEDSUPPLY Qty: 1 RF: 0 Stiolto Respimat 2.5-2.5 mcg/actuation Mist 2 puff INHALATION DAILY RF: 0 acetaminophen 325 mg Tablet 650 mg PO QID PRN (Reason: Pain) RF: 0 albuterol sulfate 2.5 mg /3 mL (0.083 %) solution for nebulization 2.5 mg inhalation BID PRN (Reason: Shortness Of Breath) RF: 0 olopatadine [Pataday Twice Daily Relief] 0.1 % drops 1 drop ophthalmic (eye) DAILY PRN (Reason: unknown) RF: 0 fluticasone propionate [Allergy Relief (fluticasone)] 50 mcg/actuation spray,suspension 1 - 2 spray INTRANASAL BEDTIME RF: 0 nitroglycerin 0.4 mg tablet, sublingual 0.4 mg sublingual Q5M PRN (Reason: Chest Pain) RF: 0 Discontinued magnesium oxide 400 mg magnesium tablet 400 mg PO BID RF: 0 furosemide 40 mg tablet 40 mg PO DAILY RF: 0 potassium chloride [Klor-Con M20] 20 mEq tablet,ER particles/crystals 20 meq PO DAILY Qty: 30 RF: 3 levothyroxine 25 mcg Tablet 25 mcg PO DAILY RF: 0 sotalol 80 mg tablet 80 mg PO BID RF: 0 prednisone 2.5 mg tablet 2.5 mg PO DAILY RF: 0 psyllium husk [Metamucil] 0.52 gram capsule 0.52 g PO DAILY RF: 0 alfuzosin 10 mg tablet extended release 24 hr 10 mg PO DAILY RF: 0 sucralfate [Carafate] 100 mg/mL suspension 10 ml PO BID RF: 0 tramadol 50 mg tablet 50 mg PO TID PRN (Reason: Pain) RF: 0 isosorbide dinitrate 30 mg tablet 30 mg PO BID RF: 0 pantoprazole 40 mg tablet,delayed release (DR/EC) 40 mg PO DAILY RF: 0 naloxone 0.4 mg/mL Solution 0.4 mg IM PRN PRN (Reason: Opiate Reversal) RF: 0 Discharge Orders: Discharge Order (Routine); Ordered 11/23/20 Ordered By: Teo Landry Activity Restrictions/Additional Instructions: Hospice at home. Diet may not be tolerated secondary to GI obstruction. Discharge Attestations Time Spent in Discharge Care*: greater than 30 min Status at Discharge: Cognitive status at discharge: cognitively intact , Behavioral status at discharge: cooperative , Quality Metrics Clinical Quality Measures During this hospital stay, did patient experience: None Coding Level of Care Code Acute Chg FW DC note Diagnoses Small bowel obstruction K56.609 Chronic lymphocytic 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 C91.10 Polymyalgia rheumatica M35.3 Hypothyroidism E03.9 Chronic episodic atrial fibrillation I48.20 CHF (congestive heart failure) I50.9
[2020-11-23] MEDS: ipratropium-albuterol 3 mL Neb INHALATION (21:43)
[2020-11-23] MEDS: trazodone 100 mg Tablet PO (22:26)
[2020-11-24] VITALS: BP 105/62; PULSE 92; RESP 16; TEMP 36.8; O2SAT 96
[2020-11-24] MEDS: LORazepam 2 mg/mL INJ 1 mL 0.5 MG IVP (02:31)
--- NOTE | 2020-11-24 03:07 | PC.NURSE ---
pt pulled out NG tube
[2020-11-24 03:30] VITALS: BP 110/65; PULSE 86; RESP 16; TEMP 36.8; O2SAT 95
[2020-11-24 07:35] VITALS: BP 112/70; PULSE 99; RESP 18; TEMP 36; O2SAT 97
[2020-11-24] MEDS: predniSONE 5 mg Tablet PO (09:17)
[2020-11-24] MEDS: levothyroxine 25 mcg Tablet PO (09:17)
[2020-11-24] MEDS: sotalol 80 mg Tablet PO (09:17)
--- NOTE | 2020-11-24 11:59 | PC.SOCIAL ---
*IMM UPDATED* Gave patient IMM update, provided copy of page 2 of IMM. 11/24/20 @ 1024 Initialed, dated, timed and placed in chart.
--- NOTE | 2020-11-24 12:16 | PC.NURSE ---
ng tube pt stated he wanted the NG tube replaced after talking with his brother that was in the room. [id number] in right nare auscultated after air bolus heard in stomach.
[2020-11-24 12:19] VITALS: BP 112/70; PULSE 99; RESP 18; TEMP 36; O2SAT 97
== END 2020-11-24 12:20 | disposition hospice, home (50) | DRG 389 ==
LOC: ER 23:13 → MEDSURG 11-21 02:40
PROVIDERS: Admitting Provider Internal Medicine; Emergency Provider Emergency Medicine; PCP Nurse Practitioner Family; Visit Provider Internal Medicine
DX: K56.609 Unspecified intestinal obstruction, unspecified as to partial versus complete obstruction (principal); C91.10 Chronic lymphocytic leukemia of B-cell type not having achieved remission; I48.20 Chronic atrial fibrillation, unspecified; C82.93 Follicular lymphoma, unspecified, intra-abdominal lymph nodes; E87.3 Alkalosis; K63.89 Other specified diseases of intestine; Z99.81 Dependence on supplemental oxygen; J44.9 Chronic obstructive pulmonary disease, unspecified; I71.4 Abdominal aortic aneurysm, without rupture; Z90.49 Acquired absence of other specified parts of digestive tract; D50.9 Iron deficiency anemia, unspecified; I11.0 Hypertensive heart disease with heart failure; I50.9 Heart failure, unspecified; K21.9 Gastro-esophageal reflux disease without esophagitis; K44.9 Diaphragmatic hernia without obstruction or gangrene; Z86.711 Personal history of pulmonary embolism; E03.9 Hypothyroidism, unspecified; E78.2 Mixed hyperlipidemia; M35.3 Polymyalgia rheumatica; F17.210 Nicotine dependence, cigarettes, uncomplicated; Z79.51 Long term (current) use of inhaled steroids; D69.6 Thrombocytopenia, unspecified; K57.90 Diverticulosis of intestine, part unspecified, without perforation or abscess without bleeding
CPT/HCPCS: 36415; 74177; 80053; 81003; 83690; 85025; 86140; 94640; 96365; 96375; 96376; 99291; C9113; J0713; J1630; J2060; J2270; J2405; J7030; J7512; J7799; Q9967

== ENCOUNTER 2020-11-28 04:59 | Emergency (ER) | payer MEDICARE, OTHER, SELFPAY ==
--- NOTE | 2020-11-28 03:22 | XRR_ITS ---
PROCEDURE INFORMATION: Exam: XR Chest Exam date and time: 11/28/2020 3:22 AM Age: 85 years old Clinical indication: Device placement; Ng tube; Additional info: Ng tube placement TECHNIQUE: Imaging protocol: XR of the chest. Views: 1 view. COMPARISON: CR XR chest 1V portable [id number] 11/03/2020 5:20 PM FINDINGS: Tubes, catheters and devices: Enteric tube tip projects over the stomach bubble in the left upper quadrant. Lungs: Patchy bibasilar atelectasis or other infiltrates. Pleural spaces: Unremarkable. No pleural effusion. No pneumothorax. Heart/Mediastinum: No cardiomegaly. Bones/joints: No acute fracture. XR/XR chest 1V portable [id number] IMPRESSION: Enteric tube tip projects over the stomach bubble in the left upper quadrant.
[2020-11-28 05:02] VITALS: BP 96/54; PULSE 76; RESP 16; TEMP 36.4; O2SAT 94; BMI 18.8
[2020-11-28 05:07] VITALS: BP 96/55; PULSE 98; RESP 17; O2SAT 94
[2020-11-28] MEDS: cetacaine Spray 5 gm Can 1 SPRAY TOPICAL (05:40)
[2020-11-28 06:23] VITALS: BP 125/72; PULSE 112; RESP 18; O2SAT 93
--- NOTE | 2020-11-28 09:13 | ED_ITS ---
HPI - General Adult General: Chief complaint: General Medical Stated complaint: PULLED OUT NG TUBE Time Seen by Provider: 11/28/20 05:10 History of Present Illness: HPI narrative: 85-year-old male hospice patient presents after accidentally pulling out his nasogastric tube. He is here for replacement. Onset (ago): hour(s) Radiation: non-radiation Relieving factors: none Associated symptoms: Reports decreased appetite and fevers/chills; Deny dyspnea or vomiting Review of Systems Const: Denies: fever(s) Resp: Denies: dyspnea GI: Denies: vomiting PFSH ED PFSH: Medical History (Updated 11/28/20 @ 06:15 by James Turner DO) Abdominal pain Acute on chronic anemia Anemia Aneurysm of infrarenal abdominal aorta C. difficile diarrhea CHF (congestive heart failure) Chronic episodic atrial fibrillation On sotalol Chronic GERD Chronic lymphocytic 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 Chronic use of steroids COPD (chronic obstructive pulmonary disease) Dehiscence of incision Dermatomyositis Diffuse large B cell lymphoma Diverticulitis Follicular lymphoma Generalized osteoarthritis Hiatal hernia History of adenomatous polyp of colon History of pulmonary embolism Hypertension Hypothyroidism Iron refractory iron deficiency anemia Leukocytosis Mixed hyperlipidemia Nausea Osteopenia Polymyalgia rheumatica Recurrent intestinal obstruction SBO (small bowel obstruction) Small bowel mass Statin intolerance Upper GI bleed Wound dehiscence Surgical History History of aortic aneurysm repair Status post stenting History of colonoscopy with polypectomy S/P cardiac catheterization / Cardiac ablation S/P cholecystectomy Status post right inguinal hernia repair Family History Mother Cancer Brother Hypertension Social History Smoking and tobacco status: current every day smoker cigarettes Packs smoked per day: 1 Years cigarettes smoked: 74 Quit status (tobacco): not considering quitting Second hand smoke exposure: No Smoking risk assessment/counseling performed?: Yes Alcohol intake: never Caregiver/support person: Yes Lives independently: Yes Household members: none Marital status: service: Yes Current occupational status: retired Pets and animals: No History of recent travel: No Current gender identity: Male Physical Exam Const: COMMON NORMALS: no acute distress GENERAL APPEARANCE: cooperative Chest: COMMONS NORMALS: normal inspection of the chest Resp: COMMON NORMALS: normal respiratory effort, No retractions and No use of accessory muscles GI: COMMON NORMALS: Soft to palpation PALPATION: Yes Soft to palpation, No Tenderness to palpation present (GI) and Yes Palpable mass present (Left midabdomen) Neuro: CRANIAL NERVES: Yes CN normal except as noted Course Vital Signs: Vital signs: Vital Signs Temperature 97.6 F 11/28/20 05:02 Pulse Rate 112 H 11/28/20 06:23 Respiratory Rate 18 11/28/20 06:23 Blood Pressure 125/72 11/28/20 06:23 Pulse Oximetry 93 11/28/20 06:23 MDM - General Adult MDM Narrative: Medical decision making narrative: NG tube replaced. No complications. Discharge Plan Discharge Patient Disposition: Home Clinical Impression: Nasogastric tube removed by patient, Encounter for nasogastric (NG) tube placement Condition: Stable Prescriptions: No Action (DME) portable oxygen concentrator See Rx Instructions .Route .MEDSUPPLY Qty: 1 RF: 0 Stiolto Respimat 2.5-2.5 mcg/actuation Mist 2 puff INHALATION DAILY RF: 0 acetaminophen 325 mg Tablet 650 mg PO QID PRN (Reason: Pain) RF: 0 albuterol sulfate 2.5 mg /3 mL (0.083 %) solution for nebulization 2.5 mg inhalation BID PRN (Reason: Shortness Of Breath) RF: 0 olopatadine [Pataday Twice Daily Relief] 0.1 % drops 1 drop ophthalmic (eye) DAILY PRN (Reason: unknown) RF: 0 fluticasone propionate [Allergy Relief (fluticasone)] 50 mcg/actuation spray,suspension 1 - 2 spray INTRANASAL BEDTIME RF: 0 nitroglycerin 0.4 mg tablet, sublingual 0.4 mg sublingual Q5M PRN (Reason: Chest Pain) RF: 0 morphine concentrate 100 mg/5 mL (20 mg/mL) solution 10 mg sublingual Q2H PRN (Reason: pain) Qty: 30 RF: 0 Ativan 2 mg/mL solution 1 mg sublingual Q4H PRN (Reason: anxiety) Qty: 10 RF: 0 ondansetron 4 mg tablet,disintegrating 4 mg PO Q8H PRN (Reason: nausea and vomiting) Qty: 20 RF: 0 Discharge Orders: Discharge ED (Routine); Ordered 11/28/20 Ordered By: James Turner Referrals: Karne Song FNP [Nurse Practitioner] - Activity Restrictions/Additional Instructions: Return for any concerns. Coding Level of Care Code ED Principal Administrative Clerk for Joseph Fu
== END 2020-11-28 06:23 | disposition home or self-care (01) ==
PROVIDERS: Emergency Provider Emergency Medicine; PCP Family Medicine
DX: Z43.1 Encounter for attention to gastrostomy (principal); I11.0 Hypertensive heart disease with heart failure; I50.9 Heart failure, unspecified; Z85.6 Personal history of leukemia; J44.9 Chronic obstructive pulmonary disease, unspecified; Z86.711 Personal history of pulmonary embolism; E78.2 Mixed hyperlipidemia; F17.210 Nicotine dependence, cigarettes, uncomplicated
CPT/HCPCS: 71045; 99283